=== PATIENT | male | born 1945 | race Caucasian/White ===

== ENCOUNTER 2017-12-25 14:06 | Emergency (ER) | payer MEDICARE, OTHER, SELFPAY ==
[2017-12-25 14:07] VITALS: BP 155/84; PULSE 77; RESP 18; TEMP 36.8; O2SAT 96; BMI 31.4
--- NOTE | 2017-12-25 14:32 | CT_ITS ---
STUDY: CT ABDOMEN AND PELVIS WITHOUT CONTRAST REASON FOR EXAM: Male, 72 years old. Right flank pain. History of kidney stones. RADIATION DOSAGE (If Supplied By Facility): CTDIvol = ( 17.67 ) mGy, DLP = ( 931.49 ) mGycm TECHNIQUE: Transaxial images were obtained from the dome of the diaphragm to the symphysis pubis without oral contrast, and without intravenous contrast. Sagittal and coronal images were reconstructed. Individualized dose optimization techniques were used for this CT. COMPARISON: None. FINDINGS: The visualized lung bases are unremarkable. The visualized portions of the heart are within normal limits. Normal liver. Normal gallbladder and extrahepatic biliary system. Normal spleen. Normal pancreas. Normal bilateral adrenal glands. Mild degree of right hydronephrosis. Right hydroureter due to a 3 mm calculus in the distal portion of the right ureter just proximal to the ureterovesical junction. Normal left kidney. There is a small hiatal hernia. Normal small intestine. There are multiple colonic diverticula consistent with diverticulosis. The appendix is visualized and appears normal. There is diffuse atherosclerotic calcification of the abdominal aorta, without a demonstrated aneurysm. Normal inferior vena cava. Normal retroperitoneum. Normal urinary bladder. There are prostatic calcifications. Small bilateral benign-appearing inguinal lymph nodes. Normal abdominal wall. Disc space narrowing and disc degeneration at the L5-S1 level. CT/Abdomen/Pelvis without Cont IMPRESSION: Right hydronephrosis and hydroureter due to a 3 mm calculus in the distal portion of the right ureter just proximal to the ureterovesical junction. Sigmoid diverticulosis. Electronically Signed: Ramiro Yip MD at 15:29 EDT Tel [phone], Service support ,
[2017-12-25] MEDS: Ondansetron 4 MG/2 ML Vial IV (14:44)
[2017-12-25] MEDS: morphine 8 MG/ML Syringe 6 MG IV (14:44)
[2017-12-25 14:48] LABS: Absolute Lymphocyte Count 1.55 X10^3/ul (0.83-4.51); Absolute Neutrophil Count 5.5 X10^3/uL (2.0-7.7); Basophil# 0.04 X10^3/uL; Basophil% 0.5 % (0-1); Eosinophil# 0.18 X10^3/uL; Eosinophils% 2.3 % (0-5); Hematocrit 48.2 % (40-54); Hemoglobin 17.3 g/dl (13.0-16.5); Lymphocyte # 1.55 X10^3/ul (4.0); Lymphocyte % 19.5 % (19-41); Mean Corp Hgb Conc 35.9 g/gl (32-36); Mean Corpuscular Hgb 34.2 pg (27.0-32.0); Mean Corpuscular Volume 95.3 fL (80-94); Mean Platelet Vol. 9.9 fl (6.2-12.0); Monocyte# 0.63 X10^3/uL; Monocyte% 7.9 % (0-10); Neutrophil # 5.53 X10^3/uL (2.7-7.7); Neutrophil % 69.5 % (47-70); POSITIVE COUNT NO; POSITIVE DIFFERENTIAL NO; POSITIVE MORPHOLOGY NO; Platelet Count 149 K/mm3 (150-450); RBC Distribution Width CV 12.9 % (11.6-14.6); RBC Distribution Width SD 45.2 fl (35.1-43.9); Red Blood Count 5.06 M/mm3 (4.6-6.2)
[2017-12-25 15:00] LABS: BUN 15 mg/dL (7-18); Creatinine, Serum 1.12 mg/dL (0.70-1.30); EST Glomerular Filtration Rate 69 mL/min (>60); Estimated Creatinine Clearance 70.33 ml/min; Glucose 142 mg/dL (74-106)
[2017-12-25 15:01] LABS: Anion Gap 8 (5-15); BUN/Creat Ratio 13.4 RATIO (10-20); Calcium,Total 9.3 mg/dL (8.5-10.1); Chloride 106 mmol/L (98-107); Est Glom Filt Rate - Afr Amer 83 mL/min (>60); Potassium 4.2 mmol/L (3.5-5.1); Sodium Level 142 mmol/L (136-145)
[2017-12-25 15:21] LABS: Mucous, Urine 0 SEEN /hpf (<or=2+)
[2017-12-25 15:24] LABS: Color, Urine Yellow (Yellow); Glucose, Dipstick Normal (Normal); Ketone-Dipstick Negative (Negative); Leukocyte Esterase-Dipstick 25 /ul (Negative); Nitrite-Dipstick Negative (Negative); Occult Blood-Urine 250 /ul (Negative); Protein-Dipstick 30 mg/dl (Negative); Urine Bilirubin Dipstick Negative (Negative); Urine Clarity Sl. Cloudy (Clear); Urine Urobilinogen Normal (Normal)
[2017-12-25 15:30] LABS: Bacteria 1+ /hpf (None Seen); Red Blood Cells-Urine 25-50 SEEN /hpf (0-5); Squamous Epithelial Cells - UA 0-5 SEEN /hpf (0-5); White Blood Cells 0-5 SEEN /hpf (0-5)
--- NOTE | 2017-12-25 15:46 | ED.VISSUMM ---
- ER Visit Summary Date of Service: 12/25/17 Chief Complaint: Right flank pain History of Present Illness: The patient is a 72 M history of prior multiple kidney stones. Some of them removed surgically there is with lithotripsy. Patient states the last couple of days has had right flank pain. Associated nausea. No vomiting or diarrhea. Today gross hematuria. No fever. No trauma. He believes he has another kidney stone. Physical Examination: Appearing older male. Vital signs are stable and afebrile. HEENT exam unremarkable. Neck is nontender. Lungs clear to auscultation bilaterally. Heart regular rate and rhythm. Abdomen soft and nontender. Normal bowel sounds no peritoneal signs. No pulsatile masses. Moving all 4 extremities. Without edema. Back exam he complains of pain in the right flank but there is no reproducible flank pain. Neurologically is awake and alert without focal motor deficits. Test Results: UA shows 25-50 red cells. No infection. No nitrites. No white cells. CBC normal. BMP normal. Gap of 8. Creatinine 1.1. CT flank without contrast shows a distal third 3 mm right ureteral calculi just above the UVJ. With hydronephrosis and hydroureter. Consistent with an acute ureteral calculi. Emergency Department Course and Treatment: Her male with right flank pain consistent with a kidney stone. Treated with IV morphine and Zofran. Treatment Plan: On repeat exam he is doing very well at 1643. He states he does not need any further pain medication at this time. It will be written for [place] for pain at home. Also Flomax. Strain his urine for stone. He has an appointment to see Dr. Soni tomorrow. Disposition: dc Impression: Acute right flank pain secondary to 3 mm right distal ureteral calculi History of kidney stones This note was generated with [employer] dictation software. It may contain incorrect words, spelling, and punctuation that were not noted in review of the chart prior to signing ED Disposition - Plan for ED Patient: Chief Complaint: Flank Pain Referrals: Eric Smith Chi, MD [Primary Care Provider] -
--- NOTE | 2017-12-25 15:49 | ED.DEP ---
ED Disposition - Plan for ED Patient: Disposition: Home or Assisted Living Chief Complaint: Flank Pain Instructions: ED Stone Renal W Colic Prescriptions: Hydrocodone Bitart/Apap 5-325 [[place] 5MG-325MG] 1 - 2 tab PO Q4H PRN PRN #20 tab PRN Reason: Pain Tamsulosin HCl [Flomax] 0.4 mg PO DAILY #7 cap Referrals: Sergio Soni MD [STAFF PHYSICIAN] - Keep Lona appointment Additional Instructions: Urine for passed stone. [place] for pain. Flomax to help pass the stone. Return if intractable pain, fever, intractable vomiting or feeling worse. Follow up with your urologist as scheduled tomorrow.
--- NOTE | 2017-12-25 15:52 | DCINST.ED_ITS ---
ED Disposition - Plan for ED Patient: Disposition: Home or Assisted Living Chief Complaint: Flank Pain Instructions: ED Stone Renal W Colic Prescriptions: Hydrocodone Bitart/Apap 5-325 [[place] 5MG-325MG] 1 - 2 tab PO Q4H PRN PRN #20 tab PRN Reason: Pain Tamsulosin HCl [Flomax] 0.4 mg PO DAILY #7 cap Referrals: Sergio Soni MD [STAFF PHYSICIAN] - Keep Lona appointment Additional Instructions: Urine for passed stone. [place] for pain. Flomax to help pass the stone. Return if intractable pain, fever, intractable vomiting or feeling worse. Follow up with your urologist as scheduled tomorrow.
[2017-12-25 16:08] VITALS: BP 140/81; PULSE 59; RESP 16; O2SAT 95
== END 2017-12-25 16:09 | disposition home or self-care (01) ==
PROVIDERS: Emergency Provider Emergency Medicine; Family Provider Family Medicine Geriatric Medicine; PCP Family Medicine Geriatric Medicine
DX: N20.1 Calculus of ureter (principal); Z87.442 Personal history of urinary calculi; N13.30 Unspecified hydronephrosis; Z85.828 Personal history of other malignant neoplasm of skin
CPT/HCPCS: 74176; 80048; 81001; 85025; 96374; 96375; 99283; J7030; J2405

== ENCOUNTER → 2018-01-26 08:27 | Outpatient (CLI) | payer MEDICARE, OTHER, SELFPAY ==
[2018-01-26 10:34] LABS: Vitamin D,25 Hydroxy 27.8 ng/mL (29.95-100.01)
[2018-01-26 10:36] LABS: PSA,Total - Annual Screen 2.37 ng/mL (0.00-4.00)
[2018-01-27 09:26] LABS: Hep C Antibodies <0.1 s/co ratio (0.0-0.9)
== END ==
PROVIDERS: Family Provider Family Medicine Geriatric Medicine; PCP Family Medicine Geriatric Medicine; Visit Provider Family Medicine Geriatric Medicine
DX: E55.9 Vitamin D deficiency, unspecified (principal); E23.6 Other disorders of pituitary gland; R53.83 Other fatigue; Z12.5 Encounter for screening for malignant neoplasm of prostate; Z13.89 Encounter for screening for other disorder
CPT/HCPCS: 36415; 82306; 84153; 84403; 86803; G0103

== ENCOUNTER 2018-02-28 09:00 | Outpatient (RCR) | payer MEDICARE, OTHER, SELFPAY ==
--- NOTE | 2018-01-31 14:48 | HP.OTEVAL_ITS ---
Patient's Visit Information BRENNAN LUIS is a 72 year old M, referred to Occupational Therapy by Eric Smith, with a diagnosis of CMC arthritis. Date of Evaluation: 01/31/18 Occupational Therapist: Park Chase, KAREN/Erasto, CHT - Subjective Subjective: Pt arrives to OT eval with order for custom orthosis for bilateral CMC arthritis. PT has struggled with thumb pain on and off for years. - Pain bilateral thumb 1 Pain Intensity Range: 0, 5 - DASH-Disabilities of Arm, Shoulder& Hand DASH Sum: 56 - Goals Goal:: pt will demo ind. donning/doffing of custom orthosis by end of 1st session - Rehabilitation General Assessment: Pt demo a need for bilateral CMC orthosis to provide support during performance of IADL tasks. Orthosis was jos. for bilateral thumbs. pt was ed on correct donning/doffing of orthosis and precautions. pt demo undersanding to return to clinic for orthosis adj. to increase comfort as needed. Rehabilitation Potential: Good - Anticipated Interventions Anticipated Interventions: Orthoses, Home Program Other Interventions: orthosis use and precautions - Visit Plan TEXT: Thank you for the opportunity to evaluate your patient. For Medicare and Medicare HMO plans, please review the plan of care and approve it. It will need to be FAXED BACK to us at [phone] for Medicare purposes. Please let me know if there are questions or concerns regarding this plan of care. Physician Signature: Date:
--- NOTE | 2018-04-02 15:26 | HP.OT.NRP ---
HP - Discharge Summary - Patient Information BRENNAN LUIS was seen in my office for initial evaluation on 01/31/18. The following Plan of Care was established for this patient: Plan: prn - Anticipated Interventions Anticipated Interventions: Orthoses, Home Program Other Interventions: orthosis use and precautions This patient was last seen in our office 02/28/18. Pertinent comments regarding their Occupational therapy will appear below: Pt seen for two visits- jos. of custom B CMC orthosis. pt demo understanding of orthosis use . pt last seen 02-28-18, no further apts scheduled. pt d/c at this time. At this point I will be discontinuing this patient from occupational therapy. I would be happy to see this patient again in the future if found appropriate by the physician. Thank you! Park Chase, OTR/L, CHT
== END 2018-02-28 19:00 | disposition home or self-care (01) ==
LOC: OT 09:00
PROVIDERS: Family Provider Family Medicine Geriatric Medicine; PCP Family Medicine Geriatric Medicine; Visit Provider Family Medicine Geriatric Medicine
DX: M79.2 Neuralgia and neuritis, unspecified (principal)
CPT/HCPCS: 97166; 97760; 97763

== ENCOUNTER → 2018-04-17 08:55 | Outpatient (CLI) | payer MEDICARE, OTHER, SELFPAY ==
--- NOTE | 2018-04-17 08:58 | RAD_ITS ---
STUDY: X-RAY - ESOPHAGUS (BARIUM SWALLOW) WITH FLUOROSCOPY REASON FOR EXAM: Male, 72 years old. Dysphagia. TECHNIQUE: 15 view(s) of the esophagus were obtained following swallowing of barium. FLUOROSCOPY TIME (if supplied): (0:29) minutes/seconds COMPARISON: None. FINDINGS: There is no demonstrated esophageal foreign body. There is no demonstrated stricture or mucosal abnormality. Normal gastroesophageal junction, without a demonstrated hiatal hernia. The patient ingested a 12 mm tablet of barium without any difficulty. There is atherosclerotic calcification of the aortic arch with tortuosity of the descending aorta. Normal visualized pulmonary parenchyma. Normal visualized osseous structures of the thorax. RAD/Esophagus Only IMPRESSION: Normal plain film x-ray examination (barium swallow) of the esophagus. Electronically Signed: Ramiro Yip MD at 14:15 EDT Tel [phone], Service support ,
== END ==
PROVIDERS: Family Provider Family Medicine Geriatric Medicine; PCP Family Medicine Geriatric Medicine; Visit Provider Otolaryngology Otolaryngology/Facial Plastic Surgery
DX: R13.10 Dysphagia, unspecified (principal)
CPT/HCPCS: 74220

== ENCOUNTER → 2018-07-19 12:08 | Outpatient (CLI) | payer MEDICARE, OTHER, SELFPAY ==
[2018-05-28 09:06] VITALS: BMI 31.4
[2018-07-19 12:43] LABS: Absolute Lymphocyte Count 0.87 X10^3/ul (0.83-4.51); Absolute Neutrophil Count 3.8 X10^3/uL (2.0-7.7); Basophil# 0.03 X10^3/uL; Basophil% 0.6 % (0-1); Eosinophil# 0.12 X10^3/uL; Eosinophils% 2.3 % (0-5); Hematocrit 48.8 % (40-54); Hemoglobin 16.4 g/dl (13.0-16.5); Lymphocyte # 0.87 X10^3/ul (4.0); Lymphocyte % 16.8 % (19-41); Mean Corp Hgb Conc 33.6 g/gl (32-36); Mean Corpuscular Hgb 32.6 pg (27.0-32.0); Monocyte# 0.33 X10^3/uL; Monocyte% 6.4 % (0-10); Neutrophil # 3.82 X10^3/uL (2.7-7.7); Neutrophil % 73.7 % (47-70); Platelet Count 188 K/mm3 (150-450); RBC Distribution Width CV 13.4 % (11.6-14.6); RBC Distribution Width SD 46.7 fl (35.1-43.9); Red Blood Count 5.03 M/mm3 (4.6-6.2); White Blood Count 5.2 K/mm3 (4.4-11.0)
[2018-07-19 12:47] LABS: POSITIVE COUNT NO; POSITIVE DIFFERENTIAL NO; POSITIVE MORPHOLOGY NO
[2018-07-19 13:00] LABS: ALB/GLOB Ratio 0.9 RATIO (0.9-2.4); AST(SGOT) 25 U/L (15-37); Alanine Aminotransfer ALT/SGPT 39 U/L (16-61); Albumin, Serum 3.7 g/dL (3.2-5.0); Alkaline Phosphatase 79 U/L (45-117); Anion Gap 7 (5-15); BUN 14 mg/dL (7-18); BUN/Creat Ratio 13.2 RATIO (10-20); Calcium,Total 8.6 mg/dL (8.5-10.1); Chloride 109 mmol/L (98-107); Creatinine, Serum 1.06 mg/dL (0.70-1.30); EST Glomerular Filtration Rate 73 mL/min (>60); Est Glom Filt Rate - Afr Amer 88 mL/min (>60); Glucose 104 mg/dL (74-106); Potassium 4.4 mmol/L (3.5-5.1); Protein, Total 7.7 g/dL (6.4-8.2); Sodium Level 144 mmol/L (136-145); Thyroid Stim Hormone (TSH) 1.26 uIU/mL (0.358-3.74); Vitamin D,25 Hydroxy 32.4 ng/mL (29.95-100.01)
--- OUTSIDE RECORDS SUMMARY | 2018-09-04 07:18 | XMS RPT_ITS ---
:1945 Author Organization OHIP Support Name Relationship Address Phone OLGA LIDIA LUISNA Unavailable [id number] + [address] [place] [address] R Unavailable Unavailable Unavailable JANELLE, MURTAZA Unavailable [address] + [place] [address] R Unavailable Unavailable Unavailable JANELLE, MURTAZA Unavailable [address] + [place] [address] R Unavailable Unavailable Unavailable JANELLE, MURTAZA Unavailable [address] + [place] [address] R Unavailable Unavailable Unavailable JANELLE, MURTAZA Unavailable [address] + [place] [address] R Unavailable Unavailable Unavailable JANELLE, MURTAZA Unavailable [address] + [place] [address] R Unavailable Unavailable Unavailable JANELLE, MURTAZA Unavailable [address] + [place] [address] R Unavailable Unavailable Unavailable JANELLE, MURTAZA Unavailable [address] + [place] [address] R Unavailable Unavailable Unavailable JANELLE, MURTAZA Unavailable [address] + [place] [address] R Unavailable Unavailable Unavailable JANELLE, MURTAZA Unavailable [address] + [place] [address] R Unavailable Unavailable Unavailable JANELLE, MURTAZA Unavailable [address] + [place] [address] R Unavailable Unavailable Unavailable JANELLE, MURTAZA Unavailable [address] + [place] [address] R Unavailable Unavailable Unavailable JANELLE, MURTAZA Unavailable [address] + [place] [address] R Unavailable Unavailable Unavailable JANELLE, MURTAZA Unavailable [address] + [place] [address] R Unavailable Unavailable Unavailable JANELLE, MURTAZA Unavailable [address] + [place] [address] R Unavailable Unavailable Unavailable JANELLE, MURTAZA Unavailable [address] + [place] [address] R Unavailable Unavailable Unavailable Care Team Providers Name Role Phone Luis, Eric Chi Attending Unavailable Luis, Eric Chi Primary Care Unavailable Sergio Soni Attending Unavailable NaeSergio Referring Unavailable Luis, Eric Chi Primary Care Unavailable DOCTOR, OUT OF TOWN Attending Unavailable Yovany Solomon Primary Care Unavailable Luis, Eric Chi Primary Care Unavailable Baldomero Michaels Attending Unavailable Luis, Eric Chi Attending Unavailable Luis, Eric Chi Referring Unavailable Luis, Eric Chi Primary Care Unavailable Luis, Eric Chi Attending Unavailable Luis, Eric Chi Primary Care Unavailable Luis, Eric Chi Referring Unavailable DossieLexie D.C. Attending Unavailable Luis, Eric Chi Referring Unavailable Luis, Eric Chi Primary Care Unavailable Dossie, Lexie Day Attending Unavailable Luis, Eric Chi Referring Unavailable Luis, Eric Chi Primary Care Unavailable Jacinto Petersonun Attending Unavailable Kristen, Justin Referring Unavailable Luis, Eric Chi Primary Care Unavailable Hank Aldridge Attending Unavailable Luis, Eric Chi Referring Unavailable Luis, Eric Chi Primary Care Unavailable Luis, Eric Chi Primary Care Unavailable Referred, Self Attending Unavailable DossieLexie D.C. Attending Unavailable Luis, Eric Chi Referring Unavailable DossieLexie D.C. Attending Unavailable Luis, Eric Chi Referring Unavailable DossieLexie D.C. Attending Unavailable Luis, Eric Chi Referring Unavailable DossieLexie D.C. Attending Unavailable Luis, Eric Chi Referring Unavailable Dossie, Lexie Day Attending Unavailable Luis, Eric Chi Referring Unavailable PROBLEMS PROBLEMS DATE TYPE CONDITION / CODE ATTENDING STATUS SOURCE 05/29/2018 Unknown M99.03 - Segmental DossieLexie and pete ChackoCLilia Community dysfunction of [facility] lumbar region / Repository M99.03(ICD-10) 05/29/2018 Unknown M99.02 - Segmental Dossie, Lexie Active [facility] Community dysfunction of Hospital thoracic region / Repository M99.02(ICD-10) 05/29/2018 Unknown M99.05 - Segmental Dossie, Lexie Active [facility] 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, lumbar Hospital region / Repository M51.36(ICD-10) 04/03/2018 Unknown M79.2 - Neuralgia Luis, Eric Chi Active [place] and neuritis, Community unspecified / Hospital M79.2(ICD-10) Repository 12/25/2017 Unknown N20.0 - Calculus of Baldomero Michaels Active [facility] N20.0(ICD-10) Hospital Repository PROCEDURES PROCEDURES No Procedure Records FoundRESULTS RESULTS CYTOSPIN ON FLUID Observed: 08/28/2018 Status: F Source: [place] 9:30 AM [facility] REPOSITORY Patient: BRENNAN LUIS : 1945 (73/M) Acct Num: [id number] Phys: Nae MAS,[facility] Unit Num: [id number] Loc: LABSPEC Specimen: [id number] Received: 08/28/18 - 935 Spec Type: CYSPIN FL TISSUES 1 TISSUES: Urine CYTOLOGY GROSS Received is 55 ml of cloudy gold fluid labeled with the patient's name and and designated per the requisition as urine. Submitted for cytology preparation. / 08/28/18 TC:3 CPT: 62066 CYTOLOGY STUDY Slides are reviewed. The specimen consists of benign urothelial cells, histiocytes, red blood cells and a few crystals. DIAGNOSIS CYTOLOGY Urine for cytology (cytospin): Negative for malignant cells. See cytology study. CE:mack 08/29/18 HEADER OPERATION: Not noted PRE-OP DIAGNOSIS: Hematuria TISSUE SUBMITTED: Urine for cytology Signed Jaime Doran MD <signature on file> Performed By: #### PCYSPIN #### [facility] [address] [place], [place], [address] CBC W/DIFF, AUTOMATED Collected: 07/19/2018 Status: F Source: [place] 12:10 PM [facility] REPOSITORY TYPE CODE TESTS RESULT OUT OF RANGE REFERENCE UNITS LAB L100.1000 4.4-11.0 K/mm3 Normal WBC 5.2 LAB L100.1200 4.6-6.2 M/mm3 Normal RBC 5.03 LAB L100.1300 13.0-16.5 g/dl Normal HGB 16.4 LAB L100.1400 40-54 % Normal HCT 48.8 LAB L100.1500 80-94 fL High MCV 97.0 LAB L100.1600 27.0-32.0 pg High MCH 32.6 LAB L100.1700 32-36 g/gl Normal MCHC 33.6 LAB L100.1810 11.6-14.6 % Normal RDW CV 13.4 LAB L100.1820 35.1-43.9 fl High RDW SD 46.7 LAB L100.1900 150-450 K/mm3 Normal PLT 188 LAB L100.2000 6.2-12.0 fl Normal MPV 11.0 LAB L100.2100 47-70 % High NEUT% 73.7 LAB L100.2200 19-41 % Low LY% 16.8 LAB L100.2300 0-10 % Normal MONO% 6.4 LAB L100.2400 0-5 % Normal EO% 2.3 LAB L100.2500 0-1 % Normal BASO% 0.6 LAB L100.2550 0.0-0.9 % Normal IM GRAN % 0.200 Result Comment: IG% - Immature Granulocytes (promyelocytes, myelocytes and metamyelocytes) > 1% indicates that a LEFT SHIFT is Present. LAB L100.2620 2.0-7.7 X10 3/uL Normal Absolute Neut 3.8 LAB L100.2720 0.83-4.51 X10 3/ul Normal Absolute Lymph 0.87 Performed By: #### L100.0100 #### [facility] [address] [place], [address] VITAMIN D,25 HYDROXY Collected: 07/19/2018 Status: F Source: [place] 12:10 PM [facility] REPOSITORY TYPE CODE TESTS RESULT OUT OF RANGE REFERENCE UNITS LAB L506.1000 29.95-100.01 ng/mL Normal Vitamin D 32.4 25-OH Result Comment: Vitamin D 25(OH) Status Range Deficiency <20 ng/mL (50nmol/L) Insuffciency 20 - 30 ng/mL (50 - 75 nmol/L) Sufficiency 30 - 100 ng/mL (75 - 250 nmol/L) Toxicity >100 ng/mL (>250 nmol/L) Performed By: #### L506.1000, L509.3000 #### [facility] [address] [place], [place], [address] TESTOSTERONE, SERUM TOTAL Collected: 07/19/2018 Status: F Source: [place] 12:10 PM [facility] REPOSITORY TYPE CODE TESTS RESULT OUT OF REFERENCE UNITS RANGE LAB L509.3000 ng/dL Testosterone Normal 633.48 Result Comment: NORMAL REFERENCE RANGES MALE AGE <50 123.06 - 813.86 ng/dL MALE AGE >50 89.98 - 780.10 ng/dL FEMALE PREMENOPAUSE AGE 21 - 60 9.01 - 47.94 ng/dL FEMALE POSTMENOPAUSE AGE 45 - 89 <7.00 - 45.62 ng/dL REFERENCE RANGE AND METHODOLOGY CHANGED 07/26/2017 Performed By: #### L506.1000, L509.3000 #### [facility] [address] [place], [place], [address] COMPREHENSIVE METABOLIC Collected: 07/19/2018 Status: F Source: [place] [facility] 12:10 PM [facility] REPOSITORY TYPE CODE TESTS RESULT OUT OF RANGE REFERENCE UNITS LAB L501.0100 74-106 mg/dL Normal GLU 104 Result Comment: Fasting Glucose result from 100 to 125 mg/dL suggests IMPAIRED HOMEOSTASIS per A.D.A. criteria. Please note revised GLUCOSE reference range effective 2017. LAB L501.1000 7-18 mg/dL Normal BUN 14 LAB L501.1100 0.70-1.30 mg/dL Normal CREAT,SERUM 1.06 Result Comment: The validity of the calculated GFR AND GFRAA in patients over 70 years has not been determined. Clinical correlation is essential. LAB L501.1110 >60 mL/min Normal EST GFR 73 Result Comment: Non- GFR Calc LAB L501.1115 >60 mL/min Normal EST GFR - AA 88 Result Comment: GFR Calc LAB L501.1300 10-20 RATIO Normal BUN/CRE 13.2 LAB L501.1500 6.4-8.2 g/dL T Normal PROT 7.7 LAB L501.1800 3.2-5.0 g/dL Normal ALB 3.7 LAB L501.1950 2.2-4.2 g/dL Normal GLOB 4.0 LAB L501.2000 0.9-2.4 RATIO Normal A/G 0.9 LAB L501.2200 8.5-10.1 mg/dL CA Normal 8.6 LAB L501.4100 15-37 U/L Normal AST 25 LAB L501.4305 45-117 U/L Normal ALK P 79 LAB L501.4405 16-61 U/L Normal ALT 39 LAB L501.4600 0.20-1.00 mg/dL T Normal BILI 0.90 LAB L501.5300 136-145 mmol/L NA Normal 144 LAB L501.5600 3.5-5.1 mmol/L K Normal 4.4 LAB L501.5900 98-107 mmol/L High CL 109 LAB L501.6100 21.0-32.0 mmol/L Normal CO2 28.0 LAB L501.6200 5-15 Normal GAP 7 Performed By: #### L500.4050, L501.9520 #### [facility] [address] [facility] [place], [place], [id number] THYROID STIM HORMONE Collected: 07/19/2018 Status: F Source: [place] (TSH) 12:10 PM [facility] REPOSITORY TYPE CODE TESTS RESULT OUT OF RANGE REFERENCE UNITS LAB L501.9520 0.358-3.74 uIU/mL Normal TSH 1.26 Performed By: #### L500.4050, L501.9520 #### [facility] [address] [place], [place], [address] CHIROPRACTIC REPORT Observed: 06/04/2018 Status: F Source: [place] 8:26 [facility] [address] [place] [address] OFFICE VISIT Date of Service: 05/28/18 MR#: [id number] Acct: [id number] Name: BRENNAN LUIS Rep #: [id number] : 1945 Provider: Lexie Goodson D.C. Age/Sex: 73/M [place] [facility] [place]: Signed Intake Vital Signs05/28/18 Height 6 ft 2 in 05/28/18 Weight: 245 lb 05/28/18 Body Mass Index (BMI) 31.4 Intake Visit Reasons: back pain Chief Complaint: R sided low back pain Is patient in pain?: Yes Allergies celecoxib [From Celebrex] Adverse Reaction (Verified 10/29/15 14:56) Unknown Medications Allopurinol [Zyloprim] 300 mg PO DAILY 10/29/15 [History Confirmed 12/25/17] Atorvastatin Calcium [Lipitor] 20 mg PO QHS 10/29/15 [History Confirmed 12/25/17] Hydrocodone Bitart/Apap 5-325 [[place]ano 5MG-325MG] 1 - 2 tab PO Q4H PRN PRN #20 tab 12/25/17 [Rx] Tamsulosin HCl [Flomax] 0.4 mg PO DAILY #7 cap 12/25/17 [Rx] gabapentin 400 mg capsule 400 mg PO QDAY 01/31/18 [History Confirmed 01/31/18] PFSH Medical History DDD (degenerative disc disease), lumbar (Chronic) Arthritis (Acute) Environmental allergies (Acute) High cholesterol (Acute) History of cancer (Acute) History of melanoma (Acute) Vitamin D deficiency (Acute) Surgical History History of melanoma excision (Acute) History of shoulder surgery (Acute) Social History Smoking Status: Never smoker alcohol intake: never substance use type: does not use what type of physical activity do you participate in: walking, weight training frequency: 5-6 times per week HPI back pain : Chief Complaint: Low back pain Visit Number: 7 Details: BRENNAN LUIS is a 73 year old M who presents with low back pain. He states that his low back pain has increased, leaving him with a tight and sharp ache banding across the low back. Standing, bending, lifting, and twisting all causes increased pain, leaving him with a constant ache banding across the low back. At times with prolonged sitting, and walking the pain will increase radiating into the leg with a sharp and shooting pain/ Elpidio denies any numbness, tingling, or radiculopathy. Location: low back pain Duration: constant Aggravating or associated factors: bending, liftng, twisting, sitting and walking Relieving factors: none Pain Quality: aching, dull, cramping, sharp Exam Musc General: Yes normal gait and joint tenderness (T10, T11,L2- L5, R SI); no normal posture (anterior head carriage) Thoracic/Lumbar Spine: thor and lumb spine abnorm to inspection (hyperkyphosis of thoracic spine), pain with thoraco-lumbar ROM, paraspinal tenderness bilaterally in the lower lumbar, in the mid lumbar, in the upper lumbar and in the lower thoracic, thoraco-lumbar ROM limited, thoraco-lumbar spasm bilaterally in the lower lumbar and in the mid lumbar Sacroiliac joints: on the right Office Procedures Chiropractic Treatments Procedures Manipulation: 3-4 regions (T10,L2,L5, RIL) Assessment AND Plan 1. Segmental and somatic dysfunction of pelvic region M99.05 Orders Orders: 2. DDD (degenerative disc disease), lumbar M51.36 Orders Orders: 3. Segmental and somatic dysfunction of lumbar region M99.03 Orders Orders: 4. Segmental and somatic dysfunction of thoracic region M99.02 Orders Orders: Plan Detail Additional Comments Recommend follow up with pain management. Goals Decrease pain Improve sleeping Barriers DDD Follow Up 2 x week Coding Level of Care Code No Charge Diagnoses Segmental and somatic dysfunction of pelvic region M99.05 DDD (degenerative disc disease), lumbar M51.36 Segmental and somatic dysfunction of lumbar region M99.03 Segmental and somatic dysfunction of thoracic region M99.02 Additional Codes Procedures - Manipulation: 3-4 regions (48613) 06/04/18 0826 <Electronically signed by Lexie Goodson D.C.> Date Lexie Mastign Signature: Date (if applicable) CC: CHIROPRACTIC REPORT Observed: 05/23/2018 Status: F Source: [place] 10:10 AM [facility] [address] [place] [address] OFFICE VISIT Date of Service: 05/23/18 MR#: [id number] Acct: [id number] Name: BRENNAN LUIS Rep #: [id number] : 1945 Provider: Lexie Goodson D.C. Age/Sex: 73/M [place] [facility] [place] Signed Intake Vital Signs05/23/18 Height 6 ft 2 in 05/23/18 Weight: 245 lb 05/23/18 Body Mass Index (BMI) 31.4 Intake Visit Reasons: back pain Chief Complaint: R sided low back pain Is patient in pain?: Yes Allergies celecoxib [From Celebrex] Adverse Reaction (Verified 10/29/15 14:56) Unknown Medications Allopurinol [Zyloprim] 300 mg PO DAILY 10/29/15 [History Confirmed 12/25/17] Atorvastatin Calcium [Lipitor] 20 mg PO QHS 10/29/15 [History Confirmed 12/25/17] Hydrocodone Bitart/Apap 5-325 [[place]ano 5MG-325MG] 1 - 2 tab PO Q4H PRN PRN #20 tab 12/25/17 [Rx] Tamsulosin HCl [Flomax] 0.4 mg PO DAILY #7 cap 12/25/17 [Rx] gabapentin 400 mg capsule 400 mg PO QDAY 01/31/18 [History Confirmed 01/31/18] PFSH Medical History DDD (degenerative disc disease), lumbar (Chronic) Arthritis (Acute) Environmental allergies (Acute) High cholesterol (Acute) History of cancer (Acute) History of melanoma (Acute) Vitamin D deficiency (Acute) Surgical History History of shoulder surgery (Acute) Social History Smoking Status: Never smoker alcohol intake: never substance use type: does not use what type of physical activity do you participate in: walking, weight training frequency: 5-6 times per week HPI back pain: Chief Complaint: R sided low back pain Visit Number: 6 Details: BRENNAN LUIS is a 73 year old M who presents with R sided low back pain. He states that pain has been consistent leaving him with a tight ache banding across the low back constantly. After walking a long distance and prolonged sitting, Elpidio still experiences a sharp shooting pain into the R leg. At times the pain can be severe causing his knee to buckle. Overall today Elpidio rates his pain a 3/10 and describes it as a dull ache that bands across the low back, he denies any numbness or tingling. Location: R sided low back pain Duration: constant Aggravating or associated factors: walking, bending. and sitting Relieving factors: chiro Pain Quality: aching, dull, sharp, radiating Exam Musc General: Yes normal gait and joint tenderness (T10, T11,L2- L5, R SI); no normal posture (anterior head carriage) Thoracic/Lumbar Spine: thor and lumb spine abnorm to inspection (hyperkyphosis of thoracic spine), pain with thoraco-lumbar ROM, paraspinal tenderness on the right greater than left, thoraco-lumbar ROM limited, thoraco-lumbar spasm on the right greater than left Sacroiliac joints: on the right Office Procedures Chiropractic Treatments Procedures Manipulation: 3-4 regions (T10,L2,L5, RIL) Hot and/or cold packs: Yes Details: Lumbar traction 15 min Assessment AND Plan 1. Segmental and somatic dysfunction of pelvic region M99.05 Orders Orders: 2. DDD (degenerative disc disease), lumbar M51.36 Orders Orders: 3. Segmental and somatic dysfunction of lumbar region M99.03 Orders Orders: 4. Segmental and somatic dysfunction of thoracic region M99.02 Orders Orders: Plan Detail Goals Decrease pain Improve sleeping Barriers DDD Follow Up 2 x week Coding Level of Care Code No Charge Diagnoses Segmental and somatic dysfunction of pelvic region M99.05 DDD (degenerative disc disease), lumbar M51.36 Segmental and somatic dysfunction of lumbar region M99.03 Segmental and somatic dysfunction of thoracic region M99.02 Additional Codes Procedures - Manipulation: 3-4 regions (45812) Procedures - Hot and/or cold packs: Yes (59439) 05/23/18 1010 <Electronically signed by Lexie Goodson D.C.> Date Lexie Goodson D.C. Cosigner Signature: Date (if applicable) CC: CHIROPRACTIC REPORT Observed: 05/21/2018 Status: F Source: [place] 9:34 AM [facility] [address] [place] [address] OFFICE VISIT Date of Service: 05/17/18 MR#: [id number] Acct: [id number] Name: BRENNAN LUIS Rep #: [id number] : 1945 Provider: Lexie Goodson D.C. 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: No Accompanied by: None Is patient in pain?: Yes Allergies celecoxib [From Celebrex] Adverse Reaction (Verified 10/29/15 14:56) Unknown Medications Allopurinol [Zyloprim] 300 mg PO DAILY 10/29/15 [History Confirmed 12/25/17] Atorvastatin Calcium [Lipitor] 20 mg PO QHS 10/29/15 [History Confirmed 12/25/17] Hydrocodone Bitart/Apap 5-325 [[place]ano 5MG-325MG] 1 - 2 tab PO Q4H PRN PRN #20 tab 12/25/17 [Rx] Tamsulosin HCl [Flomax] 0.4 mg PO DAILY #7 cap 12/25/17 [Rx] gabapentin 400 mg capsule 400 mg PO QDAY 01/31/18 [History Confirmed 01/31/18] [facility] Medical History DDD (degenerative disc disease), lumbar (Chronic) Arthritis (Acute) Environmental allergies (Acute) High cholesterol (Acute) History of cancer (Acute) History of melanoma (Acute) Vitamin D deficiency (Acute) Surgical History History of melanoma excision (Acute) History of shoulder surgery (Acute) Social History Smoking Status: Never smoker alcohol intake: never substance use type: does not use what type of physical activity do you participate in: walking, weight training frequency: 5-6 times per week HPI back pain : Chief Complaint: Low back pain Visit Number: 5 Details: BRENNAN LUIS is a 73 year old M who presents with increased low back pain. He states that earlier in the week while walking a long distance his pain increased leaving him with a sharp shooting that bands across the low back with slight tingling into the legs. Today Elpidio rates his pain a 4/10 and states currently he is left with a dull ache that increases with bending, lifting, twisting and prolonged walking, and sitting. Onset: 05/14/18 Location: low back Duration: constant Aggravating or associated factors: bending, lifting, prolonged walking and sitting Relieving factors: chiro Pain Quality: aching, cramping, sharp, radiating Exam Musc General: Yes normal gait and joint tenderness (T10, T11,L2- L5, R SI); no normal posture (anterior head carriage) Thoracic/Lumbar Spine: thor and lumb spine abnorm to inspection (hyperkyphosis of thoracic spine), pain with thoraco-lumbar ROM, paraspinal tenderness bilaterally in the lower lumbar, in the mid lumbar and in the lower thoracic, thoraco-lumbar ROM limited, thoraco-lumbar spasm bilaterally in the lower lumbar and in the lower thoracic Sacroiliac joints: on the right Office Procedures Chiropractic Treatments Procedures Manipulation: 3-4 regions (T10, L2,L5, RiL) Traction, Mechanical: Yes Details: Lumbar traction 15 min Assessment AND Plan 1. Segmental and somatic dysfunction of pelvic region M99.05 Orders Orders: 2. DDD (degenerative disc disease), lumbar M51.36 Orders Orders: 3. Segmental and somatic dysfunction of lumbar region M99.03 Orders Orders: 4. Segmental and somatic dysfunction of thoracic region M99.02 Orders Orders: Plan Detail Goals Decrease pain Improve sleeping Barriers DDD Follow Up 1 x week Coding Level of Care Code No Charge Diagnoses Segmental and somatic dysfunction of pelvic region M99.05 DDD (degenerative disc disease), lumbar M51.36 Segmental and somatic dysfunction of lumbar region M99.03 Segmental and somatic dysfunction of thoracic region M99.02 Additional Codes Procedures - Manipulation: 3-4 regions (28855) Procedures - Traction, Mechanical: Yes (23235) 05/21/18 0934 <Electronically signed by Lexie Goodson D.C.> Date Lexie Goodson D.C. Cosigner Signature: Date (if applicable) CC: CHIROPRACTIC REPORT Observed: 05/14/2018 Status: F Source: [place] 3:28 PM [facility] [address] [place] [address] OFFICE VISIT Date of Service: 05/14/18 MR#: [id number] Acct: [id number] Name: BRENNAN LUIS Rep #: [id number] : 1945 Provider: Lexie Goodson D.C. Age/Sex: 73/M [place] [facility] [place]: Signed Intake Vital Signs05/14/18 Height 6 ft 2 in 05/14/18 Weight: 245 lb 05/14/18 Body Mass Index (BMI) 31.4 Intake Visit Reasons: back pain Chief Complaint: R sided low back pain Is patient in pain?: Yes Allergies celecoxib [From Celebrex] Adverse Reaction (Verified 10/29/15 14:56) Unknown Medications Allopurinol [Zyloprim] 300 mg PO DAILY 10/29/15 [History Confirmed 12/25/17] Atorvastatin Calcium [Lipitor] 20 mg PO QHS 10/29/15 [History Confirmed 12/25/17] Hydrocodone Bitart/Apap 5-325 [[place]ano 5MG-325MG] 1 - 2 tab PO Q4H PRN PRN #20 tab 12/25/17 [Rx] Tamsulosin HCl [Flomax] 0.4 mg PO DAILY #7 cap 12/25/17 [Rx] gabapentin 400 mg capsule 400 mg PO QDAY 01/31/18 [History Confirmed 01/31/18] [facility] Medical History DDD (degenerative disc disease), lumbar (Chronic) Arthritis (Acute) Environmental allergies (Acute) High cholesterol (Acute) History of cancer (Acute) History of melanoma (Acute) Vitamin D deficiency (Acute) Surgical History History of melanoma excision (Acute) History of shoulder surgery (Acute) Social History Smoking Status: Never smoker alcohol intake: never substance use type: does not use what type of physical activity do you participate in: walking, weight training frequency: 5-6 times per week HPI back pain : Chief Complaint: R sided low back pain Visit Number: 4 Details: BRENNAN LUIS is a 73 year old M who presents with R sided low back pain. He states that his pain has become intermittent after his last appointment. He continues to experience a sharp shooting pain after sitting for a long period of time. Currently Brennan rates his pain a 2/10 and describes it as a dull ache that bands across the back. After sitting in the car or at home for a long period of time Brennan states the pain becomes sharp and shooting, rating it a 7/10. Brennan denies any numbness, tingling, or radiculopathy. Location: R low back pain Duration: intermittent Aggravating or associated factors: prolonged sitting Relieving factors: standing Pain Quality: aching, dull, cramping, sharp, radiating Exam Musc General: Yes normal gait and joint tenderness (T10, T11,L2- L5, R SI); no normal posture (anterior head carriage) Thoracic/Lumbar Spine: thor and lumb spine abnorm to inspection (hyperkyphosis of thoracic spine), pain with thoraco-lumbar ROM, paraspinal tenderness on the right greater than left (lower lumbar) and bilaterally in the lower thoracic, thoraco- lumbar ROM limited, thoraco-lumbar spasm bilaterally in the lower thoracic and on the right in the lower lumbar Sacroiliac joints: on the right Office Procedures Chiropractic Treatments Procedures Manipulation: 3-4 regions (T10, L2,L5, RIL) Assessment AND Plan 1. Segmental and somatic dysfunction of pelvic region M99.05 Orders Orders: 2. DDD (degenerative disc disease), lumbar M51.36 Orders Orders: 3. Segmental and somatic dysfunction of lumbar region M99.03 Orders Orders: 4. Segmental and somatic dysfunction of thoracic region M99.02 Orders Orders: Plan Detail Goals Decrease pain Improve sleeping Barriers DDD Follow Up 2 x week Coding Level of Care Code No Charge Diagnoses Segmental and somatic dysfunction of pelvic region M99.05 DDD (degenerative disc disease), lumbar M51.36 Segmental and somatic dysfunction of lumbar region M99.03 Segmental and somatic dysfunction of thoracic region M99.02 Additional Codes Procedures - Manipulation: 3-4 regions (62142) 05/14/18 1528 <Electronically signed by Lexie Goodson D.C.> Date Lexie Goodson D.C. Cosigner Signature: Date (if applicable) CC: CHIROPRACTIC REPORT Observed: 05/10/2018 Status: F Source: [place] 10:23 AM [facility] [address] [place] [address] OFFICE VISIT Date of Service: 05/10/18 MR#: [id number] Acct: [id number] Name: BRENNAN LUIS Rep #: [id number] : 1945 Provider: Lexie Goodson D.C. Age/Sex: 73/M [place] [facility] [place]: Signed Intake Vital Signs05/10/18 Height 6 ft 2 in 05/10/18 Weight: 242 lb 05/10/18 Body Mass Index (BMI) 31.0 Intake Visit Reasons: back pain Chief Complaint: R sided low back pain Is patient in pain?: Yes Allergies celecoxib [From Celebrex] Adverse Reaction (Verified 10/29/15 14:56) Unknown Medications Allopurinol [Zyloprim] 300 mg PO DAILY 10/29/15 [History Confirmed 12/25/17] Atorvastatin Calcium [Lipitor] 20 mg PO QHS 10/29/15 [History Confirmed 12/25/17] Hydrocodone Bitart/Apap 5-325 [Catano 5MG-325MG] 1 - 2 tab PO Q4H PRN PRN #20 tab 12/25/17 [Rx] Tamsulosin HCl [Flomax] 0.4 mg PO DAILY #7 cap 12/25/17 [Rx] gabapentin 400 mg capsule 400 mg PO QDAY 01/31/18 [History Confirmed 01/31/18] PFSH Medical History DDD (degenerative disc disease), lumbar (Chronic) Arthritis (Acute) Environmental allergies (Acute) High cholesterol (Acute) History of cancer (Acute) History of melanoma (Acute) Vitamin D deficiency (Acute) Surgical History History of melanoma excision (Acute) History of shoulder surgery (Acute) Social History Smoking Status: Never smoker alcohol intake: never substance use type: does not use what type of physical activity do you participate in: walking, weight training frequency: 5-6 times per week HPI back pain : Chief Complaint: R sided low back pain Visit Number: 3 Details: BRENNAN LUIS is a 73 year old M who presents with R sided low back pain. He states that his pain has been ongoing since driving to [place], after being in the car for 30 mins he began experiencing pain radiating into the R thigh described as a sharp shooting. Today Brennan rates his pain a 4/10 and describes it as a constant ache, although after sitting for more than 30 min the pain becomes sharp shooting. Brennan denies any numbness, or tingling. Onset: 04/09/18 Location: R low back Duration: constant Aggravating or associated factors: sitting Relieving factors: none Pain Quality: aching, dull, cramping, sharp, radiating Exam Musc General: Yes normal gait and joint tenderness (T10, T11,L2- L5, R SI); no normal posture (anterior head carriage) Thoracic/Lumbar Spine: thor and lumb spine abnorm to inspection (hyperkyphosis of thoracic spine), pain with thoraco-lumbar ROM with forward flexion, with lateral flexion to the right, with rotation to the right and other (extension), paraspinal tenderness on the right in the lower thoracic, in the upper lumbar, in the lower lumbar and in the mid lumbar, thoraco-lumbar ROM limited with forward flexion, thoraco-lumbar spasm on the right in the lower lumbar and in the mid lumbar Sacroiliac joints: on the right tender to palpation Neuro General: alert, awake, oriented x3, normal light touch, pain and propioception, no focal motor deficits Ortho Test CERVICAL THORACIC Kemps: Negative LUMBAR Kemps: Positive, Rig Valsalvas: Negative SLR: Negative Iliac Compression: Positive, Rig Office Procedures Chiropractic Treatments Procedures Manipulation: 3-4 regions (T10, L2, L5, RIL) Assessment AND Plan 1. Segmental and somatic dysfunction of pelvic region M99.05 Orders Orders: 2. DDD (degenerative disc disease), lumbar M51.36 Orders Orders: 3. Segmental and somatic dysfunction of lumbar region M99.03 Orders Orders: 4. Segmental and somatic dysfunction of thoracic region M99.02 Orders Orders: Plan Detail Additional Comments Performed re-eval and recommend beginning acute treatment plan: 2x/wk/2wks Goals Decrease pain Improve sleeping Barriers DDD Follow Up 2 x week Coding Level of Care Code Off vis,est,level 1 Diagnoses Segmental and somatic dysfunction of pelvic region M99.05 DDD (degenerative disc disease), lumbar M51.36 Segmental and somatic dysfunction of lumbar region M99.03 Segmental and somatic dysfunction of thoracic region M99.02 Additional Codes Procedures - Manipulation: 3-4 regions (36198) 05/10/18 1023 <Electronically signed by Lexie Goodson D.C.> Date Lexie Mcgrath Signature: Date (if applicable) CC: OFFICE VISIT REPORT Observed: 04/17/2018 Status: F Source: [place] 10:49 AM [place] [address] [address] OFFICE VISIT Date of Service: 04/17/18 MR#: [id number] Acct: [id number] Patient: BRENNAN LUIS Rep #: [id number] : 1945 Provider: Hank MARQUEZ Age/Sex: 72/M Location: [facility] Status: Signed Intake Intake Visit Reasons: SHINGLES VACCINE #2 Chief Complaint: back pain Allergies celecoxib [From Celebrex] Adverse Reaction (Verified 10/29/15 14:56) Unknown Medications Allopurinol [Zyloprim] 300 mg PO DAILY 10/29/15 [History Confirmed 12/25/17] Atorvastatin Calcium [Lipitor] 20 mg PO QHS 10/29/15 [History Confirmed 12/25/17] Hydrocodone Bitart/Apap 5-325 [Catano 5MG-325MG] 1 - 2 tab PO Q4H PRN PRN #20 tab 12/25/17 [Rx] Tamsulosin HCl [Flomax] 0.4 mg PO DAILY #7 cap 12/25/17 [Rx] gabapentin 400 mg capsule 400 mg PO QDAY 01/31/18 [History Confirmed 01/31/18] Office Meds Shingrix (PF) Performing Provider: ALMA Farr Administered by: Kira Caceres on 04/17/18 10:13 Dose Route Admin Location Lot Number Expiration Date [facility] [employer] Assessment AND Plan Orders Orders: Medications Discontinued: Shingrix (PF) (varicella-zoster gE-AS01B (PF)) Disco0.5 mL IM ONCE NS Z23 Kira Caceres ntinued Reason: Office Medication has been Documented as given Plan Detail Goals Decrease pain Improve sleeping Barriers DDD 04/17/18 1049 <Electronically signed by Hank MARQUEZ> Date Hank Mcgrath Signature: Date (if applicable) CC: ESOPHAGUS ONLY Observed: 04/17/2018 Status: F Source: [place] 8:58 AM [facility] RE[facility] Imaging Services [address] [place] [address] Esophagus Only MR#: [id number] Acct: [id number] Name: BRENNAN LUIS Rep #: [id number] : 1945 M 72 From: Ramiro Yip MD PCP: Luis MAS,Eric Nguyen Status: REG CLI Study: Esophagus Only Date of Exam: 04/17/18 Exam# [id number] Ordering Dr: Justin Peterson MD STUDY: X-RAY - ESOPHAGUS (BARIUM SWALLOW) WITH FLUOROSCOPY REASON FOR EXAM: Male, 72 years old. Dysphagia. TECHNIQUE: 15 view(s) of the esophagus were obtained following swallowing of barium. FLUOROSCOPY TIME (if supplied): (0:29) minutes/seconds COMPARISON: None. FINDINGS: There is no demonstrated esophageal foreign body. There is no demonstrated stricture or mucosal abnormality. Normal gastroesophageal junction, without a demonstrated hiatal hernia. The patient ingested a 12 mm tablet of barium without any difficulty. There is atherosclerotic calcification of the aortic arch with tortuosity of the descending aorta. Normal visualized pulmonary parenchyma. Normal visualized osseous structures of the thorax. RAD/Esophagus Only IMPRESSION: Normal plain film x-ray examination (barium swallow) of the esophagus. Electronically Signed: Ramiro Yip MD at 14:15 EDT Tel [phone], Service support , CC: Justin Peterson MD; Eric Smith MD Anthropology Faculty Member: Signed OT D/C OF NON Observed: 04/03/2018 Status: F Source: [place] RETURNING PT 8:26 AM [facility] REPOSITORY [facility] [address] [place] [address]. [address] [place] [address] Fax REHABILITATION SERVICES DISCHARGE SUMMARY MR#: [id number] Acct: [id number] Name: BRENNAN LUIS Rep #: [id number] : 1945 72 From: Park JONES/NYDIA Maurer Referring Dr.: Eric Smith MD Status: REG RCR Eval Date: Discharge Date: HP - Discharge Summary - Patient Information BRENNAN LUIS was seen in my office for initial evaluation on 01/31/18. The following Plan of Care was established for this patient: Plan: prn - Anticipated Interventions Anticipated Interventions: Orthoses, Home Program Other Interventions: orthosis use and precautions This patient was last seen in our office 02/28/18. Pertinent comments regarding their Occupational therapy will appear below: Pt seen for two visits- jos. of custom B CMC orthosis. pt demo understanding of orthosis use . pt last seen 02-28-18, no further apts scheduled. pt d/c at this time. At this point I will be discontinuing this patient from occupational therapy. I would be happy to see this patient again in the future if found appropriate by the physician. Thank you! KAREN Moreland/BETZAIDA MaurerT <Electronically signed by Park JONES/Erasto CHT> 04/03/18 0826 CC: Eric Smith MD MK Signed CHIROPRACTIC REPORT Observed: 02/06/2018 Status: F Source: [place] 2:17 PM [facility] [address] [place] [address] OFFICE VISIT Date of Service: 02/06/18 MR#: [id number] Acct: [id number] Name: BRENNAN LUIS Rep #: [id number] : 1945 Provider: Lexie Goodson D.C. Age/Sex: 72/M Location: [facility] Status: Signed Intake Vital Signs02/06/18 Height 6 ft 2 in 02/06/18 Weight: 245 lb 02/06/18 Body Mass Index (BMI) 31.4 Intake Visit Reasons: back pain Chief Complaint: back pain Is patient in pain?: No Allergies celecoxib [From Celebrex] Adverse Reaction (Verified 10/29/15 14:56) Unknown Medications Allopurinol [Zyloprim] 300 mg PO DAILY 10/29/15 [History Confirmed 12/25/17] Atorvastatin Calcium [Lipitor] 20 mg PO QHS 10/29/15 [History Confirmed 12/25/17] Hydrocodone Bitart/Apap 5-325 [Catano 5MG-325MG] 1 - 2 tab PO Q4H PRN PRN #20 tab 12/25/17 [Rx] Tamsulosin HCl [Flomax] 0.4 mg PO DAILY #7 cap 12/25/17 [Rx] gabapentin 400 mg capsule 400 mg PO QDAY 01/31/18 [History Confirmed 01/31/18] PFSH Medical History DDD (degenerative disc disease), lumbar (Chronic) Arthritis (Acute) Environmental allergies (Acute) High cholesterol (Acute) History of cancer (Acute) History of melanoma (Acute) Vitamin D deficiency (Acute) Surgical History History of melanoma excision (Acute) History of shoulder surgery (Acute) Social History Smoking Status: Never smoker alcohol intake: never substance use type: does not use what type of physical activity do you participate in: walking, weight training frequency: 5-6 times per week HPI back pain : Chief Complaint: back pain Visit Number: 2 Details: BRENNAN LUIS is a 72 year old M who presents with mid and low back pain. He states that after his last treatment his pain is almost gone, leaving him with a slight dull ache. Today the patient rates his pain a 1/10 and describes it as a dull ache that comes and goes after rotation, and lifting. The pain stays localized to the mid back between the shoulder blades and directly above the tail bone. Brennan denies any numbness, tingling, or radiculopathy. Location: mid and low back Duration: intermittent Aggravating or associated factors: frequent bending and twisting Relieving factors: chiro Pain Quality: aching, dull Exam Musc General: Yes normal gait and joint tenderness (T4, T5, T6, L2-L5); no normal posture (anterior head carriage) Thoracic/Lumbar Spine: thor and lumb spine abnorm to inspection (hyperkyphosis of thoracic spine), pain with thoraco-lumbar ROM with forward flexion, with lateral flexion to the right, with lateral flexion to the left, with rotation to the right and with rotation to the left, paraspinal tenderness (slightly improved) on the right in the mid thoracic, in the lower thoracic, in the upper lumbar and in the mid lumbar, thoraco- lumbar ROM limited with forward flexion, with lateral flexion to the right and with rotation to the right, thoraco-lumbar spasm (slightly improved) on the right in the mid thoracic, in the lower thoracic, in the upper lumbar and in the mid lumbar Office Procedures Chiropractic Treatments Procedures Manipulation: 3-4 regions (T4, T6, L2, RIL) Assessment AND Plan 1. Segmental and somatic dysfunction of pelvic region M99.05 Orders Orders: 2. DDD (degenerative disc disease), lumbar M51.36 Orders Orders: 3. Segmental and somatic dysfunction of lumbar region M99.03 Orders Orders: 4. Segmental and somatic dysfunction of thoracic region M99.02 Orders Orders: Plan Detail Additional Comments Patient requests following up on a PRN basis. Goals Decrease pain Improve sleeping Barriers DDD Follow Up PRN Coding Level of Care Code No Charge Diagnoses Segmental and somatic dysfunction of pelvic region M99.05 DDD (degenerative disc disease), lumbar M51.36 Segmental and somatic dysfunction of lumbar region M99.03 Segmental and somatic dysfunction of thoracic region M99.02 Additional Codes Procedures - Manipulation: 3-4 regions (00033) 02/06/18 1417 <Electronically signed by Lexie Goodson D.C.> Date Lexie Goodson D.C. Cosigner Signature: Date (if applicable) CC: OT GENERAL EVALUATION Observed: 02/02/2018 Status: F Source: [place] 11:02 AM [facility] RE[facility] [address] [place] [address] Fax REHABILITATION SERVICES INITIAL EVALUATION MR#: [id number] Acct: [id number] Name: BRENNAN LUIS Rep #: [id number] : 1945 72 From: Park JONES/NYDIA Maurer Referring Dr.: Eric Smith MD Status: REG RCR Insurance: MEDICARE PART A B Eval Date: [employer] Patient's Visit Information BRENNAN LUIS is a 72 year old M, referred to Occupational Therapy by Eric Smith, with a diagnosis of CMC arthritis. Date of Evaluation: 01/31/18 Occupational Therapist: KAREN Moreland/Erasto, NYDIA - Subjective Subjective: Pt arrives to OT eval with order for custom orthosis for bilateral CMC arthritis. PT has struggled with thumb pain on and off for years. - Pain bilateral thumb 1 Pain Intensity Range: 0, 5 - DASH-Disabilities of Arm, Shoulder AND Hand DASH Sum: 56 - Goals Goal:: pt will demo ind. donning/doffing of custom orthosis by end of 1st session - Rehabilitation General Assessment: Pt demo a need for bilateral CMC orthosis to provide support during performance of IADL tasks. Orthosis was jos. for bilateral thumbs. pt was ed on correct donning/doffing of orthosis and precautions. pt demo undersanding to return to clinic for orthosis adj. to increase comfort as needed. Rehabilitation Potential: Good - Anticipated Interventions Anticipated Interventions: Orthoses, Home Program Other Interventions: orthosis use and precautions - Visit Plan TEXT: Thank you for the opportunity to evaluate your patient. For Medicare and Medicare HMO plans, please review the plan of care and approve it. It will need to be FAXED BACK to us at [phone] for Medicare purposes. Please let me know if there are questions or concerns regarding this plan of care. Physician Signature: Date: <Electronically signed by Park JONES/Erasto, CHT> 02/02/18 1102 CC: Eric Smith MD MK Signed For Medicare only, by signing this I certify the plan of care. Physicians Signature Date CHIROPRACTIC REPORT Observed: 01/31/2018 Status: F Source: [place] 11:51 AM [facility] [address] [place] [address] OFFICE VISIT Date of Service: 01/31/18 MR#: [id number] Acct: [id number] Name: JANELLEBRENNAN Maggie Rep #: [id number] : 1945 Provider: Lexie Goodson D.C. Age/Sex: 72/M [place] [facility] [place]: Signed Intake Vital Signs01/31/18 Height 6 ft 2 in 01/31/18 Weight: 245 lb 01/31/18 Body Mass Index (BMI) 31.4 Intake Visit Reasons: Back pain Is patient in pain?: Yes Allergies celecoxib [From Celebrex] Adverse Reaction (Verified 10/29/15 14:56) Unknown Medications Allopurinol [Zyloprim] 300 mg PO DAILY 10/29/15 [History Confirmed 12/25/17] Atorvastatin Calcium [Lipitor] 20 mg PO QHS 10/29/15 [History Confirmed 12/25/17] Hydrocodone Bitart/Apap 5-325 [Catano 5MG-325MG] 1 - 2 tab PO Q4H PRN PRN #20 tab 12/25/17 [Rx] Tamsulosin HCl [Flomax] 0.4 mg PO DAILY #7 cap 12/25/17 [Rx] gabapentin 400 mg capsule 400 mg PO QDAY 01/31/18 [History Confirmed 01/31/18] PFSH Medical History DDD (degenerative disc disease), lumbar (Chronic) Arthritis (Acute) Environmental allergies (Acute) High cholesterol (Acute) History of cancer (Acute) History of melanoma (Acute) Vitamin D deficiency (Acute) Surgical History History of melanoma excision (Acute) History of shoulder surgery (Acute) Social History Smoking Status: Never smoker alcohol intake: never substance use type: does not use what type of physical activity do you participate in: walking, weight training frequency: 5-6 times per week HPI Back pain: Chief Complaint: back pain Visit Number: 1 Referral source: Dr Smith Details: BRENNAN LUIS is a 72 year old M who presents with mid and low back pain. He states that last week while on his incline table he reached over his head and instantly felt a sharp pain between the shoulder blades. Since he has had severe pain at night when rolling over in bed, or reaching above the head, he denies any numbness, tingling or radiculopathy into the arms. Brennan also complains of R sided low back pain. The pain becomes sharp and shooting when sitting for a prolonged amount of time, it then begins to radiate into the R leg, although he denies any numbness or tingling. Onset: 01/23/18 Location: mid and R low back Duration: intermittent Aggravating or associated factors: sleeping, rolling over, and prolonged sitting Relieving factors: none Pain Quality: aching, dull, sharp, cramping Exam Musc General: Yes normal gait and joint tenderness (T4, T5, T6, L2-L5); no normal posture (anterior head carriage) Thoracic/Lumbar Spine: thor and lumb spine abnorm to inspection (hyperkyphosis of thoracic spine), pain with thoraco-lumbar ROM with forward flexion, with lateral flexion to the right, with lateral flexion to the left, with rotation to the right and with rotation to the left, paraspinal tenderness on the right in the mid thoracic, in the lower thoracic, in the upper lumbar and in the mid lumbar, thoraco-lumbar ROM limited with forward flexion, with lateral flexion to the right and with rotation to the right, thoraco- lumbar spasm on the right in the mid thoracic, in the lower thoracic, in the upper lumbar and in the mid lumbar Neuro General: alert, awake, oriented x3, gait normal, normal light touch, pain and propioception, no focal motor deficits Ortho Test CERVICAL THORACIC Kemps: Positive, Right, Le Schepelmanns pain: Negative Rose: Negative LUMBAR Kemps: Positive, Rig Valsalvas: Negative Office Procedures Chiropractic Treatments Procedures Manipulation: 3-4 regions (T4, T6, L3, RIL) Assessment AND Plan 1. Segmental and somatic dysfunction of lumbar region M99.03 Orders Orders: 2. Segmental and somatic dysfunction of thoracic region M99.02 Orders Orders: 3. Segmental and somatic dysfunction of pelvic region M99.05 4. DDD (degenerative disc disease), lumbar M51.36 Plan Detail Additional Comments Reviewed previous xray and MRI. Goals Decrease pain Improve sleeping Barriers DDD Follow Up 1 Week Coding Level of Care Code Off vis,new,level 3 Diagnoses Segmental and somatic dysfunction of lumbar region M99.03 Segmental and somatic dysfunction of thoracic region M99.02 Segmental and somatic dysfunction of pelvic region M99.05 DDD (degenerative disc disease), lumbar M51.36 Additional Codes Procedures - Manipulation: 3-4 regions (60232) 01/31/18 1151 <Electronically signed by Lexie Goodson D.C.> Date Lexie Goodson D.C. Cosigner Signature: Date (if applicable) CC: VITAMIN D,25 HYDROXY Collected: 01/26/2018 Status: F Source: [place] 8:41 AM [facility] REPOS[facility] TYPE CODE TESTS RESULT OUT OF REFERENCE UNITS RANGE LAB L506.1000 29.95-100.01 ng/mL Low Vitamin D 27.8 25-OH Result Comment: Vitamin D 25(OH) Status Range Deficiency <20 ng/mL (50nmol/L) Insuffciency 20 - 30 ng/mL (50 - 75 nmol/L) Sufficiency 30 - 100 ng/mL (75 - 250 nmol/L) Toxicity >100 ng/mL (>250 nmol/L) Performed By: #### L506.1000, L509.3000 #### [facility] [address] [place], [place], [address] TESTOSTERONE, SERUM TOTAL Collected: 01/26/2018 Status: F Source: [place] 8:41 AM [facility] REPOSITORY TYPE CODE TESTS RESULT OUT OF REFERENCE UNITS RANGE LAB L509.3000 ng/dL Testosterone Normal 538.70 Result Comment: NORMAL REFERENCE RANGES MALE AGE <50 123.06 - 813.86 ng/dL MALE AGE >50 89.98 - 780.10 ng/dL FEMALE PREMENOPAUSE AGE 21 - 60 9.01 - 47.94 ng/dL FEMALE POSTMENOPAUSE AGE 45 - 89 <7.00 - 45.62 ng/dL REFERENCE RANGE AND METHODOLOGY CHANGED 07/26/2017 Performed By: #### L506.1000, L509.3000 #### [facility] [address] [place], [place], [address] PSA,TOTAL - ANNUAL Collected: 01/26/2018 Status: F Source: [place] SCREEN 8:41 AM [facility] REPOSITORY TYPE CODE TESTS RESULT OUT OF RANGE REFERENCE UNITS LAB L501.9910 0.00-4.00 ng/mL Normal PSA,TOT 2.37 SCREEN Result Comment: This test was performed using the TPSA assay method for the [employer] chemistry system. Values obtained with different assay methods cannot be used interchangably. When changing PSA assays in the course of monitoring a patient, additional sequential testing should be carried out to confirm baseline values. Performed By: #### L501.9910 #### [facility] [address] [place], [address] HEPATITIS C ANTIBODIES Collected: 01/26/2018 Status: F Source: [place] 8:41 AM [facility] REPOSITORY TYPE CODE TESTS RESULT OUT OF RANGE REFERENCE UNITS LAB L3100.0650 0.0-0.9 s/co ratio Normal HEP C AB <0.1 Result Comment: Negative: < 0.8 Indeterminate: 0.8 - 0.9 Positive: > 0.9 The CDC recommends that a positive HCV antibody result be followed up with a HCV Nucleic Acid Amplification test (601569). Performed at: - [facility] [address], [place], [place] [address] Look Out Tower Fire Watcher: Mitch Phillips PhD, Phone: [phone] Performed By: #### L3100.0625 #### [facility] (refer to report for specific site) refer to report for address and phone number EMERGENCY DEPARTMENT Observed: 12/25/2017 Status: F Source: [place] SUMMARY 4:38 PM [facility] REPOSITORY [facility] Medical Records Department [address] [place] [address] Emergency Department Summary 12/25/17 1546 MR#: [id number] Acct: [id number] Name: BRENNAN LUIS Rep #: [id number] : 1945 72 From: Baldomero Michaels MD PCP: Eric Smith MD, Chi Status: DEP ER - ER Visit Summary Date of Service: 12/25/17 Chief Complaint: Right flank pain History of Present Illness: The patient is a 72 M history of prior multiple kidney stones. Some of them removed surgically there is with lithotripsy. Patient states the last couple of days has had right flank pain. Associated nausea. No vomiting or diarrhea. Today gross hematuria. No fever. No trauma. He believes he has another kidney stone. Physical Examination: Appearing older male. Vital signs are stable and afebrile. HEENT exam unremarkable. Neck is nontender. Lungs clear to auscultation bilaterally. Heart regular rate and rhythm. Abdomen soft and nontender. Normal bowel sounds no peritoneal signs. No pulsatile masses. Moving all 4 extremities. Without edema. Back exam he complains of pain in the right flank but there is no reproducible flank pain. Neurologically is awake and alert without focal motor deficits. Test Results: UA shows 25-50 red cells. No infection. No nitrites. No white cells. CBC normal. BMP normal. Gap of 8. Creatinine 1.1. CT flank without contrast shows a distal third 3 mm right ureteral calculi just above the UVJ. With hydronephrosis and hydroureter. Consistent with an acute ureteral calculi. Emergency Department Course and Treatment: Her male with right flank pain consistent with a kidney stone. Treated with IV morphine and Zofran. Treatment Plan: On repeat exam he is doing very well at 1643. He states he does not need any further pain medication at this time. It will be written for Catano for pain at home. Also Flomax. Strain his urine for stone. He has an appointment to see Dr. Soni tomorrow. Disposition: dc Impression: Acute right flank pain secondary to 3 mm right distal ureteral calculi History of kidney stones This note was generated with Rattle dictation software. It may contain incorrect words, spelling, and punctuation that were not noted in review of the chart prior to signing ED Disposition - Plan for ED Patient: Chief Complaint: Flank Pain Referrals: Eric Smith Chi, MD [Primary Care Provider] - What to do if you have Problems For any increased pain, shortness of breath, bleeding, nausea or vomiting, chest pain, or any unexpected problems, contact your Primary Care Provider. Call [facility] ([phone]) or report to the closest Emergency Room. Call 911 if necessary. 12/25/17 3648 <Electronically signed by Baldomero Michaels MD> Date Baldomero Michaels MD Cosigner Signature (If Indicated): Date CC: Eric Smith MD DISCHARGE INSTRUCTION Observed: 12/25/2017 Status: F Source: [place] 4:38 PM [facility] Medical Records Department [address] [place] [address] 24353 Discharge Instruction 12/25/17 1549 MR#: [id number] Acct: [id number] Name: BRENNAN LUIS Rep #: [id number] : 1945 72 From: Baldomero Michaels MD PCP: Eric Smith MD, Chi Status: DEP ER ED Disposition - Plan for ED Patient: Disposition: Home or Assisted Living Chief Complaint: Flank Pain Instructions: ED Stone Renal W Colic Prescriptions: Hydrocodone Bitart/Apap 5-325 [Catano 5MG-325MG] 1 - 2 tab PO Q4H PRN PRN #20 tab PRN Reason: Pain Tamsulosin HCl [Flomax] 0.4 mg PO DAILY #7 cap Referrals: Sergio Soni MD [STAFF PHYSICIAN] - Keep Lona appointment Additional Instructions: Urine for passed stone. Catano for pain. Flomax to help pass the stone. Return if intractable pain, fever, intractable vomiting or feeling worse. Follow up with your urologist as scheduled tomorrow. What to do if you have Problems For any increased pain, shortness of breath, bleeding, nausea or vomiting, chest pain, or any unexpected problems, contact your Primary Care Provider. Call [employer] [facility] ([phone]) or report to the closest Emergency Room. Call 911 if necessary. 12/25/17 6089 <Electronically signed by Baldomero Michaels MD> Date Baldomero Michaels MD Cosigner Signature (If Indicated): Date CC: Eric Smith MD URINALYSIS, COMPLETE Collected: 12/25/2017 Status: F Source: [place] 3:14 PM [facility] REPOSITORY Order Comment: Order Date: 12/25/17 How was Urine Obtained? CLEAN CATCH TYPE CODE TESTS RESULT OUT OF RANGE REFERENCE UNITS LAB L400.3000 Yellow COLOR Normal Yellow LAB L400.3050 Clear Normal CLARITY Sl. Cloudy LAB L400.3200 Normal mg/dl Normal GLUCOSE, UR Normal LAB L400.3300 Negative mg/dL Normal BILIRUBIN URINE Negative LAB L400.3400 Negative mg/dl Normal KETONE UR Negative LAB L400.3465 1.002-1.030 Normal SP.GR. DIPSTX 1.030 LAB L400.3550 5.0 - 8.0 pH UR Normal 5.0 LAB L400.3600 Negative mg/dl High PROT 30 DIPSTX LAB L400.3700 Normal mg/dl Normal UROBILI Normal LAB L400.3750 Negative Normal NITRITE UR Negative LAB L400.3780 Negative /ul High OCCULT BLOOD-UR 250 LAB L400.3800 Negative /ul High LEUK 25 ESTERASE LAB L400.4050 0-5 /hpf WBC Normal 0-5 SEEN LAB L400.4100 0-5 /hpf Normal RBC-UA 25-50 SEEN LAB L400.4150 0-5 /hpf SQUAM Normal EPI 0-5 SEEN LAB L400.4300 None Seen /hpf 1+ Normal BACTERIA LAB L400.4350 <or=2+ /hpf 0 Normal MUCUS, URINE SEEN Performed By: #### L400.0001 #### [facility] [address] [place], [address] CBC W/DIFF, AUTOMATED Collected: 12/25/2017 Status: F Source: [place] 2:40 PM [facility] REPOSITORY TYPE CODE TESTS RESULT OUT OF RANGE REFERENCE UNITS LAB L100.1000 4.4-11.0 K/mm3 Normal WBC 8.0 LAB L100.1200 4.6-6.2 M/mm3 Normal RBC 5.06 LAB L100.1300 13.0-16.5 g/dl High HGB 17.3 LAB L100.1400 40-54 % Normal HCT 48.2 LAB L100.1500 80-94 fL High MCV 95.3 LAB L100.1600 27.0-32.0 pg High MCH 34.2 LAB L100.1700 32-36 g/gl Normal MCHC 35.9 LAB L100.1810 11.6-14.6 % Normal RDW CV 12.9 LAB L100.1820 35.1-43.9 fl High RDW SD 45.2 LAB L100.1900 150-450 K/mm3 Low PLT 149 LAB L100.2000 6.2-12.0 fl Normal MPV 9.9 LAB L100.2100 47-70 % Normal NEUT% 69.5 LAB L100.2200 19-41 % Normal LY% 19.5 LAB L100.2300 0-10 % Normal MONO% 7.9 LAB L100.2400 0-5 % Normal EO% 2.3 LAB L100.2500 0-1 % Normal BASO% 0.5 LAB L100.2550 0.0-0.9 % Normal IM GRAN % 0.300 Result Comment: IG% - Immature Granulocytes (promyelocytes, myelocytes and metamyelocytes) > 1% indicates that a LEFT SHIFT is Present. LAB L100.2620 2.0-7.7 X10 3/uL Normal Absolute Neut 5.5 LAB L100.2720 0.83-4.51 X10 3/ul Normal Absolute Lymph 1.55 Performed By: #### L100.0100 #### [facility] [address] [place], [place], [address] BASIC METABOLIC Collected: 12/25/2017 Status: F Source: [place] PROFILE (BMP) 2:40 PM [facility] REPOSITORY TYPE CODE TESTS RESULT OUT OF RANGE REFERENCE UNITS LAB L501.0100 74-106 mg/dL High GLU 142 Result Comment: Fasting Glucose result greater than or equal to 126 mg/dL suggests DIABETES MELLITUS per A.D.A. criteria. Please note revised GLUCOSE reference range effective 2017. LAB L501.1000 7-18 mg/dL Normal BUN 15 LAB L501.1100 0.70-1.30 mg/dL Normal CREAT,SERUM 1.12 Result Comment: The validity of the calculated GFR AND GFRAA in patients over 70 years has not been determined. Clinical correlation is essential. LAB L501.1110 >60 mL/min Normal EST GFR 69 Result Comment: Non- GFR Calc LAB L501.1115 >60 mL/min Normal EST GFR - AA 83 Result Comment: GFR Calc LAB L501.1255 ml/min Normal Estimated CRCL 70.33 LAB L501.1300 10-20 RATIO Normal BUN/CRE 13.4 LAB L501.2200 8.5-10 mg/dL Normal .1 CA 9.3 LAB L501.5300 136-14 mmol/L Normal 5 NA 142 LAB L501.5600 3.5-5. mmol/L Normal 1 K 4.2 LAB L501.5900 98-107 mmol/L Normal CL 106 LAB L501.6100 21.0-3 mmol/L Normal 2.0 CO2 28.0 LAB L501.6200 5-15 Normal GAP 8 Performed By: #### L500.2500 #### [facility] [address] [facility] [place], [address] ABDOMEN/PELVIS WITHOUT Observed: 12/25/2017 Status: F Source: [place] CONT 2:33 PM [facility] REPOSITORY [facility] Imaging Services [address] [place] [address] Abdomen/Pelvis without Cont MR#: [id number] Acct: [id number] Name: BRENNAN LUIS Rep #: [id number] : 1945 M 72 From: Ramiro Yip MD PCP: Luis MAS,Eric Nguyen Status: REG ER Study: Abdomen/Pelvis without Cont Date of Exam: 12/25/17 Exam# [id number] Ordering Dr: Baldomero Michaels MD STUDY: CT ABDOMEN AND PELVIS WITHOUT CONTRAST REASON FOR EXAM: Male, 72 years old. Right flank pain. History of kidney stones. RADIATION DOSAGE (If Supplied By Facility): CTDIvol = ( 17.67 ) mGy, DLP = ( 931.49 ) mGycm TECHNIQUE: Transaxial images were obtained from the dome of the diaphragm to the symphysis pubis without oral contrast, and without intravenous contrast. Sagittal and coronal images were reconstructed. Individualized dose optimization techniques were used for this CT. COMPARISON: None. FINDINGS: The visualized lung bases are unremarkable. The visualized portions of the heart are within normal limits. Normal liver. Normal gallbladder and extrahepatic biliary system. Normal spleen. Normal pancreas. Normal bilateral adrenal glands. Mild degree of right hydronephrosis. Right hydroureter due to a 3 mm calculus in the distal portion of the right ureter just proximal to the ureterovesical junction. Normal left kidney. There is a small hiatal hernia. Normal small intestine. There are multiple colonic diverticula consistent with diverticulosis. The appendix is visualized and appears normal. There is diffuse atherosclerotic calcification of the abdominal aorta, without a demonstrated aneurysm. Normal inferior vena cava. Normal retroperitoneum. Normal urinary bladder. There are prostatic calcifications. Small bilateral benign-appearing inguinal lymph nodes. Normal abdominal wall. Disc space narrowing and disc degeneration at the L5-S1 level. CT/Abdomen/Pelvis without Cont IMPRESSION: Right hydronephrosis and hydroureter due to a 3 mm calculus in the distal portion of the right ureter just proximal to the ureterovesical junction. Sigmoid diverticulosis. Electronically Signed: Ramiro Yip MD at 15:29 EDT Tel [phone], Service support , CC: Baldomero Michaels MD; Eric Smith MD Anthropology Faculty Member: Signed ALLERGIES ALLERGIES DATE TYPE / CODE NAME / CODE REACTION SEVERITY SOURCE 10/29/2015 Drug celecoxib/F0 Unknown Unknown [facility] Allergy/4160 [id number]([facility] 42595(SNOMED ORM) Repository CT) ENCOUNTERS ENCOUNTERS ADMIT/DISCHARGE ACCOUNT ADMITTING ENCOUNTER LOCATION SOURCE NUMBER CLASS 08/27/2018 [id number] Ambulatory [place] 5 [facility] ing:LABSPEC Repository 08/09/2018 [id number] Ambulatory [place] 2 [facility] ing:MASS Repository 07/19/2018 [id number] Ambulatory [place] 7 [facility] ing:POLAB3 Repository 05/28/2018/ [id number] Ambulatory BMSBuilding:B [place] 8 7 [facility] Repository 05/23/2018/ [id number] Ambulatory BMSBuilding:B [place] 8 7 [facility] Repository 05/17/2018/ [id number] Ambulatory BMSBuilding:B [place] 8 7 [facility] Repository 05/14/2018/ [id number] Ambulatory BMSBuilding:B [place] 8 5 [facility] Repository 05/10/2018/ [id number] Ambulatory BMSBuilding:B [place] 8 5 [facility] Repository 04/26/2018 [id number] Ambulatory [place] 6 [facility] ing:CVS Repository 04/17/2018/ [id number] Ambulatory BMSBuilding:B [place] 8 3 [facility] Repository 04/17/2018 [id number] Ambulatory [place] 5 [facility] ing:RAD Repository 02/28/2018/ [id number] Ambulatory [place] 8 6 [facility] ing:OT Repository 02/06/2018/ [id number] Ambulatory BMSBuilding:B [place] 8 3 [facility] Repository 01/31/2018/ [id number] Ambulatory BMSBuilding:B [place] 8 6 [facility] Repository 01/26/2018 [id number] Ambulatory [place] 5 [facility] ing:LAB.FUTUR Repository E 12/25/2017/ [id number] Emergency [place] 8 8 [facility] ing:ED Repository PAYERS PAYERS ENCOUNTER GUARANTOR PAYER SUBSCRIBER SOURCE 08/27/2018 BRENNAN E Primary BRENNAN [place] [id number] Insurance:MEDICARE DAUGHERTYDOB: [facility] PAK DRUNIT PART A BPolicy Number: [id number] [id number] Repository [address]Tdy: 330) Date:2018-08-27 [phone] () 08/27/2018 Secondary BRENNAN [place] Insurance:HUMANA DAUGHERTYDOB: [facility] [id number] Hospital Number: Repository [id number] Date:6445-54-68LG[address] [address]OW: 08/27/2018 Tertiary NOT GIVENUNK [place] Insurance:SELF PAY [facility] Number: Effective Repository Date:2018-08-27 08/09/2018 BRENNAN E Primary Insurance:SELF NOT GIVENUNK [place] [id number] E PAY [facility] Number: Effective [place] Date:2016-09-08 Repository [address]Hhy: () 07/19/2018 BRENNAN E Primary BRENNAN E [place] [id number] E Insurance:MEDICARE DAUGHERTYDOB: [facility] LARWILL PART A BPolicy Number: [id number] [id number] Repository [address]42Xzi: (501) Date:2018-07-19 [phone] () 07/19/2018 Secondary BRENNAN E [place] Insurance:HUMANA DAUGHERTYDOB: [facility] [id number] Hospital Number: Repository [id number] Date:2368-96-76QU [address] [place] [address]IC: 07/19/2018 Tertiary NOT GIVENUNK [place] Insurance:SELF PAY [facility] Number: Effective Repository Date:2018-07-19 05/28/2018 BRENNAN E Primary BRENNAN E [place] [id number] E Insurance:MEDICARE DAUGHERTYDOB: Community LARWILL PART A olicy Number: [id number], [place] [id number] Repository [address]Hvs: (330) Date:2018-05-23 [phone] () 05/28/2018 Secondary BRENNAN E [place] Insurance:HUMANA DAUGHERTYDOB: [facility] [id number] Hospital Number: Repository [id number] Date:5704-92-40TG[address] [address]TA: 05/28/2018 Tertiary NOT GIVENUNK [place] Insurance:SELF PAY [facility] Number: Effective Repository Date:2018-05-28 05/23/2018 BRENNAN E Primary BRENNAN E [place] [id number] E Insurance:MEDICARE DAUGHERTYDOB: Community LARWILL PART A BPolicy Number: [id number], [place] [id number] Repository [address]Bbx: (946) Date:2018-05-17 [phone] () 05/23/2018 Secondary BRENNAN E [place] Insurance:HUMANA DAUGHERTYDOB: [facility] [id number] Hospital Number: Repository [id number] Date:0600-16-24IM [address] [address]JO: 05/23/2018 Tertiary NOT GIVENUNK [place] Insurance:SELF PAY [facility] Number: Effective Repository Date:2018-05-23 05/17/2018 BRENNAN E Primary BRENNAN E [place] [id number] E Insurance:MEDICARE DAUGHERTYDOB: Community LARWILL PART A olicy Number: [id number], [place] [id number] Repository [address]Mdy: (330) Date:2018-05-10 [phone] () 05/17/2018 Secondary BRENNAN E [place] Insurance:HUMANA DAUGHERTYDOB: [facility] COMMERCIALPolicy [id number] Hospital Number: Repository [id number] Date:1485-96-84YP [address] [place] [address]CM: 05/17/2018 Tertiary NOT GIVENUNK [place] Insurance:SELF PAY [facility] Number: Effective Repository Date:2018-05-17 05/14/2018 BRENNAN E Primary BRENNAN E [place] [id number] E Insurance:MEDICARE DAUGHERTYDOB: Community LAR[place] PART A BPolicy Number: [id number], [place] [id number] Repository [address]Jwy: (090) Date:2018-05-10 [phone] () 05/14/2018 Secondary BRENNAN E [place] Insurance:HUMANA DAUGHERTYDOB: [facility] [id number] Hospital Number: Repository [id number] Date:9912-41-28SQ[address] [address]BO: 05/14/2018 Tertiary NOT GIVENUNK [place] Insurance:SELF PAY [facility] Number: Effective Repository Date:2018-05-14 05/10/2018 BRENNAN E Primary BRENNAN E [place] [id number] E Insurance:MEDICARE DAUGHERTYDOB: Community LARWILL PART A olicy Number: [id number], [place] [id number] Repository [address]Fty: (330) Date:2018-05-02 [phone] () 05/10/2018 Secondary BRENNAN E [place] Insurance:HUMANA DAUGHERTYDOB: [facility] [place] [id number] Hospital Number: Repository [id number] Date:6882-20-15NY[address] [address]XQ: 05/10/2018 Tertiary NOT GIVENUNK [place] Insurance:SELF PAY [facility] Effective Repository Date:2018-05-10 04/26/2018 BRENNAN E Primary Insurance:SELF NOT GIVENUNK [place] [id number] E PAY [facility] Number: Effective [place] Date:2018-04-17 Repository 08906Jbd: () 04/17/2018 BRENNAN E Primary BRENNAN E [place] [id number] E Insurance:MEDICARE DAUGHERTYDOB: Community LARWILL PART A BPolicy Number: [id number], [place] [id number] Repository [address]Zvs: (014) Date:2018-04-17 [phone] () 04/17/2018 Secondary BRENNAN E [place] Insurance:HUMANA DAUGHERTYDOB: [facility] [id number] Hospital Number: Repository [id number] Date:2655-62-77EB[address] [address]NY: 04/17/2018 Tertiary NOT GIVENUNK [place] Insurance:SELF PAY [facility] Number: Effective Repository Date:2018-04-17 04/17/2018 BRENNAN E Primary BRENNAN E [place] [id number] E Insurance:MEDICARE DAUGHERTYDOB: Community [place] PART A BPolicy Number: [id number], [place] [id number] Repository [address]Rqm: (449) Date:2018-04-12 [phone] () 04/17/2018 Secondary BRENNAN E [place] Insurance:HUMANA DAUGHERTYDOB: Community COMMERCIALPolicy [id number] Hospital Number: Repository [id number] Date:4130-40-03EY[address] [address]JQ: 04/17/2018 Tertiary NOT GIVENUNK [place] Insurance:SELF PAY [facility] Number: Effective Repository Date:2018-04-12 02/28/2018 Brennan E Primary Brennan E [place] [id number] E Insurance:MEDICARE DaughertyDOB: Community [place] PART A BPolicy Number: [id number], [place] [id number] Repository 71016Bcc: (045) Date:2011-04-07 [phone] () 02/28/2018 Secondary Brennan E [place] Insurance:HUMANA DaughertyDOB: [facility] [id number] Hospital Number: Repository [id number] Date:0956-74-78JI[address] [address]IC: 02/28/2018 Tertiary NOT GIVENUNK [place] Insurance:SELF PAY [facility] Number: Effective Repository Date:2018-01-24 02/06/2018 Brennan E Primary Brennan E [place] [id number] E Insurance:MEDICARE DaughertyDOB: Community [place] PART A BPolicy Number: [id number], [place] [id number] Repository [address]Hfe: (882) Date:2018-01-31 [phone] () 02/06/2018 Secondary Brennan E [place] Insurance:HUMANA DaughertyDOB: [facility] [id number] Hospital Number: Repository [id number] Date:1450-60-92JL [address] [place] [address]DP: 02/06/2018 Tertiary NOT GIVENUNK [place] Insurance:SELF PAY [facility] Number: Effective Repository Date:2018-02-06 01/31/2018 Brennan E Primary Brennan E [place] [id number] E Insurance:MEDICARE DaughertyDOB: Community [place] PART A BPolicy Number: [id number], [place] [id number] Repository [address]Khb: (300) Date:2018-01-24 [phone] () 01/31/2018 Secondary Brennan E [place] Insurance:HUMANA DaughertyDOB: [facility] [id number] Hospital Number: Repository [id number] Date:5439-21-50EH[address] [address]FL: 01/31/2018 Tertiary NOT GIVENUNK [place] Insurance:SELF PAY [facility] Number: Effective Repository Date:2018-01-31 01/26/2018 Brennan E Primary Brnenan E [place] [id number] E Insurance:MEDICARE DaughertyDOB: Community [place] PART A BPolicy Number: [id number], [place] [id number] Repository [address]Xfl: (843) Date:2018-01-25 [phone] () 01/26/2018 Secondary Brennan E [place] Insurance:HUMANA DaughertyDOB: [facility] [id number] Hospital Number: Repository [id number] Date:5306-10-76CL [address] [address]SJ: 01/26/2018 Tertiary NOT GIVENUNK [place] Insurance:SELF PAY [facility] Number: Effective Repository Date:2018-01-25 12/25/2017 Brennan E Primary Brennan [place] [id number] E Insurance:MEDICARE DaughertyDOB: Community [place] PART A BPolicy Number: [id number], [place] [id number] Repository [address]Mih: 330) Date:2017-12-25 [phone] () 12/25/2017 Secondary Brennan E [place] Insurance:HUMANA DaughertyDOB: [facility] [id number] Hospital Number: Repository [id number] Date:4616-98-17XA [address] [address]TR: 12/25/2017 Tertiary NOT GIVENUNK [place] Insurance:SELF PAY [facility] Number: Effective Repository Date:2017-12-25
== END ==
PROVIDERS: Family Provider Family Medicine Geriatric Medicine; PCP Family Medicine Geriatric Medicine; Visit Provider Family Medicine Geriatric Medicine
DX: E23.6 Other disorders of pituitary gland (principal); E55.9 Vitamin D deficiency, unspecified
CPT/HCPCS: 36415; 80053; 82306; 84403; 84443; 85025

== ENCOUNTER → 2018-08-27 16:44 | Outpatient (CLI) | payer MEDICARE, OTHER, SELFPAY ==
[2018-05-28 09:06] VITALS: BMI 31.4
[2018-08-27 17:33] LABS: Cytology, Body Fluid / CSF SEE PATHOLOGY REPORT
--- NOTE | 2018-08-28 09:30 | CYSPIN_PTH ---
PATIENT: BRENNAN LUIS LOC: [facility] U#:[id number] AGE/SX: 80/M ROOM: RE08/27/[address]: Dr. Sergio Snoi MD : 1945 BED: DIS: SPEC #: [id number] RECD: 08/28/18 09:36 STATUS: LALY REGilbert #: [id number] GREY: 08/28/18 09:[address]: Sergio Soni DEPT: CYTOLOGY RECD BY: Lazarus Artis ENTERED: 08/28/18 09:36 SP TYPE: CYSPIN FL OTHR DR: Dr. Eric Smith MD Tissues: Urine Procedures: Pap Stain (control) Special Stain Group II Cytospin Fluid HEADER OPERATION: Not noted PRE-OP DIAGNOSIS: Hematuria TISSUE SUBMITTED: Urine for cytology DIAGNOSIS CYTOLOGY Urine for cytology (cytospin): Negative for malignant cells. See cytology study. CE:mack 08/29/18 CYTOLOGY STUDY Slides are reviewed. The specimen consists of benign urothelial cells, histiocytes, red blood cells and a few crystals. CYTOLOGY GROSS Received is 55 ml of cloudy gold fluid labeled with the patient's name and and designated per the requisition as urine. Submitted for cytology preparation. / 08/28/18 TC:3 CPT: 00634
--- OUTSIDE RECORDS SUMMARY | 2018-10-30 04:31 | XMS RPT_ITS ---
:1945 Author Organization OHIP Support Name Relationship Address Phone OLGA LIDIA LUISNA Unavailable [address] + [address] [place] [address] R Unavailable Unavailable Unavailable JERICA, MURTAZA Unavailable [address] + [place] [address] R Unavailable Unavailable Unavailable JERICA, MURTAZA Unavailable [address] + [place] [address] R Unavailable Unavailable Unavailable JERICA, MURTAZA Unavailable [address] + [place] [address] R Unavailable Unavailable Unavailable JERICA, MURTAZA Unavailable [address] + [place] [address] R Unavailable Unavailable Unavailable JERICA, MURTAZA Unavailable [address] + [place] [address] R Unavailable Unavailable Unavailable JERICA, MURTAZA Unavailable [address] + [place] [address] R Unavailable Unavailable Unavailable JERICA, MURTAZA Unavailable [address] + [place] [address] R Unavailable Unavailable Unavailable JERICA, MURTAZA Unavailable [address] + [place] [address] R Unavailable Unavailable Unavailable JERICA, MURTAZA Unavailable [address] + [place] [address] R Unavailable Unavailable Unavailable JERICA, MURTAZA Unavailable [address] + [place] [address] R Unavailable Unavailable Unavailable JERICA, MURTAZA Unavailable [address] + [place] [address] R Unavailable Unavailable Unavailable JERICA, MURTAZA Unavailable [address] + [place] [address] R Unavailable Unavailable Unavailable JERICA, MURTAZA Unavailable [address] + [place] [address] R Unavailable Unavailable Unavailable JERICA, MURTAZA Unavailable [address] + [place] [address] R Unavailable Unavailable Unavailable JERICA, MURTAZA Unavailable [address] + [place] [address] R Unavailable Unavailable Unavailable Care Team Providers [...] DossieLexie and pete ChackoCLilia Community dysfunction of [facility] lumbar region / Repository M99.03(ICD-10) 05/29/2018 Unknown M99.02 - Segmental Dossie, Lexie Active [place] and [facility] Community dysfunction of Hospital thoracic region / Repository M99.02(ICD-10) 05/29/2018 Unknown M99.05 - Segmental Dossie, Lexie Active [place] [facility] 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 Community degeneration, lumbar Hospital region / Repository M51.36(ICD-10) 04/03/2018 Unknown M79.2 - Neuralgia Luis, Eric Chi Active [place] and neuritis, Community unspecified / Hospital M79.2(ICD-10) Repository 12/25/2017 Unknown N20.0 - Calculus of Baldomero Michaels Active [place] kidney / [facility] N20.0(ICD-10) Hospital Repository PROCEDURES PROCEDURES No Procedure Records FoundRESULTS RESULTS CYTOSPIN ON FLUID Observed: 08/28/2018 Status: F Source: [place] 9:30 AM [facility] REPOS[facility] Patient: BRENNAN LUIS : 1945 (73/M) Acct Num: [id number] Phys: Nae MAS,[facility] Unit Num: [id number] Loc: LABSPEC Specimen: [id number] Received: 08/28/18 - 935 Spec Type: CYSPIN FL TISSUES 1 TISSUES: Urine CYTOLOGY GROSS Received is 55 ml of cloudy gold fluid labeled with the patient's name and and designated per the requisition as urine. Submitted for cytology preparation. / 08/28/18 TC:3 CPT: 28754 CYTOLOGY STUDY Slides are reviewed. The specimen consists of benign urothelial cells, histiocytes, red blood cells and a few crystals. DIAGNOSIS CYTOLOGY Urine for cytology (cytospin): Negative for malignant cells. See cytology study. CE:mack 08/29/18 HEADER OPERATION: Not noted PRE-OP DIAGNOSIS: Hematuria TISSUE SUBMITTED: Urine for cytology Signed Jaime Doran MD <signature on file> Performed By: #### PCYSPIN #### [facility] [address] [place], [address] CYTOLOGY, BODY FLUID / Collected: 08/27/2018 Status: F Source: [place] CSF 9:30 AM [facility] REPOSITORY Order Comment: Specimen Source: URINE TYPE CODE TESTS RESULT OUT OF RANGE REFERENCE UNITS LAB L350.1000 SEE Normal PATHOLOGY CYTOLOGY,BF REPORT /CSF Result Comment: Specimen submitted to Anatomical Pathology Department for testing. Performed By: #### L350.1000 #### [facility] [address] [place], [address] CBC W/DIFF, AUTOMATED Collected: 07/19/2018 Status: F Source: [place] 12:10 PM [facility] REPOSIT[facility] TYPE CODE TESTS RESULT OUT OF [...] Lymph 0.87 Performed By: #### L100.0100 #### [facility] [address] [place], [address] VITAMIN D,25 HYDROXY Collected: 07/19/2018 Status: F Source: [place] 12:10 PM [facility] REPOSITORY TYPE CODE TESTS RESULT OUT OF RANGE REFERENCE UNITS LAB L506.1000 29.95-100.01 ng/mL Normal Vitamin D 32.4 25-OH Result Comment: Vitamin D 25(OH) Status Range Deficiency <20 ng/mL (50nmol/L) Insuffciency 20 - 30 ng/mL (50 - 75 nmol/L) Sufficiency 30 - 100 ng/mL (75 - 250 nmol/L) Toxicity >100 ng/mL (>250 nmol/L) Performed By: #### L506.1000, L509.3000 #### [facility] [address] [place], [place], [address] TESTOSTERONE, SERUM TOTAL Collected: 07/19/2018 Status: F Source: [place] 12:10 PM [facility] REPOS[facility] TYPE CODE TESTS RESULT OUT OF [...] 07/26/2017 Performed By: #### L506.1000, L509.3000 #### [facility] [address] [place], [address] COMPREHENSIVE METABOLIC Collected: 07/19/2018 Status: F [facility] 12:10 PM [facility] RE[facility] TYPE CODE TESTS RESULT OUT OF [...] 7 Performed By: #### L500.4050, L501.9520 #### [facility] [address] [place], [address] THYROID STIM HORMONE Collected: 07/19/2018 Status: F Source: [place] (TSH) 12:10 PM [facility] REPOSITORY TYPE CODE TESTS RESULT OUT OF RANGE REFERENCE UNITS LAB L501.9520 0.358-3.74 uIU/mL Normal TSH 1.26 Performed By: #### L500.4050, L501.9520 #### [facility] [address] [place], [address] CHIROPRACTIC REPORT Observed: 06/04/2018 Status: F Source: [place] 8:26 AM [facility] REPOSITORY [facility] [address] [place] [address] OFFICE VISIT Date of Service: 05/28/18 MR#: [id number] Acct: [id number] Name: BRENNAN LUIS Rep #: [id number] : 1945 Provider: Lexie Goodson D.C. Age/Sex: 73/M [place] [facility] Status: Signed Intake Vital Signs05/28/18 Height 6 [...] 10/29/15 [History Confirmed 12/25/17] Hydrocodone Bitart/Apap 5-325 [[place] 5MG-325MG] 1 - 2 tab PO Q4H [...] Additional Codes Procedures - Manipulation: 3-4 regions (89051) 06/04/18 0826 <Electronically signed by Lexie Goodson D.C.> Date Lexie Goodson D.C. Cosigner Signature: Date (if applicable) CC: CHIROPRACTIC REPORT Observed: 05/23/2018 Status: F Source: [place] 10:10 AM [facility] [address] [place] [address] OFFICE VISIT Date of Service: 05/23/18 MR#: [id number] Acct: [id number] Name: BRENNAN LUIS Rep #: [id number] : 1945 Provider: Lexie Goodson D.C. Age/Sex: 73/M Location[place] [facility] Status: Signed Intake Vital Signs05/23/18 Height 6 [...] 10/29/15 [History Confirmed 12/25/17] Hydrocodone Bitart/Apap 5-325 [[place] 5MG-325MG] 1 - 2 tab PO Q4H PRN PRN #20 tab 12/25/17 [Rx] Tamsulosin HCl [Flomax] 0.4 mg PO DAILY #7 cap 12/25/17 [Rx] gabapentin 400 mg capsule 400 mg PO QDAY 01/31/18 [History Confirmed 01/31/18] [facility] Medical History DDD (degenerative disc disease), lumbar [...] Additional Codes Procedures - Manipulation: 3-4 regions (23397) Procedures - Hot and/or cold packs: Yes (79179) 05/23/18 1010 <Electronically signed by Lexie Goodson D.C.> Date Lexie Goodson D.C. Cosigner Signature: Date (if applicable) CC: CHIROPRACTIC REPORT Observed: 05/21/2018 Status: F Source: [place] 9:34 AM [facility] [address] [place] [address] OFFICE VISIT Date of Service: 05/17/18 MR#: [id number] Acct: [id number] Name: BRENNAN LUIS Rep #: [id number] : 1945 Provider: Lexie Goodson D.C. Age/Sex: 73/M Location[place] [facility] Status: Signed Intake Vital Signs05/17/18 Height 6 ft 2 in 05/17/18 Weight: 245 lb 05/17/18 Body Mass Index (BMI) 31.4 Intake Visit Reasons: back pain Edger Hand Required: No Accompanied by: None Is patient in pain?: Yes Allergies celecoxib [From Celebrex] Adverse Reaction (Verified 10/29/15 14:56) Unknown Medications Allopurinol [Zyloprim] 300 mg PO DAILY 10/29/15 [History Confirmed 12/25/17] Atorvastatin Calcium [Lipitor] 20 mg PO QHS 10/29/15 [History Confirmed 12/25/17] Hydrocodone Bitart/Apap 5-325 [[place] 5MG-325MG] 1 - 2 tab PO Q4H [...] Additional Codes Procedures - Manipulation: 3-4 regions (06722) Procedures - Traction, Mechanical: Yes (48690) 05/21/18 0934 <Electronically signed by Lexie Goodson D.C.> Date Lexie Goodson D.C. Cosigner Signature: Date (if applicable) CC: CHIROPRACTIC REPORT Observed: 05/14/2018 Status: F Source: [place] 3:28 PM [facility] [address] [place], [place] [address] OFFICE VISIT Date of Service: 05/14/18 MR#: [id number] Acct: [id number] Name: BRENNAN LUIS Maggie Rep #: [id number] : 1945 Provider: Lexie Goodson D.C. Age/Sex: 73/M Location: [facility] Status: Signed Intake Vital Signs05/14/18 Height 6 [...] 10/29/15 [History Confirmed 12/25/17] Hydrocodone Bitart/Apap 5-325 [[place] 5MG-325MG] 1 - 2 tab PO Q4H [...] Additional Codes Procedures - Manipulation: 3-4 regions (27931) 05/14/18 1528 <Electronically signed by Lexie Goodson D.C.> Date Lexie Goodson D.C. Cosigner Signature: Date (if applicable) CC: CHIROPRACTIC REPORT Observed: 05/10/2018 Status: F Source: [place] 10:23 AM [facility] [address] [place] [address] OFFICE VISIT Date of Service: 05/10/18 MR#: [id number] Acct: [id number] Name: BRENNAN LUIS Rep #: [id number] : 1945 Provider: Lexie Goodson D.C. Age/Sex: 73/M Location: [facility] Status: Signed Intake Vital Signs05/10/18 Height 6 [...] 10/29/15 [History Confirmed 12/25/17] Hydrocodone Bitart/Apap 5-325 [[place] 5MG-325MG] 1 - 2 tab PO Q4H [...] pain has been ongoing since driving to [place], after being in the car for 30 [...] Additional Codes Procedures - Manipulation: 3-4 regions (14902) 05/10/18 1023 <Electronically signed by Lexie Goodson D.C.> Date Lexie Goodson D.C. Cosigner Signature: Date (if applicable) CC: OFFICE VISIT REPORT Observed: 04/17/2018 Status: F Source: [place] 10:[address] [place] [address] OFFICE VISIT Date of Service: 04/17/18 MR#: [id number] Acct: [id number] Patient: BRENNAN LUIS Rep #: [id number] : 1945 Provider: Hank MARQUEZ Age/Sex: 72/M Location: [facility] Status: Signed Intake Intake Visit Reasons: SHINGLES VACCINE #2 Chief Complaint: back pain Allergies celecoxib [From Celebrex] Adverse Reaction (Verified 10/29/15 14:56) Unknown Medications Allopurinol [Zyloprim] 300 mg PO DAILY 10/29/15 [History Confirmed 12/25/17] Atorvastatin Calcium [Lipitor] 20 mg PO QHS 10/29/15 [History Confirmed 12/25/17] Hydrocodone Bitart/Apap 5-325 [[place] 5MG-325MG] 1 - 2 tab PO Q4H PRN PRN #20 tab 12/25/17 [Rx] Tamsulosin HCl [Flomax] 0.4 mg PO DAILY #7 cap 12/25/17 [Rx] gabapentin 400 mg capsule 400 mg PO QDAY 01/31/18 [History Confirmed 01/31/18] Office Meds Shingrix (PF) Performing Provider: ALMA Farr Administered by: Kira Caceres on 09/11/18 10:13 Dose Route Admin Location Lot Number Expiration Date [facility] Cost Report Clerk Assessment AND Plan Orders Orders: Medications Discontinued: Shingrix (PF) (varicella-zoster gE-AS01B (PF)) Disco0.5 mL IM ONCE NS Z23 Kira Caceres ntinued Reason: Office Medication has been Documented as given Plan Detail Goals Decrease pain Improve sleeping Barriers DDD 04/17/18 1049 <Electronically signed by Hank MARQUEZ> Date Hank MARQUEZ Cosigner Signature: Date (if applicable) CC: ESOPHAGUS ONLY Observed: 04/17/2018 Status: F Source: [place] 8:58 AM [facility] REPOSITORY [facility] Imaging Services [address] [place] [address] Esophagus Only MR#: [id number] Acct: [id number] Name: BRENNAN LUIS Rep #: [id number] : 1945 M 72 From: Ramiro Yip MD PCP: [facility] Status: REG CLI Study: Esophagus Only Date of Exam: 04/17/18 Exam# [id number] Ordering Dr: Justin Peterson MD STUDY: X-RAY [...] Ramiro Yip MD at 14:15 EDT Tel [phone], Service support , CC: Jsutin Peterson MD; Eric Smith MD Irrigationist: Signed OT D/C OF NON Observed: 04/03/2018 Status: F Source: [facility] PT 8:26 AM [facility] REPOSITORY [facility] Occupational Therapy [facility] [address] [place] [address] [place], [place] [address] Fax REHABILITATION SERVICES DISCHARGE SUMMARY MR#: [id number] Acct: [id number] Name: BRENNAN LUIS Rep #: [id number] : 1945 72 From: Park JONES/Erasto, CHT Referring Dr.: Eric Smith MD Status: REG [...] found appropriate by the physician. Thank you! Park Chase OTR/L, CHT <Electronically signed by Park JONES/Erasto, CHT> 04/03/18 1279 CC: Eric Smith MD MK Signed CHIROPRACTIC REPORT Observed: 02/06/2018 Status: F Source: [place] 2:17 PM [facility] [address] [place] [address] OFFICE VISIT Date of Service: 02/06/18 MR#: [id number] Acct: [id number] Name: BRENNAN LUIS Rep #: [id number] : 1945 Provider: Lexie Goodson D.C. Age/Sex: 72/M Location: [facility] Status: Signed Intake Vital Signs02/06/18 Height 6 [...] 10/29/15 [History Confirmed 12/25/17] Hydrocodone Bitart/Apap 5-325 [[place] 5MG-325MG] 1 - 2 tab PO Q4H [...] Additional Codes Procedures - Manipulation: 3-4 regions (74979) 02/06/18 1417 <Electronically signed by Lexie Goodson D.C.> Date Lexie Goodson D.C. Cosigner Signature: Date (if applicable) CC: OT GENERAL EVALUATION Observed: 02/02/2018 Status: F Source: [place] 11:02 AM [facility] REPOSITORY [facility] Occupational Therapy [facility] [address] [place], [place] [address] Fax REHABILITATION SERVICES INITIAL EVALUATION MR#: [id number] Acct: [id number] Name: BRENNAN LUIS Rep #: [id number] : 1945 72 From: Park GARNER CHT Referring Dr.: Eric Smith MD Status: REG RCR Insurance: MEDICARE PART A B Eval Date: [employer] Patient's Visit Information BRENNAN LUIS is a 72 year old M, referred to Occupational Therapy by Eric Smith, with a diagnosis of CMC arthritis. Date of Evaluation: 01/31/18 Occupational Therapist: PATSY Moreland CHT - Subjective Subjective: Pt arrives to OT [...] to be FAXED BACK to us at [phone] for Medicare purposes. Please let me know if there are questions or concerns regarding this plan of care. Physician Signature: Date: <Electronically signed by Park GARNER CHT> 02/02/18 1102 CC: Eric Smith MD MK Signed For Medicare only, by signing this I certify the plan of care. Physicians Signature Date CHIROPRACTIC REPORT Observed: 01/31/2018 Status: F Source: [place] 11:51 AM [facility] [address] [place] [address] OFFICE VISIT Date of Service: 01/31/18 MR#: [id number] Acct: [id number] Name: BRENNAN LUIS Rep #: [id number] : 1945 Provider: Lexie Goodson D.C. Age/Sex: 72/M Location: [facility] Status: Signed Intake Vital Signs01/31/18 Height 6 [...] 10/29/15 [History Confirmed 12/25/17] Hydrocodone Bitart/Apap 5-325 [[place] 5MG-325MG] 1 - 2 tab PO Q4H [...] Additional Codes Procedures - Manipulation: 3-4 regions (80464) 01/31/18 1151 <Electronically signed by Lexie Goodson D.C.> Date Lexie Goodson D.C. Cosigner Signature: Date (if applicable) CC: VITAMIN D,25 HYDROXY Collected: 01/26/2018 Status: F Source: [place] 8:41 AM [facility] REPOS[facility] TYPE CODE TESTS RESULT OUT OF REFERENCE UNITS RANGE LAB L506.1000 29.95-100.01 ng/mL Low Vitamin D 27.8 25-OH Result Comment: Vitamin D 25(OH) Status Range Deficiency <20 ng/mL (50nmol/L) Insuffciency 20 - 30 ng/mL (50 - 75 nmol/L) Sufficiency 30 - 100 ng/mL (75 - 250 nmol/L) Toxicity >100 ng/mL (>250 nmol/L) Performed By: #### L506.1000, L509.3000 #### [facility] [address] [place], [address] TESTOSTERONE, SERUM TOTAL Collected: 01/26/2018 Status: F Source: [place] 8:41 AM [facility] TYPE CODE TESTS RESULT OUT OF [...] 07/26/2017 Performed By: #### L506.1000, L509.3000 #### [facility] [address] [place], [address] PSA,TOTAL - ANNUAL Collected: 01/26/2018 Status: F Source: [place] SCREEN 8:41 AM [facility] REPOS[facility] TYPE CODE TESTS RESULT OUT OF RANGE REFERENCE UNITS LAB L501.9910 0.00-4.00 ng/mL Normal PSA,TOT 2.37 SCREEN Result Comment: This test was performed using the TPSA assay method for the [employer] chemistry system. Values obtained with different assay methods cannot be used interchangably. When changing PSA assays in the course of monitoring a patient, additional sequential testing should be carried out to confirm baseline values. Performed By: #### L501.9910 #### [facility] [address] [place], [address] HEPATITIS C ANTIBODIES Collected: 01/26/2018 Status: F Source: [place] 8:41 AM [facility] TYPE CODE TESTS RESULT OUT OF RANGE REFERENCE UNITS LAB L3100.0650 0.0-0.9 s/co ratio Normal HEP C AB <0.1 Result Comment: Negative: < 0.8 Indeterminate: 0.8 - 0.9 Positive: > 0.9 The CDC recommends that a positive HCV antibody result be followed up with a HCV Nucleic Acid Amplification test (055187). Performed at: [facility] [address] [id number] Lithographic Etcher: Mitch Phillips PhD, Phone: [phone] Performed By: #### L3100.0625 #### [facility] (refer to report for specific site) refer to report for address and phone number EMERGENCY DEPARTMENT Observed: 12/25/2017 Status: F Source: [place] SUMMARY 4:38 PM [facility] REPOSITORY [facility] Medical Records Department [address] [place] [address] Emergency Department Summary 12/25/17 1546 MR#: [id number] Acct: [id number] Name: BRENNAN LUIS Rep #: [id number] : 1945 72 From: Baldomero Michaels MD [...] this time. It will be written for Convrrt for pain at home. Also Flomax. Strain his urine for stone. He has an appointment to see Dr. Soni tomorrow. Disposition: dc Impression: Acute right flank pain secondary to 3 mm right distal ureteral calculi History of kidney stones This note was generated with [employer]deal dictation software. It may contain incorrect words, [...] your Primary Care Provider. Call [facility] ([phone]) or report to the closest Emergency Room. Call 911 if necessary. 12/25/17 0110 <Electronically signed by Baldomero Michaels MD> Date Baldomero Michaels MD Cosigner Signature (If Indicated): Date CC: Eric Smith MD DISCHARGE INSTRUCTION Observed: 12/25/2017 Status: F Source: [place] 4:38 PM [facility] REPOSITORY [facility] Medical Records Department [address] [place] [address] [place] [address] Discharge Instruction 12/25/17 1549 MR#: [id number] Acct: [id number] Name: BRENNAN LUIS Rep #: [id number] : 1945 72 From: Baldomero Michaels MD PCP: Eric Smith MD, Chi Status: DEP ER ED Disposition - Plan for ED Patient: Disposition: Home or Assisted Living Chief Complaint: Flank Pain Instructions: ED Stone Renal W Colic Prescriptions: Hydrocodone Bitart/Apap 5-325 [[place] 5MG-325MG] 1 - 2 tab PO Q4H PRN PRN #20 tab PRN Reason: Pain Tamsulosin HCl [Flomax] 0.4 mg PO DAILY #7 cap Referrals: Sergio Soni MD [STAFF PHYSICIAN] - Keep Lona appointment Additional Instructions: Urine for passed stone. [place] for pain. Flomax to help pass the stone. Return if intractable pain, fever, intractable vomiting or feeling worse. Follow up with your urologist as scheduled tomorrow. What to do if you have Problems For any increased pain, shortness of breath, bleeding, nausea or vomiting, chest pain, or any unexpected problems, contact your Primary Care Provider. Call [employer] ([phone]) or report to the closest Emergency Room. Call 911 if necessary. 12/25/17 2428 <Electronically signed by Baldomero Michaels MD> Date Baldomero Michaels MD Cosigner Signature (If Indicated): Date CC: Eric Smith MD URINALYSIS, COMPLETE Collected: 12/25/2017 Status: F Source: [place] 3:14 PM [facility] RE[facility] Order Comment: Order Date: 12/25/17 How [...] URINE SEEN Performed By: #### L400.0001 #### [facility] [address] [place], [address] CBC W/DIFF, AUTOMATED Collected: 12/25/2017 Status: F Source: [place] 2:40 PM [facility] REPOSIT[facility] TYPE CODE TESTS RESULT OUT OF [...] Lymph 1.55 Performed By: #### L100.0100 #### [facility] [address] [place], [place], [address] BASIC METABOLIC Collected: 12/25/2017 Status: F Source: [place] PROFILE (BMP) 2:40 PM [facility] REPOSITORY TYPE CODE TESTS RESULT OUT OF [...] GAP 8 Performed By: #### L500.2500 #### [facility] [address] [place], [address] ABDOMEN/PELVIS WITHOUT Observed: 12/25/2017 Status: F Source: [place] CONT 2:33 PM [facility] RE[facility] Imaging Services [address] [place] [address] Abdomen/Pelvis without Cont MR#: [id number] Acct: [id number] Name: BRENNAN LUIS Rep #: [id number] : 1945 M 72 From: Ramiro Yip MD PCP: Luis MAS,Eric Nguyen Status: REG ER Study: Abdomen/Pelvis without Cont Date of Exam: 12/25/17 Exam# [id number] Ordering Dr: Baldomero Michaels MD STUDY: CT [...] Ramiro Yip MD at 15:29 EDT Tel [phone], Service support , CC: Baldomero Michaels MD; Eric Smith MD Irrigationist: Signed ALLERGIES ALLERGIES DATE TYPE / CODE NAME / CODE REACTION SEVERITY SOURCE 10/29/2015 Drug celecoxib/F0 Unknown Unknown [place] [facility] Allergy/4160 [id number]([facility] 55145(SNOMED ORM) Repository CT) ENCOUNTERS ENCOUNTERS ADMIT/DISCHARGE ACCOUNT ADMITTING ENCOUNTER LOCATION SOURCE NUMBER CLASS 08/27/2018 [id number] Ambulatory [place] 5 [facility] ing:[facility] Repository 08/09/2018 [id number] Ambulatory [place] 2 [facility] ing:MASS Repository 07/19/2018 [id number] Amb[place] [facility] ing:POLAB3 Repository 05/28/2018/ [id number] [facility] [place] [facility] 05/23/2018/ [id number] [facility] [place] [facility] Rep[facility] 05/17/2018/ [id number] [facility] [place] [facility] Rep[facility] 05/14/2018/ [id number] [facility] [place] [facility] Repository 05/10/2018/ [id number] Ambulatory [facility] [place] [facility] Repository 04/26/2018 [id number] Amb[place] 6 [facility] ing:[facility] Repository 04/17/2018/ [id number] Ambulatory [facility] [place] [facility] 3 [facility] Repository 04/17/2018 [id number] [facility]ulatory [place] 5 [facility] ing:RAD Repository 02/28/2018/ [id number] [facility] [place] [facility] 6 [facility] ing:OT Repository 02/06/2018/ [id number] Ambulatory BMS[facility] [place] [facility] 01/31/2018/ [id number] Ambulatory BMSBuilding:[facility] [place] [facility] Rep[facility] 01/26/2018 [id number] Amb[facility] [place] 5 [facility] ing:LAB.FUTUR Repository E 12/25/2017/ [id number] Emergency [place] 8 8 [facility] ing:ED Repository PAYERS PAYERS ENCOUNTER GUARANTOR PAYER SUBSCRIBER SOURCE 08/27/2018 BRENNAN Serrano Primary BRENNAN [id number] Insurance:MEDICARE DAUGHERTYDOB: [facility] PART A BPolicy Number: [id number] [id number] Repository [address]330Nqo: 330) Date:2018-08-27 [phone] () 08/27/2018 Secondary BRENNAN Maggie [place] Insurance:HUMANA DAUGHERTYDOB: [facility] [id number] Hospital Number: Repository [id number] Date:2640-36-95VB[address] [address]KM: 08/27/2018 Tertiary NOT GIVENUNK [place] Insurance:SELF PAY [facility] Number: Effective Repository Date:2018-08-27 08/09/2018 BRENNAN Serrano Primary Insurance:SELF NOT GIVENUNK [place] [id number] E [facility]Y [facility] Effective [place] Date:2016-09-08 Repository 31603Plf: () 07/19/2018 BRENNAN E Primary BRENNAN Haney [id number] E Insurance:MEDICARE DAUGHERTYDOB: Community [place] PART A BPolicy Number: [id number] [id number] Repository 16008Dxz: ([phone]) Date:2018-07-19 [phone] () 07/19/2018 Secondary BRENNAN E [place] Insurance:HUMANA DAUGHERTYDOB: [facility] [id number] Hospital Number: Repository [id number] Date:6745-20-65RV [address] [address]AB: 07/19/2018 Tertiary NOT GIVENUNK [place] Insurance:SELF PAY [facility] Number: Effective Repository Date:2018-07-19 05/28/2018 BRENNAN E Primary BRENNAN Maggie [place] [id number] E Insurance:MEDICARE DAUGHERTYDOB: Community [place] PART A BPolicy Number: [id number], [place] [id number] Repository 53857Fbu: ([phone]) Date:2018-05-23 [phone] () 05/28/2018 Secondary BRENNAN E [place] Insurance:HUMANA DAUGHERTYDOB: [facility] [id number] Hospital Number: Repository [id number] Date:[id number] [address]WB: 05/28/2018 Tertiary NOT GIVENUNK [place] Insurance:SELF PAY [facility] Number: Effective Repository Date:2018-05-28 05/23/2018 BRENNAN E Primary BRENNAN E [place] [id number] E Insurance:MEDICARE DAUGHERTYDOB: Community [place] PART A BPolicy Number: [id number], [place] [id number] Repository 68531Hcm: (126) Date:2018-05-17 [phone] () 05/23/2018 Secondary BRENNAN E [place] Insurance:HUMANA DAUGHERTYDOB: [facility] [id number] Hospital Number: Repository [id number] Date:5522-66-94MX[address] [address]EH: 05/23/2018 Tertiary NOT GIVENUNK [place] Insurance:SELF PAY [facility] Number: Effective Repository Date:2018-05-23 05/17/2018 BRENNAN E Primary BRENNAN E [place] [id number] E Insurance:MEDICARE DAUGHERTYDOB: [facility] [place] PART A olicy Number: [id number], [place] [id number] Repository 427[address]Rfa: [phone]) Date:2018-05-10 [phone] () 05/17/2018 Secondary BRENNAN E [place] Insurance:HUMANA DAUGHERTYDOB: [facility] [id number] Hospital Number: Repository [id number] Date:1700-91-58FU[address] [address]FA: 05/17/2018 Tertiary NOT GIVENUNK [place] Insurance:SELF PAY [facility] Number: Effective Repository Date:2018-05-17 05/14/2018 BRENNAN E Primary BRENNAN Haney [id number] E Insurance:MEDICARE DAUGHERTYDOB: Community [place] PART A olicy Number: [id number], [place] [id number] Repository 58[address]Foj: ([phone]) Date:2018-05-10 [phone] () 05/14/2018 Secondary BRENNAN E [place] Insurance:HUMANA DAUGHERTYDOB: [facility] [id number] Hospital Number: Repository [id number] Date:8966-60-81MA [address] [address]VT: 05/14/2018 Tertiary NOT GIVENUNK [place] Insurance:SELF PAY [facility] Number: Effective Repository Date:2018-05-14 05/10/2018 BRENNAN E Primary BRENNAN Haney [id number] E Insurance:MEDICARE DAUGHERTYDOB: [facility] [place] PART A BPolicy Number: [id number], [place] [id number] Repository 30191Myc: ([phone]) Date:2018-05-02 [phone] () 05/10/2018 Secondary BRENNAN E [place] Insurance:HUMANA DAUGHERTYDOB: Community COMMERCIALPolicy [id number] Hospital Number: Repository [id number] Date:5726-29-25AM [address] [place] [address]CI: 05/10/2018 Tertiary NOT GIVENUNK [place] Insurance:SELF PAY [facility]: Effective Repository Date:2018-05-10 04/26/2018 BRENNAN E Primary Insurance:SELF NOT GIVENUNK [place] [id number] E PAY [facility] Number: Effective [place] Date:2018-04-17 Repository 19265Vay: () 04/17/2018 BRENNAN E Primary BRENNAN Haney [id number] E Insurance:MEDICARE DAUGHERTYDOB: Community [place] PART A BPolicy Number: [id number], [place] [id number] Repository 16323Wnq: (309) Date:2018-04-17 [phone] () 04/17/2018 Secondary BRENNAN E [place] Insurance:HUMANA DAUGHERTYDOB: [facility] [id number] Hospital Number: Repository [id number] Date:6348-60-08AX [address] [place] [address]ER: 04/17/2018 Tertiary NOT GIVENUNK [place] Insurance:SELF PAY [facility] Number: Effective Repository Date:2018-04-17 04/17/2018 BRENNAN E Primary BRENNAN E [place] [id number] E Insurance:MEDICARE DAUGHERTYDOB: Community [place] PART A BPolicy Number: [id number], [place] [id number] Repository 348[address]Ajc: (363) Date:2018-04-12 [phone] () 04/17/2018 Secondary BRENNAN E [place] Insurance:HUMANA DAUGHERTYDOB: Community COMMERCIALPoly [id number] Hospital Number: Repository [id number] Date:0424-00-51MC [address] [place] [address]AB: 04/17/2018 Tertiary NOT GIVENUNK [place] Insurance:SELF PAY [facility] Number: Effective Repository Date:2018-04-12 02/28/2018 Brennan E Primary Brennan E [place] [id number] E Insurance:MEDICARE DaughertyDOB: Community [place] PART A BPolicy Number: [id number], [place] [id number] Repository 11866Fke: (489) Date:2011-04-07 [phone] () 02/28/2018 Secondary Brennan E [place] Insurance:HUMANA DaughertyDOB: [facility] [id number] Hospital Number: Repository [id number] Date:3457-42-35KT [address] [place] [address]QH: 02/28/2018 Tertiary NOT GIVENUNK [place] Insurance:SELF PAY [facility] Number: Effective Repository Date:2018-01-24 02/06/2018 Brennan E Primary Brennan E [place] [id number] E Insurance:MEDICARE DaughertyDOB: [facility] [place] PART A BPolicy Number: [id number], [place] [id number] Repository 03696Yil: (911) Date:2018-01-31 [phone] () 02/06/2018 Secondary Brennan E [place] Insurance:HUMANA DaughertyDOB: [facility] [id number] Hospital Number: Repository [id number] Date:6043-16-73BU [address] [place] [address]JE: 02/06/2018 Tertiary NOT GIVENUNK [place] Insurance:SELF PAY [facility] Hospital Number: Effective Repository Date:2018-02-06 01/31/2018 Brennan E Primary Brennan [id number] E Insurance:MEDICARE DaughertyDOB: Community [place] PART A BPolicy Number: [id number], [place] [id number] Repository 434[address]Tvv: (330) Date:2018-01-24 [phone] () 01/31/2018 Secondary Brennan E [place] Insurance:HUMANA DaughertyDOB: Community COMMERCIALPolicy [id number] Hospital Number: Repository [id number] Date:3029-48-69ON[address] [address]EI: 01/31/2018 Tertiary NOT GIVENUNK [place] Insurance:SELF PAY [facility] Hospital Number: Effective Repository Date:2018-01-31 01/26/2018 Brennan E Primary Brennan Haney [id number] E Insurance:MEDICARE DaughertyDOB: Community [place] PART A BPolicy Number: [id number], [place] [id number] Repository 566[address]Ooc: ([phone]) Date:2018-01-25 [phone] () 01/26/2018 Secondary Brennan E [place] Insurance:HUMANA DaughertyDOB: [facility] [id number] Hospital Number: Repository [id number] Date:0820-55-27JM[address] [address]KQ: 01/26/2018 Tertiary NOT GIVENUNK [place] Insurance:SELF PAY [facility] Number: Effective Repository Date:2018-01-25 12/25/2017 Brennan E Primary Brennan [id number] E Insurance:MEDICARE DaughertyDOB: Community [place] PART A BPolicy Number: [id number], [place] [id number] Repository 03503Mxb: (330) Date:2017-12-25 [phone] () 12/25/2017 Secondary Brennan E [place] Insurance:JEREMIEA JericaDOB: Community COMMERCIALPolicy [id number] Hospital Number: Repository [id number] Date:2107-14-08[address] [address]KNOXHSAXG, [place] [address]QN: 12/25/2017 Tertiary NOT GIVENUNK [place] Insurance:SELF PAY [facility] Hospital Number: Effective Repository Date:2017-12-25
== END ==
PROVIDERS: Family Provider Family Medicine Geriatric Medicine; PCP Family Medicine Geriatric Medicine; Referring Provider Urology; Visit Provider Urology
DX: R31.9 Hematuria, unspecified (principal)
CPT/HCPCS: 88108; 88313

== ENCOUNTER → 2018-11-07 06:55 | Outpatient (CLI) | payer MEDICARE, OTHER, SELFPAY ==
--- NOTE | 2018-11-07 07:31 | MRI_ITS ---
STUDY: MRI LUMBAR SPINE WITHOUT CONTRAST REASON FOR EXAM: Male, 73 years old. Right-sided sciatica. Spinal stenosis. TECHNIQUE: Standardized fat and water weighted pulse sequences were obtained in the sagittal and axial planes. COMPARISON: April 12, 2017 FINDINGS: Lumbar lordosis preserved. No significant scoliosis. Conus medullaris terminates normally at the L1 level. T12-L1: Normal endplates. Shallow disc bulge without central canal narrowing. Normal bilateral facet joints. Normal central canal and bilateral lateral recesses. Normal bilateral intervertebral neural foramina. L1-2: Normal endplates. Shallow disc bulge without central canal narrowing. Normal bilateral facet joints. Normal central canal and bilateral lateral recesses. Normal bilateral intervertebral neural foramina. L2-3: Moderate/severe endplate spondylosis with degenerative/reactive edema. Disc bulge with mild central canal narrowing. Facet joint arthrosis. Normal bilateral lateral recesses. Mild neural foramina narrowing without impingement. L3-4: Mild endplate spondylosis. Disc bulge with mild central canal narrowing. Facet joint arthrosis. Normal bilateral lateral recesses. Mild neural foraminal narrowing without impingement. L4-5: Normal endplates. Disc bulge without central canal narrowing. Facet joint arthrosis. Normal central canal and bilateral lateral recesses. Mild neural femoral narrowing without impingement. L5-S1: Mild end plate spondylosis. Disc bulge without central canal narrowing. Facet joint arthrosis. Normal central canal and bilateral lateral recesses. Bilateral neural femoral narrowing with impingement on the right. Vacuum phenomenon. Vacuum phenomenon. Sacrum intact. Renal cyst. Normal retroperitoneum. Normal aorta. MRI/Spine Lumbar (Routine) IMPRESSION: Multilevel intervertebral disc disease with mild central canal narrowing at L2-3 and L3-4 Multilevel neural foraminal narrowing with impingement of the right exiting L5 nerve root Multilevel osseous degenerative changes with degenerative/reactive endplate edema Electronically Signed: Caleb Cadet DO at 12:39 EDT Tel , Service support ,
== END ==
PROVIDERS: Family Provider Family Medicine Geriatric Medicine; PCP Family Medicine Geriatric Medicine; Referring Provider Nurse Practitioner Family; Visit Provider Nurse Practitioner Family
DX: M46.96 Unspecified inflammatory spondylopathy, lumbar region (principal); M51.36 Other intervertebral disc degeneration, lumbar region; M48.061 Spinal stenosis, lumbar region without neurogenic claudication; M47.816 Spondylosis without myelopathy or radiculopathy, lumbar region; M54.17 Radiculopathy, lumbosacral region; M47.817 Spondylosis without myelopathy or radiculopathy, lumbosacral region; M43.16 Spondylolisthesis, lumbar region
CPT/HCPCS: 72148

== ENCOUNTER → 2019-01-04 12:39 | Outpatient (CLI) | payer MEDICARE, OTHER, SELFPAY ==
--- NOTE | 2019-01-04 12:58 | CT_ITS ---
STUDY: CT ABDOMEN AND PELVIS WITH CONTRAST REASON FOR EXAM: Male, 73 years old. Lower pelvic pain for one day. RADIATION DOSAGE (If Supplied By Facility): CTDIvol = ( 16.31 ) mGy, DLP = ( 1241.73 ) mGycm TECHNIQUE: Transaxial images were obtained from the dome of the diaphragm to the symphysis pubis with oral contrast. 100 IV/Oral Isovue 300 was administered. Sagittal and coronal images were reconstructed. Individualized dose optimization techniques were used for this CT. COMPARISON: December 25, 2017. FINDINGS: The visualized lung bases are unremarkable. The visualized portions of the heart are within normal limits. Normal liver. Normal gallbladder and extrahepatic biliary system. Normal spleen. Normal pancreas. Normal bilateral adrenal glands. Normal right kidney. Normal right ureter. There is a small cortical cyst in the lower pole of an otherwise normal left kidney. Normal left ureter. Normal visualized stomach. Normal small intestine. There is descending and sigmoid diverticulosis. There is wall thickening and stranding of the rectosigmoid colon suggesting uncomplicated diverticulitis. The colon is otherwise unremarkable. The appendix is visualized and appears normal. There is diffuse atherosclerotic calcification of the abdominal aorta, without a demonstrated aneurysm. Normal inferior vena cava. Normal retroperitoneum. Normal urinary bladder. Markedly enlarged prostate. There is no pelvic lymphadenopathy. No free air or free fluid is seen within the peritoneal cavity. There is an umbilical hernia of omental fat. The abdominal wall is otherwise unremarkable. There are diffuse degenerative changes of the visualized lumbar spine. CT/Abdomen/Pelvis WITH Contrast IMPRESSION: 1. Uncomplicated sigmoid diverticulitis. 2. Passage of the right ureteral calculus and resolution of the right obstructive uropathy seen on the earlier study. 3. Stable enlargement of the prostate. 4. Left lower pole renal cyst. 5. No other major interval change when compared to the prior exam. Electronically Signed: Chacorta Saldana DO at 18:01 EDT Tel [phone], Service support ,
[2019-01-04 13:18] LABS: Absolute Neutrophil Count 5.4 X10^3/uL (2.0-7.7); Basophil# 0.02 X10^3/uL; Basophil% 0.3 % (0-1); Eosinophil# 0.18 X10^3/uL; Eosinophils% 2.3 % (0-5); Hematocrit 47.5 % (40-54); Hemoglobin 16.4 g/dl (13.0-16.5); Lymphocyte % 16.8 % (19-41); Mean Corp Hgb Conc 34.5 g/gl (32-36); Mean Corpuscular Hgb 33.1 pg (27.0-32.0); Mean Platelet Vol. 10.2 fl (6.2-12.0); Monocyte# 0.82 X10^3/uL; Monocyte% 10.6 % (0-10); Neutrophil # 5.39 X10^3/uL (2.7-7.7); Neutrophil % 69.7 % (47-70); Platelet Count 162 K/mm3 (150-450); RBC Distribution Width SD 44.6 fl (35.1-43.9); Red Blood Count 4.95 M/mm3 (4.6-6.2); White Blood Count 7.7 K/mm3 (4.4-11.0)
[2019-01-04 13:26] LABS: POSITIVE COUNT NO; POSITIVE DIFFERENTIAL NO; POSITIVE MORPHOLOGY NO
[2019-01-04 13:51] LABS: ALB/GLOB Ratio 0.8 RATIO (0.9-2.4); AST(SGOT) 16 U/L (15-37); Alanine Aminotransfer ALT/SGPT 28 U/L (16-61); Albumin, Serum 3.3 g/dL (3.2-5.0); Alkaline Phosphatase 86 U/L (45-117); Anion Gap 10 (5-15); BUN 10 mg/dL (7-18); BUN/Creat Ratio 10.6 RATIO (10-20); Calcium,Total 8.5 mg/dL (8.5-10.1); Chloride 104 mmol/L (98-107); Creatinine, Serum 0.94 mg/dL (0.70-1.30); EST Glomerular Filtration Rate 84 mL/min (>60); Est Glom Filt Rate - Afr Amer 101 mL/min (>60); Globulin 4.3 g/dL (2.2-4.2); Glucose 102 mg/dL (74-106); Potassium 4.2 mmol/L (3.5-5.1); Protein, Total 7.6 g/dL (6.4-8.2); Sodium Level 140 mmol/L (136-145)
== END ==
PROVIDERS: Family Provider Family Medicine Geriatric Medicine; PCP Family Medicine Geriatric Medicine; Referring Provider Family Medicine Geriatric Medicine; Visit Provider Family Medicine Geriatric Medicine
DX: R19.7 Diarrhea, unspecified (principal); N39.0 Urinary tract infection, site not specified; R10.9 Unspecified abdominal pain
CPT/HCPCS: 36415; 74177; 80053; 82274; 83630; 85025; 87086; 87088; 87177; 87209; Q9967

== ENCOUNTER → 2019-01-23 | Outpatient (CLI) | payer MEDICARE, OTHER, SELFPAY ==
[2019-01-23 12:38] LABS: Absolute Lymphocyte Count 0.84 X10^3/ul (0.83-4.51); Absolute Neutrophil Count 3.7 X10^3/uL (2.0-7.7); Basophil# 0.02 X10^3/uL; Basophil% 0.4 % (0-1); Eosinophil# 0.04 X10^3/uL; Eosinophils% 0.8 % (0-5); Hematocrit 49.7 % (40-54); Hemoglobin 16.7 g/dl (13.0-16.5); Lymphocyte # 0.84 X10^3/ul (4.0); Lymphocyte % 16.7 % (19-41); Mean Corp Hgb Conc 33.6 g/gl (32-36); Mean Corpuscular Hgb 31.6 pg (27.0-32.0); Mean Platelet Vol. 10.4 fl (6.2-12.0); Monocyte# 0.39 X10^3/uL; Monocyte% 7.8 % (0-10); Neutrophil # 3.73 X10^3/uL (2.7-7.7); Neutrophil % 74.1 % (47-70); Platelet Count 160 K/mm3 (150-450); RBC Distribution Width CV 13.5 % (11.6-14.6); RBC Distribution Width SD 44.2 fl (35.1-43.9); Red Blood Count 5.29 M/mm3 (4.6-6.2)
[2019-01-23 12:41] LABS: POSITIVE COUNT NO; POSITIVE DIFFERENTIAL NO; POSITIVE MORPHOLOGY NO
[2019-01-23 13:04] LABS: Vitamin D,25 Hydroxy 24.7 ng/mL (29.95-100.01)
[2019-01-23 13:11] LABS: ALB/GLOB Ratio 0.9 RATIO (0.9-2.4); AST(SGOT) 21 U/L (15-37); Alanine Aminotransfer ALT/SGPT 41 U/L (16-61); Albumin, Serum 3.5 g/dL (3.2-5.0); Alkaline Phosphatase 71 U/L (45-117); Anion Gap 8 (5-15); BUN 16 mg/dL (7-18); BUN/Creat Ratio 17.2 RATIO (10-20); Calcium,Total 8.5 mg/dL (8.5-10.1); Chloride 107 mmol/L (98-107); Creatinine, Serum 0.93 mg/dL (0.70-1.30); EST Glomerular Filtration Rate 85 mL/min (>60); Est Glom Filt Rate - Afr Amer 102 mL/min (>60); Globulin 3.9 g/dL (2.2-4.2); Glucose 102 mg/dL (74-106); Potassium 4.1 mmol/L (3.5-5.1); Protein, Total 7.4 g/dL (6.4-8.2); Sodium Level 141 mmol/L (136-145); Thyroid Stim Hormone (TSH) 1.19 uIU/mL (0.358-3.74)
== END | disposition home or self-care (01) ==
LOC: POLAB3 09:34
PROVIDERS: Family Provider Family Medicine Geriatric Medicine; PCP Family Medicine Geriatric Medicine; Visit Provider Family Medicine Geriatric Medicine
DX: E55.9 Vitamin D deficiency, unspecified (principal); R53.83 Other fatigue
CPT/HCPCS: 36415; 80053; 82306; 84443; 85025

== ENCOUNTER → 2019-04-15 15:54 | Outpatient (CLI) | payer MEDICARE, OTHER, SELFPAY ==
[2019-04-18 12:07] LABS: Lyme IgG P18 Ab Absent (.); Lyme IgG P23 Ab Absent (.); Lyme IgG P28 Ab Absent (.); Lyme IgG P30 Ab Absent (.); Lyme IgG P39 Ab Absent (.); Lyme IgG P41 Ab Absent (.); Lyme IgG P45 Ab Absent (.); Lyme IgG P58 Ab Absent (.); Lyme IgG P66 Ab Absent (.); Lyme IgG P93 Ab Absent (.); Lyme IgM P23 Ab Absent (.); Lyme IgM P39 Ab Absent (.); Lyme IgM P41 Ab Absent (.)
[2019-04-22 12:37] LABS: Lyme IgG WB Interpretation Negative (.); Lyme IgM WB Interpretation Negative (.)
== END ==
PROVIDERS: Family Provider Family Medicine Geriatric Medicine; PCP Family Medicine Geriatric Medicine; Visit Provider Family Medicine Geriatric Medicine
DX: A69.20 Lyme disease, unspecified (principal)
CPT/HCPCS: 36415; 86617

== ENCOUNTER → 2019-07-24 09:03 | Outpatient (CLI) | payer MEDICARE, OTHER, SELFPAY ==
[2018-05-28 09:06] VITALS: BMI 31.4
[2019-07-24 09:25] LABS: Absolute Lymphocyte Count 1.33 X10^3/uL (0.83-4.51); Absolute Neutrophil Count 4.1 X10^3/uL (2.0-7.7); Basophil# 0.05 X10^3/uL; Basophil% 0.8 % (0-1); Eosinophil# 0.13 X10^3/uL; Eosinophils% 2.1 % (0-5); Hematocrit 51.6 % (40-54); Hemoglobin 17.1 g/dL (13.0-16.5); Lymphocyte # 1.33 X10^3/ul (4.0); Lymphocyte % 21.6 % (19-41); Mean Corp Hgb Conc 33.1 g/dL (32-36); Mean Corpuscular Hgb 32.3 pg (27.0-32.0); Mean Corpuscular Volume 97.5 fL (80-94); Mean Platelet Vol. 9.5 fl (6.2-12.0); Monocyte# 0.55 X10^3/uL; Monocyte% 8.9 % (0-10); NRBC Flagged by Analyzer 0 % (0-5); Neutrophil # 4.07 X10^3/uL (2.7-7.7); Neutrophil % 66.1 % (47-70); Platelet Count 165 K/mm3 (150-450); RBC Distribution Width CV 12.5 % (11.6-14.6); RBC Distribution Width SD 44.6 fl (35.1-43.9); Red Blood Count 5.29 M/mm3 (4.6-6.2); White Blood Count 6.2 K/mm3 (4.4-11.0)
[2019-07-24 09:46] LABS: Vitamin D,25 Hydroxy 21.5 ng/mL (29.95-100.01)
[2019-07-24 09:47] LABS: AST(SGOT) 17 U/L (15-37); Alanine Aminotransfer ALT/SGPT 30 U/L (16-61); Albumin, Serum 3.9 g/dL (3.2-5.0); Alkaline Phosphatase 81 U/L (45-117); Anion Gap 4 (5-15); BUN 13 mg/dL (7-18); BUN/Creat Ratio 13.4 RATIO (10-20); Calcium,Total 8.6 mg/dL (8.5-10.1); Chloride 105 mmol/L (98-107); Creatinine, Serum 0.97 mg/dL (0.70-1.30); EST Glomerular Filtration Rate 80 mL/min (>60); Est Glom Filt Rate - Afr Amer 97 mL/min (>60); Globulin 3.8 g/dL (2.2-4.2); Glucose 88 mg/dL (74-106); Potassium 4.2 mmol/L (3.5-5.1); Protein, Total 7.7 g/dL (6.4-8.2); Sodium Level 140 mmol/L (136-145); Thyroid Stim Hormone (TSH) 1.31 uIU/mL (0.358-3.74)
== END ==
PROVIDERS: Family Provider Family Medicine Geriatric Medicine; PCP Family Medicine Geriatric Medicine; Visit Provider Family Medicine Geriatric Medicine
DX: E23.6 Other disorders of pituitary gland (principal); E55.9 Vitamin D deficiency, unspecified; R53.83 Other fatigue
CPT/HCPCS: 36415; 80053; 82306; 84403; 84443; 85025

== ENCOUNTER → 2019-08-15 09:09 | Outpatient (CLI) | payer MEDICARE, OTHER, SELFPAY ==
[2018-05-28 09:06] VITALS: BMI 31.4
[2019-08-15 09:52] LABS: PSA,Total - Annual Screen 5.52 ng/mL (0.00-4.00)
== END ==
PROVIDERS: Family Provider Family Medicine Geriatric Medicine; PCP Family Medicine Geriatric Medicine; Referring Provider Urology; Visit Provider Urology
DX: Z12.5 Encounter for screening for malignant neoplasm of prostate (principal)
CPT/HCPCS: 36415; 84153; G0103

== ENCOUNTER → 2019-10-10 | Outpatient (CLI) | payer MEDICARE, OTHER, SELFPAY ==
[2018-05-28 09:06] VITALS: BMI 31.4
[2019-10-10 12:06] LABS: Absolute Lymphocyte Count 1.13 X10^3/uL (0.83-4.51); Absolute Neutrophil Count 4.1 X10^3/uL (2.0-7.7); Basophil# 0.04 X10^3/uL; Basophil% 0.7 % (0-1); Eosinophil# 0.13 X10^3/uL; Eosinophils% 2.2 % (0-5); Hematocrit 52.7 % (40-54); Hemoglobin 17.3 g/dL (13.0-16.5); Lymphocyte # 1.13 X10^3/ul (4.0); Lymphocyte % 19.3 % (19-41); Mean Corp Hgb Conc 32.8 g/dL (32-36); Mean Corpuscular Hgb 32.3 pg (27.0-32.0); Mean Corpuscular Volume 98.3 fL (80-94); Mean Platelet Vol. 10.2 fl (6.2-12.0); Monocyte# 0.47 X10^3/uL; NRBC Flagged by Analyzer 0 % (0-5); Neutrophil # 4.05 X10^3/uL (2.7-7.7); Neutrophil % 69.5 % (47-70); Platelet Count 170 K/mm3 (150-450); RBC Distribution Width CV 13.1 % (11.6-14.6); RBC Distribution Width SD 46.9 fl (35.1-43.9); Red Blood Count 5.36 M/mm3 (4.6-6.2); White Blood Count 5.8 K/mm3 (4.4-11.0)
[2019-10-10 12:07] LABS: Anion Gap 4 (5-15); BUN 13 mg/dL (7-18); BUN/Creat Ratio 13.3 RATIO (10-20); Calcium,Total 8.7 mg/dL (8.5-10.1); Chloride 108 mmol/L (98-107); Creatinine, Serum 0.98 mg/dL (0.70-1.30); EST Glomerular Filtration Rate 80 mL/min (>60); Est Glom Filt Rate - Afr Amer 96 mL/min (>60); Glucose 96 mg/dL (74-106); Potassium 4.6 mmol/L (3.5-5.1); Sodium Level 141 mmol/L (136-145)
== END | disposition home or self-care (01) ==
LOC: POLAB3 10:29
PROVIDERS: PCP Family Medicine Geriatric Medicine; Visit Provider Family Medicine Geriatric Medicine
DX: Z01.818 Encounter for other preprocedural examination (principal)
CPT/HCPCS: 36415; 80048; 85025

== ENCOUNTER → 2019-11-13 | Outpatient (CLI) | payer MEDICARE, OTHER, SELFPAY ==
[2018-05-28 09:06] VITALS: BMI 31.4
[2019-11-13 12:23] LABS: PSA,Total- Diagnostic 9.02 ng/mL (0.0-4.0)
== END | disposition home or self-care (01) ==
LOC: LAB.FUTURE 10:55
PROVIDERS: Family Provider Family Medicine Geriatric Medicine; PCP Family Medicine Geriatric Medicine; Referring Provider Urology; Visit Provider Urology
DX: R97.20 Elevated prostate specific antigen [PSA] (principal)
CPT/HCPCS: 36415; 84153

== ENCOUNTER → 2019-11-28 | Outpatient (CLI) | payer MEDICARE, OTHER, SELFPAY ==
[2018-05-28 09:06] VITALS: BMI 31.4
--- NOTE | 2019-11-28 | IMM_PTH ---
PATIENT: BRENNAN LUIS LOC: [facility] U#:[id number] AGE/SX: 74/M ROOM: RE11/28/[address]: Dr. Sergio Soni MD : 1945 BED: DIS: 11/28/2019 SPEC #: [id number] RECD: 12/02/19 11:25 STATUS: LALY REQ #: [id number] GREY: 11/28/19 00:[address]: Segrio Soni DEPT: IMMUNOHISTOCHEMISTRY RECD BY: Pina Pollard ENTERED: 12/02/19 11:27 SP TYPE: IMMUNO OTHR DR: Dr. Eric Smith MD Tissues: B - PROSTATE RIGHT C - PROSTATE RIGHT D - PROSTATE LEFT Procedures: 34BE12 (add) P40 (add) 34BE12 (initial) PHYSICIAN & INSTITUTION [place] [phone] SPECIMEN INFORMATION: Tissue Source: Clinical Info: Elevated PSA Specimen Number: [id number] B, C & D CPT code: 64692, 23972 x5 METHODOLOGY: Deparaffinized sections of prefer/formalin-fixed tissue or PAP/DQ stained slides are incubated with monoclonal/polyclonal antibodies/oligonucleotide probes. Localization is made via biotin free immunoperoxidase method. Appropriate controls are performed and reacted as expected. Results on target cell population are indicated in the following table: RESULTS: ANTIBODY / CLONE RESULT Block B P40 (BC28) positive 34BE12 (34BE12) positive Block C P40 (BC28) negative 34BE12 (34BE12) negative Block D P40 (BC28) positive 34BE12 (34BE12) positive These tests were developed and their performance characteristics determined by [facility]. They may not have been cleared or approved by the U.S. Food and Drug Administration. The FDA has determined that such clearance or approval is not necessary. The above immunohistochemical/dualISH markers are ordered and reviewed by the Pathologist. INTERPRETATION: B. Right prostate, mid, core biopsy: Benign prostatic tissue. C. Right prostate, base, core biopsy: Adenocarcinoma. D. Left prostate, apex, core biopsy: Benign prostatic tissue. AM:mack 12/03/19
--- NOTE | 2019-11-28 | PROSBIL_PTH ---
PATIENT: BRENNAN LUIS [facility] U#:[id number] AGE/SX: 74/M ROOM: RE11/28/[address]: Dr. Sergio Soni MD : 1945 BED: DIS: 11/28/2019 SPEC #: [id number] RECD: 11/29/19 11:00 STATUS: LALY REGilbert #: [id number] GREY: 11/28/19 00:[address]: Sergio Soni DEPT: SURGICAL PATHOLOGY RECD BY: Xiang Marquis ENTERED: 11/29/19 11:01 SP TYPE: PROST BX HILTON DR: Dr. Eric Smith MD Tissues: A - PROSTATE RIGHT B - PROSTATE RIGHT C - PROSTATE RIGHT D - PROSTATE LEFT E - PROSTATE LEFT F - PROSTATE LEFT Procedures: PROSTATE BX HEADER OPERATION: Prostate biopsy PRE-OP DIAGNOSIS: Elevated PSA TISSUE SUBMITTED: A - Right apex, B - Right mid, C - Right base, D - Left apex, E - Left mid, F - Left base MICROSCOPIC DIAGNOSIS A. Right prostate, apex, core biopsy: Mild chronic inflammation and focal acute inflammation. B. Right prostate, mid, core biopsy: Mild chronic inflammation and focal glandular atrophy. See comment. C. Right prostate, base, core biopsy: Adenocarcinoma. Alicia grade: 6 (3+3) Cores involved: 1 out of 2 Tissue involved: 5% Greatest tumor length: 1.2 mm Perineural invasion: Focal See comment. D. Left prostate, apex, core biopsy: Chronic inflammation and focal glandular atrophy. See comment. E. Left prostate, mid, core biopsy: Mild glandular atrophy, mild chronic inflammation. Focal high-grade prostatic intraepithelial neoplasia (HGPIN). F. Left prostate, base, core biopsy: Mild glandular atrophy, mild chronic inflammation. Focal high-grade prostatic intraepithelial neoplasia (HGPIN). AM:mack 12/02/19 COMMENT B, C & D - Immunohistochemistry ([id number]) supports the above diagnosis. Case has been reviewed in consultation with Dr. Mcgraw who concurs with the above diagnosis. IDC:[email or web address] MICROSCOPIC DESCRIPTION Slides are reviewed. GROSS DESCRIPTION A - Received is one container designated prostate, right apex. The specimen consists of two elongated fragments of light davis-white soft tissue measuring 1.5 to 2 cm in length and 0.1 cm in diameter. The specimen is totally submitted in one cassette. B - Received is one container designated prostate, right mid. The specimen consists of three elongated fragments of light davis-white soft tissue measuring 0.5 to 1.5 cm in length and 0.1 cm in diameter. The specimen is totally submitted in one cassette. C - Received is one container designated prostate, right base. The specimen consists of two elongated fragments of light davis-white soft tissue measuring 0.5 and 0.7 cm in length and 0.1 cm in diameter. The specimen is totally submitted in one cassette. D - Received is one container designated prostate, left apex. The specimen consists of two elongated fragments of light davis-white soft tissue measuring 1 and 2 cm in length and 0.1 cm in diameter. The specimen is totally submitted in one cassette. E - Received is one container designated prostate, left mid. The specimen consists of two elongated fragments of light davis-white soft tissue each measuring 0.7 cm in length and 0.1 cm in diameter. The specimen is totally submitted in one cassette. F - Received is one container designated prostate, left base. The specimen consists of three elongated fragments of light davis-white soft tissue measuring 0.5 to 1.2 cm in length and 0.1 cm in diameter. The specimen is totally submitted in one cassette. / SJ:rg 11/29/19 TC:0 CPT: G0146 ADDENDUM ADDENDUM ADDENDUM ADDENDUM ADDENDUM ADDENDUM ADDENDUM ADDENDUM 12/16/2019 11:13 ADDENDUM 12/16/2019 11:13 ADDENDUM 12/16/2019 11:13 ADDENDUM 12/16/2019 11:13 ADDENDUM 12/16/2019 11:13 An order for Oncotype testing was received from Dr. Soni. This necessitated case review, block and slide selection by pathologist at [facility]. Genomic Prostate Score = 40 Results of the complete Oncotype testing (tomoguides report) are viewable in EMR under: Reports - Pathology - Lab Pathology Report, Scanned.
== END | disposition home or self-care (01) ==
LOC: LABSPEC 16:50
PROVIDERS: PCP Family Medicine Geriatric Medicine; Referring Provider Urology; Visit Provider Urology
DX: R97.20 Elevated prostate specific antigen [PSA] (principal)
CPT/HCPCS: 88305; 88341; 88342; G0416

== ENCOUNTER 2020-01-01 05:58 | Day surgery (SDC) | payer MEDICARE, OTHER, SELFPAY ==
[2020-01-01] VITALS (11 sets, daily range): BP systolic 104–134; BP diastolic 62–84; PULSE 57–96; RESP 16–18; TEMP 35.8–37.1; O2SAT 97–100; BMI 29.0
[2020-01-01] MEDS: Lactated Ringers 1,000 ML 100 ML IV ×5 (06:59→13:00)
[2020-01-01] MEDS: Cefazolin 2 GM in 0.9% Normal Saline 100 ML IV (07:30)
--- NOTE | 2020-01-01 07:30 | PROST_PTH ---
PATIENT: BRENNAN LUIS [place] [facility] [place][id number] AGE/SX: 74/M ROOM: RE01/01/[address]: Dr. Sergio Soni MD : 1945 BED: DIS: 01/02/2020 SPEC #: [id number] RECD: 01/01/20 14:33 STATUS: LALY REGilbert #: [id number] GREY: 01/01/20 07:[address]: Sergio Soni DEPT: SURGICAL PATHOLOGY RECD BY: Lazarus Artis ENTERED: 01/02/20 09:35 SP TYPE: PROSTATE OTHR DR: Dr. Eric Smith MD Tissues: A - Lymph node of pelvis, NOS B - Lymph node of pelvis, NOS C - Prostate, NOS D - Prostate, NOS Procedures: Surgery Specimen Level IV Surgery Specimen Level V Surgery Specimen Level HEADER OPERATION: Lap robotic radical prostatectomy PRE-OP DIAGNOSIS: Prostate cancer TISSUE SUBMITTED: A - Left pelvic lymph node, B - Right pelvic lymph node, C - Fat over prostate, D - Prostate MICROSCOPIC DIAGNOSIS A. Left pelvic lymph node, biopsy: Seven out of seven lymph nodes, negative for metastatic carcinoma. Focal benign vascular proliferation, consistent with capillary hemangioma (0.3 x 0.2 cm, measured microscopically). B. Right pelvic lymph node, biopsy: Five out of five lymph nodes, negative for metastatic carcinoma. C. Fat over prostate: One lymph node, negative for metastatic carcinoma. Fragments of mature adipose tissue, negative for carcinoma. D. Prostate, radical prostatectomy: Prostatic adenocarcinoma. 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 Chronic inflammation. See cancer summary in the comment section. SJ:mack 01/06/20 COMMENT PROSTATE CANCER (RADICAL) SUMMARY (including specimen A to D): Procedure: Radical Prostatectomy Prostate Size: Weight: 94 gm Size: Craniocaudally 5.5 cm, transversely 5.5 cm, anterior-posteriorly 4 cm Histologic type: Acinar adenocarcinoma Histologic grade: Grade group 1 (Alicia score 3+3=6) Intraductal Carcinoma: Not identified Tumor Quantitation: Estimated percentage of prostate involved by tumor: <5% Tumor size: 0.8 x 0.3 cm (measured microscopically) Extraprostatic Extension: Not identified Seminal Vesicle Invasion: Not identified Lymphovascular Invasion: Not identified Perineural Invasion: Not identified Margins: Margin uninvolved of invasive carcinoma. Treatment Effect: No known presurgical therapy. Regional Lymph Nodes: Number of lymph nodes involved by carcinoma: 0 Total Number of Lymph Nodes Examined: 13 Additional Pathologic Findings: -High-grade prostatic intraepithelial neoplasia (HGPIN). - Chronic inflammation. - Benign prostatic hyperplasia, glandular and stromal type. - Focal benign vascular proliferation, consistent with capillary hemangioma (0.3 x 0.2 cm, measured microscopically), left pelvic lymph node. Ancillary studies: Not performed PATHOLOGIC STAGE: pT2 pN0 Mx The above summary is in compliance with [employer] (CAP) Cancer Protocols Checklist and [place] [employer] Committee on Cancer (AJCC), Staging Manual, 8th Ed. The tumor involves the mid and basal portion of the right lobe of the prostate (present in slides # 22, 25, &31). The left lobe of the prostate shows only high grade prostatic intraepithelial neoplasia (HGPIN) Please make reference to previous specimen ([id number]) right prostate, base, core biopsy with diagnosis of adenocarcinoma and left prostate, mid, core biopsy and left prostate, base, core biopsy with diagnosis of focal high-grade prostatic intraepithelial neoplasia. Case has been reviewed in consultation with Dr. Leslie who concurs with the above diagnosis. IDC:AM MICROSCOPIC DESCRIPTION Slides are reviewed. GROSS DESCRIPTION A - Received in fixative is one container labeled with the patient's name and designated left pelvic lymph node. The specimen consists of multiple pieces of davis-yellow adipose tissue that in aggregate measure 5 x 3.5 x 1 cm. Multiple nodules consistent with lymph nodes are identified, the largest measuring 1.5 cm in greatest dimension. The entire specimen is submitted in four cassettes as follows: 1 - one serially sectioned lymph node, 2 - three possible lymph nodes, 3 & 4 - rest of the specimen. / SJ:rg 01/02/20 B - Received in fixative is one container labeled with the patient's name and designated right pelvic lymph node. The specimen consists of multiple pieces of yellow adipose tissue containing nodule consistent with lymph note that in aggregate measure 5 x 4 x 1 cm. One lymph node measuring 2 cm in greatest dimension is identified. The entire specimen is submitted in five cassettes as follows: 1 & 2 - one serially sectioned lymph node, 3-5 - rest of the specimen. / : 01/02/20 C - Received in fixative is one container labeled with the patient's name and designated fat prostate. The specimen consists of multiple pieces of yellow adipose tissue that in aggregate measure 3 x 2.5 x 0.3 cm. The entire specimen is submitted in one cassette. / SJ: 01/02/20 D - Received in fixative is one container labeled with the patient's name and designated prostate. The specimen consists of a radical prostatectomy specimen consisting of prostate and bilateral seminal vesicles. The entire specimen weighs 94 gm. The prostate measures craniocaudally 5.5 cm, transversely 5.5 cm and 4 cm anterior-posteriorly. The right seminal vesicle measures 2 x 1 x 0.5 cm and right vas deferens measures 2.5 cm in length and up to 0.6 cm in diameter. The left seminal vesicle is partly disrupted and measures 2.5 x 1.5 x 0.5 cm and left vas deferens measures 2.5 cm in length and up to 0.6 cm in diameter. The prostate is inked as follows: anterior surface - yellow, posterior surface - black, right lateral surface - blue, left lateral surface - green. Bilateral seminal vesicles and vas deferens are inked as follows: posterior surface - black, anterior surface right seminal vesicle and vas deferens - blue and anterior surface left seminal vesicle and vas deferens - green. Sections do not reveal any obvious mass lesion. Circuit Judge sections are submitted in 20 cassettes as follows: 1 - right seminal vesicle and vas deferens, 2 - left seminal vesicle and vas deferens, 3 - urethral margin, enface, 4 & 5 - bladder base margin, enface, 6 - most basal portion of prostate, 7-10 - apical portion of prostate, 1114 - mid portion of prostate, 15-20 - basal portion of prostate. / SJ: 01/02/20 More sections are submitted in cassettes 21-35 (15 cassettes). More than 95% of the specimen consisting of posterior and lateral portion of the prostate is submitted (21-26 consists of mid portion of the prostate). / SJ: 01/03/20 TC:0 CPT: 28418, 12016 x2, [id number]
--- NOTE | 2020-01-01 07:57 | PCM.HP.STD ---
Problem List (1) Prostate cancer Status: Acute History of Present Illness Date of Admission: 01/01/20 Chief Complaint: Prostate cancer The patient is a 74 year old male who underwent a prostate biopsy came back with Alicia 6 prostate cancer we did an Oncotype score came back with high risk intermediate risk disease. Therefore he was not a candidate for observation talk by the options of management including surgery and radiation and he would like to proceed with surgical removal of prostate for curative intent and understands the risk of the surgery includes a loss of erections, erectile dysfunction, incontinence temporary or permanent, risk of bleeding and infection. After reviewing the risk and benefits with the patient outcomes expected we can proceed with a robotic radical prostatectomy bilateral nerve sparing and bilateral lymph node dissection. Past Medical History Past Medical History (Chronic Problems): Chronic Problems (Last Reviewed 05/28/18 @ 09:07 by Laura Cao) DDD (degenerative disc disease), lumbar (Chronic) Medical History: Medical History (Last Reviewed 05/28/18 @ 09:07 by Laura Cao) DDD (degenerative disc disease), lumbar (Chronic) M51.36 Arthritis M19.90 Environmental allergies Z91.09 High cholesterol E78.00 History of cancer Z85.9 History of melanoma Z85.820 Vitamin D deficiency E55.9 Allergies celecoxib [From Celebrex] Adverse Reaction (Verified 12/25/19 13:07) Unknown Home Medications: Ambulatory Orders Medication Instructions Recorded Allopurinol [Zyloprim] 300 mg PO DAILY 10/29/15 Herbal Packet 1 pkt PO DAILY 12/25/19 Surgical History: Surgical History (Last Reviewed 05/28/18 @ 09:07 by Laura Cao) History of melanoma excision Z98.890, Z85.820 History of shoulder surgery Z98.890 Surgical History: no surgical history Smoking Status: Never smoker Tobacco Use: Non-smoker Review of Systems Constitutional: Denies: Chills, Fever, Weight Change HEENT: Denies: Head Aches, Sinus Congestion, Sinus Drainage Cardiovascular: Denies: Chest Pain, Palpitations Respiratory: Denies: Cough, Shortness of breath at rest, Sputum production Gastrointestinal: Denies: Abdominal Pain, Nausea, Vomiting Genitourinary: Denies: Dysuria Musculoskeletal: Denies: Joint Pain, Joint Tenderness Skin: Denies: Rash, Wounds Neurological: Denies: Numbness, Tingling, Focal weakness Psychiatric: Denies: Anxiety, Depression, Homicidal Ideations, Suicidal Ideations Hematologic/ Lymphatic: Denies: Easy Bruising, Easy Bleeding VTE Information - Inpt Only VTE Present on Admission: No VTE Mechan Device Prophylaxis: SCD's Patient Problems: Active and Suspected Problems (Last Reviewed 05/28/18 @ 09:07 by Laura Cao) Prostate cancer (Acute) - Physical Exam Vitals/I&O's: Vital Signs Temp Pulse Resp BP Pulse Ox 97.5 F L 65 16 120/81 H 97 01/01/20 06:40 01/01/20 06:40 01/01/20 06:40 01/01/20 06:40 01/01/20 06:40 Oxygen Delivery Method Room Air Weight: 99.6 kg Body Mass Index (BMI) 29.0 General: Alert, Oriented x3, Cooperative HEENT: Atraumatic, PERRLA, EOMI, Normocephalic Neck: Supple, No JVD, Negative Carotid Bruits Lungs: Clear to auscultation, Normal air movement Cardiovascular: Regular rate, No murmurs Abdomen: Bowel Sounds Present, Soft, Non Tender Extremities: No edema, Capillary Refill Less than 3 Seconds Skin: No rashes, No breakdown Musculoskeletal: No Tenderness to Palpation of Joints or Extremities Neurological: Cranial nerves II-XII grossly intact Psych/Mental Status: Normal Affect, Appropriate Microbiology Past 72 Hours 12/31/19 09:02 Mucosa - Nasopharyngeal Coronavirus COVID-19 PCR - Final Laboratory Results 01/01/20 06:20: Blood Type Pending, Antibody Screen Pending 01/01/20 07:10: COVID-19 ([place]) Cancelled Current Medications Lactated Ringer's () 1,000 mls @ 100 mls/hr IV .Q10H KATHI Last Admin: 01/01/20 06:59 Dose: 100 mls/hr Documented by: Lactated Ringer's () 1,000 mls @ 100 mls/hr IV .Q10H KATHI Last Admin: 01/01/20 07:20 Dose: 100 mls/hr Documented by: Assessment/Plan All Active Problems (Last Reviewed 05/28/18 @ 09:07 by Laura Cao) Prostate cancer (Acute) Segmental and somatic dysfunction of pelvic region (Acute) Segmental and somatic dysfunction of lumbar region (Acute) Segmental and somatic dysfunction of thoracic region (Acute) Plan to proceed with a robotic radical prostatectomy. And bilateral lymph node dissection.
--- NOTE | 2020-01-01 12:15 | PCM.OPRPT ---
Problem List (1) Prostate cancer Status: Acute Report of Operation Date of Procedure: 01/01/20 Pre-Operative Diagnosis: Prostate cancer Post-Operative Diagnosis: Same Surgery/Procedure Performed:: Multiple procedures,. #1 laparoscopic robotic assisted radical prostatectomy. #2 bilateral pelvic lymph node dissection. #3 suture suspension of the urethra Description of Surgical Findings:: 74-year-old male was taken back to the operating room at the smooth induction of anesthesia he was placed in dorsolithotomy position, today we can proceed with a laparoscopic robotic assisted radical prostatectomy. After anesthesia was induced the abdomen shaved prepped and draped in usual sterile fashion we put a catheter into the bladder and then we made a small incision the umbilicus placed a Veress needle into the peritoneal cavity insufflated the peritoneal cavity with CO2 gas placed a camera trocar right arm trocar to left arm trochars air seal port and a suction port, I first mobilized the colon out of the pelvis retracted it gently with the pro-grasp and then incised the peritoneum below the seminal vesicle and vas deferens these were dissected out I then created the space of Retzius and also created the space between the non-BAs fascia and the prostate. Once the space between the prostate and Denonvilliers' fascia was created freed up the neurovascular bundles in the right left side underneath the prostate the vesicles and vas deferens were transected I then went up to the bladder we dropped the bladder created the space of Retzius with the bladder on traction I then proceeded with lymph node dissection dissected out the right lymph nodes the borders were the external iliac vein the lateral pelvic sidewall and the note of [place] the obturator nerve was identified in the pelvic sidewall deep. With a lot of lymph nodes that were removed used meticulous clips and ligation as a dissected these lymph nodes and I went to the left side and the same dissection with the same landmarks to do a complete pelvic lymph node dissection on both the right and left side. After this was accomplished then I freed up the prostate we opened up the endopelvic fascia dissected the apex of the prostate placed a stitch dorsal vein complex a stitch was then suspended up to the prostatic cubicle. I then pulled back to the junction between the bladder and the prostate and dissected the bladder off the prostate until we came onto the urethra I then transected the urethra this was the bladder neck urethra and then elevated the prostate up and then dissected the bladder off the prostate posteriorly until I reached the seminal vesicles vas deferens. I then incised the endopelvic fascia in the prostate we stripped off the neurovascular bundle off the right side of the prostate all the way to the apex and then we came back to the pedicle with put clips to the pedicle the prostate and then we very meticulously dissected the neurovascular bundle off the posterior aspect of the prostate and the right side all the way to the apex is a very good nerve sparing. Then we went to the left side swept the neurovascular bundles off the proximal and the left side incised the endopelvic fascia the left side went to the pedicles in the left side and then swept the neurovascular bundle off the prostate posterior at the left side all the way to the apex. No violation of the prostate was done during this process. I then transected through the dorsal vein complex we placed an extra stitch through the dorsal vein complex we then transected through the prostate and the urethra the prostate was extracted put an Endo Catch bag we then suspended the urethra to help with control of incontinence and then anastomosis was done between the bladder neck and the urethra suspension sutures were 3-0 running V lock stitch. After the anastomosis completed and after the completion of the bilateral pelvic lymph nodes the prostate was removed and complete fashion we extracted the prostate through the umbilical port we closed the air seal port with a 1012 Pasquale Kim stitch patient anesthetic is currently being reversed blood loss was about 250 cc he had nice clear urine from the catheter and is currently being awakened from anesthesia. Type of Anesthesia:: General Drains: chaparro - Admit VTE Documentation VTE Present on Admission: No VTE Mechan Device Prophylaxis: SCD's
[2020-01-01] MEDS: Bupivacaine Mpf 0.5% 30 ML VIAL (12:20)
--- NOTE | 2020-01-01 12:34 | DCINST_ITS ---
Discharge Diet: No Restrictions, Light diet - advance as tolerated Discharge Activity: Return to Normal Activity, May Not Drive - for 2 days., May not drive while taking narcotic pain medications. Additional Activity Instructions:: Please be aware that pain medications may cause nausea. You should typically eat light foods as you take your pain medication. Pain medication may cause constipation, if this is a problem for you, please discuss with your doctor. Call your doctor if your incision/area has: Continuous Slow Oozing, Sudden Increased Bleeding, Increased Pain/ Swelling, Increased Redness, Foul Smelling Discharge, Swelling at the incision site Call your doctor if you observe: Fever of 101 or Higher, Inability to have a bowel movement, Uncontrolled pain Suture Line Care: Avoid Pulling/Pushing, Avoid Pinching/Bending Catheter: Burks to leg bag, Burks to large bag Drain: [place] Allergies/Adverse Reactions: Allergies celecoxib [From Celebrex] Adverse Reaction (Verified 12/25/19 13:07) Unknown Medications to take at Discharge Allopurinol [Zyloprim] 300 mg PO DAILY 10/29/15 Herbal Packet 1 pkt PO DAILY 12/25/19 Primary Care Physician: Eric Smith Chi, MD [Primary Care Provider] - Test Results: Test results from this visit will be discussed in further detail at your follow- up appointment, if applicable. Please Follow Up With: Sergio Soni MD When: please call to make an appointment. Proposed Discharge Date: 01/02/20
[2020-01-01] MEDS: Ketorolac 15 MG/ML Vial IV ×2 (13:09→17:57)
--- NOTE | 2020-01-01 14:36 | NURSING ---
PT STATES HAS LOST ABOUT 13# SINCE HAVING BACK SURGERY.
[2020-01-01] MEDS: Ciprofloxacin 500 MG Tablet PO ×2 (15:00→21:33)
[2020-01-01] MEDS: 0.45% Normal Saline 1,000 ML 75 ML IV (15:00)
[2020-01-02 00:27] VITALS: BP 102/55; PULSE 82; RESP 16; TEMP 36.9; O2SAT 98
[2020-01-02] MEDS: Ketorolac 15 MG/ML Vial IV ×2 (00:29→05:56)
[2020-01-02] MEDS: 0.9% Saline Lock 10 ML Syringe IV ×2 (00:30→05:56)
[2020-01-02] MEDS: 0.45% Normal Saline 1,000 ML 75 ML IV (03:10)
[2020-01-02 04:25] VITALS: BP 98/54; PULSE 77; RESP 18; TEMP 36.9; O2SAT 96
[2020-01-02 05:46] LABS: Hematocrit 36.1 % (40-54); Hemoglobin 11.8 g/dL (13.0-16.5); Mean Corp Hgb Conc 32.7 g/dL (32-36); Mean Corpuscular Hgb 31.9 pg (27.0-32.0); Mean Corpuscular Volume 97.6 fL (80-94); Mean Platelet Vol. 9.5 fl (6.2-12.0); Platelet Count 152 K/mm3 (150-450); RBC Distribution Width CV 13.1 % (11.6-14.6); RBC Distribution Width SD 46.5 fl (35.1-43.9)
[2020-01-02 06:16] LABS: Anion Gap 5 (5-15); BUN 13 mg/dL (7-18); BUN/Creat Ratio 12.9 RATIO (10-20); Calcium,Total 7.7 mg/dL (8.5-10.1); Chloride 105 mmol/L (98-107); Creatinine, Serum 1.01 mg/dL (0.70-1.30); EST Glomerular Filtration Rate 77 mL/min (>60); Est Glom Filt Rate - Afr Amer 93 mL/min (>60); Estimated Creatinine Clearance 73.62 ml/min; Glucose 115 mg/dL (74-106); Potassium 3.7 mmol/L (3.5-5.1); Sodium Level 138 mmol/L (136-145)
--- NOTE | 2020-01-02 07:14 | DS.PCM_ITS ---
Discharge Date and Diagnosis - Problem List Patient Problems: Active and Suspected Problems (Last Reviewed 05/28/18 @ 09:07 by Laura Cao) Prostate cancer (Acute) Date of Admission: 01/01/20 Date of Discharge: 01/02/20 - Primary Discharge Diagnosis Acute Problems: Active Problems (Last Reviewed 05/28/18 @ 09:07 by Laura Cao) Prostate cancer (Acute) - Secondary Discharge Diagnosis Chronic Problems: Chronic Problems (Last Reviewed 05/28/18 @ 09:07 by Laura Cao) DDD (degenerative disc disease), lumbar (Chronic) Hospital Course and Treatment Operations: - - Robotic radical prostatectomy Summary of Care Provided: The patient is a 74 year old male s/p radical prostatectomy discharged home on POD#1 in good condition with chaparro to leg bag Patient Problems: Active and Suspected Problems (Last Reviewed 05/28/18 @ 09:07 by Laura Cao) Prostate cancer (Acute) - Physical Exam Vitals/I&O's: Vital Signs Temp Pulse Resp BP Pulse Ox 98.4 F 77 18 98/54 L 96 01/02/20 04:25 01/02/20 04:25 01/02/20 04:25 01/02/20 04:25 01/02/20 04:25 Oxygen Flow Rate (L/min) 3 Oxygen Delivery Method Room Air Weight: 99.6 kg Body Mass Index (BMI) 29.0 Intake and Output for Last 24 Hours 12/31/19 01/01/20 01/02/20 23:59 23:59 23:59 Intake Total 4810 / 4810 1312.5 / 1312.5 Output Total 1600 / 1600 600 / 600 Balance 3210 / 3210 712.5 / 712.5 General: Alert, Oriented x3, Cooperative HEENT: Atraumatic, PERRLA, EOMI, Normocephalic Neck: Supple, No JVD, Negative Carotid Bruits Lungs: Clear to auscultation, Normal air movement Cardiovascular: Regular rate, No murmurs Abdomen: Bowel Sounds Present, Soft, Non Tender Extremities: No edema, Capillary Refill Less than 3 Seconds Skin: No rashes, No breakdown Musculoskeletal: No Tenderness to Palpation of Joints or Extremities Neurological: Cranial nerves II-XII grossly intact Psych/Mental Status: Normal Affect, Appropriate Microbiology Past 72 Hours 12/31/19 09:02 Mucosa - Nasopharyngeal Coronavirus COVID-19 PCR - Final Laboratory Results 01/01/20 06:20: Blood Type A POSITIVE, Antibody Screen NEGATIVE 01/02/20 05:18: WBC 7.0, RBC 3.70 L, Hgb 11.8 L, Hct 36.1 L, MCV 97.6 H, MCH 31.9, MCHC 32.7, RDW Std Deviation 46.5 H, RDW Coeff of Alyssa 13.1, Plt Count 152, MPV 9.5 01/02/20 05:18: Sodium 138, Potassium 3.7, Chloride 105, Carbon Dioxide 28.0, Anion Gap 5, BUN 13, Creatinine 1.01, Estim Creat Clear Calc 73.62, Est GFR (MDRD) Af Amer 93, Est GFR (MDRD) Non-Af 77, BUN/Creatinine Ratio 12.9, Glucose 115 H, Calcium 7.7 L Current Medications Hydrocodone Bitart/Acetaminophen (Crabtree 5mg-325mg) 1 - 2 tablet PO Q6H PRN PRN PRN Reason: Pain Score 1-5/10 Belladonna Alkaloids/Opium (B & O) 60 mg RECTAL Q6H PRN PRN PRN Reason: Spasm Ciprofloxacin HCl (Cipro) 500 mg PO BID [facility] Last Admin: 01/01/20 21:33 Dose: 500 mg Documented by: Sodium Chloride () 1,000 mls @ 75 mls/hr IV .[id number] [facility] Last Admin: 01/02/20 03:10 Dose: 75 mls/hr Documented by: Ketorolac Tromethamine (Toradol (Bkc)) 15 mg IV Q6H [facility] Stop: 01/02/20 18:01 Last Admin: 01/02/20 05:56 Dose: 15 mg Documented by: Magnesium Hydroxide (Milk Of Magnesia) 15 ml PO DAILY [facility] Metoclopramide HCl (Reglan) 10 mg IV Q8H PRN PRN PRN Reason: Nausea/vomiting Morphine Sulfate () 2 mg IV Q2H PRN PRN PRN Reason: Pain Score 6-10/10 Nutritional Formula (Lactose Free) (Ensure Enlive) 120 ml PO 4X/DAY [facility] Last Admin: 01/01/20 21:29 Dose: Not Given Documented by: Ondansetron HCl (Zofran) 4 mg IV Q8H PRN PRN Reason: Nausea Sodium Chloride () 10 - 40 ml IV UD PRN PRN Reason: SALINE FLUSH Last Admin: 01/02/20 05:56 Dose: 10 ml Documented by: Tolterodine Tartrate (Detrol La) 4 mg PO DAILY PRN PRN PRN Reason: Spasms Discharge Diet: No Restrictions, Light diet - advance as tolerated Discharge Activity: Return to Normal Activity, May Not Drive - for 2 days., May not drive while taking narcotic pain medications. Additional Activity Instructions:: Please be aware that pain medications may cause nausea. You should typically eat light foods as you take your pain medication. Pain medication may cause constipation, if this is a problem for you, please discuss with your doctor. Call your doctor if your incision/area has: Continuous Slow Oozing, Sudden Increased Bleeding, Increased Pain/ Swelling, Increased Redness, Foul Smelling Discharge, Swelling at the incision site Call your doctor if you observe: Fever of 101 or Higher, Inability to have a bowel movement, Uncontrolled pain Suture Line Care: Avoid Pulling/Pushing, Avoid Pinching/Bending Catheter: Chaparro to leg bag, Chaparro to large bag Drain: [place] Home Medications: Medications to take at Discharge RX: Allopurinol [Zyloprim] 300 mg PO DAILY 10/29/15 Herbal Packet 1 pkt PO DAILY 12/25/19 Ciprofloxacin [Cipro] 500 mg PO BID #20 tab 01/01/20 Docusate Sodium [Colace] 100 mg PO BID #20 cap 01/01/20 Hydrocodone/Acetaminophen [Crabtree 5-325 Tablet] 1 ea PO Q4H PRN PRN 5 Days #14 tab 01/01/20 Following Prescrptions Were Given to Patient: Ciprofloxacin [Cipro] 500 mg PO BID #20 tab Transmission Status: Received by [facility] Docusate Sodium [Colace] 100 mg PO BID #20 cap Transmission Status: Received by [facility] Hydrocodone/Acetaminophen [Crabtree 5-325 Tablet] 1 ea PO Q4H PRN PRN 5 Days #14 tab PRN Reason: Pain Score 1-10/10 Transmission Status: Received by [facility] Primary Care Physician: Eric Smith Chi, MD [Primary Care Provider] - Please Follow Up With: Sergio Soni MD When: please call to make an appointment. Medical Necessity - Tobacco Use Smoking Status: Never smoker Tobacco Use: Non-smoker Meaningful Use Info Meaningful Use Diagnoses (Choose all that apply): None applicable
[2020-01-02] MEDS: 0.9% Normal Saline 1,000 ML 999 ML IV (07:23)
[2020-01-02 07:26] VITALS: BP 102/54; PULSE 73; RESP 18; TEMP 36.6; O2SAT 96
[2020-01-02] MEDS: Ciprofloxacin 500 MG Tablet PO (09:22)
[2020-01-02 09:44] VITALS: BP 118/70; PULSE 70; RESP 16; TEMP 37.2; O2SAT 98
== END 2020-01-02 10:30 | disposition home or self-care (01) ==
LOC: SDC 05:58 → AC 05:59 → MS3 01-02 06:43
PROVIDERS: PCP Family Medicine Geriatric Medicine; Referring Provider Urology; Visit Provider Urology
PROC: 0VT04ZZ Resection of Prostate, Percutaneous Endoscopic Approach (ICD-10-PCS; CPT 55866; principal; 2020-01-01 07:10)
DX: C61 Malignant neoplasm of prostate (principal); N42.31 Prostatic intraepithelial neoplasia; N40.0 Benign prostatic hyperplasia without lower urinary tract symptoms; N41.1 Chronic prostatitis; M19.90 Unspecified osteoarthritis, unspecified site; Z85.820 Personal history of malignant melanoma of skin; Z11.59 Encounter for screening for other viral diseases
CPT/HCPCS: 38571; 51990; 55866; 36415; 80048; 85027; 86850; 86900; 86901; 87635; 88305; 88307; 88309; 97802; 99251; G2023; J7030; J7120; A4216; G0463; J2405; U0004

== ENCOUNTER → 2020-01-13 16:53 | Outpatient (CLI) | payer MEDICARE, OTHER, SELFPAY ==
[2020-01-01 14:13] VITALS: BMI 29.0
--- NOTE | 2020-01-13 17:10 | RAD_ITS ---
STUDY: X-RAY - PELVIS AND LEFT HIP REASON FOR EXAM: Male, 74 years old. LEFT HIP PAIN FOR SEVERAL MONTHS TECHNIQUE: 3 views of the pelvis and hip. COMPARISON: None. FINDINGS: Large amount of fecal material is seen throughout the colon. Soft tissue air is seen within the regions of both eyes. Clinical correlation is recommended. Normal bilateral iliac wings, sacroiliac joints and visualized sacrum. Normal bilateral superior and inferior pubic rami. Normal pubic symphysis. Normal bilateral ischial tuberosities. Normal visualized femoral head. Normal acetabulum. There is moderate articular joint space narrowing of the hip. The patient is status post laminectomy and fusion at the L4-L5 level. RAD/HIP, UNI W/ Pelvis 2-3 Views IMPRESSION: Degenerative changes of the left hip joint. Soft tissue air is seen in the thighs bilaterally. Clinical correlation is recommended. Electronically Signed: Ramiro Yip, at 8:36 EDT , Service support ,
[2020-01-13 17:11] LABS: Absolute Lymphocyte Count 1.46 X10^3/uL (0.83-4.51); Absolute Neutrophil Count 4.5 X10^3/uL (2.0-7.7); Basophil# 0.04 X10^3/uL; Basophil% 0.6 % (0-1); Eosinophil# 0.41 X10^3/uL; Eosinophils% 5.9 % (0-5); Hematocrit 43.8 % (40-54); Hemoglobin 14.1 g/dL (13.0-16.5); Lymphocyte # 1.46 X10^3/ul (4.0); Lymphocyte % 21.1 % (19-41); Mean Corp Hgb Conc 32.2 g/dL (32-36); Mean Corpuscular Hgb 31.5 pg (27.0-32.0); Mean Platelet Vol. 9.2 fl (6.2-12.0); Monocyte# 0.52 X10^3/uL; Monocyte% 7.5 % (0-10); NRBC Flagged by Analyzer 0 % (0-5); Neutrophil # 4.47 X10^3/uL (2.7-7.7); Neutrophil % 64.5 % (47-70); Platelet Count 292 K/mm3 (150-450); RBC Distribution Width CV 13.3 % (11.6-14.6); RBC Distribution Width SD 47.5 fl (35.1-43.9); Red Blood Count 4.47 M/mm3 (4.6-6.2); White Blood Count 6.9 K/mm3 (4.4-11.0)
[2020-01-13 17:24] LABS: Anion Gap 5 (5-15); BUN 13 mg/dL (7-18); BUN/Creat Ratio 14.4 RATIO (10-20); Chloride 106 mmol/L (98-107); EST Glomerular Filtration Rate 88 mL/min (>60); Est Glom Filt Rate - Afr Amer 106 mL/min (>60); Glucose 110 mg/dL (74-106); Potassium 4.3 mmol/L (3.5-5.1); Sodium Level 141 mmol/L (136-145)
== END ==
PROVIDERS: PCP Family Medicine Geriatric Medicine; Visit Provider Family Medicine Geriatric Medicine
DX: R33.9 Retention of urine, unspecified (principal); M25.559 Pain in unspecified hip
CPT/HCPCS: 36415; 73502; 80048; 85025; 87086

== ENCOUNTER → 2020-01-17 08:16 | Outpatient (CLI) | payer MEDICARE, OTHER, SELFPAY ==
[2020-01-01 14:13] VITALS: BMI 29.0
--- NOTE | 2020-01-17 08:20 | CT_ITS ---
STUDY: CT LUMBAR SPINE WITHOUT CONTRAST REASON FOR EXAM: Male, 74 years old. LUMBAR SPINAL STENOSIS RADIATION DOSAGE (If Supplied By Facility): CTDIvol = ( 23.51 ) mGy, DLP = ( 918.08 ) mGycm TECHNIQUE: The patient was scanned in a multi detector CT scanner. High resolution transaxial imaging was performed. Images were obtained from T12 to S1 vertebrae. Sagittal and coronal images were reconstructed. Individualized dose optimization techniques were used for this CT. COMPARISON: None FINDINGS: Normal lumbar lordosis. There is no substantial scoliosis. Normal vertebrae of the lumbar spine. L1-2: Mild degree of anterior spondylolisthesis along the anterior aspect of the L1 vertebrae. L2-3: Mild degree of disc space narrowing. Mild degree of diffuse posterior disc bulge. Mild degree of central and bilateral neural foraminal stenosis at L3-4: Moderate degree of disc space narrowing. Intrapedicular screw fixation at the level of the L4 vertebrae. Mild degree of bilateral neural foraminal stenosis. L4-5: Status post laminectomy and interpedicular screw ale fixation. Mild degree of anterior listhesis of L4 on L5. Mild degree of diffuse posterior disc bulge. No significant stenosis is seen. L5-S1: Marked degree of disc space narrowing and disc degeneration. Anterior spondylosis. Minimal anterior listhesis of L5 on S1. Facet joint osteoarthritis. Normal visualized paraspinous soft tissue structures. CT/Spine Lumbar without Contrast IMPRESSION: Multilevel degenerative changes, as described above. Electronically Signed: Ramiro Yip, at 11:30 EDT , Service support ,
== END ==
PROVIDERS: PCP Family Medicine Geriatric Medicine; Referring Provider Family Medicine Geriatric Medicine; Visit Provider Family Medicine Geriatric Medicine
DX: M48.061 Spinal stenosis, lumbar region without neurogenic claudication (principal)
CPT/HCPCS: 72131

== ENCOUNTER → 2020-01-29 | Outpatient (CLI) | payer MEDICARE, OTHER, SELFPAY ==
[2020-01-01 14:13] VITALS: BMI 29.0
[2020-01-29 10:51] LABS: Absolute Lymphocyte Count 1.11 X10^3/uL (0.83-4.51); Basophil# 0.04 X10^3/uL; Basophil% 0.6 % (0-1); Eosinophil# 0.09 X10^3/uL; Eosinophils% 1.4 % (0-5); Hematocrit 46.4 % (40-54); Hemoglobin 14.9 g/dL (13.0-16.5); Lymphocyte # 1.11 X10^3/ul (4.0); Lymphocyte % 16.9 % (19-41); Mean Corp Hgb Conc 32.1 g/dL (32-36); Mean Corpuscular Hgb 32.2 pg (27.0-32.0); Mean Corpuscular Volume 100.2 fL (80-94); Mean Platelet Vol. 10.2 fl (6.2-12.0); Monocyte# 0.36 X10^3/uL; Monocyte% 5.5 % (0-10); NRBC Flagged by Analyzer 0 % (0-5); Neutrophil # 4.95 X10^3/uL (2.7-7.7); Neutrophil % 75.1 % (47-70); Platelet Count 184 K/mm3 (150-450); RBC Distribution Width CV 14.2 % (11.6-14.6); RBC Distribution Width SD 51.8 fl (35.1-43.9); Red Blood Count 4.63 M/mm3 (4.6-6.2); White Blood Count 6.6 K/mm3 (4.4-11.0)
[2020-01-29 11:04] LABS: Vitamin D,25 Hydroxy 34.4 ng/mL
[2020-01-29 11:13] LABS: ALB/GLOB Ratio 0.8 RATIO (0.9-2.4); AST(SGOT) 16 U/L (15-37); Alanine Aminotransfer ALT/SGPT 29 U/L (16-61); Albumin, Serum 3.4 g/dL (3.2-5.0); Alkaline Phosphatase 89 U/L (45-117); Anion Gap 6 (5-15); BUN 14 mg/dL (7-18); BUN/Creat Ratio 13.9 RATIO (10-20); Calcium,Total 8.7 mg/dL (8.5-10.1); Chloride 106 mmol/L (98-107); Creatinine, Serum 1.01 mg/dL (0.70-1.30); EST Glomerular Filtration Rate 77 mL/min (>60); Est Glom Filt Rate - Afr Amer 93 mL/min (>60); Globulin 4.1 g/dL (2.2-4.2); Glucose 121 mg/dL (74-106); Potassium 3.7 mmol/L (3.5-5.1); Protein, Total 7.5 g/dL (6.4-8.2); Sodium Level 139 mmol/L (136-145); Thyroid Stim Hormone (TSH) 1.48 uIU/mL (0.358-3.74)
== END | disposition home or self-care (01) ==
LOC: POLAB3 08:49
PROVIDERS: PCP Family Medicine Geriatric Medicine; Referring Provider Family Medicine Geriatric Medicine; Visit Provider Family Medicine Geriatric Medicine
DX: E23.6 Other disorders of pituitary gland (principal); E55.9 Vitamin D deficiency, unspecified; R53.83 Other fatigue
CPT/HCPCS: 36415; 80053; 82306; 84403; 84443; 85025

== ENCOUNTER 2020-02-25 08:00 | Outpatient (RCR) | payer MEDICARE, OTHER, SELFPAY ==
[2020-01-01 14:13] VITALS: BMI 29.0
--- NOTE | 2020-02-11 09:01 | HP.PTEVAL ---
Patient's Visit Information BRENNAN LUIS is a 74 year old M referred to Physical Therapy by BESS Zamudio with a diagnosis of L/S fusion. Date of Evaluation: 02/11/20 Physical Therapist: Jose Carlton, PT, ATC - Visit Plan Frequency: 2x /Week Duration: 1 Week Plan: Issue and instruct pt on HEP of L/S stab ex's - Subjective DOS: 10/23/2019. Pt had a L/S fusion performed at that time. Pt reports he has not had any pain relief from the surgery. Pt notes he still has pain in his R glute region, and still has terrible pain if he sits for a long period of time. Pt notes he has sleep difficulty secondary to the pain. Pt reports in the meantime, he has had prostate surgery secondary to stage 2 cancer. Pt reports he has lost 20 pounds. Pt notes his back pain is still his most limiting factor at this time. Pt reports he has been told that this pain could last up to one year. Pt reports he can only get relief by changing positions from standing to walking. Pt reports he has not been given any HEP to perform at this time. Pt reports his pain is 1/10 at rest, 9/10 pain if he sits for greater than 1/2 hours. - Pain L/S Pain Intensity (Out of 10): 1 Pain Intensity Range: 9 - Objective Neuro: B LE sensation is WNL to light touch. B patellar reflex= 1/3. L/S ROM: Pt is moderately limited in all planes. MMT: R LE is grossly 4/5 throughout. L LE is 5/5 throughout. Gait: Pt can ambulate greater than 1000 feet without difficulty - Goals Goal 1:: I with HEP Goal Time Frame: 1 Week - Rehabilitation Potential Physical Therapy Diagnosis: Pt has LBP, limited L/S ROM, and LE weakness secondary to L/S fusion Rehabilitation Potential: Good - Anticipated Interventions Patient/Client Instruction: Educate patient on: Condition, Plan of Care For the Purpose of:: To improve self management Therapeutic Exercise to Include: Strength training, Body mechanics, Postural training, Dynamic Lumbar Stabilization For the Purpose of:: To decrease pain, To increase ROM, To improve muscle performance and motor function Cryotherapy (ice pack, ice massage): Yes For the Purpose of:: To decrease pain Thank you for the opportunity to evaluate your patient. For Medicare and Medicare HMO plans, please review the plan of care and approve it. It will need to be FAXED BACK to us at [phone] for Medicare purposes. For Medicare only, by signing this I certify the plan of care. Please let me know if there are questions or concerns regarding this plan of care. Physician Signature: Date:
--- NOTE | 2020-02-25 08:42 | HP.PTDCSUM ---
It has been my pleasure to treat BRENNAN LUIS referred by Ade Jara, BESS, with the diagnosis of L/S fusion for a total of 3 visit(s). Discharge Date: Please see the following information for a summary of their discharge status. Subjective: Pt reports his abdomen was a little sore after last Rx. L/S Pain Intensity (Out of 10): 2 Objective/Function: Pt is I with HEP Goal 1:: I with HEP Plan: discharge If there are questions or concerns regarding this patient's physical therapy, please feel free to call me at [phone]. Thank you for the referral of this patient. Sincerely, Jose Carlton, PT, ATC
== END 2020-02-25 19:00 | disposition home or self-care (01) ==
LOC: PT 08:00
PROVIDERS: PCP Family Medicine Geriatric Medicine; Referring Provider Nurse Practitioner Acute Care; Visit Provider Nurse Practitioner Acute Care
DX: Z98.1 Arthrodesis status (principal)
CPT/HCPCS: 97110; 97161

== ENCOUNTER → 2020-03-04 | Outpatient (CLI) | payer MEDICARE, OTHER, SELFPAY ==
[2020-01-01 14:13] VITALS: BMI 29.0
[2020-03-04 13:00] LABS: PSA,Total- Diagnostic 0.02 ng/mL (0.0-4.0)
== END | disposition home or self-care (01) ==
LOC: MTLAB 10:08
PROVIDERS: PCP Family Medicine Geriatric Medicine; Referring Provider Urology; Visit Provider Urology
DX: C61 Malignant neoplasm of prostate (principal)
CPT/HCPCS: 36415; 84153

== ENCOUNTER → 2020-03-27 | Outpatient (CLI) | payer MEDICARE, OTHER, SELFPAY ==
[2020-01-01 14:13] VITALS: BMI 29.0
--- NOTE | 2020-03-27 12:18 | CT_ITS ---
STUDY: CT ABDOMEN AND PELVIS WITHOUT CONTRAST REASON FOR EXAM: Male, 74 years old. LT FLANK PAIN, hematuria. Hx of prostatectomy, lumbar surgery and prior kidney stone removal. RADIATION DOSAGE (If Supplied By Facility): CTDIvol = ( 17.81 ) mGy, DLP = ( 925.57 ) mGycm TECHNIQUE: Transaxial images were obtained from the dome of the diaphragm to the symphysis pubis without oral contrast, and without intravenous contrast. Sagittal and coronal images were reconstructed. Individualized dose optimization techniques were used for this CT. COMPARISON: 01/04/2019 FINDINGS: The visualized lung bases are unremarkable. The visualized portions of the heart are within normal limits. Normal liver. Normal gallbladder and extrahepatic biliary system. Normal spleen. Normal pancreas. Normal bilateral adrenal glands. Normal right kidney. Normal left kidney. Normal visualized stomach. Normal small intestine. There is diverticulosis, with thickening of the colon wall, and pericolonic inflammation changes consistent with acute diverticulitis. No loculated fluid collection to suggest abscess. No pneumoperitoneum to suggest perforation. There is non-visualization of the appendix. Normal abdominal aorta. Normal inferior vena cava. Normal retroperitoneum. Normal urinary bladder. Normal abdominal wall. Status post transpedicular fixation in the lower lumbar spine. CT/Abdomen/Pelvis without Cont IMPRESSION: Sigmoid diverticulitis without abscess or perforation. Electronically Signed: Tristan Hylton MD at 13:16 EDT Tel , Service support ,
--- NOTE | 2020-03-27 12:19 | RAD_ITS ---
HISTORY: LEFT FLANK PAIN EXAM: XR Chest 2 Views: COMPARISON: None FINDINGS: # of images incl. paperwork: 2 Calcific plaque within the aortic arch Lungs are clear but for the left lateral costophrenic sulcus. Heart is not enlarged. Kyphosis with anterior enthesophytes Pulmonary vascularity is distinct. No effusions. RAD/Chest PA and Lateral IMPRESSION: Left lateral costophrenic sulcus is opacified consistent with focal airspace disease. This is of unknown etiology. This could represent atelectasis, pneumonia, scarring, or even a pulmonary infarct. at [id number] Reported and signed by: Brandon Glass MD Electronically Signed: Brandon Glass MD at 5:53 EDT Tel , Service support ,
== END | disposition home or self-care (01) ==
LOC: CT 12:18
PROVIDERS: PCP Family Medicine Geriatric Medicine; Referring Provider Family Medicine Geriatric Medicine; Visit Provider Family Medicine Geriatric Medicine
DX: N20.0 Calculus of kidney (principal); M54.6 Pain in thoracic spine
CPT/HCPCS: 71046; 74176

== ENCOUNTER → 2020-06-08 14:18 | Outpatient (CLI) | payer MEDICARE, OTHER, SELFPAY ==
[2020-01-01 14:13] VITALS: BMI 29.0
--- NOTE | 2020-06-08 14:56 | VDLE_ITS ---
Reason For Study: Edema, Leg pain RIGHT LEFT GSV is normal. CFV is compressible, spontaneous, phasic, CFV is compressible, spontaneous, phasic, competent, and demonstrates normal competent and demonstrates normal augmentation. augmentation. FV is compressible, spontaneous, phasic, competent and demonstrates normal augmentation. Acute deep vein thrombosis is noted in the right PopV, T/P Trunk, and PeroV. Minimal flow noted in the popliteal vein. PTV is compressible. Procedure This is a venous duplex using B-mode, color flow and spectral Doppler. Exam performed in department. A preliminary report was called and/or faxed to [place]. Interpretation Summary Acute deep vein thrombosis is noted in the right popliteal vein. Acute deep vein thrombosis is noted in the right tibio-peroneal trunk. Acute deep vein thrombosis is noted in the right peroneal vein. The remainder of the right lower extremity deep venous system is patent and compressible. The right common femoral vein and femoral vein are competent. The right great saphenous vein appears patent and compressible segmentally. Ordering Physician: Eric Smith Referring Physician: Eric Smith Chi Performed By: Jenna Gibbons RVT
== END ==
PROVIDERS: PCP Family Medicine Geriatric Medicine; Referring Provider Family Medicine Geriatric Medicine; Visit Provider Family Medicine Geriatric Medicine
DX: R60.9 Edema, unspecified (principal); I82.431 Acute embolism and thrombosis of right popliteal vein; I82.451 Acute embolism and thrombosis of right peroneal vein; I82.441 Acute embolism and thrombosis of right tibial vein; M79.609 Pain in unspecified limb
CPT/HCPCS: 93971

== ENCOUNTER → 2020-06-23 08:29 | Outpatient (CLI) | payer MEDICARE, OTHER, SELFPAY ==
[2020-01-01 14:13] VITALS: BMI 29.0
[2020-06-23 10:06] LABS: PSA,Total- Diagnostic < 0.01 ng/mL (0.0-4.0)
== END ==
PROVIDERS: PCP Family Medicine Geriatric Medicine; Referring Provider Urology; Visit Provider Urology
DX: C61 Malignant neoplasm of prostate (principal)
CPT/HCPCS: 36415; 84153

== ENCOUNTER → 2020-07-29 08:57 | Outpatient (CLI) | payer MEDICARE, SELFPAY ==
[2020-01-01 14:13] VITALS: BMI 29.0
[2020-07-29 12:49] LABS: Absolute Lymphocyte Count 1.15 X10^3/uL (0.83-4.51); Basophil# 0.03 X10^3/uL; Basophil% 0.5 % (0-1); Eosinophil# 0.07 X10^3/uL; Eosinophils% 1.2 % (0-5); Hematocrit 50.8 % (40-54); Hemoglobin 16.5 g/dL (13.0-16.5); Lymphocyte # 1.15 X10^3/ul (4.0); Lymphocyte % 20.2 % (19-41); Mean Corp Hgb Conc 32.5 g/dL (32-36); Mean Corpuscular Hgb 32.2 pg (27.0-32.0); Mean Platelet Vol. 10.4 fl (6.2-12.0); NRBC Flagged by Analyzer 0 % (0-5); Neutrophil # 4.01 X10^3/uL (2.7-7.7); Neutrophil % 70.7 % (47-70); Platelet Count 183 K/mm3 (150-450); RBC Distribution Width CV 13.1 % (11.6-14.6); RBC Distribution Width SD 47.8 fl (35.1-43.9); Red Blood Count 5.13 M/mm3 (4.6-6.2); White Blood Count 5.7 K/mm3 (4.4-11.0)
[2020-07-29 12:57] LABS: Vitamin D,25 Hydroxy 29.4 ng/mL
[2020-07-29 13:03] LABS: ALB/GLOB Ratio 0.9 RATIO (0.9-2.4); AST(SGOT) 18 U/L (15-37); Alanine Aminotransfer ALT/SGPT 34 U/L (16-61); Albumin, Serum 3.7 g/dL (3.2-5.0); Alkaline Phosphatase 90 U/L (45-117); Anion Gap 5 (5-15); BUN 14 mg/dL (7-18); BUN/Creat Ratio 14.8 RATIO (10-20); Calcium,Total 8.8 mg/dL (8.5-10.1); Chloride 105 mmol/L (98-107); Creatinine, Serum 0.94 mg/dL (0.70-1.30); EST Glomerular Filtration Rate 83 mL/min (>60); Est Glom Filt Rate - Afr Amer 100 mL/min (>60); Glucose 103 mg/dL (74-106); Potassium 4.1 mmol/L (3.5-5.1); Protein, Total 7.7 g/dL (6.4-8.2); Sodium Level 140 mmol/L (136-145); Thyroid Stim Hormone (TSH) 1.37 uIU/mL (0.358-3.74)
== END ==
PROVIDERS: PCP Family Medicine Geriatric Medicine; Visit Provider Family Medicine Geriatric Medicine
DX: E23.6 Other disorders of pituitary gland (principal); E55.9 Vitamin D deficiency, unspecified; R53.83 Other fatigue
CPT/HCPCS: 36415; 80053; 82306; 84403; 84443; 85025

== ENCOUNTER 2020-10-08 14:19 | Outpatient (RCR) | payer MEDICARE, OTHER, SELFPAY ==
[2020-01-01 14:13] VITALS: BMI 29.0
[2020-10-08] MEDS: COVID-19 VACC, MRNA(PFIZER)/PF 30 MCG/0.3 ML SYRINGE IM (12:31)
[2020-10-29] MEDS: COVID-19 VACC, MRNA(PFIZER)/PF 30 MCG/0.3 ML SYRINGE IM (12:12)
== END 2020-10-08 23:59 ==
LOC: IMMUN 14:19
PROVIDERS: PCP Family Medicine Geriatric Medicine; Visit Provider Family Medicine
DX: Z23 Encounter for immunization (principal)
CPT/HCPCS: 0001A; 0002A

== ENCOUNTER → 2020-10-16 | Outpatient (CLI) | payer MEDICARE, OTHER, SELFPAY ==
[2020-01-01 14:13] VITALS: BMI 29.0
== END | disposition home or self-care (01) ==
LOC: LABSPEC 15:40
PROVIDERS: PCP Family Medicine Geriatric Medicine; Referring Provider Family Medicine Geriatric Medicine; Visit Provider Family Medicine Geriatric Medicine
DX: U07.1 COVID-19 (principal)
CPT/HCPCS: 87635; C9803; U0002

== ENCOUNTER 2020-10-21 10:53 | Inpatient (IN) | payer MEDICARE, OTHER, SELFPAY ==
[2020-01-01 14:13] VITALS: BMI 29.0
[2020-10-21] VITALS (7 sets, daily range): BP systolic 117–142; BP diastolic 64–72; PULSE 72–89; RESP 16–23; TEMP 36.2–38.3; O2SAT 92–97; BMI 29.7; BMI 29.2
--- NOTE | 2020-10-21 11:09 | ED.DCSUM_ITS ---
History of Present Illness Chief Complaint: Fever Informant: Patient, Family Narrative: 75-year-old male presenting with generalized weakness, diarrhea, fever as high as 105.0 Fahrenheit at home. Patient states this started on December 10. He states he had a fever every day. Patient states he was vaccinated for COVID-19 2 days prior to the first fever. Apparently there may have been exposure from his son for COVID-19. He denies chest pain. Patient states he is not significantly short of breath when he is ambulating but he does feel generally weaker as he walked. Past Medical History - Allergies and Home Meds Allergies/Adverse Reactions: Allergies celecoxib [From Celebrex] Adverse Reaction (Verified 10/21/20 10:55) Unknown Past Medical History: - - Prostate cancer, kidney stones, degenerative disc disease Surgical History: no surgical history Lives: Spouse/ Significant Other Smoking Status: Never smoker Alcohol: None Drugs: None Review of Systems General: Reports: Chills, Fever, Malaise Eyes: Denies: Visual changes - bilaterally, Diplopia Cardiovascular: Denies: Chest pain, Palpitations Respiratory: Reports: Dyspnea, Dyspnea on exertion Gastrointestinal: Reports: Nausea, Diarrhea. Denies: Abdominal pain Genitourinary: Denies: Dysuria, Hematuria Musculoskeletal: Reports: Myalgias. Denies: Arthralgias Skin: Denies: Rash, Abscess Neurological: Reports: Headache. Denies: Weakness, Parasthesia, Numbness Psych: Denies: Depression, Anxiety Physical Exam Vital Signs/Narrative: Vital Signs Temp Pulse Resp BP Pulse Ox 10/21/20 10:55 100.2 F H 89 17 142/72 H 94 Inital Vital Signs reviewed: Yes General: Well nourished, No Acute Distress Head: Normocephalic, Atraumatic Eyes: Perrl, EOMI ENT: Moist mucous membranes, No rhinorrhea Cardiovascular: Regular rate, Regular rhythm Respiratory: No distress, Decreased Air Movement - Left lower lobe Abdomen: Soft, Nontender, Nondistended Extremities: Nontender, No edema Skin: Normal color, No rash. Negative for: Cyanosis, Diaphoresis Neurological: Alert, Oriented x3, Cranial nerves II-XII grossly intact Psychological: Normal affect, Normal Mood Diagnostic/Tx/Re-eval Clinical Impression(s) from Imaging Studies Chest X-Ray 10/21/20 11:47 IMPRESSION: Patchy bilateral basilar infiltrates worse on the right side. Follow-up is recommended. Electronically Signed: Ramiro Yip MD at 12:22 EDT , Service support , Chest CTA 10/21/20 11:56 IMPRESSION: Multiple bilateral areas of groundglass appearance in the preferentially peripheral distribution as described. Pneumonitis associated with Covid 19 should be ruled out. Electronically Signed: Ramiro Yip MD at 13:02 EDT , Service support , Laboratory Data 10/21/20 10/21/20 10/21/20 11:25 11:25 11:25 WBC 5.9 RBC 4.71 Hgb 15.2 Hct 44.7 MCV 94.9 H MCH 32.3 H MCHC 34.0 RDW Std Deviation 45.2 H RDW Coeff of Alyssa 12.8 Plt Count 170 MPV 9.5 Immature Gran % (Auto) 0.700 Neut % (Auto) 83.1 H Lymph % (Auto) 10.1 L Comal % (Auto) 5.9 Eos % (Auto) 0.0 Baso % (Auto) 0.2 Absolute Neuts (auto) 4.9 Absolute Lymphs (auto) 0.60 L Nucleated RBC % 0 Differential Comment SCANNED Sodium 135 L Potassium 3.7 Chloride 103 Carbon Dioxide 28.0 Anion Gap 4 L BUN 11 Creatinine 0.91 Estim Creat Clear Calc 80.49 Est GFR (MDRD) Af Amer 104 Est GFR (MDRD) Non-Af 86 BUN/Creatinine Ratio 12.0 Glucose 108 H Lactic Acid 1.5 Calcium 8.0 L Total Bilirubin 0.60 AST 32 ALT 31 Alkaline Phosphatase 57 Troponin I < 0.015 Total Protein 7.1 Albumin 2.8 L Globulin 4.3 H Albumin/Globulin Ratio 0.7 L Procalcitonin Urine Color Urine Clarity Urine pH Ur Specific Maurice Urine Protein Urine Glucose (UA) Urine Ketones Urine Occult Blood Urine Nitrite Urine Bilirubin Urine Urobilinogen Ur Leukocyte Esterase Urine RBC Urine WBC Ur Squamous Epith Cells Urine Bacteria Urine Mucus 10/21/20 10/21/20 11:25 12:02 WBC RBC Hgb Hct MCV MCH MCHC RDW Std Deviation RDW Coeff of Alyssa Plt Count MPV Immature Gran % (Auto) Neut % (Auto) Lymph % (Auto) Comal % (Auto) Eos % (Auto) Baso % (Auto) Absolute Neuts (auto) Absolute Lymphs (auto) Nucleated RBC % Differential Comment Sodium Potassium Chloride Carbon Dioxide Anion Gap BUN Creatinine Estim Creat Clear Calc Est GFR (MDRD) Af Amer Est GFR (MDRD) Non-Af BUN/Creatinine Ratio Glucose Lactic Acid Calcium Total Bilirubin AST ALT Alkaline Phosphatase Troponin I Total Protein Albumin Globulin Albumin/Globulin Ratio Procalcitonin 0.23 H Urine Color Yellow Urine Clarity Clear Urine pH 6.0 Ur Specific Maurice 1.015 Urine Protein 100 H Urine Glucose (UA) Normal Urine Ketones 50 H Urine Occult Blood 150 H Urine Nitrite Negative Urine Bilirubin 1 H Urine Urobilinogen 1 H Ur Leukocyte Esterase 25 H Urine RBC 10-25 SEEN Urine WBC 0-5 SEEN Ur Squamous Epith Cells 0-5 SEEN Urine Bacteria 1+ Urine Mucus 2+ - Medical Decision Making 75-year-old male presenting for evaluation of fever for the last 10 days T-max is 105. Patient states he had fevers every day. He has weakness when he tries to exert himself. His fevers do respond to Tylenol. He states he had his first Pfizer vaccine on the fourth and was exposed to COVID-19 by his son apparently. EKG shows normal sinus rhythm with first-degree AV block without signs of ischemic change as interpreted by myself patient's lab work shows white blood cell count 5.9 hemoglobin 15.2 he is lymphopenic. LFTs within normal limits. Renal function electrolytes are normal. UA is negative for infection. Rapid antigen is negative initially. Patient had chest x-ray which shows bibasilar infiltrates as interpreted by myself. He also had a CTA of his chest which shows bilateral groundglass opacities. Patient will have Covid PCR. This is most likely Covid pneumonitis. Impression: 1. Generalized weakness 2. Diarrhea 3. Covid pneumonitis ED Disposition - Plan for ED Patient: Disposition: [facility]
[2020-10-21 11:39] LABS: Absolute Neutrophil Count 4.9 X10^3/uL (2.0-7.7); Basophil# 0.01 X10^3/uL; Basophil% 0.2 % (0-1); Hematocrit 44.7 % (40-54); Hemoglobin 15.2 g/dL (13.0-16.5); Lymphocyte % 10.1 % (19-41); Mean Corpuscular Hgb 32.3 pg (27.0-32.0); Mean Corpuscular Volume 94.9 fL (80-94); Mean Platelet Vol. 9.5 fl (6.2-12.0); Monocyte# 0.35 X10^3/uL; Monocyte% 5.9 % (0-10); NRBC Flagged by Analyzer 0 % (0-5); Neutrophil # 4.94 X10^3/uL (2.7-7.7); Neutrophil % 83.1 % (47-70); POSITIVE DIFFERENTIAL YES; Platelet Count 170 K/mm3 (150-450); RBC Distribution Width CV 12.8 % (11.6-14.6); RBC Distribution Width SD 45.2 fl (35.1-43.9); Red Blood Count 4.71 M/mm3 (4.6-6.2); White Blood Count 5.9 K/mm3 (4.4-11.0)
[2020-10-21 11:42] LABS: Differential Indicated SCAN CRITERIA MET
--- NOTE | 2020-10-21 11:47 | RAD_ITS ---
STUDY: X-RAY CHEST REASON FOR EXAM: Male, 75 years old. Cough TECHNIQUE: Single AP portable view of the chest. COMPARISON: Comparison is made with prior study 03/27/2020. FINDINGS: EKG electrode is seen. Patchy bibasilar infiltrates more prominent the right lung base suggestive of pneumonic infiltrates. Follow-up is recommended. Stable blunting of the left costophrenic angle. Normal size heart. Normal mediastinum and domonique. Normal visualized pulmonary arteries. Normal visualized aortic arch and descending thoracic aorta. There are diffuse degenerative changes of the visualized thoracic spine. Normal visualized ribs, clavicles, and shoulders. There is no demonstrated abnormality of the visualized soft tissue structures of the upper abdomen. RAD/Chest 1 View (Portable) IMPRESSION: Patchy bilateral basilar infiltrates worse on the right side. Follow-up is recommended. Electronically Signed: Ramiro Yip MD at 12:22 EDT , Service support ,
[2020-10-21 11:55] LABS: Differential Comment SCANNED
--- NOTE | 2020-10-21 11:56 | CT_ITS ---
STUDY: CTA CHEST REASON FOR EXAM: Male, 75 years old. Shortness of breath RADIATION DOSAGE (If Supplied By Facility): CTDIvol = ( 13.84 ) mGy, DLP = ( 556.04 ) mGycm TECHNIQUE: The examination was performed with the intravenous administration of IV 100mL [id number]. Post-processing of the angiographic images was performed, with multiplanar reformation and 3D reconstruction. Individualized dose optimization techniques were used for this CT. COMPARISON: None. FINDINGS: Normal enhancement of the main pulmonary artery and right and left pulmonary arteries. Normal enhancement of the bilateral peripheral pulmonary arteries. There is no demonstrated pulmonary embolism. Normal thoracic aorta and visualized great vessels. There is no demonstrated aortic dissection. Normal heart and pericardium. There are visualized mediastinal lymph nodes, which are within normal size limits, and with normal morphology. Normal hilar regions. Normal visualized trachea and bronchi. The lungs are well expanded. There are multiple patchy areas of groundglass appearance in both upper and lower lobes in the differential peripheral distribution. Pneumonitis associated with Covid 19 should be ruled out. Minimal pleural effusions. Normal chest wall structures. There are degenerative changes of thoracic spine. Normal visualized upper abdomen. CT/CTA Chest W/WO Contrast IMPRESSION: Multiple bilateral areas of groundglass appearance in the preferentially peripheral distribution as described. Pneumonitis associated with Covid 19 should be ruled out. Electronically Signed: Ramiro Yip MD at 13:02 EDT , Service support ,
[2020-10-21 11:57] LABS: ALB/GLOB Ratio 0.7 RATIO (0.9-2.4); AST(SGOT) 32 U/L (15-37); Alanine Aminotransfer ALT/SGPT 31 U/L (16-61); Albumin, Serum 2.8 g/dL (3.2-5.0); Alkaline Phosphatase 57 U/L (45-117); Anion Gap 4 (5-15); BUN 11 mg/dL (7-18); Chloride 103 mmol/L (98-107); Creatinine, Serum 0.91 mg/dL (0.70-1.30); EST Glomerular Filtration Rate 86 mL/min (>60); Est Glom Filt Rate - Afr Amer 104 mL/min (>60); Estimated Creatinine Clearance 80.49 ml/min; Globulin 4.3 g/dL (2.2-4.2); Glucose 108 mg/dL (74-106); Potassium 3.7 mmol/L (3.5-5.1); Protein, Total 7.1 g/dL (6.4-8.2); Sodium Level 135 mmol/L (136-145)
[2020-10-21 12:00] LABS: Procalcitonin 0.23 ng/mL (0.00-0.09)
[2020-10-21] MEDS: Ondansetron 4 MG/2 ML Vial IV (12:00)
[2020-10-21] MEDS: Acetaminophen 500 MG Tablet 1000 MG PO (12:04)
[2020-10-21 12:05] LABS: Lactic Acid 1.5 mmol/L (0.4-1.9)
[2020-10-21 12:14] LABS: Color, Urine Yellow (Yellow); Glucose, Dipstick Normal (Normal); Ketone-Dipstick 50 mg/dl (Negative); Leukocyte Esterase-Dipstick 25 /ul (Negative); Nitrite-Dipstick Negative (Negative); Occult Blood-Urine 150 /ul (Negative); Protein-Dipstick 100 mg/dl (Negative); Specific Gravity, Urine 1.015 (1.002-1.030); Urine Bilirubin Dipstick 1 mg/dL (Negative); Urine Clarity Clear (Clear); Urine Urobilinogen 1 mg/dl (Normal)
[2020-10-21 12:23] LABS: Bacteria 1+ /hpf (None Seen); Mucous, Urine 2+ /hpf (<or=2+); Red Blood Cells-Urine 10-25 SEEN /hpf (0-5); Squamous Epithelial Cells - UA 0-5 SEEN /hpf (0-5); White Blood Cells 0-5 SEEN /hpf (0-5)
--- NOTE | 2020-10-21 13:56 | NURSING ---
DR OTT FOR DR GOMEZ
--- NOTE | 2020-10-21 14:07 | HP.PCM_ITS ---
Problem List (1) Prostate cancer Status: Resolved (2) COVID-19 Status: Acute History of Present Illness Date of Admission: 10/21/20 Chief Complaint: Shortness of breath, feeling unwell - 11 days The patient is a 75 year old M with past medical history of prostate CA , status post robotic surgery in December 2019, who recently had his COVID-19 vaccine on 10/08/20. 2 days after his vaccination, he started having generalized aches, shortness of breath, and feeling unwell. He has been quarantining. He remains progressively unwell. He has been having high fevers, chills, cough, loss of smell and taste as well as diarrhea with loss of appetite. He had an outpatient Covid test done on 10/16/20 and was positive. He finished his quarantine and talked to his doctor who asked him to come to the ED. In the ED, his temperature was 100.2F, heart rate was 89, blood pressure was 142/72, respiratory rate 17, SPO2 was 94% on room air. WBC count was 5.9, hemoglobin 15.2, platelet count was 170. His D-dimer was 1.24. Sodium was 135, potassium 3.7, chloride 103, bicarbonate 28, BUN 11, creatinine 0.91, lactic acid was 1.5, these were unremarkable. UA was unremarkable. Chest x-ray showed patchy bilateral basilar infiltrates, worse on the right side. Past Medical History Past Medical History (Chronic Problems): Chronic Problems (Last Reviewed 05/28/18 @ 09:07 by Laura Cao) DDD (degenerative disc disease), lumbar (Chronic) Medical History: Medical History (Last Reviewed 05/28/18 @ 09:07 by Laura Cao) DDD (degenerative disc disease), lumbar (Chronic) M51.36 Arthritis M19.90 Environmental allergies Z91.09 High cholesterol E78.00 History of cancer Z85.9 History of melanoma Z85.820 Vitamin D deficiency E55.9 Allergies celecoxib [From Celebrex] Adverse Reaction (Verified 10/21/20 10:55) Unknown Home Medications: Ambulatory Orders Medication Instructions Recorded Allopurinol [Zyloprim] 300 mg PO DAILY 10/29/15 Surgical History: Surgical History (Last Reviewed 05/28/18 @ 09:07 by Laura Cao) History of melanoma excision Z98.890, Z85.820 History of shoulder surgery Z98.890 Surgical History: - - s/p prostatectomy, robotic, s/p shoulder surgery, s/p melanoma excision Psychiatric History: No pertinent psych hx Lives: Spouse/ Significant Other Smoking Status: Never smoker Alcohol: None Drugs: None - *Family History Maternal History Items: No pertinent history Paternal History Items: No pertinent history Review of Systems Constitutional: Reports: Anorexia, Chills, Fever, Malaise, Weight Change, Fatigue Eyes: Denies: Blurred vision, Cataracts, Conjunctivae Inflammation, Pain, Redness, Vision Change HEENT: Denies: Difficulty Hearing, Difficulty Swallowing, Head Aches, Hearing Changes, Sinus Congestion, Sinus Drainage, Sore Throat Cardiovascular: Denies: Chest Pain, Claudication, Orthopnea, Palpitations, Paroxysmal Noc. Dyspnea Respiratory: Reports: Cough, Shortness of Breath, Shortness of breath at rest, Shortness of breath upon exertion. Denies: Hemoptysis Gastrointestinal: Denies: Abdominal Pain, Constipation, Hematemesis, Hematochezia, Nausea, Vomiting Genitourinary: Denies: Dysuria, Frequency, Incontinence, Nocturia Musculoskeletal: Denies: Joint Pain, Joint stiffness, Joint swelling, Joint Tenderness Skin: Denies: Rash, Wounds Neurological: Denies: Difficulty swallowing, Focal weakness, Numbness, Tingling Psychiatric: Denies: Anxiety, Depression, Homicidal Ideations, Suicidal Ideations Hematologic/ Lymphatic: Denies: Easy Bruising, Easy Bleeding VTE Information - Inpt Only VTE Present on Admission: No VTE Pharm Prophylaxis ordered?: Yes Patient Problems: Active and Suspected Problems (Last Reviewed 05/28/18 @ 09:07 by Laura Cao) COVID-19 (Acute) - Physical Exam Vitals/I&O's: Vital Signs Temp Pulse Resp BP Pulse Ox 100.6 F H 78 19 H 120/66 92 10/21/20 13:11 10/21/20 13:11 10/21/20 13:11 10/21/20 13:11 10/21/20 13:11 Oxygen Delivery Method Room Air Weight: 102.058 kg Body Mass Index (BMI) 29.7 General: Alert, Oriented x3, Cooperative, No apparent distress HEENT: Atraumatic, PERRLA, EOMI, Normocephalic Oral: Moist Mucosa Neck: Supple Lungs: Normal air movement, Diminished Cardiovascular: Regular rate, Regular Rhythm, Normal S1, Normal S2, No murmurs Abdomen: Bowel Sounds Present, Soft, Non Tender, Non-Distended, No Hepato- splenomegaly Extremities: No edema Skin: No rashes Musculoskeletal: No Tenderness to Palpation of Joints or Extremities Lymphatic: No Cervical, Supraclavicular, or Inguinal Adenopathy Neurological: Cranial nerves II-XII grossly intact, Neuro grossly intact Psych/Mental Status: Normal Affect, Appropriate Microbiology Past 72 Hours 10/21/20 11:28 Mucosa - Nose SARS-CoV-2 Antigen (Rapid) - Final Laboratory Results 10/21/20 11:25: WBC 5.9, RBC 4.71, Hgb 15.2, Hct 44.7, MCV 94.9 H, MCH 32.3 H, MCHC 34.0, RDW Std Deviation 45.2 H, RDW Coeff of Alyssa 12.8, Plt Count 170, MPV 9.5, Immature Gran % (Auto) 0.700, Neut % (Auto) 83.1 H, Lymph % (Auto) 10.1 L, [place] % (Auto) 5.9, Eos % (Auto) 0.0, Baso % (Auto) 0.2, Absolute Neuts (auto) 4.9, Absolute Lymphs (auto) 0.60 L, Nucleated RBC % 0, Differential Comment SCANNED 10/21/20 11:25: Sodium 135 L, Potassium 3.7, Chloride 103, Carbon Dioxide 28.0, Anion Gap 4 L, BUN 11, Creatinine 0.91, Estim Creat Clear Calc 80.49, Est GFR (MDRD) Af Amer 104, Est GFR (MDRD) Non-Af 86, BUN/Creatinine Ratio 12.0, Glucose 108 H, Calcium 8.0 L, Total Bilirubin 0.60, AST 32, ALT 31, Alkaline Phosphatase 57, Troponin I < 0.015, Total Protein 7.1, Albumin 2.8 L, Globulin 4.3 H, Albumin/Globulin Ratio 0.7 L 10/21/20 11:25: Lactic Acid 1.5 10/21/20 11:25: Procalcitonin 0.23 H 10/21/20 12:02: Urine Color Yellow, Urine Clarity Clear, Urine pH 6.0, Ur Specific [place] 1.015, Urine Protein 100 H, Urine Glucose (UA) Normal, Urine Ketones 50 H, Urine Occult Blood 150 H, Urine Nitrite Negative, Urine Bilirubin 1 H, Urine Urobilinogen 1 H, Ur Leukocyte Esterase 25 H, Urine RBC 10-25 SEEN, Urine WBC 0-5 SEEN, Ur Squamous Epith Cells 0-5 SEEN, Urine Bacteria 1+, Urine Mucus 2+ 10/21/20 13:35: COVID-19 ([place]) Pending Assessment/Plan All Active Problems (Last Reviewed 05/28/18 @ 09:07 by Laura Cao) Prostate cancer (Resolved) COVID-19 (Acute) Segmental and somatic dysfunction of pelvic region (Acute) Segmental and somatic dysfunction of lumbar region (Acute) Segmental and somatic dysfunction of thoracic region (Acute) 1. Acute COVID-19 pneumonia without hypoxia, Patient recently was as needed on 10/08/20, started having symptoms on 10/10/20 Admit to COVID unit, IV remdesivir, dexamethasone po ID consult 2. Elevated D-dimer, CTA of the chest negative for acute PE 3. History of prostate cancer status post robotic prostatectomy 4. DVT Prophylaxis?Lovenox twice daily 5. Code status?DNR CC I discussed and explained in details the various types of CODE STATUS-full code, DNR CCA, DNR CC. Patient chose DNR CC. He stated that he did not want to be resuscitated in the event of a cardiopulmonary arrest. He wanted to be kept comfortable. Time spent discussing CODE STATUS 17 minutes Inpatient E&M: 75189 Init Hosp L3 Procedures: 14304 Advncd Care Plan 30 Min
--- NOTE | 2020-10-21 14:10 | NURSING ---
MS2 COVID COVID WEAKNESS PAINTSIL
--- NOTE | 2020-10-21 14:11 | NURSING ---
CV ICU 203
--- NOTE | 2020-10-21 14:51 | EKG12_ITS ---
Test Reason : Blood Pressure : / mmHG Vent. Rate : 071 BPM Atrial Rate : 071 BPM P-R Int : 220 ms QRS Dur : 110 ms QT Int : 416 ms P-R-T Axes : 005 -57 002 degrees QTc Int : 452 ms Sinus rhythm with 1st degree A-V block Left axis deviation Abnormal ECG Confirmed by RONNIE MAS, HUY ([id number]), occupational therapy instructor RAJAT CHAUDHARI ([id number]) on 10/22/2020 12:47:08 PM Referred By: JASON Confirmed By:HUY TRUJILLO MD
--- NOTE | 2020-10-21 15:56 | PCM.HP.ID ---
Problem List (1) COVID-19 Status: Acute Reason for Consult: covid Consulted by: Dr. Flores History of Present Illness: The patient is a 75 year old M reports 1st dose covid vaccine 10/08, then on 10/10 developed fever, chills, cough, aches, headache, loss of taste and smell, diarrhea, loss of appetite. No chest pain. Lives with , who got covid vaccine 10/08 as well, tested neg, has been asymptomatic. In quarantine. Pt had progressive symptoms, tested (+) as an outpt on 10/16. Came to ED, admitted. Full ROS performed and neg except as noted above. - Medical History Past Medical History (Chronic Problems): Chronic Problems (Last Reviewed 05/28/18 @ 09:07 by Laura Cao) DDD (degenerative disc disease), lumbar (Chronic) Allergies/Adverse Reactions: Allergies celecoxib [From Celebrex] Adverse Reaction (Verified 10/21/20 10:55) Unknown Home Medications: Ambulatory Orders Medication Instructions Recorded Allopurinol [Zyloprim] 300 mg PO DAILY 10/29/15 - Social History Tobacco Use: non-smoker Vital Signs Temp Pulse Resp BP Pulse Ox 97.2 F L 72 18 117/66 97 10/21/20 15:30 10/21/20 15:30 10/21/20 15:30 10/21/20 15:30 10/21/20 15:30 Oxygen Delivery Method Room Air Weight: 100.5 kg Body Mass Index (BMI) 29.2 Microbiology Past 72 Hours 10/21/20 11:28 SARS-CoV-2 Antigen (Rapid) - Final Mucosa - Nose Laboratory Tests Past 24 Hrs 10/21/20 10/21/20 10/21/20 11:25 11:25 11:25 WBC 5.9 RBC 4.71 Hgb 15.2 Hct 44.7 MCV 94.9 H MCH 32.3 H MCHC 34.0 RDW Std Deviation 45.2 H RDW Coeff of Alyssa 12.8 Plt Count 170 MPV 9.5 Immature Gran % (Auto) 0.700 Neut % (Auto) 83.1 H Lymph % (Auto) 10.1 L [place] % (Auto) 5.9 Eos % (Auto) 0.0 Baso % (Auto) 0.2 Absolute Neuts (auto) 4.9 Absolute Lymphs (auto) 0.60 L Nucleated RBC % 0 Differential Comment SCANNED Sodium 135 L Potassium 3.7 Chloride 103 Carbon Dioxide 28.0 Anion Gap 4 L BUN 11 Creatinine 0.91 Estim Creat Clear Calc 80.49 Est GFR (MDRD) Af Amer 104 Est GFR (MDRD) Non-Af 86 BUN/Creatinine Ratio 12.0 Glucose 108 H Lactic Acid 1.5 Calcium 8.0 L Total Bilirubin 0.60 AST 32 ALT 31 Alkaline Phosphatase 57 Troponin I < 0.015 Total Protein 7.1 Albumin 2.8 L Globulin 4.3 H Albumin/Globulin Ratio 0.7 L Procalcitonin Urine Color Urine Clarity Urine pH Ur Specific [place] Urine Protein Urine Glucose (UA) Urine Ketones Urine Occult Blood Urine Nitrite Urine Bilirubin Urine Urobilinogen Ur Leukocyte Esterase Urine RBC Urine WBC Ur Squamous Epith Cells Urine Bacteria Urine Mucus COVID-19 ([place]) 10/21/20 10/21/20 10/21/20 11:25 12:02 13:35 WBC RBC Hgb Hct MCV MCH MCHC RDW Std Deviation RDW Coeff of Alyssa Plt Count MPV Immature Gran % (Auto) Neut % (Auto) Lymph % (Auto) [place] % (Auto) Eos % (Auto) Baso % (Auto) Absolute Neuts (auto) Absolute Lymphs (auto) Nucleated RBC % Differential Comment Sodium Potassium Chloride Carbon Dioxide Anion Gap BUN Creatinine Estim Creat Clear Calc Est GFR (MDRD) Af Amer Est GFR (MDRD) Non-Af BUN/Creatinine Ratio Glucose Lactic Acid Calcium Total Bilirubin AST ALT Alkaline Phosphatase Troponin I Total Protein Albumin Globulin Albumin/Globulin Ratio Procalcitonin 0.23 H Urine Color Yellow Urine Clarity Clear Urine pH 6.0 Ur Specific [place] 1.015 Urine Protein 100 H Urine Glucose (UA) Normal Urine Ketones 50 H Urine Occult Blood 150 H Urine Nitrite Negative Urine Bilirubin 1 H Urine Urobilinogen 1 H Ur Leukocyte Esterase 25 H Urine RBC 10-25 SEEN Urine WBC 0-5 SEEN Ur Squamous Epith Cells 0-5 SEEN Urine Bacteria 1+ Urine Mucus 2+ COVID-19 ([place]) Pending - Other Studies Radiology: [] reviewed Other Studies: [] Route of nutrition/ use of supplements: [] Nutritional Intake: [] IV Site: [] Burks Catheter: [] - Physical Exam General: Alert, Oriented x3, Cooperative HEENT: Atraumatic, PERRLA, EOMI Neck: Supple, No Nodes Lungs: Clear to auscultation, Diminished Cardiovascular: Regular rate, Regular Rhythm Abdomen: Soft, Non Tender, Non-Distended Extremities: No edema Skin: No rashes IV Site: Peripheral, without redness Musculoskeletal: No Tenderness to Palpation of Joints or Extremities Neurological: Cranial nerves II-XII grossly intact - Assessment/Plan Antibiotics: [] Assessment/Plan: [] covid with hypoxia - 1st shot vaccine 10/08, sx started 10/10, tested (+) 10/16. is neg, asymptomatic. Starting remdesivir, will order po dex to start now, on lovenox 30mg bid, d-dimer pending. CT neg for PE. Plan on 20 days of quarantine, starting 10/10. Will follow, thank you, d/w nursing
[2020-10-21 16:18] LABS: D-Dimer Quantitative (DVT/PE) 1.24 FEU/ug/m (0.27-0.49)
[2020-10-21 16:19] LABS: BNP,B-Type NATRIURETIC PEPTIDE 21.4 pg/mL (0-100)
[2020-10-21] MEDS: dexAMETHasone 4 MG Tablet 6 MG PO (17:06)
[2020-10-21] MEDS: Allopurinol 300 MG Tablet PO (20:40)
[2020-10-21] MEDS: Acetaminophen 325 MG Tablet 650 MG PO (20:40)
[2020-10-21] MEDS: Enoxaparin 30 MG/0.3 ML Syringe SC (20:40)
[2020-10-21] MEDS: 0.9% Saline Lock 10 ML Syringe IV (20:42)
[2020-10-22 02:32] VITALS: BP 104/56; PULSE 59; RESP 16; TEMP 36.6; O2SAT 98
[2020-10-22 04:34] LABS: Absolute Lymphocyte Count 0.63 X10^3/uL (0.83-4.51); Absolute Neutrophil Count 3.9 X10^3/uL (2.0-7.7); Basophil# 0.01 X10^3/uL; Basophil% 0.2 % (0-1); Hematocrit 46.3 % (40-54); Hemoglobin 15.7 g/dL (13.0-16.5); Lymphocyte # 0.63 X10^3/ul (4.0); Lymphocyte % 13.4 % (19-41); Mean Corp Hgb Conc 33.9 g/dL (32-36); Mean Corpuscular Hgb 32.4 pg (27.0-32.0); Mean Corpuscular Volume 95.7 fL (80-94); Mean Platelet Vol. 9.3 fl (6.2-12.0); Monocyte# 0.18 X10^3/uL; Monocyte% 3.8 % (0-10); NRBC Flagged by Analyzer 0 % (0-5); Neutrophil # 3.86 X10^3/uL (2.7-7.7); Neutrophil % 82.2 % (47-70); Platelet Count 188 K/mm3 (150-450); RBC Distribution Width CV 12.5 % (11.6-14.6); RBC Distribution Width SD 44.7 fl (35.1-43.9); Red Blood Count 4.84 M/mm3 (4.6-6.2); White Blood Count 4.7 K/mm3 (4.4-11.0)
[2020-10-22 04:59] LABS: ALB/GLOB Ratio 0.6 RATIO (0.9-2.4); AST(SGOT) 38 U/L (15-37); Alanine Aminotransfer ALT/SGPT 40 U/L (16-61); Albumin, Serum 2.7 g/dL (3.2-5.0); Alkaline Phosphatase 60 U/L (45-117); Anion Gap 5 (5-15); BUN 13 mg/dL (7-18); BUN/Creat Ratio 15.1 RATIO (10-20); Calcium,Total 8.6 mg/dL (8.5-10.1); Chloride 105 mmol/L (98-107); Creatinine, Serum 0.86 mg/dL (0.70-1.30); EST Glomerular Filtration Rate 92 mL/min (>60); Est Glom Filt Rate - Afr Amer 112 mL/min (>60); Estimated Creatinine Clearance 85.16 ml/min; Globulin 4.8 g/dL (2.2-4.2); Glucose 156 mg/dL (74-106); Potassium 3.6 mmol/L (3.5-5.1); Protein, Total 7.5 g/dL (6.4-8.2); Sodium Level 139 mmol/L (136-145)
[2020-10-22 07:00] VITALS: O2SAT 97
[2020-10-22 08:30] VITALS: BP 126/78; PULSE 62; RESP 15; TEMP 36.4; O2SAT 96
[2020-10-22] MEDS: dexAMETHasone 4 MG Tablet 6 MG PO (08:32)
[2020-10-22] MEDS: Enoxaparin 30 MG/0.3 ML Syringe SC ×2 (08:32→22:04)
--- NOTE | 2020-10-22 10:28 | CASEMGMT ---
BECKY DODGE Assessment: TC to pt for initial transition planning/care coordination assessment due to isolation precautions. BECKY DODGE introduced self and role at [facility], pt voices understanding and consents to assessment. Pt is A/O x4 and answers all questions appropriately at this time. Care providers, pharmacy, and demographics verified/updated. Admitting Dx: Probable COVID 19 Infection PCP:Luis Specialists: savannah Soni; savannah Blanco Preferred Pharmacy: [facility] Insurance: [employer] Prescription Benefit: yes LW/HPOA: Pt has a LW and his HPOA is his Yesenia. It is on file at [facility]. LNOK: Yesenia Living Arrangements: Pt lives in a single story house with no steps to enter. Pt has a ramp. Pt is I in ADL's and denies concerns at home. Transportation: Pt drives self and has no issues with transportation. DME/HHC/SNF: Pt states he has DME from a family member including walker and wheelchair. He does not use. Denies need for further DME. Discussed with pt in network local DME companies should he need O2 at home. Gave him list verbally. Pt first choice is [employer], second choice [facility]. Pt has not had any prior HHC or SNF stays. Pt reports being tested on 10/[address] [facility] [address] through for COVID. His has tested negative since. She is quarantining at home. Pt states he is able to quarantine at home and his dtr in law will be able to assist with groceries and needs. CM to follow therapy and O2 needs. Pt states no concerns with going home at time of dc. Pt states no further concerns/needs. CM to follow. Advised pt to ask CM if any further question/concerns/needs arise, voices understanding. Pt Goal: Home Plan: Home with family support
--- NOTE | 2020-10-22 11:40 | CASEMGMT ---
Pt living will and Health Care POA naming his Yesenia Pizano printed from converted echart and placed on pt chart for scanning. SUMMER Haq
--- NOTE | 2020-10-22 13:49 | CHAPLAIN ---
Type of Pastoral Visit ___ Initial Visit ___ Follow-up Visit ___ On-call Visit ___ General Patient Visit ___ Spiritual Assessment ___ Family Conference ___ Bereavement ___ Rapid Response ___ Code Blue _x__ Other (describe below) Pastoral Care Referral From _x__ Patient ___ Family ___ Nurse ___ Physician ___ Dump Grounds Checker ___ Home Based Assistant ___ Other (describe below) Sacrament/Intervention _x__ Active listening ___ Anointing ___ Christian ___ Bereavement ___ Communion ___ Irene exploration ___ ___ Life review _x__ Prayer ___ Reconciliation ___ Sacrament of Sick ___ Supportive presence ___ Wedding ___ Other (describe below) Pastoral Comments patient is in isolation and therefore this visit is by phone call into room; pt answers and willing to talk; pt states he is getting better slowly; patient welcoming of call and prayer
[2020-10-22 14:30] VITALS: BP 117/62; PULSE 63; RESP 16; TEMP 36.7; O2SAT 95
--- NOTE | 2020-10-22 18:08 | PCM.PN.HOSP ---
Patient Problems: Active and Suspected Problems (Last Reviewed 05/28/18 @ 09:07 by Laura Cao) COVID-19 (Acute) Subjective: Doing well, afebrile and denies any shortness of breath. Feels better today than he has over the last 2 weeks Vitals/I&O's: Vital Signs Temp Pulse Resp BP Pulse Ox 98.0 F 63 16 117/62 95 10/22/20 14:30 10/22/20 14:30 10/22/20 14:30 10/22/20 14:30 10/22/20 14:30 Oxygen Flow Rate (L/min) 2 Oxygen Delivery Method Room Air Weight: 220 lb 14.416 oz Body Mass Index (BMI) 29.2 Intake and Output for Last 24 Hours 10/20/20 10/21/20 10/22/20 23:59 23:59 23:59 Intake Total 250 / 250 1210 / 1210 Output Total 475 / 475 Balance -225 / -225 1210 / 1210 General: Alert, Oriented x3, Cooperative, No apparent distress HEENT: Atraumatic, PERRLA, EOMI, Normocephalic Oral: Moist Mucosa Neck: Supple, No JVD Lungs: Clear to auscultation, Normal air movement, No rhonchi, No wheeze, No rales Cardiovascular: Regular rate, Regular Rhythm, Normal S1, Normal S2, No murmurs Abdomen: Soft, Non Tender, Non-Distended, No Hepato-splenomegaly Extremities: No edema, Capillary Refill Less than 3 Seconds Skin: No rashes, No breakdown Neurological: Neuro grossly intact, Sensory exam intact to light touch and pain Psych/Mental Status: Normal Affect, Appropriate Microbiology Past 72 Hours 10/21/20 12:02 Urine, Clean Catch Urine Culture - Preliminary Staphylococcus species 10/21/20 18:55 Urine, Clean Catch Legionella Antigen - Final 10/21/20 18:55 Urine, Clean Catch Streptococcus pneumoniae Antigen (M - Final 10/21/20 11:28 Mucosa - Nose SARS-CoV-2 Antigen (Rapid) - Final Laboratory Results 10/22/20 04:25: WBC 4.7, RBC 4.84, Hgb 15.7, Hct 46.3, MCV 95.7 H, MCH 32.4 H, MCHC 33.9, RDW Std Deviation 44.7 H, RDW Coeff of Alyssa 12.5, Plt Count 188, MPV 9.3, Immature Gran % (Auto) 0.400, Neut % (Auto) 82.2 H, Lymph % (Auto) 13.4 L, [place] % (Auto) 3.8, Eos % (Auto) 0.0, Baso % (Auto) 0.2, Absolute Neuts (auto) 3.9, Absolute Lymphs (auto) 0.63 L, Nucleated RBC % 0 10/22/20 04:25: Sodium 139, Potassium 3.6, Chloride 105, Carbon Dioxide 29.0, Anion Gap 5, BUN 13, Creatinine 0.86, Estim Creat Clear Calc 85.16, Est GFR (MDRD) Af Amer 112, Est GFR (MDRD) Non-Af 92, BUN/Creatinine Ratio 15.1, Glucose 156 H, Calcium 8.6, Total Bilirubin 0.50, AST 38 H, ALT 40, Alkaline Phosphatase 60, Total Protein 7.5, Albumin 2.7 L, Globulin 4.8 H, Albumin/Globulin Ratio 0.6 L Current Medications Acetaminophen (Acetaminophen 325 Mg Tablet) 650 mg PO Q6H PRN PRN PRN Reason: Pain Score 1-10/Temp > 100.7 F Last Admin: 10/21/20 20:40 Dose: 650 mg Documented by: Allopurinol (Allopurinol 300 Mg Tablet) 300 mg PO QHS [facility] Last Admin: 10/21/20 20:40 Dose: 300 mg Documented by: Dexamethasone (Dexamethasone 4 Mg Tablet) 6 mg PO DAILY [facility] Stop: 10/30/20 10:01 Last Admin: 10/22/20 08:32 Dose: 6 mg Documented by: Enoxaparin Sodium (Enoxaparin 30 Mg/0.3 Ml Syringe) 30 mg SC BID [facility] Last Admin: 10/22/20 08:32 Dose: 30 mg Documented by: Guaifenesin (Guaifenesin 10 Ml Udc (200mg/10ml)) 20 ml PO Q4H PRN PRN PRN Reason: COUGH Remdesivir 100 mg/ Sodium (Chloride) 250 mls @ 125 mls/hr IV DAILY [facility] Stop: 10/25/20 11:59 Last Infusion: 10/22/20 12:50 Dose: Infused Documented by: Melatonin (Melatonin 3 Mg Tablet) 3 mg PO QHS PRN PRN PRN Reason: INSOMNIA Nutritional Formula (Lactose Free) (Ensure Enlive 120 Ml Liquid) 120 ml PO 4X/DAY KATHI Last Admin: 10/22/20 12:35 Dose: 120 ml Documented by: Ondansetron HCl (Ondansetron 4 Mg/2 Ml Vial) 4 mg IV Q8H PRN PRN PRN Reason: NAUSEA/VOMITING Senna/Docusate Sodium (Senna/Docusate Sodium 1 Tablet) 2 tablet PO BID PRN PRN PRN Reason: Constipation Sodium Chloride (0.9% Saline Lock 10 Ml Syringe) 10 - 40 ml IV UD PRN PRN Reason: SALINE FLUSH Last Admin: 10/21/20 20:42 Dose: 10 ml Documented by: STROKE Vital Signs/Narrative: Vital Signs Temp Pulse Resp BP Pulse Ox 10/22/20 14:30 98.0 F 63 16 117/62 95 Medical Necessity - Tobacco Use Smoking Status: Never smoker Tobacco Use: Non-smoker Assessment/Plan All Active Problems (Last Reviewed 05/28/18 @ 09:07 by Laura Cao) Prostate cancer (Resolved) COVID-19 (Acute) Segmental and somatic dysfunction of pelvic region (Acute) Segmental and somatic dysfunction of lumbar region (Acute) Segmental and somatic dysfunction of thoracic region (Acute) 1. Acute COVID-19 pneumonia with elevated D-dimer -CTA of the chest was negative for PEs, continue with twice daily dosing of Lovenox and will plan for 14-day course of Eliquis -Appreciate ID assistance -Continue with remdesivir and Decadron -I discussed with him the he is able to take his second dose of the vaccine at any moment after the 3 weeks from his previous dose, the soonest would be 10/29/2020 2. History of prostate cancer -He is status post robotic prostatectomy DVT: Lovenox Inpatient E&M: 31399 Subs Hosp L2
[2020-10-22 20:30] VITALS: BP 117/60; PULSE 58; RESP 14; TEMP 36.6; O2SAT 95
[2020-10-22] MEDS: Allopurinol 300 MG Tablet PO (22:04)
[2020-10-22] MEDS: MELATONIN 3 MG TABLET PO (22:04)
[2020-10-23] VITALS (8 sets, daily range): BP systolic 125–147; BP diastolic 59–75; PULSE 59–72; RESP 12–16; TEMP 36.4–36.6; O2SAT 93–97
[2020-10-23 06:33] LABS: Absolute Lymphocyte Count 0.68 X10^3/uL (0.83-4.51); Absolute Neutrophil Count 8.8 X10^3/uL (2.0-7.7); Basophil# 0.01 X10^3/uL; Basophil% 0.1 % (0-1); Hematocrit 42.1 % (40-54); Hemoglobin 14.5 g/dL (13.0-16.5); Lymphocyte # 0.68 X10^3/ul (4.0); Lymphocyte % 6.8 % (19-41); Mean Corp Hgb Conc 34.4 g/dL (32-36); Mean Corpuscular Hgb 31.9 pg (27.0-32.0); Mean Corpuscular Volume 92.7 fL (80-94); Mean Platelet Vol. 9.9 fl (6.2-12.0); Monocyte# 0.49 X10^3/uL; Monocyte% 4.9 % (0-10); NRBC Flagged by Analyzer 0 % (0-5); Neutrophil # 8.77 X10^3/uL (2.7-7.7); Neutrophil % 87.5 % (47-70); Platelet Count 212 K/mm3 (150-450); RBC Distribution Width CV 12.7 % (11.6-14.6); RBC Distribution Width SD 43.4 fl (35.1-43.9); Red Blood Count 4.54 M/mm3 (4.6-6.2)
[2020-10-23 06:50] LABS: ALB/GLOB Ratio 0.6 RATIO (0.9-2.4); AST(SGOT) 35 U/L (15-37); Alanine Aminotransfer ALT/SGPT 44 U/L (16-61); Albumin, Serum 2.5 g/dL (3.2-5.0); Alkaline Phosphatase 53 U/L (45-117); Anion Gap 3 (5-15); BUN 19 mg/dL (7-18); BUN/Creat Ratio 27.3 RATIO (10-20); Calcium,Total 8.6 mg/dL (8.5-10.1); Chloride 109 mmol/L (98-107); EST Glomerular Filtration Rate 118 mL/min (>60); Est Glom Filt Rate - Afr Amer 143 mL/min (>60); Estimated Creatinine Clearance 73.24 ml/min; Globulin 4.3 g/dL (2.2-4.2); Glucose 138 mg/dL (74-106); Potassium 3.8 mmol/L (3.5-5.1); Protein, Total 6.8 g/dL (6.4-8.2); Sodium Level 140 mmol/L (136-145)
[2020-10-23] MEDS: Enoxaparin 30 MG/0.3 ML Syringe SC ×2 (08:59→21:06)
[2020-10-23] MEDS: dexAMETHasone 4 MG Tablet 6 MG PO (08:59)
[2020-10-23] MEDS: Senna/Docusate Sodium 1 Tablet 2 TABLET PO (12:33)
--- NOTE | 2020-10-23 12:56 | PCM.PN.HOSP ---
Patient Problems: Active and Suspected Problems (Last Reviewed 05/28/18 @ 09:07 by Laura Cao) COVID-19 (Acute) Subjective: Continues to need oxygen overnight however does fine on room air during the day. Ambulate on room air without issue. Vitals/I&O's: Vital Signs Temp Pulse Resp BP Pulse Ox 97.6 F L 68 15 129/69 H 96 10/23/20 08:30 10/23/20 08:30 10/23/20 08:30 10/23/20 08:30 10/23/20 08:30 Oxygen Flow Rate (L/min) 2 Oxygen Delivery Method Room Air Weight: 222 lb 14.197 oz Body Mass Index (BMI) 29.2 Intake and Output for Last 24 Hours 10/21/20 10/22/20 10/23/20 23:59 23:59 23:59 Intake Total 250 / 250 1400 / 1520 693 / 693 Output Total 475 / 475 Balance -225 / -225 1400 / 1520 693 / 693 General: Alert, Oriented x3, Cooperative, No apparent distress HEENT: Atraumatic, PERRLA, EOMI, Normocephalic Oral: Moist Mucosa Neck: Supple, No JVD Lungs: Clear to auscultation, Normal air movement, No rhonchi, No wheeze, No rales Cardiovascular: Regular rate, Regular Rhythm, Normal S1, Normal S2, No murmurs Abdomen: Soft, Non Tender, Non-Distended, No Hepato-splenomegaly Extremities: No edema, Capillary Refill Less than 3 Seconds Skin: No rashes, No breakdown Neurological: Neuro grossly intact, Sensory exam intact to light touch and pain Psych/Mental Status: Normal Affect, Appropriate Microbiology Past 72 Hours 10/21/20 11:35 Blood Culture (Wb) - Left Forearm Blood Culture - Preliminary No growth in 48 hours. 10/21/20 11:25 Blood Culture (Wb) - Anticubital Left Blood Culture - Preliminary No growth in 48 hours. 10/21/20 12:02 Urine, Clean Catch Urine Culture - Final Staphylococcus haemolyticus 10/21/20 18:55 Urine, Clean Catch Legionella Antigen - Final 10/21/20 18:55 Urine, Clean Catch Streptococcus pneumoniae Antigen (M - Final 10/21/20 11:28 Mucosa - Nose SARS-CoV-2 Antigen (Rapid) - Final Laboratory Results 10/23/20 06:25: WBC 10.0, RBC 4.54 L, Hgb 14.5, Hct 42.1, MCV 92.7, MCH 31.9, MCHC 34.4, RDW Std Deviation 43.4, RDW Coeff of Alyssa 12.7, Plt Count 212, MPV 9.9, Immature Gran % (Auto) 0.700, Neut % (Auto) 87.5 H, Lymph % (Auto) 6.8 L, [place] % (Auto) 4.9, Eos % (Auto) 0.0, Baso % (Auto) 0.1, Absolute Neuts (auto) 8.8 H, Absolute Lymphs (auto) 0.68 L, Nucleated RBC % 0 10/23/20 06:25: Sodium 140, Potassium 3.8, Chloride 109 H, Carbon Dioxide 28.0, Anion Gap 3 L, BUN 19 H, Creatinine 0.70, Estim Creat Clear Calc 73.24, Est GFR (MDRD) Af Amer 143, Est GFR (MDRD) Non-Af 118, BUN/Creatinine Ratio 27.3 H, Glucose 138 H, Calcium 8.6, Total Bilirubin 0.40, AST 35, ALT 44, Alkaline Phosphatase 53, Total Protein 6.8, Albumin 2.5 L, Globulin 4.3 H, Albumin/Globulin Ratio 0.6 L Current Medications Acetaminophen (Acetaminophen 325 Mg Tablet) 650 mg PO Q6H PRN PRN PRN Reason: Pain Score 1-10/Temp > 100.7 F Last Admin: 10/21/20 20:40 Dose: 650 mg Documented by: Allopurinol (Allopurinol 300 Mg Tablet) 300 mg PO QHS [facility] Last Admin: 10/22/20 22:04 Dose: 300 mg Documented by: Dexamethasone (Dexamethasone 4 Mg Tablet) 6 mg PO DAILY [facility] Stop: 10/30/20 10:01 Last Admin: 10/23/20 08:59 Dose: 6 mg Documented by: Enoxaparin Sodium (Enoxaparin 30 Mg/0.3 Ml Syringe) 30 mg SC BID [facility] Last Admin: 10/23/20 08:59 Dose: 30 mg Documented by: Guaifenesin (Guaifenesin 10 Ml Udc (200mg/10ml)) 20 ml PO Q4H PRN PRN PRN Reason: COUGH Remdesivir 100 mg/ Sodium (Chloride) 250 mls @ 125 mls/hr IV DAILY [facility] Stop: 10/25/20 11:59 Last Admin: 10/23/20 10:50 Dose: 125 mls/hr Documented by: Sodium Chloride () 250 mls @ 15 mls/hr IV .[id number] PRN PRN Reason: Saline Flush Last Infusion: 10/23/20 11:02 Dose: 0 mls/hr Documented by: Sodium Chloride () 250 mls @ 15 mls/hr IV .[id number] PRN PRN Reason: Additional IVPB Infusion Melatonin (Melatonin 3 Mg Tablet) 3 mg PO QHS PRN PRN PRN Reason: INSOMNIA Last Admin: 10/22/20 22:04 Dose: 3 mg Documented by: Nutritional Formula (Lactose Free) (Ensure Enlive 120 Ml Liquid) 120 ml PO 4X/DAY [facility] Last Admin: 10/23/20 12:33 Dose: 120 ml Documented by: Ondansetron HCl (Ondansetron 4 Mg/2 Ml Vial) 4 mg IV Q8H PRN PRN PRN Reason: NAUSEA/VOMITING Senna/Docusate Sodium (Senna/Docusate Sodium 1 Tablet) 2 tablet PO BID PRN PRN PRN Reason: Constipation Last Admin: 10/23/20 12:33 Dose: 2 tablet Documented by: Sodium Chloride (0.9% Saline Lock 10 Ml Syringe) 10 - 40 ml IV UD PRN PRN Reason: SALINE FLUSH Last Admin: 10/21/20 20:42 Dose: 10 ml Documented by: Medical Necessity - Tobacco Use Smoking Status: Never smoker Tobacco Use: Non-smoker Assessment/Plan All Active Problems (Last Reviewed 05/28/18 @ 09:07 by Luara Cao) Prostate cancer (Resolved) COVID-19 (Acute) Segmental and somatic dysfunction of pelvic region (Acute) Segmental and somatic dysfunction of lumbar region (Acute) Segmental and somatic dysfunction of thoracic region (Acute) 1. Acute COVID-19 pneumonia with elevated D-dimer -CTA of the chest was negative for PEs, continue with twice daily dosing of Lovenox and will plan for 14-day course of Eliquis. He has had a previous history of a DVT in the past -Appreciate ID assistance -Continue with remdesivir and Decadron -I discussed with him the he is able to take his second dose of the vaccine at any moment after the 3 weeks from his previous dose, the soonest would be 10/29/2020 -He does not require any oxygen with ambulation however since he is still requiring oxygen at night when he sleeps we will keep him 1 more night to perform pulse oximetry overnight to see how much oxygen he needs at home. 2. History of prostate cancer -He is status post robotic prostatectomy DVT: Lovenox Inpatient E&M: 14040 Subs Hosp L2
--- NOTE | 2020-10-23 13:02 | PCM.PN.ID ---
Patient Problems: Active and Suspected Problems (Last Reviewed 05/28/18 @ 09:07 by aLura Cao) COVID-19 (Acute) Subjective: Feeling fine, no fever, breathing well. - Physical Exam Vitals/I&O's: Vital Signs Temp Pulse Resp BP Pulse Ox 97.6 F L 68 15 129/69 H 96 10/23/20 08:30 10/23/20 08:30 10/23/20 08:30 10/23/20 08:30 10/23/20 08:30 Oxygen Flow Rate (L/min) 2 Oxygen Delivery Method Room Air Weight: 101.1 kg Body Mass Index (BMI) 29.2 Intake and Output for Last 24 Hours 10/21/20 10/22/20 10/23/20 23:59 23:59 23:59 Intake Total 250 / 250 1400 / 1520 693 / 693 Output Total 475 / 475 Balance -225 / -225 1400 / 1520 693 / 693 General: Alert, Cooperative, No apparent distress Lungs: Clear to auscultation, Normal air movement Cardiovascular: Regular rate, Regular Rhythm Abdomen: Soft, Non Tender, Non-Distended Skin: No rashes Microbiology Past 72 Hours 10/21/20 11:35 Blood Culture (Wb) - Left Forearm Blood Culture - Preliminary No growth in 48 hours. 10/21/20 11:25 Blood Culture (Wb) - Anticubital Left Blood Culture - Preliminary No growth in 48 hours. 10/21/20 12:02 Urine, Clean Catch Urine Culture - Final Staphylococcus haemolyticus 10/21/20 18:55 Urine, Clean Catch Legionella Antigen - Final 10/21/20 18:55 Urine, Clean Catch Streptococcus pneumoniae Antigen (M - Final 10/21/20 11:28 Mucosa - Nose SARS-CoV-2 Antigen (Rapid) - Final Laboratory Results 10/23/20 06:25: WBC 10.0, RBC 4.54 L, Hgb 14.5, Hct 42.1, MCV 92.7, MCH 31.9, MCHC 34.4, RDW Std Deviation 43.4, RDW Coeff of Alyssa 12.7, Plt Count 212, MPV 9.9, Immature Gran % (Auto) 0.700, Neut % (Auto) 87.5 H, Lymph % (Auto) 6.8 L, [place] % (Auto) 4.9, Eos % (Auto) 0.0, Baso % (Auto) 0.1, Absolute Neuts (auto) 8.8 H, Absolute Lymphs (auto) 0.68 L, Nucleated RBC % 0 10/23/20 06:25: Sodium 140, Potassium 3.8, Chloride 109 H, Carbon Dioxide 28.0, Anion Gap 3 L, BUN 19 H, Creatinine 0.70, Estim Creat Clear Calc 73.24, Est GFR (MDRD) Af Amer 143, Est GFR (MDRD) Non-Af 118, BUN/Creatinine Ratio 27.3 H, Glucose 138 H, Calcium 8.6, Total Bilirubin 0.40, AST 35, ALT 44, Alkaline Phosphatase 53, Total Protein 6.8, Albumin 2.5 L, Globulin 4.3 H, Albumin/Globulin Ratio 0.6 L Current Medications Acetaminophen (Acetaminophen 325 Mg Tablet) 650 mg PO Q6H PRN PRN PRN Reason: Pain Score 1-10/Temp > 100.7 F Last Admin: 10/21/20 20:40 Dose: 650 mg Documented by: Allopurinol (Allopurinol 300 Mg Tablet) 300 mg PO QHS [facility] Last Admin: 10/22/20 22:04 Dose: 300 mg Documented by: Dexamethasone (Dexamethasone 4 Mg Tablet) 6 mg PO DAILY [facility] Stop: 10/30/20 10:01 Last Admin: 10/23/20 08:59 Dose: 6 mg Documented by: Enoxaparin Sodium (Enoxaparin 30 Mg/0.3 Ml Syringe) 30 mg SC BID [facility] Last Admin: 10/23/20 08:59 Dose: 30 mg Documented by: Guaifenesin (Guaifenesin 10 Ml Udc (200mg/10ml)) 20 ml PO Q4H PRN PRN PRN Reason: COUGH Remdesivir 100 mg/ Sodium (Chloride) 250 mls @ 125 mls/hr IV DAILY [facility] Stop: 10/25/20 11:59 Last Admin: 10/23/20 10:50 Dose: 125 mls/hr Documented by: Sodium Chloride () 250 mls @ 15 mls/hr IV .[id number] PRN PRN Reason: Saline Flush Last Infusion: 10/23/20 11:02 Dose: 0 mls/hr Documented by: Sodium Chloride () 250 mls @ 15 mls/hr IV .[id number] PRN PRN Reason: Additional IVPB Infusion Melatonin (Melatonin 3 Mg Tablet) 3 mg PO QHS PRN PRN PRN Reason: INSOMNIA Last Admin: 10/22/20 22:04 Dose: 3 mg Documented by: Nutritional Formula (Lactose Free) (Ensure Enlive 120 Ml Liquid) 120 ml PO 4X/DAY [facility] Last Admin: 10/23/20 12:33 Dose: 120 ml Documented by: Ondansetron HCl (Ondansetron 4 Mg/2 Ml Vial) 4 mg IV Q8H PRN PRN PRN Reason: NAUSEA/VOMITING Senna/Docusate Sodium (Senna/Docusate Sodium 1 Tablet) 2 tablet PO BID PRN PRN PRN Reason: Constipation Last Admin: 10/23/20 12:33 Dose: 2 tablet Documented by: Sodium Chloride (0.9% Saline Lock 10 Ml Syringe) 10 - 40 ml IV UD PRN PRN Reason: SALINE FLUSH Last Admin: 10/21/20 20:42 Dose: 10 ml Documented by: Medical Necessity - Tobacco Use Smoking Status: Never smoker Tobacco Use: Non-smoker Route of nutrition/ use of supplements: [] Nutritional Intake: [] IV Site: [] Burks Catheter: [] - Assessment/Plan Antibiotics: [] Assessment/Plan: [] covid with hypoxia - 1st shot vaccine 3, sx started 10/10, tested (+) 10/16. is neg, asymptomatic. On dex, remdesivir. CT neg for PE. Plan on 20 days of quarantine, starting 10/10. Ok for 2nd dose of vaccine as previously scheduled. Will as needed, ok for home from ID perspective, d/w Dr. Freedman
[2020-10-23] MEDS: Allopurinol 300 MG Tablet PO (21:06)
[2020-10-24] VITALS (7 sets, daily range): BP systolic 124–127; BP diastolic 65–66; PULSE 62–67; RESP 16–18; TEMP 36.4–36.6; O2SAT 88–97
[2020-10-24 05:15] LABS: Absolute Neutrophil Count 8.9 X10^3/uL (2.0-7.7); Basophil# 0.01 X10^3/uL; Basophil% 0.1 % (0-1); Hematocrit 41.2 % (40-54); Hemoglobin 14.2 g/dL (13.0-16.5); Lymphocyte % 6.8 % (19-41); Mean Corp Hgb Conc 34.5 g/dL (32-36); Mean Corpuscular Volume 92.8 fL (80-94); Mean Platelet Vol. 9.8 fl (6.2-12.0); Monocyte# 0.68 X10^3/uL; Monocyte% 6.6 % (0-10); NRBC Flagged by Analyzer 0 % (0-5); Neutrophil # 8.88 X10^3/uL (2.7-7.7); Neutrophil % 85.8 % (47-70); Platelet Count 236 K/mm3 (150-450); RBC Distribution Width CV 12.7 % (11.6-14.6); RBC Distribution Width SD 43.8 fl (35.1-43.9); Red Blood Count 4.44 M/mm3 (4.6-6.2); White Blood Count 10.3 K/mm3 (4.4-11.0)
[2020-10-24 05:31] LABS: ALB/GLOB Ratio 0.6 RATIO (0.9-2.4); AST(SGOT) 39 U/L (15-37); Alanine Aminotransfer ALT/SGPT 69 U/L (16-61); Albumin, Serum 2.5 g/dL (3.2-5.0); Alkaline Phosphatase 51 U/L (45-117); Anion Gap 6 (5-15); BUN 18 mg/dL (7-18); BUN/Creat Ratio 27.5 RATIO (10-20); Calcium,Total 8.2 mg/dL (8.5-10.1); Chloride 110 mmol/L (98-107); Creatinine, Serum 0.65 mg/dL (0.70-1.30); EST Glomerular Filtration Rate 127 mL/min (>60); Est Glom Filt Rate - Afr Amer 153 mL/min (>60); Estimated Creatinine Clearance 73.24 ml/min; Globulin 3.9 g/dL (2.2-4.2); Glucose 132 mg/dL (74-106); Potassium 3.6 mmol/L (3.5-5.1); Protein, Total 6.4 g/dL (6.4-8.2); Sodium Level 142 mmol/L (136-145)
[2020-10-24] MEDS: Enoxaparin 30 MG/0.3 ML Syringe SC (08:46)
[2020-10-24] MEDS: dexAMETHasone 4 MG Tablet 6 MG PO (08:46)
[2020-10-24] MEDS: 0.9% Saline Lock 10 ML Syringe IV (08:50)
--- NOTE | 2020-10-24 10:28 | DCINST_ITS ---
- Discharge Diagnoses Current Active Problems: Current Active and Chronic Problems (Last Reviewed 05/28/18 @ 09:07 by Laura Cao) COVID-19 (Acute) You will use the following diet at home:: No restrictions Your food should be the consistency of: Regular Your liquids should be the consistency of: Regular/Thin Discharge Activity: Return to Normal Activity Weight Bearing Status: Weight bearing as tolerated Call your doctor if you observe: Fever of 101 or Higher, Shortness of breath, Chest pain, Increased palpitations (irregular heartbeat) Instructions: Coronavirus Disease 2019 (COVID-19): Caring for Yourself or Others, Coronavirus Disease 2019 (COVID-19): Overview, Coronavirus Disease 2019 (COVID-19): Prevention Additional Instructions: Remain in self isolation till 10/30/2020. Confirmed that it is OK to take next covid shot as scheduled, on 10/29/2020. Allergies/Adverse Reactions: Allergies celecoxib [From Celebrex] Adverse Reaction (Verified 10/21/20 10:55) Unknown Medications to take at Discharge Allopurinol [Zyloprim] 300 mg PO DAILY 10/29/15 Apixaban [Eliquis] 2.5 mg PO BID #28 tablet 10/24/20 Dexamethasone [Decadron] 6 mg PO DAILY #6 tablet 10/24/20 The following prescriptions were given: Dexamethasone [Decadron] 6 mg PO DAILY #6 tablet Transmission Status: Received by [id number] Apixaban [Eliquis] 2.5 mg PO BID #28 tablet Transmission Status: Pending to [id number] Primary Care Physician: Eric Smith Chi, MD [Primary Care Provider] - Please follow up with your Primary Care Physician in: 1-2 weeks Test Results: Test results from this visit will be discussed in further detail at your follow- up appointment, if applicable. Proposed Discharge Date: 10/24/20
--- NOTE | 2020-10-24 10:31 | DS.PCM_ITS ---
Discharge Date and Diagnosis - Problem List Patient Problems: Active and Suspected Problems (Last Reviewed 05/28/18 @ 09:07 by Laura Cao) COVID-19 (Acute) Date of Admission: 10/21/20 Date of Discharge: 10/24/20 - Primary Discharge Diagnosis Acute Problems: Active Problems (Last Reviewed 05/28/18 @ 09:07 by Laura Cao) COVID-19 (Acute) - Secondary Discharge Diagnosis Chronic Problems: Chronic Problems (Last Reviewed 05/28/18 @ 09:07 by Laura Cao) DDD (degenerative disc disease), lumbar (Chronic) Hospital Course and Treatment Imaging Results: Diagnostic Data Chest X-Ray 10/21/20 11:47 IMPRESSION: Patchy bilateral basilar infiltrates worse on the right side. Follow-up is recommended. Electronically Signed: Ramiro Yip MD at 12:22 EDT , Service support , Chest CTA 10/21/20 11:56 IMPRESSION: Multiple bilateral areas of groundglass appearance in the preferentially peripheral distribution as described. Pneumonitis associated with Covid 19 should be ruled out. Electronically Signed: Ramiro Yip MD at 13:02 EDT , Service support , infectious diseases- Dr Goodwin Operations: None, - - Robotic radical prostatectomy Procedures: None Summary of Care Provided: The patient is a 75 year old M with a PMH as outlined who was admitted via the ED w9th a complaitn of generalised aches, shortness of breaht and general feeling of unwellness, as well as cough, loss of smell and taste, diarrhea and loss of appetite. [] He had had his vaccine on 10/08/2020 i.e. the first dose. He had outpatient Covid test done on 10/16/2020 was positive. He has been quarantining at home because of his symptoms he called his doctor who told him to come to the ED. The ED was noted to be afebrile, saturating 94% on room air. Chest x-ray showed patchy bibasilar basilar infiltrates, worse on the right. He was admitted and managed for COVID-19 infection. He was started on remdesivir and Decadron. Infectious Diseases was consulted. Patient also had elevated D-dimer but CT of the chest was negative for PE. Patient remained stable and was discharged home on 10/24/2020. He was discharged with a prescription for p.o. Decadron 6 mg daily for 6 days, to complete a 10-day course and also discharged with p.o. Eliquis 2.5 mg twice daily to complete a 14-day course. He is to follow-up with his primary care doctor within 1 week. He is to remain in self-isolation till 10/30/2020, was also cleared by infectious diseases to receive his second Covid shot as planned on 10/29/2020. Patient seen and examined prior to discharge. He had no complaints. Review of systems otherwise negative. Labs and vitals reviewed. Home medication reviewed and reconciled. O/E: Vital Signs Temp Pulse Resp BP Pulse Ox 97.8 F 67 18 127/65 H 97 10/24/20 10:39 10/24/20 10:39 10/24/20 10:39 10/24/20 10:39 10/24/20 10:39 General: Alert, Oriented x3, Cooperative, No apparent distress HEENT: Atraumatic, PERRLA, EOMI, Normocephalic Oral: Moist Mucosa Neck: Supple, No JVD Lungs: Clear to auscultation, Normal air movement, No rhonchi, No wheeze, No rales Cardiovascular: Regular rate, Regular Rhythm, Normal S1, Normal S2, No murmurs Abdomen: Soft, Non Tender, Non-Distended, No Hepato-splenomegaly Extremities: No edema, Capillary Refill Less than 3 Seconds Skin: No rashes, No breakdown Neurological: Neuro grossly intact, Sensory exam intact to light touch and pain Psych/Mental Status: Normal Affect, Appropriate Plan is for discharge home today. Patient Problems: Active and Suspected Problems (Last Reviewed 05/28/18 @ 09:07 by Laura Cao) COVID-19 (Acute) - Physical Exam Vitals/I&O's: Vital Signs Temp Pulse Resp BP Pulse Ox 97.8 F 67 18 127/65 H 93 10/24/20 08:51 10/24/20 08:51 10/24/20 08:51 10/24/20 08:51 10/24/20 08:52 Oxygen Flow Rate (L/min) 0 Oxygen Delivery Method Room Air Weight: 223 lb 8.78 oz Body Mass Index (BMI) 29.2 Intake and Output for Last 24 Hours 10/22/20 10/23/20 10/24/20 23:59 23:59 23:59 Intake Total 1400 / 1520 1152.5 / 1152.5 120 / 120 Output Total 500 / 500 Balance 1400 / 1520 1152.5 / 1152.5 -380 / -380 Microbiology Past 72 Hours 10/21/20 11:35 Blood Culture (Wb) - Left Forearm Blood Culture - Preliminary No growth in 48 hours. 10/21/20 11:25 Blood Culture (Wb) - Anticubital Left Blood Culture - Preliminary No growth in 48 hours. 10/21/20 12:02 Urine, Clean Catch Urine Culture - Final Staphylococcus haemolyticus 10/21/20 18:55 Urine, Clean Catch Legionella Antigen - Final 10/21/20 18:55 Urine, Clean Catch Streptococcus pneumoniae Antigen (M - Final 10/21/20 11:28 Mucosa - Nose SARS-CoV-2 Antigen (Rapid) - Final Laboratory Results 10/24/20 05:00: WBC 10.3, RBC 4.44 L, Hgb 14.2, Hct 41.2, MCV 92.8, MCH 32.0, MCHC 34.5, RDW Std Deviation 43.8, RDW Coeff of Alyssa 12.7, Plt Count 236, MPV 9.8, Immature Gran % (Auto) 0.700, Neut % (Auto) 85.8 H, Lymph % (Auto) 6.8 L, [place] % (Auto) 6.6, Eos % (Auto) 0.0, Baso % (Auto) 0.1, Absolute Neuts (auto) 8.9 H, Absolute Lymphs (auto) 0.70 L, Nucleated RBC % 0 10/24/20 05:00: Sodium 142, Potassium 3.6, Chloride 110 H, Carbon Dioxide 26.0, Anion Gap 6, BUN 18, Creatinine 0.65 L, Estim Creat Clear Calc 73.24, Est GFR (MDRD) Af Amer 153, Est GFR (MDRD) Non-Af 127, BUN/Creatinine Ratio 27.5 H, Glucose 132 H, Calcium 8.2 L, Total Bilirubin 0.50, AST 39 H, ALT 69 H, Alkaline Phosphatase 51, Total Protein 6.4, Albumin 2.5 L, Globulin 3.9, Albumin/Globulin Ratio 0.6 L Current Medications Acetaminophen (Acetaminophen 325 Mg Tablet) 650 mg PO Q6H PRN PRN PRN Reason: Pain Score 1-10/Temp > 100.7 F Last Admin: 10/21/20 20:40 Dose: 650 mg Documented by: Allopurinol (Allopurinol 300 Mg Tablet) 300 mg PO QHS [facility] Last Admin: 10/23/20 21:06 Dose: 300 mg Documented by: Dexamethasone (Dexamethasone 4 Mg Tablet) 6 mg PO DAILY [facility] Stop: 10/30/20 10:01 Last Admin: 10/24/20 08:46 Dose: 6 mg Documented by: Enoxaparin Sodium (Enoxaparin 30 Mg/0.3 Ml Syringe) 30 mg SC BID [facility] Last Admin: 10/24/20 08:46 Dose: 30 mg Documented by: Guaifenesin (Guaifenesin 10 Ml Udc (200mg/10ml)) 20 ml PO Q4H PRN PRN PRN Reason: COUGH Remdesivir 100 mg/ Sodium (Chloride) 250 mls @ 125 mls/hr IV DAILY [facility] Stop: 10/25/20 11:59 Last Infusion: 10/23/20 12:50 Dose: Infused Documented by: Sodium Chloride () 250 mls @ 15 mls/hr IV .[id number] PRN PRN Reason: Saline Flush Last Infusion: 10/23/20 14:48 Dose: 0 mls/hr Documented by: Sodium Chloride () 250 mls @ 15 mls/hr IV .[id number] PRN PRN Reason: Additional IVPB Infusion Melatonin (Melatonin 3 Mg Tablet) 3 mg PO QHS PRN PRN PRN Reason: INSOMNIA Last Admin: 10/22/20 22:04 Dose: 3 mg Documented by: Nutritional Formula (Lactose Free) (Ensure Enlive 120 Ml Liquid) 120 ml PO 4X/DAY [facility] Last Admin: 10/24/20 08:46 Dose: Not Given Documented by: Ondansetron HCl (Ondansetron 4 Mg/2 Ml Vial) 4 mg IV Q8H PRN PRN PRN Reason: NAUSEA/VOMITING Senna/Docusate Sodium (Senna/Docusate Sodium 1 Tablet) 2 tablet PO BID PRN PRN PRN Reason: Constipation Last Admin: 10/23/20 12:33 Dose: 2 tablet Documented by: Sodium Chloride (0.9% Saline Lock 10 Ml Syringe) 10 - 40 ml IV UD PRN PRN Reason: SALINE FLUSH Last Admin: 10/24/20 08:50 Dose: 10 ml Documented by: Discharge Diet: Low fat/ Low Cholesterol Discharge Activity: Return to Normal Activity Weight Bearing Status: Weight bearing as tolerated Call your doctor if you observe: Fever of 101 or Higher, Shortness of breath, Chest pain, Increased palpitations (irregular heartbeat) Home Medications: Medications to take at Discharge Allopurinol [Zyloprim] 300 mg PO DAILY 10/29/15 Apixaban [Eliquis] 2.5 mg PO BID #28 tablet 10/24/20 Dexamethasone [Decadron] 6 mg PO DAILY #6 tablet 10/24/20 Following Prescriptions Were Given to Patient: Dexamethasone [Decadron] 6 mg PO DAILY #6 tablet [facility] Apixaban [Eliquis] 2.5 mg PO BID #28 tablet Transmission Status: Received by [id number] Primary Care Physician: Eric Smith Chi, MD [Primary Care Provider] - Please follow up with your Primary Care Physician in: 1-2 weeks Patient Instructions: Coronavirus Disease 2019 (COVID-19): Overview, Coronavirus Disease 2019 (COVID-19): Prevention, Coronavirus Disease 2019 (COVID-19): Caring for Yourself or Others Disposition: Home Minutes spent on discharge:: 45 Patient Condition:: Stable Medical Necessity - Tobacco Use Smoking Status: Never smoker Tobacco Use: Non-smoker Meaningful Use Info Meaningful Use Diagnoses (Choose all that apply): None applicable Inpatient E&M: 26388 Disch Hosp
--- NOTE | 2020-10-26 14:11 | CASEMGMT ---
BECKY DODGE Discharge Follow-up Phone Call: YONNY: Mony Strata: 2 Call Date: 10/26/20 Discharge Date: 10/24/20 Time of Call: 1410 Duration: 4 min Admitting Diagnosis: Covid BECKY DODGE completed follow-up phone call after recent hospitalization. Patient answered phone and states that he is doing well. Patient had no questions regarding discharge instructions. Patient states he was able to fill prescriptions without any issues. Patient continues to quarantine at home. Patient states he has not had any issues with breathing. Patient is to call PCP to schedule follow-up. Patient states he has no further questions or concerns at this time.
== END 2020-10-24 11:05 | disposition home or self-care (01) | DRG 177 ==
LOC: ED 11:48 → ICU 14:23
PROVIDERS: Family Medicine; Admitting Provider Internal Medicine; Emergency Provider Student in an Organized Health Care Education/Training Program; PCP Family Medicine Geriatric Medicine; Visit Provider Student in an Organized Health Care Education/Training Program
DX: U07.1 COVID-19 (principal); J12.82 Pneumonia due to coronavirus disease 2019; R79.1 Abnormal coagulation profile; Z85.46 Personal history of malignant neoplasm of prostate; Z66 Do not resuscitate
CPT/HCPCS: 36415; 71045; 71275; 80053; 81001; 83605; 83880; 84145; 84484; 85025; 85379; 87040; 87077; 87086; 87088; 87186; 87426; 87449; 87635; 93005; 94762; 97802; 99251; 99285; J7050; Q9967; A4216; G0463; J2405; U0002

== ENCOUNTER → 2020-12-01 10:17 | Outpatient (CLI) | payer MEDICARE, OTHER, SELFPAY ==
[2020-10-21 15:21] VITALS: BMI 29.2
--- NOTE | 2020-12-01 10:20 | RAD_ITS ---
STUDY: X-RAY CHEST REASON FOR EXAM: Male, 75 years old. Shortness of breath TECHNIQUE: Frontal and lateral views of the chest COMPARISON: 10/21/20 FINDINGS: There is mild patchy airspace opacity in the right lung base. The lungs are otherwise clear. There are no pleural effusions. There is no pneumothorax. The heart is normal in size. The visualized osseous structures are within normal limits. RAD/Chest PA and Lateral IMPRESSION: Mild patchy airspace opacity in the right lung base. This is improved when compared with the prior exam. Continued follow-up to resolution is recommended. Electronically Signed: Kavon Tavera MD at 8:04 EDT Tel , Service support ,
[2020-12-01 12:30] LABS: Absolute Lymphocyte Count 0.79 X10^3/uL (0.83-4.51); Absolute Neutrophil Count 5.9 X10^3/uL (2.0-7.7); Basophil# 0.04 X10^3/uL; Basophil% 0.5 % (0-1); Eosinophil# 0.09 X10^3/uL; Eosinophils% 1.2 % (0-5); Hematocrit 46.6 % (40-54); Hemoglobin 15.2 g/dL (13.0-16.5); Lymphocyte # 0.79 X10^3/ul (0.83-4.51); Lymphocyte % 10.6 % (19-41); Mean Corp Hgb Conc 32.6 g/dL (32-36); Mean Corpuscular Hgb 31.8 pg (27.0-32.0); Mean Corpuscular Volume 97.5 fL (80-94); Mean Platelet Vol. 9.8 fl (6.2-12.0); Monocyte# 0.62 X10^3/uL; Monocyte% 8.3 % (0-10); NRBC Flagged by Analyzer 0 % (0-5); Platelet Count 166 K/mm3 (150-450); RBC Distribution Width CV 13.9 % (11.6-14.6); RBC Distribution Width SD 50.2 fl (35.1-43.9); Red Blood Count 4.78 M/mm3 (4.6-6.2); White Blood Count 7.5 K/mm3 (4.4-11.0)
[2020-12-01 13:11] LABS: Anion Gap 6 (5-15); BUN 13 mg/dL (7-18); BUN/Creat Ratio 12.4 RATIO (10-20); Calcium,Total 8.8 mg/dL (8.5-10.1); Chloride 103 mmol/L (98-107); Creatinine, Serum 1.05 mg/dL (0.70-1.30); EST Glomerular Filtration Rate 73 mL/min (>60); Est Glom Filt Rate - Afr Amer 89 mL/min (>60); Glucose 122 mg/dL (74-106); Potassium 4.4 mmol/L (3.5-5.1); Sodium Level 136 mmol/L (136-145)
== END ==
PROVIDERS: PCP Family Medicine Geriatric Medicine; Referring Provider Family Medicine Geriatric Medicine; Visit Provider Family Medicine Geriatric Medicine
DX: R06.02 Shortness of breath (principal); R05 Cough
CPT/HCPCS: 36415; 71046; 80048; 85025

== ENCOUNTER → 2020-12-02 14:48 | Outpatient (CLI) | payer MEDICARE, OTHER, SELFPAY ==
[2020-10-21 15:21] VITALS: BMI 29.2
== END ==
PROVIDERS: PCP Family Medicine Geriatric Medicine; Referring Provider Family Medicine Geriatric Medicine; Visit Provider Family Medicine Geriatric Medicine
DX: R06.89 Other abnormalities of breathing (principal)
CPT/HCPCS: 87633; 87635; C9803; U0002

== ENCOUNTER → 2020-12-15 14:21 | Outpatient (CLI) | payer MEDICARE, OTHER, SELFPAY ==
[2020-10-21 15:21] VITALS: BMI 29.2
[2020-12-15 16:03] LABS: Absolute Lymphocyte Count 1.44 X10^3/uL (0.83-4.51); Absolute Neutrophil Count 7.5 X10^3/uL (2.0-7.7); Basophil# 0.06 X10^3/uL; Basophil% 0.6 % (0-1); Eosinophil# 0.08 X10^3/uL; Eosinophils% 0.8 % (0-5); Hematocrit 47.6 % (40-54); Hemoglobin 15.1 g/dL (13.0-16.5); Lymphocyte # 1.44 X10^3/ul (0.83-4.51); Lymphocyte % 14.7 % (19-41); Mean Corp Hgb Conc 31.7 g/dL (32-36); Mean Corpuscular Hgb 30.8 pg (27.0-32.0); Mean Corpuscular Volume 96.9 fL (80-94); Mean Platelet Vol. 9.5 fl (6.2-12.0); Monocyte# 0.73 X10^3/uL; Monocyte% 7.4 % (0-10); NRBC Flagged by Analyzer 0 % (0-5); Neutrophil # 7.45 X10^3/uL (2.7-7.7); Neutrophil % 75.9 % (47-70); Platelet Count 304 K/mm3 (150-450); RBC Distribution Width CV 14.3 % (11.6-14.6); RBC Distribution Width SD 50.8 fl (35.1-43.9); Red Blood Count 4.91 M/mm3 (4.6-6.2); White Blood Count 9.8 K/mm3 (4.4-11.0)
[2020-12-15 16:13] LABS: Anion Gap 6 (5-15); BUN 18 mg/dL (7-18); BUN/Creat Ratio 18.4 RATIO (10-20); Calcium,Total 8.9 mg/dL (8.5-10.1); Chloride 106 mmol/L (98-107); Creatinine, Serum 0.98 mg/dL (0.70-1.30); EST Glomerular Filtration Rate 79 mL/min (>60); Est Glom Filt Rate - Afr Amer 96 mL/min (>60); Glucose 98 mg/dL (74-106); Potassium 3.8 mmol/L (3.5-5.1); Sodium Level 141 mmol/L (136-145)
== END ==
PROVIDERS: PCP Family Medicine Geriatric Medicine; Visit Provider Family Medicine Geriatric Medicine
DX: R60.9 Edema, unspecified (principal)
CPT/HCPCS: 36415; 80048; 85025

== ENCOUNTER → 2020-12-15 15:19 | Outpatient (CLI) | payer MEDICARE, OTHER, SELFPAY ==
[2020-10-21 15:21] VITALS: BMI 29.2
--- NOTE | 2020-12-15 15:22 | VDUE_ITS ---
Reason For Study: EDEMA PAIN Right Proximal Left Proximal Right subclavian vein is spontaneous, widely Left jugular vein is spontaneous, widely patent, phasic, with no intraluminal patent, phasic, with no intraluminal echogenicity noted. echogenicity noted. Left subclavian vein is spontaneous, widely patent, phasic, with no intraluminal echogenicity noted. Left Arm Left axillary vein is spontaneous, patent, phasic, competent, compressible and demonstrates augmentation. Brachial vein intraluminal echogenicity extends fromantecubital to mid bicep.. Cephalic vein intraluminal echogenicity extends fromwrist to antecubital.. Basilic vein intraluminal echogenicity extends fromantecubital to prox upper arm.. Left Lower Arm Left radial vein is compressible. Left ulnar vein is compressible. VL/Venous Duplex US, Unilateral Interpretation Summary Acute deep vein thrombosis Superficial thrombophlebitis left cephalic vein from the wrist to the antecubit al space Superficial thrombophlebitis left basilic vein from the antecubital space to th e proximal upper arm Ordering Physician: Eric Smith Referring Physician: Eric Smith Chi Performed By: Dorothy Oates, BG, RVT ?
== END ==
PROVIDERS: PCP Family Medicine Geriatric Medicine; Referring Provider Family Medicine Geriatric Medicine; Visit Provider Family Medicine Geriatric Medicine
DX: R60.9 Edema, unspecified (principal); I80.8 Phlebitis and thrombophlebitis of other sites
CPT/HCPCS: 36415; 80048; 85025; 93971

== ENCOUNTER → 2020-12-31 08:21 | Outpatient (CLI) | payer MEDICARE, OTHER, SELFPAY ==
[2020-10-21 15:21] VITALS: BMI 29.2
[2020-12-31 11:01] LABS: PSA,Total- Diagnostic < 0.01 ng/mL (0.0-4.0)
== END ==
PROVIDERS: PCP Family Medicine Geriatric Medicine; Referring Provider Urology; Visit Provider Urology
DX: C61 Malignant neoplasm of prostate (principal)
CPT/HCPCS: 36415; 84153

== ENCOUNTER → 2021-02-03 09:01 | Outpatient (CLI) | payer MEDICARE, OTHER, SELFPAY ==
[2020-10-21 15:21] VITALS: BMI 29.2
[2021-02-03 12:29] LABS: Absolute Lymphocyte Count 1.03 X10^3/uL (0.83-4.51); Basophil# 0.04 X10^3/uL; Basophil% 0.7 % (0-1); Eosinophil# 0.07 X10^3/uL; Eosinophils% 1.3 % (0-5); Hematocrit 50.9 % (40-54); Hemoglobin 16.6 g/dL (13.0-16.5); Lymphocyte # 1.03 X10^3/ul (0.83-4.51); Lymphocyte % 18.6 % (19-41); Mean Corp Hgb Conc 32.6 g/dL (32-36); Mean Corpuscular Volume 98.3 fL (80-94); Mean Platelet Vol. 10.1 fl (6.2-12.0); Monocyte# 0.42 X10^3/uL; Monocyte% 7.6 % (0-10); NRBC Flagged by Analyzer 0 % (0-5); Neutrophil # 3.95 X10^3/uL (2.7-7.7); Neutrophil % 71.4 % (47-70); Platelet Count 204 K/mm3 (150-450); RBC Distribution Width CV 13.6 % (11.6-14.6); RBC Distribution Width SD 49.9 fl (35.1-43.9); Red Blood Count 5.18 M/mm3 (4.6-6.2); White Blood Count 5.5 K/mm3 (4.4-11.0)
[2021-02-03 12:48] LABS: Vitamin D,25 Hydroxy 30.7 ng/mL
[2021-02-03 12:57] LABS: ALB/GLOB Ratio 0.9 RATIO (0.9-2.4); AST(SGOT) 19 U/L (15-37); Alanine Aminotransfer ALT/SGPT 30 U/L (16-61); Albumin, Serum 3.7 g/dL (3.2-5.0); Alkaline Phosphatase 86 U/L (45-117); Anion Gap 5 (5-15); BUN 15 mg/dL (7-18); BUN/Creat Ratio 14.9 RATIO (10-20); Chloride 105 mmol/L (98-107); Creatinine, Serum 1.01 mg/dL (0.70-1.30); EST Glomerular Filtration Rate 77 mL/min (>60); Est Glom Filt Rate - Afr Amer 93 mL/min (>60); Globulin 3.9 g/dL (2.2-4.2); Glucose 120 mg/dL (74-106); Protein, Total 7.6 g/dL (6.4-8.2); Sodium Level 139 mmol/L (136-145); Thyroid Stim Hormone (TSH) 1.45 uIU/mL (0.358-3.74)
== END ==
PROVIDERS: PCP Family Medicine Geriatric Medicine; Visit Provider Family Medicine Geriatric Medicine
DX: E23.6 Other disorders of pituitary gland (principal); E55.9 Vitamin D deficiency, unspecified; R53.83 Other fatigue
CPT/HCPCS: 36415; 80053; 82306; 84403; 84443; 85025

== ENCOUNTER → 2021-07-06 09:02 | Outpatient (CLI) | payer MEDICARE, OTHER, SELFPAY ==
[2021-07-06 11:26] LABS: PSA,Total- Diagnostic < 0.01 ng/mL (0.0-4.0)
== END ==
PROVIDERS: PCP Family Medicine Geriatric Medicine; Referring Provider Urology; Visit Provider Urology
DX: C61 Malignant neoplasm of prostate (principal)
CPT/HCPCS: 36415; 84153

== ENCOUNTER → 2021-08-05 09:06 | Outpatient (CLI) | payer MEDICARE, OTHER, SELFPAY ==
[2021-08-05 12:48] LABS: Absolute Lymphocyte Count 1.19 X10^3/uL (0.83-4.51); Absolute Neutrophil Count 3.8 X10^3/uL (2.0-7.7); Basophil# 0.04 X10^3/uL; Basophil% 0.7 % (0-1); Eosinophil# 0.14 X10^3/uL; Eosinophils% 2.5 % (0-5); Hematocrit 50.8 % (40-54); Hemoglobin 17.2 g/dL (13.0-16.5); Lymphocyte # 1.19 X10^3/ul (0.83-4.51); Lymphocyte % 20.9 % (19-41); Mean Corp Hgb Conc 33.9 g/dL (32-36); Mean Corpuscular Hgb 32.1 pg (27.0-32.0); Mean Platelet Vol. 10.2 fl (6.2-12.0); Monocyte# 0.46 X10^3/uL; Monocyte% 8.1 % (0-10); NRBC Flagged by Analyzer 0 % (0-5); Neutrophil # 3.84 X10^3/uL (2.7-7.7); Neutrophil % 67.4 % (47-70); Platelet Count 188 K/mm3 (150-450); RBC Distribution Width SD 45.3 fl (35.1-43.9); Red Blood Count 5.35 M/mm3 (4.6-6.2); White Blood Count 5.7 K/mm3 (4.4-11.0)
[2021-08-05 13:11] LABS: Vitamin D,25 Hydroxy 32.1 ng/mL
[2021-08-05 13:17] LABS: ALB/GLOB Ratio 0.9 RATIO (0.9-2.4); AST(SGOT) 17 U/L (15-37); Alanine Aminotransfer ALT/SGPT 34 U/L (16-61); Albumin, Serum 3.5 g/dL (3.2-5.0); Alkaline Phosphatase 82 U/L (45-117); Anion Gap 5 (5-15); BUN 16 mg/dL (7-18); BUN/Creat Ratio 17.3 RATIO (10-20); Calcium,Total 9.1 mg/dL (8.5-10.1); Chloride 108 mmol/L (98-107); Creatinine, Serum 0.93 mg/dL (0.70-1.30); EST Glomerular Filtration Rate 85 mL/min (>60); Est Glom Filt Rate - Afr Amer 102 mL/min (>60); Globulin 4.1 g/dL (2.2-4.2); Glucose 95 mg/dL (74-106); Potassium 3.9 mmol/L (3.5-5.1); Protein, Total 7.6 g/dL (6.4-8.2); Sodium Level 141 mmol/L (136-145); Thyroid Stim Hormone (TSH) 1.42 uIU/mL (0.358-3.74)
== END ==
PROVIDERS: PCP Family Medicine Geriatric Medicine; Visit Provider Family Medicine Geriatric Medicine
DX: E55.9 Vitamin D deficiency, unspecified (principal); R53.83 Other fatigue
CPT/HCPCS: 36415; 80053; 82306; 84443; 85025

== ENCOUNTER → 2022-01-05 | Outpatient (CLI) | payer MEDICARE, OTHER, SELFPAY ==
[2022-01-05 09:45] LABS: Absolute Lymphocyte Count 1.36 X10^3/uL (0.83-4.51); Absolute Neutrophil Count 3.3 X10^3/uL (2.0-7.7); Basophil# 0.04 X10^3/uL; Basophil% 0.8 % (0-1); Eosinophil# 0.12 X10^3/uL; Eosinophils% 2.3 % (0-5); Hematocrit 48.7 % (40-54); Hemoglobin 16.4 g/dL (13.0-16.5); Lymphocyte # 1.36 X10^3/ul (0.83-4.51); Lymphocyte % 25.6 % (19-41); Mean Corp Hgb Conc 33.7 g/dL (32-36); Mean Corpuscular Hgb 32.5 pg (27.0-32.0); Mean Corpuscular Volume 96.6 fL (80-94); Mean Platelet Vol. 9.7 fl (6.2-12.0); Monocyte# 0.48 X10^3/uL; NRBC Flagged by Analyzer 0 % (0-5); Neutrophil % 62.1 % (47-70); Platelet Count 203 K/mm3 (150-450); RBC Distribution Width CV 13.1 % (11.6-14.6); Red Blood Count 5.04 M/mm3 (4.6-6.2); White Blood Count 5.3 K/mm3 (4.4-11.0)
[2022-01-05 10:46] LABS: Vitamin D,25 Hydroxy 37.9 ng/mL
[2022-01-05 10:59] LABS: ALB/GLOB Ratio 0.9 RATIO (0.9-2.4); AST(SGOT) 16 U/L (15-37); Alanine Aminotransfer ALT/SGPT 28 U/L (16-61); Albumin, Serum 3.5 g/dL (3.2-5.0); Alkaline Phosphatase 81 U/L (45-117); Anion Gap 6 (5-15); BUN 15 mg/dL (7-18); BUN/Creat Ratio 14.7 RATIO (10-20); Calcium,Total 8.5 mg/dL (8.5-10.1); Chloride 106 mmol/L (98-107); Creatinine, Serum 1.02 mg/dL (0.70-1.30); EST Glomerular Filtration Rate 76 mL/min (>60); Est Glom Filt Rate - Afr Amer 91 mL/min (>60); Globulin 3.9 g/dL (2.2-4.2); Glucose 96 mg/dL (74-106); Potassium 4.2 mmol/L (3.5-5.1); Protein, Total 7.4 g/dL (6.4-8.2); Sodium Level 139 mmol/L (136-145); Thyroid Stim Hormone (TSH) 1.54 uIU/mL (0.358-3.74)
== END | disposition home or self-care (01) ==
LOC: POLAB3 08:55
PROVIDERS: PCP Family Medicine Geriatric Medicine; Visit Provider Family Medicine Geriatric Medicine
DX: R53.83 Other fatigue (principal); E23.6 Other disorders of pituitary gland; E55.9 Vitamin D deficiency, unspecified
CPT/HCPCS: 36415; 80053; 82306; 84403; 84443; 85025

== ENCOUNTER → 2022-01-11 | Outpatient (CLI) | payer MEDICARE, OTHER, SELFPAY ==
[2022-01-11 10:54] LABS: PSA,Total- Diagnostic < 0.01 ng/mL (0.0-4.0)
== END | disposition home or self-care (01) ==
LOC: MTLAB 09:01
PROVIDERS: PCP Family Medicine Geriatric Medicine; Referring Provider Urology; Visit Provider Urology
DX: C61 Malignant neoplasm of prostate (principal)
CPT/HCPCS: 36415; 84153

== ENCOUNTER → 2022-04-12 | Outpatient (CLI) | payer MEDICARE, OTHER, SELFPAY ==
--- NOTE | 2022-04-12 16:50 | RAD_ITS ---
EXAM: XR LUMBOSACRAL SPINE, 2 OR 3 VIEWS CLINICAL INDICATION: LOW BACK PAIN TECHNIQUE: Frontal and lateral views of the lumbar spine and sacrum. This report was created using [employer] technology. COMPARISON: None. FINDINGS: VERTEBRAE: Posterior fusion with pedicle screws and interbody rods at L4/5. Preserved vertebral body height. No fracture. No spondylolisthesis. Preservation of the normal lumbar lordosis. No significant facet arthropathy. DISC SPACES: Degenerative changes of the intervertebral discs. GASTROINTESTINAL TRACT: Unremarkable as visualized. Included bowel gas pattern is non-obstructive. RAD/Lumbar Spine 2 or 3 Views IMPRESSION: 1. No acute injuries identified involving the lumbar spine. 2. Degenerative and postsurgical changes. Electronically Signed: Jose Brothers MD at 7:45 EDT ,
== END | disposition home or self-care (01) ==
LOC: RAD 16:46
PROVIDERS: PCP Family Medicine Geriatric Medicine; Referring Provider Family Medicine Geriatric Medicine; Visit Provider Family Medicine Geriatric Medicine
DX: M54.50 Low back pain, unspecified (principal)
CPT/HCPCS: 72100

== ENCOUNTER → 2022-07-06 | Outpatient (CLI) | payer MEDICARE, OTHER, SELFPAY ==
[2022-07-06 13:16] LABS: Absolute Lymphocyte Count 1.26 X10^3/uL (0.83-4.51); Absolute Neutrophil Count 3.6 X10^3/uL (2.0-7.7); Basophil# 0.05 X10^3/uL; Basophil% 0.9 % (0-1); Eosinophil# 0.07 X10^3/uL; Eosinophils% 1.3 % (0-5); Hematocrit 51.4 % (40-54); Hemoglobin 16.7 g/dL (13.0-16.5); Lymphocyte # 1.26 X10^3/ul (0.83-4.51); Lymphocyte % 23.5 % (19-41); Mean Corp Hgb Conc 32.5 g/dL (32-36); Mean Corpuscular Hgb 32.4 pg (27.0-32.0); Mean Corpuscular Volume 99.8 fL (80-94); Mean Platelet Vol. 10.2 fl (6.2-12.0); Monocyte# 0.37 X10^3/uL; Monocyte% 6.9 % (0-10); NRBC Flagged by Analyzer 0 % (0-5); Platelet Count 187 K/mm3 (150-450); RBC Distribution Width CV 13.3 % (11.6-14.6); RBC Distribution Width SD 49.5 fl (35.1-43.9); Red Blood Count 5.15 M/mm3 (4.6-6.2); White Blood Count 5.4 K/mm3 (4.4-11.0)
[2022-07-06 13:46] LABS: Vitamin D,25 Hydroxy 35.4 ng/mL
[2022-07-06 14:07] LABS: AST(SGOT) 12 U/L (15-37); Alanine Aminotransfer ALT/SGPT 27 U/L (16-61); Albumin, Serum 3.5 g/dL (3.2-5.0); Alkaline Phosphatase 73 U/L (45-117); Anion Gap 5 (5-15); BUN 17 mg/dL (7-18); BUN/Creat Ratio 16.5 RATIO (10-20); Calcium,Total 8.5 mg/dL (8.5-10.1); Chloride 108 mmol/L (98-107); Creatinine, Serum 1.03 mg/dL (0.70-1.30); EST Glomerular Filtration Rate 75 mL/min (>60); Est Glom Filt Rate - Afr Amer 90 mL/min (>60); Globulin 3.6 g/dL (2.2-4.2); Glucose 84 mg/dL (74-106); Potassium 4.3 mmol/L (3.5-5.1); Protein, Total 7.1 g/dL (6.4-8.2); Sodium Level 143 mmol/L (136-145); Thyroid Stim Hormone (TSH) 1.24 uIU/mL (0.358-3.74)
== END | disposition home or self-care (01) ==
LOC: POLAB3 09:36
PROVIDERS: PCP Family Medicine Geriatric Medicine; Visit Provider Family Medicine Geriatric Medicine
DX: R53.83 Other fatigue (principal); E55.9 Vitamin D deficiency, unspecified
CPT/HCPCS: 36415; 80053; 82306; 84443; 85025

== ENCOUNTER → 2022-07-13 | Outpatient (CLI) | payer MEDICARE, OTHER, SELFPAY ==
[2022-07-13 10:44] LABS: PSA,Total- Diagnostic < 0.01 ng/mL (0.0-4.0)
== END | disposition home or self-care (01) ==
LOC: MTLAB 08:00
PROVIDERS: PCP Family Medicine Geriatric Medicine; Referring Provider Urology; Visit Provider Urology
DX: C61 Malignant neoplasm of prostate (principal)
CPT/HCPCS: 36415; 84153

== ENCOUNTER → 2022-08-02 | Outpatient (CLI) | payer MEDICARE, OTHER, SELFPAY ==
--- NOTE | 2022-08-02 09:20 | RAD_ITS ---
INDICATION: DYSPHAGIA EXAMINATION/TECHNIQUE: Thick and thin barium oral contrast , barium pill, and gas bubbles were administered to the patient. Total Fluoroscopic Time: 24 seconds AND number of Fluoroscopic Images: 10 OR Radiation dosage index: 126.17 mGy COMPARISON: Esophagram from 04/17/2018. FINDINGS: There is some transient distal esophageal spasm and slight delay in emptying at the gastroesophageal junction. There is a small hiatal hernia with mild gastroesophageal reflux. There is trace irregularity in the distal esophagus mucosa suggestive of chronic findings of GERD. There is a asymmetrical filling defect in the distal esophagus which could also relate to a partial web or stricture. No masses are identified. RAD/Esophagus Dual Contrast IMPRESSION: Findings as above. Endoscopy is recommended for further assessment. Electronically Signed: José Antonio Caldwell, at 15:23 EST ,
== END | disposition home or self-care (01) ==
PROVIDERS: PCP Family Medicine Geriatric Medicine; Referring Provider Otolaryngology; Visit Provider Otolaryngology
DX: R13.10 Dysphagia, unspecified (principal)
CPT/HCPCS: 74221

== ENCOUNTER → 2022-11-15 | Outpatient (REF) | payer SELFPAY | LOC: CVS 08:50 | PROVIDERS: PCP Family Medicine Geriatric Medicine | DX: Z00.00 Encounter for general adult medical examination without abnormal findings (principal) ==

== ENCOUNTER → 2023-01-10 | Outpatient (CLI) | payer MEDICARE, OTHER, SELFPAY ==
[2023-01-10 10:35] LABS: Absolute Lymphocyte Count 0.96 X10^3/uL (0.83-4.51); Absolute Neutrophil Count 4.1 X10^3/uL (2.0-7.7); Basophil# 0.04 X10^3/uL; Basophil% 0.7 % (0-1); Eosinophil# 0.09 X10^3/uL; Eosinophils% 1.6 % (0-5); Hematocrit 50.2 % (40-54); Hemoglobin 16.6 g/dL (13.0-16.5); Lymphocyte # 0.96 X10^3/ul (0.83-4.51); Lymphocyte % 17.2 % (19-41); Mean Corp Hgb Conc 33.1 g/dL (32-36); Mean Corpuscular Volume 96.7 fL (80-94); Mean Platelet Vol. 10.6 fl (6.2-12.0); Monocyte# 0.35 X10^3/uL; Monocyte% 6.3 % (0-10); NRBC Flagged by Analyzer 0 % (0-5); Neutrophil # 4.13 X10^3/uL (2.7-7.7); Neutrophil % 73.8 % (47-70); Platelet Count 176 K/mm3 (150-450); RBC Distribution Width SD 46.5 fl (35.1-43.9); Red Blood Count 5.19 M/mm3 (4.6-6.2); White Blood Count 5.6 K/mm3 (4.4-11.0)
[2023-01-10 11:06] LABS: Vitamin D,25 Hydroxy 46.7 ng/mL
[2023-01-10 11:13] LABS: AST(SGOT) 20 U/L (15-37); Alanine Aminotransfer ALT/SGPT 25 U/L (16-61); Albumin, Serum 3.7 g/dL (3.2-5.0); Alkaline Phosphatase 80 U/L (45-117); Anion Gap 4 (5-15); BUN 16 mg/dL (7-18); BUN/Creat Ratio 17.9 RATIO (10-20); Calcium,Total 8.5 mg/dL (8.5-10.1); Chloride 108 mmol/L (98-107); Cholesterol 231 mg/dL (200); EST Glomerular Filtration Rate 88 mL/min (>60); Est Glom Filt Rate - Afr Amer 106 mL/min (>60); Globulin 3.7 g/dL (2.2-4.2); Glucose 102 mg/dL (74-106); High Density Lipoprotein 40 mg/dL; Potassium 3.9 mmol/L (3.5-5.1); Protein, Total 7.4 g/dL (6.4-8.2); Sodium Level 138 mmol/L (136-145); Thyroid Stim Hormone (TSH) 1.43 uIU/mL (0.358-3.74); Triglycerides 89 mg/dL; Very Low Density Lipoprotein 18 mg/dL (5-40)
== END | disposition home or self-care (01) ==
LOC: LAB 09:03
PROVIDERS: PCP Family Medicine Geriatric Medicine; Referring Provider Family Medicine Geriatric Medicine; Visit Provider Family Medicine Geriatric Medicine
DX: R53.83 Other fatigue (principal); E55.9 Vitamin D deficiency, unspecified; E78.00 Pure hypercholesterolemia, unspecified
CPT/HCPCS: 36415; 80053; 80061; 82306; 84443; 85025

== ENCOUNTER → 2023-01-16 | Outpatient (CLI) | payer MEDICARE, OTHER, SELFPAY ==
[2023-01-16 10:32] LABS: PSA,Total- Diagnostic < 0.01 ng/mL (0.0-4.0)
== END | disposition home or self-care (01) ==
LOC: MTLAB 07:31
PROVIDERS: PCP Family Medicine Geriatric Medicine; Referring Provider Urology; Visit Provider Urology
DX: C61 Malignant neoplasm of prostate (principal)
CPT/HCPCS: 36415; 84153

== ENCOUNTER → 2023-07-14 | Outpatient (CLI) | payer MEDICARE, OTHER, SELFPAY ==
[2023-07-14 14:19] LABS: PSA,Total- Diagnostic < 0.01 ng/mL (0.0-4.0)
== END | disposition home or self-care (01) ==
PROVIDERS: PCP Family Medicine Geriatric Medicine; Referring Provider Urology; Visit Provider Urology
DX: C61 Malignant neoplasm of prostate (principal)
CPT/HCPCS: 36415; 84153

== ENCOUNTER → 2023-07-17 | Outpatient (CLI) | payer MEDICARE, OTHER, SELFPAY ==
[2023-07-17 10:34] LABS: Absolute Lymphocyte Count 1.37 X10^3/uL (0.83-4.51); Absolute Neutrophil Count 3.2 X10^3/uL (2.0-7.7); Basophil# 0.05 X10^3/uL; Eosinophil# 0.12 X10^3/uL; Eosinophils% 2.3 % (0-5); Hemoglobin 16.8 g/dL (13.0-16.5); Lymphocyte # 1.37 X10^3/ul (0.83-4.51); Lymphocyte % 26.8 % (19-41); Mean Corp Hgb Conc 32.3 g/dL (32-36); Mean Corpuscular Hgb 31.5 pg (27.0-32.0); Mean Corpuscular Volume 97.4 fL (80-94); Mean Platelet Vol. 10.3 fl (6.2-12.0); Monocyte% 7.8 % (0-10); NRBC Flagged by Analyzer 0 % (0-5); Neutrophil # 3.16 X10^3/uL (2.7-7.7); Neutrophil % 61.9 % (47-70); Platelet Count 189 K/mm3 (150-450); RBC Distribution Width CV 13.2 % (11.6-14.6); RBC Distribution Width SD 46.5 fl (35.1-43.9); Red Blood Count 5.34 M/mm3 (4.6-6.2); White Blood Count 5.1 K/mm3 (4.4-11.0)
[2023-07-17 10:44] LABS: Vitamin D,25 Hydroxy 35.3 ng/mL
[2023-07-17 11:18] LABS: ALB/GLOB Ratio 0.9 RATIO (0.9-2.4); AST(SGOT) 15 U/L (15-37); Alanine Aminotransfer ALT/SGPT 30 U/L (16-61); Albumin, Serum 3.6 g/dL (3.2-5.0); Alkaline Phosphatase 77 U/L (45-117); Anion Gap 6 (5-15); BUN 14 mg/dL (7-18); BUN/Creat Ratio 13.5 RATIO (10-20); Calcium,Total 9.2 mg/dL (8.5-10.1); Chloride 106 mmol/L (98-107); Creatinine, Serum 1.04 mg/dL (0.70-1.30); EST Glomerular Filtration Rate 74 mL/min (>60); Est Glom Filt Rate - Afr Amer 89 mL/min (>60); Globulin 4.1 g/dL (2.2-4.2); Glucose 128 mg/dL (74-106); Potassium 4.2 mmol/L (3.5-5.1); Protein, Total 7.7 g/dL (6.4-8.2); Sodium Level 139 mmol/L (136-145); Thyroid Stim Hormone (TSH) 1.98 uIU/mL (0.358-3.74)
== END | disposition home or self-care (01) ==
LOC: POLAB3 09:36
PROVIDERS: PCP Family Medicine Geriatric Medicine; Visit Provider Family Medicine Geriatric Medicine
DX: R53.83 Other fatigue (principal); E55.9 Vitamin D deficiency, unspecified
CPT/HCPCS: 36415; 80053; 82306; 84443; 85025

== ENCOUNTER → 2023-09-25 | Outpatient (CLI) | payer MEDICARE, OTHER, SELFPAY ==
[2023-09-25 17:11] LABS: Absolute Lymphocyte Count 1.53 X10^3/uL (0.83-4.51); Absolute Neutrophil Count 4.1 X10^3/uL (2.0-7.7); Basophil# 0.04 X10^3/uL; Basophil% 0.6 % (0-1); Eosinophil# 0.19 X10^3/uL; Hemoglobin 17.2 g/dL (13.0-16.5); Lymphocyte # 1.53 X10^3/ul (0.83-4.51); Lymphocyte % 23.8 % (19-41); Mean Corp Hgb Conc 33.7 g/dL (32-36); Mean Corpuscular Hgb 32.4 pg (27.0-32.0); Mean Platelet Vol. 9.9 fl (6.2-12.0); Monocyte# 0.53 X10^3/uL; Monocyte% 8.2 % (0-10); NRBC Flagged by Analyzer 0 % (0-5); Neutrophil # 4.12 X10^3/uL (2.7-7.7); Neutrophil % 64.1 % (47-70); Platelet Count 196 K/mm3 (150-450); RBC Distribution Width CV 13.1 % (11.6-14.6); RBC Distribution Width SD 46.2 fl (35.1-43.9); Red Blood Count 5.31 M/mm3 (4.6-6.2); White Blood Count 6.4 K/mm3 (4.4-11.0)
[2023-09-25 17:38] LABS: Vitamin B12 927 pg/mL (211-911)
[2023-09-25 17:48] LABS: AST(SGOT) 17 U/L (15-37); Alanine Aminotransfer ALT/SGPT 29 U/L (16-61); Albumin, Serum 3.8 g/dL (3.2-5.0); Alkaline Phosphatase 76 U/L (45-117); Anion Gap 3 (5-15); BUN 17 mg/dL (7-18); BUN/Creat Ratio 15.5 RATIO (10-20); Calcium,Total 9.3 mg/dL (8.5-10.1); Chloride 107 mmol/L (98-107); EST Glomerular Filtration Rate 69 mL/min (>60); Est Glom Filt Rate - Afr Amer 83 mL/min (>60); Globulin 3.9 g/dL (2.2-4.2); Glucose 110 mg/dL (74-106); Potassium 4.1 mmol/L (3.5-5.1); Protein, Total 7.7 g/dL (6.4-8.2); Sodium Level 139 mmol/L (136-145); Thyroid Stim Hormone (TSH) 1.95 uIU/mL (0.358-3.74)
[2023-09-27 14:09] LABS: PROEL- A/G Ratio 1.2 (0.7-1.7); PROEL- Albumin 3.9 g/dL (2.9-4.4); PROEL- Alpha-1 Globulin 0.2 g/dL (0.0-0.4); PROEL- Alpha-2 Globulin 0.6 g/dL (0.4-1.0); PROEL- Beta Globulin 1.2 g/dL (0.7-1.3); PROEL- Gamma Globulin 1.2 g/dL (0.4-1.8); PROEL- Globulin, Total 3.2 g/dL (2.2-3.9); PROEL- TOTAL PROTEIN 7.1 g/dL (6.0-8.5); PROEL-M-Spike Not Observed g/dL (Not Observed)
== END | disposition home or self-care (01) ==
LOC: LAB 16:34
PROVIDERS: PCP Family Medicine Geriatric Medicine; Referring Provider Family Medicine Geriatric Medicine; Visit Provider Family Medicine Geriatric Medicine
DX: G62.9 Polyneuropathy, unspecified (principal); E03.9 Hypothyroidism, unspecified
CPT/HCPCS: 36415; 80053; 82607; 84165; 84443; 85025

== ENCOUNTER → 2023-10-02 | Outpatient (CLI) | payer MEDICARE, OTHER, SELFPAY ==
--- NOTE | 2023-10-02 09:02 | RAD_ITS ---
STUDY: X-RAY - ESOPHAGUS (BARIUM SWALLOW) WITH FLUOROSCOPY REASON FOR EXAM: Male, 78 years old. DYSPHAGIA TECHNIQUE: 15 view(s) of the esophagus were obtained following swallowing of barium. FLUOROSCOPY TIME (if supplied): (38 seconds) minutes/seconds. 29.64 mGy COMPARISON: None. FINDINGS: There is no demonstrated esophageal foreign body. There is no demonstrated stricture or mucosal abnormality. Normal gastroesophageal junction, without a demonstrated hiatal hernia. The patient ingested a 12 mm tablet of barium without any difficulty. Normal visualized aortic arch and descending thoracic aorta. Normal visualized pulmonary parenchyma. Normal visualized osseous structures of the thorax. Electrodes from a spinal cord stim and device are seen. RAD/Esophagus Dual Contrast IMPRESSION: Normal plain film x-ray examination (barium swallow) of the esophagus. Electronically Signed: Ramiro Yip MD at 10:09 [facility] ,
== END | disposition home or self-care (01) ==
PROVIDERS: PCP Family Medicine Geriatric Medicine; Referring Provider Internal Medicine Gastroenterology; Visit Provider Internal Medicine Gastroenterology
DX: R13.10 Dysphagia, unspecified (principal)
CPT/HCPCS: 74221

== ENCOUNTER → 2023-10-06 | Outpatient (CLI) | payer MEDICARE, OTHER, SELFPAY ==
--- NOTE | 2023-10-06 12:51 | ART_ITS ---
Reason For Study: PVD Procedure A bilateral lower extremity continuous wave Doppler with analog waveform analysis and ankle brachial indexes. Left Segmental Pressures Left brachial= 157mmHg. Left posterior tibial artery = 173mmHg. Left dorsalis pedis artery = 160mmHg. Left digit = 111 mmHg. The left posterior tibial artery waveforms are triphasic. The left dorsalis pedis waveforms are triphasic. Right Segmental Pressures Right brachial= 147mmHg. Right posterior tibial artery = 174mmHg. Right dorsalis pedis artery = 126mmHg. Right digit = 98 mmHg. The right posterior tibial artery waveforms are triphasic. The right dorsalis pedis waveforms are triphasic. Indices The right ankle brachial index by the posterior tibial artery is 1.11. The right ankle brachial index by the dorsalis pedis is 0.80. The right ankle brachial index by the posterior tibial artery post exercise is 0.62. The left ankle brachial index by the posterior tibial artery is 1.10. The left ankle brachial index by the dorsalis pedis is 1.02. The left digital-brachial index is 0.71. VL/Ankle Brachial Index Interpretation Summary Right AMBROSE 1.11, normal. Doppler/PVR waveforms of the right leg normal at rest. TBI diminished, pedal/digit disease vs spasm. Left AMBROSE 1.1, normal. Doppler/PVR waveforms of the left leg normal at rest. TBI diminished, pedal/digit disease vs spasm. Ordering Physician: Eric Smith Chi Referring Physician: ERIC SMITH CHI, MD Performed By: Elpidio Whittaker RVT
== END | disposition home or self-care (01) ==
PROVIDERS: PCP Family Medicine Geriatric Medicine; Referring Provider Family Medicine Geriatric Medicine; Visit Provider Family Medicine Geriatric Medicine
DX: I73.9 Peripheral vascular disease, unspecified (principal); R20.0 Anesthesia of skin
CPT/HCPCS: 93922

== ENCOUNTER → 2023-10-20 | Outpatient (CLI) | payer MEDICARE, OTHER, SELFPAY ==
--- NOTE | 2023-10-20 08:11 | VDLE_ITS ---
Reason For Study: BLE Pain RIGHT LEFT CFV is compressible, spontaneous, phasic, CFV is compressible, spontaneous, phasic, competent and demonstrates normal competent, and demonstrates normal augmentation. augmentation. FV is compressible, spontaneous, phasic, FV is compressible, spontaneous, phasic, competent and demonstrates normal competent and demonstrates normal augmentation. augmentation. POP V is compressible, spontaneous, phasic, POP V is compressible, spontaneous, phasic, competent and demonstrates normal competent and demonstrates normal augmentation. augmentation. T/P Trunk is compressible. T/P Trunk is compressible. PTV is compressible. PTV is compressible. RT PerV is compressible. LT PerV is compressible. SFJ is competent and measures 0.68 cm. SFJ is competent and measures 0.65 cm. HX Chemical Ablation in Rt GSV from prox GSV proximal thigh measures 0.40 x 0.43 cm. thigh to mid calf. Mid to distal calf is GSV at knee measures 0.30 x 0.37 cm. compressible with reflux time less than 0.5 GSV is competent throughout. seconds. SSV at junction is INCOMPETENT for greater HX Chemical Ablation Joseph to Mid Rt SSV. Mid than 0.5 seconds and measures 0.76 x 0.84 cm. to distal calf is compressible with reflux SSV proximal calf is INCOMPETENT for greater time less than 0.5 seconds. than 0.5 seconds and measures 0.47 x 0.62 cm. Procedure This is a venous duplex using B-mode, color flow and spectral Doppler. Exam performed in department. The exam was diagnostic. Patient was scanned in reverse Trendelenburg position during reflux assessment. VL/Venous Duplex US - Rodolfo Extrem Interpretation Summary Deep veins of the bilateral lower extremities are patent and compressible segme ntally. There is no evidence of bilateral lower extremity deep vein thrombosis. The left great saph enous vein appears patent and compressible segmentally. Prior chemical ablation, right great saphenous and small saphenous veins. Positive for reflux in the left small saphenous vein. Ordering Physician: Rylee Olsen Referring Physician: Eric Smith Chi Performed By: Elpidio Whittaker RVT
== END | disposition home or self-care (01) ==
LOC: CVS 08:11
PROVIDERS: PCP Family Medicine Geriatric Medicine; Referring Provider Physician Assistant; Visit Provider Physician Assistant
DX: I87.2 Venous insufficiency (chronic) (peripheral) (principal); Z86.718 Personal history of other venous thrombosis and embolism
CPT/HCPCS: 93970

== ENCOUNTER → 2024-01-19 | Outpatient (CLI) | payer MEDICARE, OTHER, SELFPAY ==
[2024-01-19 10:30] LABS: Absolute Lymphocyte Count 1.05 X10^3/uL (0.83-4.51); Absolute Neutrophil Count 3.9 X10^3/uL (2.0-7.7); Basophil# 0.05 X10^3/uL; Basophil% 0.9 % (0-1); Eosinophil# 0.09 X10^3/uL; Eosinophils% 1.6 % (0-5); Hematocrit 48.1 % (40-54); Hemoglobin 16.1 g/dL (13.0-16.5); Lymphocyte # 1.05 X10^3/ul (0.83-4.51); Lymphocyte % 18.9 % (19-41); Mean Corp Hgb Conc 33.5 g/dL (32-36); Mean Corpuscular Hgb 32.1 pg (27.0-32.0); Monocyte# 0.43 X10^3/uL; Monocyte% 7.7 % (0-10); NRBC Flagged by Analyzer 0 % (0-5); Neutrophil # 3.92 X10^3/uL (2.7-7.7); Neutrophil % 70.5 % (47-70); Platelet Count 183 K/mm3 (150-450); RBC Distribution Width CV 13.2 % (11.6-14.6); RBC Distribution Width SD 46.5 fl (35.1-43.9); Red Blood Count 5.01 M/mm3 (4.6-6.2); White Blood Count 5.6 K/mm3 (4.4-11.0)
[2024-01-19 11:54] LABS: ALB/GLOB Ratio 0.9 RATIO (0.9-2.4); AST(SGOT) 16 U/L (15-37); Alanine Aminotransfer ALT/SGPT 27 U/L (16-61); Albumin, Serum 3.6 g/dL (3.2-5.0); Alkaline Phosphatase 79 U/L (45-117); Anion Gap 8 (5-15); BUN 15 mg/dL (7-18); BUN/Creat Ratio 17.1 RATIO (10-20); Calcium,Total 8.8 mg/dL (8.5-10.1); Chloride 104 mmol/L (98-107); Creatinine, Serum 0.88 mg/dL (0.70-1.30); EST Glomerular Filtration Rate 90 mL/min (>60); Est Glom Filt Rate - Afr Amer 108 mL/min (>60); Globulin 4.1 g/dL (2.2-4.2); Glucose 110 mg/dL (74-106); Potassium 4.3 mmol/L (3.5-5.1); Protein, Total 7.7 g/dL (6.4-8.2); Sodium Level 139 mmol/L (136-145)
== END | disposition home or self-care (01) ==
LOC: LAB 09:51
PROVIDERS: PCP Family Medicine Geriatric Medicine; Referring Provider Family Medicine Geriatric Medicine; Visit Provider Family Medicine Geriatric Medicine
DX: R53.83 Other fatigue (principal); E55.9 Vitamin D deficiency, unspecified
CPT/HCPCS: 36415; 80053; 82306; 84443; 85025

== ENCOUNTER → 2024-01-22 | Outpatient (CLI) | payer MEDICARE, OTHER, SELFPAY ==
[2024-01-22 09:25] LABS: PSA,Total- Diagnostic < 0.01 ng/mL (0.0-4.0)
== END | disposition home or self-care (01) ==
LOC: LAB 07:42
PROVIDERS: PCP Family Medicine Geriatric Medicine; Referring Provider Urology; Visit Provider Urology
DX: C61 Malignant neoplasm of prostate (principal)
CPT/HCPCS: 36415; 84153

== ENCOUNTER → 2024-05-30 | Outpatient (CLI) | payer MEDICARE, OTHER, SELFPAY ==
[2024-05-30 10:44] LABS: PSA,Total - Annual Screen < 0.01 ng/mL (0.00-4.00)
== END | disposition home or self-care (01) ==
PROVIDERS: PCP Family Medicine Geriatric Medicine; Referring Provider Urology; Visit Provider Urology
DX: C61 Malignant neoplasm of prostate (principal); Z12.5 Encounter for screening for malignant neoplasm of prostate
CPT/HCPCS: 36415; 84153; G0103

== ENCOUNTER → 2024-07-19 | Outpatient (CLI) | payer MEDICARE, OTHER, SELFPAY ==
[2024-07-19 09:38] LABS: Absolute Neutrophil Count 3.5 X10^3/uL (2.0-7.7); Basophil# 0.04 X10^3/uL; Basophil% 0.7 % (0-1); Eosinophil# 0.21 X10^3/uL; Eosinophils% 3.8 % (0-5); Hematocrit 49.5 % (40-54); Hemoglobin 16.1 g/dL (13.0-16.5); Lymphocyte % 23.7 % (19-41); Mean Corp Hgb Conc 32.5 g/dL (32-36); Mean Corpuscular Hgb 31.7 pg (27.0-32.0); Mean Corpuscular Volume 97.4 fL (80-94); Mean Platelet Vol. 9.7 fl (6.2-12.0); Monocyte# 0.43 X10^3/uL; Monocyte% 7.8 % (0-10); NRBC Flagged by Analyzer 0 % (0-5); Neutrophil # 3.48 X10^3/uL (2.7-7.7); Neutrophil % 63.6 % (47-70); Platelet Count 175 K/mm3 (150-450); RBC Distribution Width CV 13.1 % (11.6-14.6); RBC Distribution Width SD 46.8 fl (35.1-43.9); Red Blood Count 5.08 M/mm3 (4.6-6.2); White Blood Count 5.5 K/mm3 (4.4-11.0)
[2024-07-19 09:58] LABS: ALB/GLOB Ratio 0.9 RATIO (0.9-2.4); AST(SGOT) 27 U/L (15-37); Alanine Aminotransfer ALT/SGPT 56 U/L (16-61); Albumin, Serum 3.5 g/dL (3.2-5.0); Alkaline Phosphatase 91 U/L (45-117); Anion Gap 3 (5-15); BUN 18 mg/dL (7-18); BUN/Creat Ratio 18.8 RATIO (10-20); Calcium,Total 8.8 mg/dL (8.5-10.1); Chloride 107 mmol/L (98-107); Creatinine, Serum 0.96 mg/dL (0.70-1.30); EST Glomerular Filtration Rate 81 mL/min (>60); Est Glom Filt Rate - Afr Amer 98 mL/min (>60); Globulin 3.9 g/dL (2.2-4.2); Glucose 108 mg/dL (74-106); Protein, Total 7.4 g/dL (6.4-8.2); Sodium Level 141 mmol/L (136-145)
[2024-07-22 15:25] LABS: Vitamin D,25 Hydroxy 41.3 ng/mL
== END | disposition home or self-care (01) ==
PROVIDERS: PCP Family Medicine Geriatric Medicine; Visit Provider Family Medicine Geriatric Medicine
DX: R53.83 Other fatigue (principal); E55.9 Vitamin D deficiency, unspecified
CPT/HCPCS: 36415; 80053; 82306; 84443; 85025

== ENCOUNTER → 2024-08-12 | Outpatient (CLI) | payer MEDICARE, OTHER, SELFPAY | END | disposition home or self-care (01) | LOC: POLAB3 12:06 | PROVIDERS: PCP Family Medicine Geriatric Medicine; Visit Provider Family Medicine Geriatric Medicine | DX: R68.83 Chills (without fever) (principal) | CPT/HCPCS: 87631 ==

== ENCOUNTER → 2024-12-17 | Outpatient (CLI) | payer MEDICARE, OTHER, SELFPAY ==
--- NOTE | 2024-12-17 14:07 | RAD_ITS ---
PROCEDURE: HIP, UNI W/ PELVIS 2-3 VIEWS 12/17/2024 REASON FOR EXAM: HIP PAIN, OSTEOARTHRITIS OF RIGHT HIP TECHNIQUE: AP pelvis and two views right hip, 3 total images COMPARISON: 01/13/2020 FINDINGS: Mild right hip osteoarthrosis with marginal osteophyte formation. No fracture or dislocation. Partially imaged lower lumbar hardware again noted. There is now a partially imaged spinal stimulator. RAD/HIP, UNI W/ Pelvis 2-3 Views IMPRESSION: Mild right hip osteoarthrosis with marginal osteophyte formation. Reading Location: [id number]
== END | disposition home or self-care (01) ==
LOC: LAB 14:07
PROVIDERS: PCP Family Medicine Geriatric Medicine; Referring Provider Family Medicine Geriatric Medicine; Visit Provider Family Medicine Geriatric Medicine
DX: M16.11 Unilateral primary osteoarthritis, right hip (principal); M25.551 Pain in right hip
CPT/HCPCS: 73502

== ENCOUNTER 2024-12-26 07:43 | Outpatient (RCR) | payer MEDICARE, OTHER, SELFPAY ==
--- NOTE | 2024-12-26 10:22 | HP.PTEVAL_ITS ---
Patient's Visit Information Visit Information Visit Information: BRENNAN LUIS is a 79 year old M referred to Physical Therapy by Dr. Eric Smith MD with a diagnosis of Unsteady gait, R26.81. Date of Evaluation: 12/26/24 Physical Therapist: David Sam Visit Plan Frequency: 2x /Week Duration: 6 Weeks Plan: Continue with improving LE strength and balance. Possibly add some gaze stabilization exercises as well. Subjective Subjective: Pt. is a 79 y.o. male who states about a month he woke up and he just felt off and he hasn't felt good really since. Pt. reports that he has two falls in the last six months with one fall being from getting off his bike. He currently does not use an assistive device. Pt. has not had any imaging but is scheduled for an MRI of his brain in February. Pt. denies any dizziness really. He denies any loss of consciousness, drop attacks, or slurred speech. Pt. denies any change in his vision or hearing but does have hearing aides. Pt. has difficulty with walking on uneven ground, ascending/descending stairs, squatting, looking up, and housework. Pt. is retired and worked for [employer] previously. His goal with physical therapy is to be more steady. He denies any pain. His PMH includes prostate cancer with prostate removed, skin cancer, pain stimulator placed for low back pain, bilateral shoulder arthroscopic surgeries, tonsillectomy, and esophagus surgery. Pt. lives with his at [facility]. 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 His hobbies include riding his three wheel bike. Objective Objective: Posture- Good posture in standing Left LE strength hip flexion 4+/5, abduction 4+/5, adduction 5/5, extension 4+/5, knee flexion 5/5, knee extension 4+/5, ankle DF 5/5, ankle PF 5/5 Right LE strength hip flexion 4+/5, abduction 4+/5, adduction 5/5, extension 4+/5, knee flexion 5/5, knee extension 4+/5, ankle DF 5/5, ankle PF 5/5 Tandem stance left 30 secs, right 30 secs SLS left 2 secs, right 20 secs Oculomotor exam- Smooth pursuit [-], Gaze hold [-], Saccades [-], Spontaneous nystagmus [-], Head Impulse [-] Finger to nose test [-], Heel to gutierrez [-] Gait- Pt. ambulates with no noticeable gait deviations. Balance/Special Test Scores Functional Gait Assessment Score: 24 % Disability: 20.0000 Dizziness Score: 22 Goals Goal 1:: Pt. will report no falls. Goal Time Frame: 4-6 Weeks Goal 2:: Pt. will improve FGA score > 26/30 in order to improve stability and balance. Goal Time Frame: 4-6 Weeks Goal 3:: Pt. will improve LE strength to 5/5 for all motions in order to improve stability and balance. Goal Time Frame: 4-6 Weeks Goal 4:: Pt. will improve SLS > 15 secs in order to improve stability and balance. Goal Time Frame: 4-6 Weeks Goal 5:: Pt. will improve DHI score <15% disability in order to improve stability and balance. Goal Time Frame: 4-6 Weeks Rehabilitation Potential Physical Therapy Diagnosis: Decreased LE strength, difficulty walking, and balance impairment Rehabilitation Potential: Good Anticipated Interventions Patient/Client Instruction: Educate patient on: Condition, Plan of Care and Benefits of Fitness Program For the Purpose of:: To improve ability to perform ADL's, To improve performance and independence with ADL's, To improve balance, To improve safety with gait, To assume or resume ADL's and To improve tolerance to ADL's Therapeutic Exercise to Include: Strength training, Balance training and Gait and locomotor training Comment: Continue with improving LE strength and balance. Also add gaze s tabilization exercises as well. For the Purpose of:: To improve ability to perform ADL's, To improve performance and independence with ADL's, To improve balance, To improve safety with gait, To assume or resume ADL's and To improve tolerance to ADL's Functional Training to Include: Gait training For the Purpose of:: To improve ability to perform ADL's, To improve performance and independence with ADL's, To improve balance, To improve safety with gait, To assume or resume ADL's, To improve safety and To improve tolerance to ADL's Assistive Devices: Cane For the Purpose of:: To improve ability to perform ADL's, To improve performance and independence with ADL's, To improve balance, To assume or resume ADL's, To improve safety and To improve tolerance to ADL's Text: Thank you for the opportunity to evaluate your patient. For Medicare and Medicare HMO plans, please review the plan of care and approve it. It will need to be FAXED BACK to us at [phone] for Medicare purposes. For Medicare only, by signing this I certify the plan of care. Please let me know if there are questions or concerns regarding this plan of care. Physician Signature: Date:_
--- NOTE | 2025-02-10 15:14 | HP.PT.NRP ---
Patient Information Patient Information: BRENNAN LUIS was seen in my office for initial evaluation on 12/26/24. The following Plan of Care was established for this patient: POC Established Initial Frequency: 2x /Week Initial Duration: 6 Weeks Anticipated Interventions Patient/Client Instruction: Educate patient on: Condition, Plan of Care and Benefits of Fitness Program For the Purpose of:: To improve ability to perform ADL's, To improve performance and independence with ADL's, To improve balance, To improve safety with gait, To assume or resume ADL's and To improve tolerance to ADL's Therapeutic Exercise to Include: Strength training, Balance training and Gait and locomotor training For the Purpose of:: To improve ability to perform ADL's, To improve performance and independence with ADL's, To improve balance, To improve safety with gait, To assume or resume ADL's and To improve tolerance to ADL's Functional Training to Include: Gait training For the Purpose of:: To improve ability to perform ADL's, To improve performance and independence with ADL's, To improve balance, To improve safety with gait, To assume or resume ADL's, To improve safety and To improve tolerance to ADL's Assistive Devices: Cane For the Purpose of:: To improve ability to perform ADL's, To improve performance and independence with ADL's, To improve balance, To assume or resume ADL's, To improve safety and To improve tolerance to ADL's Last Seen Last Seen: This patient was last seen in our office 12/26/24. Pertinent comments regarding their Physical therapy will appear below: Pt seen for IE and POC established by Robb Sam PT. Pt did not schedule or attend any further visits. At this point, it has been over 5 weeks and I will discontinue due to nonattendance. At this point I will be discontinuing this patient from physical therapy. I would be happy to see this patient again in the future if found appropriate by the physician. Thank you! Caleb Lezama, DPT, OCS, CSCS Balance/Gait/Functional tests Balance/Special Test Scores Functional Gait Assessment Score: 24 % Disability: 20.0000 Dizziness Score: 22
== END 2024-12-26 19:00 | disposition home or self-care (01) ==
LOC: PT 07:43
PROVIDERS: PCP Family Medicine Geriatric Medicine; Referring Provider Family Medicine Geriatric Medicine; Visit Provider Family Medicine Geriatric Medicine
DX: R26.81 Unsteadiness on feet (principal)
CPT/HCPCS: 97110; 97162

== ENCOUNTER → 2025-01-09 | Outpatient (CLI) | payer MEDICARE, OTHER, SELFPAY ==
--- OUTSIDE RECORDS SUMMARY | 2025-01-09 07:51 | XMS RPT_ITS | CCD ---
Author Organization [facility]iniSyn[facility] Care Team Providers Care Laser Systems Engineer Name Role Phone Dr. Eric Smith Chi Primary Care Provider Dr. Caleb Morrow Attending Provider [phone] Gonzalo, Dr. Eric Nguyen Referring Provider Dr. Jere Rodriguez Attending Provider [phone] Dr. Brent Gillette Attending Provider 1([facility])[phone] Gonzalo, Dr. Eric Nguyen Primary Care Provider Dr. Caleb Morrow Attending Provider 1([facility])57 10 Gonzalo, Dr. Eric Nguyen Referring Provider ALMA Olsen Attending Provider [phone] Gonzalo, Dr. Eric Nguyen Primary Care Provider Gonzalo, Dr. Eric Nguyen Referring Provider Dr. Caleb Morrow Attending Provider [phone] ALMA Olsen Attending Provider 1([facility]57 10 Gonzalo, Eric Chi Attending Unavailable Gonzalo, Eric Chi Referring Unavailable Gonzalo, Eric Chi Primary Care Unavailable Gonzalo, Eric Chi Attending Unavailable Gonzalo, Eric Chi Referring Unavailable Gonzalo, Eric Chi Primary Care Unavailable Gonzalo, Eric Chi Attending Unavailable Gonzalo, Eric Chi Primary Care Unavailable Gonzalo, Eric Chi Attending Unavailable Gonzalo, Eric Chi Referring Unavailable Gonzalo, Eric Chi Primary Care Unavailable Gonzalo, Eric Chi Attending Unavailable Gonzalo, Eric Chi Referring Unavailable Gonzalo, Eric Chi Primary Care Unavailable Gonzalo, Eric Chi Attending Unavailable Gonzalo, Eric Chi Primary Care Unavailable Brennan Gifford Attending Unavailable Gonzalo, Eric Chi Referring Unavailable Gonzalo, Eric Chi Primary Care Unavailable NaeSergio Attending Unavailable NaeSergio Referring Unavailable Gonzalo, Eric Chi Primary Care Unavailable Sergio Soni Referring Unavailable [facility] Primary Care Unavailable Sergio Soni Attending Unavailable Allergies Allergy Classification Reported Allergen(s) Allergy Type Date of Onset Reaction(s) Facility (12 sources) celecoxib Drug Allergy 1 Unknown, Other [facility] (1 source) celecoxib Drug Allergy 4 [facility] Repository Medications Current Medications Medication Drug Class(es) Dates Sig (Normalized) Sig (Original) allopurinol 300 mg oral tablet (12 sources) Xanthine Oxidase Inhibitor Start: 10-29-2015 take 300 mg by mouth once daily Allopurinol Active 300 MG PO DAILY October 29, 2015 12:00am Ascorbic Acid (8 sources) Vitamin C Start: 12-05-2022 take 1 g by mouth every six hours Ascorbic Acid (Vitamin C) Active 1 GM PO EVERY 6 HOURS December 04, 2022 11:00pm Start: 12-05-2022 take 1 g by mouth ev geronimo six hours Ascorbic Acid (Vitamin C) Active 1 GM PO EVERY 6 HOURS December 05, 2022 12:00am cholecalciferol 0.833 mg/ml oral solution (8 sources) Vitamin D Start: 12-05-2022 take 50 ug by mouth once daily Cholecalciferol (Vitamin D3) (Super Daily D3) 50 mcg/drop (2, 000 unit/drop) drops Active 50 MCG PO DAILY December 05, 2022 12:00am citalopram 10 mg oral tablet (8 sources) Serotonin Reuptake Inhibitor Start: 12-05-2022 Citalopram Active MG PO December 05, 2022 12:00am Lactobacillus Combination No.9 (Adult 50 Plus Probiotic) 4 billion cell capsule (8 sources) Start: 12-05-2022 take 4 capsules by mouth once daily Lactobacillus Combination No.9 (Adult 50 Plus Probiotic) 4 billion cell capsule Active 6000 MMU CELLS PO DAILY December 04, 2022 11:00pm administer with a meal Start: 12-05-2022 take 4 capsules by m outh once daily Lactobacillus Combination No.9 (Adult 50 Plus Probiotic) 4 billion cell capsule Active 6000 MMU CELLS PO DAILY December 05, 2022 12:00am administer with a meal mecobalamin 1 mg chewable tablet (8 sources) Start: 12-05-2022 take 1 tablet by mouth once daily Mecobalamin (Vitamin B12) (B12 Active) 1,000 mcg tablet,chewable Active 1000 MCG PO DAILY December 05, 2022 12:00am pantoprazole 40 mg delayed release oral tablet (8 sources) Proton Pump Inhibitor Start: 12-05-2022 Pantoprazole Active MG PO December 05, 2022 12:00am rivaroxaban 20 mg oral tablet (8 sources) Factor Xa Inhibitor Start: 12-05-2022 take 1 tablet by mouth once daily at dinner Rivaroxaban (Xarelto) 20 mg tablet Active 20 MG PO DAILY December 05, 2022 12:00am must administer with evening meal Completed/Discontinued Medications Medication Drug Class(es) Dates Sig (Normalized) Sig (Original) acetaminophen 325 mg / HYDROcodone bitartrate 5 mg oral tablet (12 sources) Opioid Agonist Start: 01-01-2020 End: 01-06-2020 Hydrocodone-Acetam inophen Discontinued 1 EACH PO EVERY 4 HOURS NEEDED 14 January 01, 2020 January 05, 2020 11:02pm apixaban 2.5 mg oral tablet (12 sources) Factor Xa Inhibitor Start: 10-24-2020 End: 12-05-2022 take 2.5 mg by mouth twice daily Apixaban Discontinued 2.5 MG PO TWICE A DAY October 24, 2020 12:00am December 05, 2022 1:36pm dexamethasone 4 mg oral tablet (12 sources) Corticosteroid Start: 10-24-2020 End: 12-05-2022 take 6 mg by mouth once daily Dexamethasone Discontinued 6 MG PO DAILY October 24, 2020 12:00am December 05, 2022 1:36pm Problems Active Problems Problem Classification Problem Date Documented Da te Episodic/Chronic Cancer of prostate (13 sources) Malignant tumor of prostate; Translations: [Malignant neoplasm of prostate] Onset: 06-24-2024 10-21-2020 Chronic Osteoarthritis (1 source) Unilateral primary osteoarthritis, right hip; Translations: [Unilateral primary osteoarthritis, right hip] Onset: 12-24-2024 Chronic Other bone disease and musculoskeletal deformities (20 sources) Segmental and somatic dysfunction; Translations: [Segmental and somatic dysfunction of lumbar region] 01-31-2018 Episodic Other diseases of veins and lymphatics (2 sources) Peripheral venous insufficiency; Translations: [Venous insufficiency (chronic) (peripheral)] 10-10-2023 Episodic Other diseases of veins and lymphatics (1 source) Venous insufficiency (chronic) (peripheral); Translations: [Venous (peripheral) insufficiency, unspecified] 10-10-2023 Episodic Other nervous system disorders (1 source) Unsteadiness on feet; Translations: [Unsteadiness on feet] Onset: 01-07-2025 Episodic Spondylosis; intervertebral disc disorders; other back problems (20 sources) Degeneration of lumbar intervertebral disc; Translations: [Other intervertebral disc degeneration, lumbar region] 01-31-2018 Chronic Viral infection (12 sources) Disease caused by 2019-nCoV; Translations: [COVID-19] 10-21-2020 Episodic Past or Other Problems Problem Classification Problem Date Documented Da te Episodic/Chronic Malaise and fatigue (1 source) Other fatigue; Translations: [Other fatigue] Onset: 08-23-2024 Episodic Nonspecific chest pain (1 source) Chest pain, unspecified; Translations: [Chest pain, unspecified] Onset: 01-16-2024 Episodic Residual codes; unclassified (1 source) Chills (without fever); Translations: [Chills (without fever)] Onset: 09-05-2024 Episodic Results Test Name Value Interpretation Reference Range Facility Inital Evaluation (1) - PTon 12-26-2024 Inital Evaluation (1) - PT [facility] [address] [place] [address] [address] [place] [address] / REHABILITATION SERVICES INITIAL EVALUATION MR#: [id number] Acct: [id number] Name: BRENNAN LUIS Rep #: [id number] : 1945 79 From: David Sam Referring Dr.: Dr. Eric Smith MD Status: REG RCR Insurance: MEDICARE PART A B [employer] Patient's Visit Information Visit Information Visit Information: BRENNAN LUIS is a 79 year old M referred to Physical Therapy by Dr. Eric Smith MD with a diagnosis of Unsteady gait, R26.81. Date of Evaluation: 12/26/24 Physical Therapist: David Sam Visit Plan Frequency: 2x /Week Duration: 6 Weeks Plan: Continue with improving LE strength and balance. Possibly add some gaze stabilization exercises as well. Subjective Subjective: Pt. is a 79 y.o. male who states about a month he woke up and he just felt off and he hasn't felt good really since. Pt. reports that he has two falls in the last six months with one fall being from getting off his bike. He currently does not use an assistive device. Pt. has not had any imaging but is scheduled for an MRI of his brain in February. Pt. denies any dizziness really. He denies any loss of consciousness, drop attacks, or slurred speech. Pt. denies any change in his vision or hearing but does have hearing aides. Pt. has difficulty with walking on uneven ground, ascending/descending stairs, squatting, looking up, and housework. Pt. is retired and worked for [employer] previously. His goal with physical therapy is to be more steady. He denies any pain. His PMH includes prostate cancer with prostate removed, skin cancer, pain stimulator placed for low back pain, bilateral shoulder arthroscopic surgeries, tonsillectomy, and esophagus surgery. Pt. lives with his at [facility]. 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 His hobbies include riding his three wheel bike. Objective Objective: Posture- Good posture in standing Left LE strength hip flexion 4+/5, abduction 4+/5, adduction 5/5, extension 4+/5, knee flexion 5/5, knee extension 4+/5, ankle DF 5/5, ankle PF 5/5 Right LE strength hip flexion 4+/5, abduction 4+/5, adduction 5/5, extension 4+/5, knee flexion 5/5, knee extension 4+/5, ankle DF 5/5, ankle PF 5/5 Tandem stance left 30 secs, right 30 secs SLS left 2 secs, right 20 secs Oculomotor exam- Smooth pursuit [-], Gaze hold [-], Saccades [-], Spontaneous nystagmus [-], Head Impulse [-] Finger to nose test [-], Heel to gutierrez [-] Gait- Pt. ambulates with no noticeable gait deviations. Balance/Special Test Scores Functional Gait Assessment Score: 24 % Disability: 20.0000 Dizziness Score: 22 Goals Goal 1:: Pt. will report no falls. Goal Time Frame: 4-6 Weeks Goal 2:: Pt. will improve FGA score > 26/30 in order to improve stability and balance. Goal Time Frame: 4-6 Weeks Goal 3:: Pt. will improve LE strength to 5/5 for all motions in order to improve stability and balance. Goal Time Frame: 4-6 Weeks Goal 4:: Pt. will improve SLS > 15 secs in order to improve stability and balance. Goal Time Frame: 4-6 Weeks Goal 5:: Pt. will improve DHI score <15% disability in order to improve stability and balance. Goal Time Frame: 4-6 Weeks Rehabilitation Potential Physical Therapy Diagnosis: Decreased LE strength, difficulty walking, and balance impairment Rehabilitation Potential: Good Anticipated Interventions Patient/Client Instruction: Educate patient on: Condition, Plan of Care and Benefits of Fitness Program For the Purpose of:: To improve ability to perform ADL's, To improve performance and independence with ADL's, To improve balance, To improve safety with gait, To assume or resume ADL's and To improve tolerance to ADL's Therapeutic Exercise to Include: Strength training, Balance training and Gait and locomotor training Comment: Continue with improving LE strength and balance. Also add gaze stabilization exercises as well. For the Purpose of:: To improve ability to perform ADL's, To improve performance and independence with ADL's, To improve balance, To improve safety with gait, To assume or resume ADL's and To improve tolerance to ADL's Functional Training to Include: Gait training For the Purpose of:: To improve ability to perform ADL's, To improve performance and independence with ADL's, To improve balance, To improve safety with gait, To assume or resume ADL's, To improve safety and To improve tolerance to ADL's Assistive Devices: Cane For the Purpose of:: To improve ability to perform ADL's, To improve performance and independence with ADL's, To improve balance, To assume or resume ADL's, To improve safety and To improve tolerance to ADL's Text: Thank you for the opportunity to evaluate your patient. For (more content not included)... Normal [facility] HIP, UNI W/ Pelvis 2-3 Views on 12-17-2024 HIP, UNI W/ Pelvis 2-3 Views [facility] Services [address] [place], [place] [address] HIP, UNI W/ Pelvis 2-3 Views MR#: [id number] Acct: [id number] Name: BRENNAN LUIS Rep #: [id number] : 1945 M 79 From: Pankaj Culver MD PCP: Dr. Eric Smith MD Status: REG CLI Study: HIP, UNI W/ Pelvis 2-3 Views Date of Exam: Exam# [id number] Ordering Dr: Eric Smith MD PROCEDURE: HIP, UNI W/ PELVIS 2-3 VIEWS 12/17/2024 REASON FOR EXAM: HIP PAIN, OSTEOARTHRITIS OF RIGHT HIP TECHNIQUE: AP pelvis and two views right hip, 3 total images COMPARISON: 01/13/2020 FINDINGS: Mild right hip osteoarthrosis with marginal osteophyte formation. No fracture or dislocation. Partially imaged lower lumbar hardware again noted. There is now a partially imaged spinal stimulator. RAD/HIP, UNI W/ Pelvis 2-3 Views IMPRESSION: Mild right hip osteoarthrosis with marginal osteophyte formation. Reading Location: [facility] CC: Dr. Eric Smith MD [employer] Operator: Signed [facility] M100.678on 08-12-2024 M100.678 Pending SARS-CoV-2 (COVID 19) Negative INFLUENZA A Negative INFLUENZA B Negative RSV PCR Negative Normal [facility] Comment on above: Performed By: #### M 100.678 #### [facility] [address] [place], [place] [address], [address] Vitamin D,25 Hydroxyon 07-22 Vitamin D 25-OH 41.3 ng/mL Normal [facility] Comment on above: Result Comment: Britany min D 25(OH) Status Range Deficiency <20 ng/mL (50nmol/L) Insufficiency 20 - 30 ng/mL (50 - 75 nmol/L) Sufficiency 30 - 100 ng/mL (75 - 250 nmol/L) Toxicity >100 ng/mL (>250 nmol/L) Performed By: #### L 500.4050, L501.9520, L506.1000, L100.0100 #### [facility] [address] [place], [address] CBC W/Diff, Automatedon 12-2023 Absolute Lymph 1.30 X10 3/uL Normal 0.83-4.51 [facility] Comment on above: Performed By: #### L 500.4050, L501.9520, L506.1000, L100.0100 #### [facility] [address] [place], [address] Absolute Neut 3.5 X10 3/uL Normal 2.0-7.7 [facility] Comment on above: Performed By: #### L 500.4050, L501.9520, L506.1000, L100.0100 #### [facility] [address] [place], [address] Basophils/100 WBC (Bld) 0.7 % Normal 0-1 [facility] Comment on above: Performed By: #### L 500.4050, L501.9520, L506.1000, L100.0100 #### [facility] [address] [place], [address] Eosinophils/100 WBC (Bld) 3.8 % Normal 0-5 [facility] Comment on above: Performed By: #### L 500.4050, L501.9520, L506.1000, L100.0100 #### [facility] [address] [place], [address] Erythrocyte distribution width (RBC) [Ratio] 13.1 % Normal 11.6-14.6 [facility] Comment on above: Performed By: #### L 500.4050, L501.9520, L506.1000, L100.0100 #### [facility] [address] [place], [address] Hematocrit (Bld) [Volume fraction] 49.5 % Normal 40-54 [facility] Comment on above: Performed By: #### L 500.4050, L501.9520, L506.1000, L100.0100 #### [facility] [address] [place], [address] Hemoglobin (Bld) [Mass/Vol] 16.1 g/dL Normal 13.0-16.5 [facility] Comment on above: Performed By: #### L 500.4050, L501.9520, L506.1000, L100.0100 #### [facility] [address] [place], [address] IG% 0.400 Normal 0.0-0.9 [facility] Comment on above: Result Comment: IG% - Immature Granulocytes (promyelocytes, myelocytes and metamyelocytes) > 1% indicates that a LEFT SHIFT is Present. Performed By: #### L 500.4050, L501.9520, L506.1000, L100.0100 #### [facility] [address] [place], [address] Lymphocytes/100 WBC (Bld) 23.7 % Normal 19-41 [facility] Comment on above: Performed By: #### L 500.4050, L501.9520, L506.1000, L100.0100 #### [facility] [address] [place], [address] MCH (RBC) [Entitic mass] 31.7 pg Normal 27.0-32.0 [facility] Comment on above: Performed By: #### L 500.4050, L501.9520, L506.1000, L100.0100 #### [facility] [address] [place], [address] MCHC (RBC) [Mass/Vol] 32.5 g/dL Normal 32-36 [facility] Comment on above: Performed By: #### L 500.4050, L501.9520, L506.1000, L100.0100 #### [facility] [address] [place], [address] MCV (RBC) [Entitic vol] 97.4 fL High 80-94 [facility] Comment on above: Performed By: #### L 500.4050, L501.9520, L506.1000, L100.0100 #### [facility] [address] [place], [address] Monocytes/100 WBC (Bld) 7.8 % Normal 0-10 [facility] Comment on above: Performed By: #### L 500.4050, L501.9520, L506.1000, L100.0100 #### [facility] [address] [place], [address] Neutrophils/100 WBC (Bld) 63.6 % Normal 47-70 [facility] Comment on above: Performed By: #### L 500.4050, L501.9520, L506.1000, L100.0100 #### [facility] [address] [place], [address] Nucleated RBC (Bld) [#/Vol] 0 10*3/uL Normal 0-5 [facility] Comment on above: Performed By: #### L 500.4050, L501.9520, L506.1000, L100.0100 #### [facility] [address] [place], [address] Platelet mean volume (Bld) [Entitic vol] 9.7 fL Normal 6.2-12.0 [facility] Comment on above: Performed By: #### L 500.4050, L501.9520, L506.1000, L100.0100 #### [facility] [address] [place], [address] Platelets (Bld) [#/Vol] 175 10*3/uL Normal 150-450 [facility] Comment on above: Performed By: #### L 500.4050, L501.9520, L506.1000, L100.0100 #### [facility] [address] [place], [address] RBC (Bld) [#/Vol] 5.08 10*6/uL Normal 4.6-6.2 [facility] Comment on above: Performed By: #### L 500.4050, L501.9520, L506.1000, L100.0100 #### [facility] [address] [place], [address] RDW SD 46.8 fl High 35.1-43.9 [facility] Comment on above: Performed By: #### L 500.4050, L501.9520, L506.1000, L100.0100 #### [facility] [address] [place], [address] WBC (Bld) [#/Vol] 5.5 10*3/uL Normal 4.4-11.0 [facility] Comment on above: Performed By: #### L 500.4050, L501.9520, L506.1000, L100.0100 #### [facility] [address] [place], [address] Comprehensive Metabolic Prof [facility] 07-19-2024 Albumin [Mass/Vol] 3.5 g/dL Normal 3.2-5.0 [facility] Comment on above: Performed By: #### L 500.4050, L501.9520, L506.1000, L100.0100 #### [facility] [address] [place], [address] Albumin/Globulin [Mass ratio] 0.9 {ratio} Normal 0.9-2.4 [facility] Comment on above: Performed By: #### L 500.4050, L501.9520, L506.1000, L100.0100 #### [facility] [address] [place], [address] ALK P 91 U/L Normal 45-117 [facility] Comment on above: Performed By: #### L 500.4050, L501.9520, L506.1000, L100.0100 #### [facility] [address] [place], [address] ALT [Catalytic activity/Vol] 56 U/L Normal 16-61 [facility] Comment on above: Performed By: #### L 500.4050, L501.9520, L506.1000, L100.0100 #### [facility] [address] [place], [address] AST [Catalytic activity/Vol] 27 U/L Normal 15-37 [facility] Comment on above: Performed By: #### L 500.4050, L501.9520, L506.1000, L100.0100 #### [facility] [address] [place], [address] Bilirubin [Mass/Vol] 0.80 mg/dL Normal 0.20-1.00 [facility] Comment on above: Result Comment: For patients on eltrombopag therapy, use of Dimension [place] TBIL is not recommended. Performed By: #### L 500.4050, L501.9520, L506.1000, L100.0100 #### [facility] [address] [place], [address] BUN/CRE 18.8 RATIO Normal 10-20 [facility] Comment on above: Performed By: #### L 500.4050, L501.9520, L506.1000, L100.0100 #### [facility] [address] [place], [address] CA,Total 8.8 mg/dL Normal 8.5-10.1 [facility] Comment on above: Performed By: #### L 500.4050, L501.9520, L506.1000, L100.0100 #### [facility] [address] [place], [address] Chloride [Moles/Vol] 107 mmol/L Normal 98-107 [facility] Comment on above: Performed By: #### L 500.4050, L501.9520, L506.1000, L100.0100 #### [facility] [address] [place], [address] CO2 [Moles/Vol] 31.0 mmol/L Normal 21.0-32.0 [facility] Comment on above: Performed By: #### L 500.4050, L501.9520, L506.1000, L100.0100 #### [facility] [address] [place], [address] Creatinine [Mass/Vol] 0.96 mg/dL Normal 0.70-1.30 [facility] Comment on above: Result Comment: The validity of the calculated GFR GFRAA in patients over 70 years has not been determined. Clinical correlation is essential. Performed By: #### L 500.4050, L501.9520, L506.1000, L100.0100 #### [facility] [address] [place], [address] EST GFR - AA 98 mL/min Normal >60 [facility] Comment on above: Result Comment: Afri can Cypriot GFR Calc Performed By: #### L 500.4050, L501.9520, L506.1000, L100.0100 #### [facility] [address] [place], [address] GAP 3 Low 5-15 [facility] Comment on above: Performed By: #### L 500.4050, L501.9520, L506.1000, L100.0100 #### [facility] [address] [place], [address] GFR/1.73 sq M.predicted among non-blacks MDRD (S/P/Bld) [Vol rate/Area] 81 mL/min/{1.73_m2} Normal >60 [facility] Comment on above: Result Comment: Non- GFR Calc Performed By: #### L 500.4050, L501.9520, L506.1000, L100.0100 #### [facility] [address] [place], [address] Globulin (S) [Mass/Vol] 3.9 g/dL Normal 2.2-4.2 [facility] Comment on above: Performed By: #### L 500.4050, L501.9520, L506.1000, L100.0100 #### [facility] [address] [place], [address] Glucose [Mass/Vol] 108 mg/dL High 74-106 [facility] Comment on above: Result Comment: Fast ing Glucose result from 100 to 125 mg/dL suggests IMPAIRED HOMEOSTASIS per A.D.A. criteria. Performed By: #### L 500.4050, L501.9520, L506.1000, L100.0100 #### [facility] [address] [place], [address] Potassium [Moles/Vol] 4.0 mmol/L Normal 3.5-5.1 [facility] Comment on above: Performed By: #### L 500.4050, L501.9520, L506.1000, L100.0100 #### [facility] [address] [place], [address] Sodium [Moles/Vol] 141 mmol/L Normal 136-145 [facility] Comment on above: Performed By: #### L 500.4050, L501.9520, L506.1000, L100.0100 #### [facility] [address] [place], [address] T PROT 7.4 g/dL Normal 6.4-8.2 [facility] Comment on above: Performed By: #### L 500.4050, L501.9520, L506.1000, L100.0100 #### [facility] [address] [place], [address] Urea nitrogen [Mass/Vol] 18 mg/dL Normal 7-18 [facility] Comment on above: Performed By: #### L 500.4050, L501.9520, L506.1000, L100.0100 #### [facility] [address] [place], [address] Thyroid Stim Hormone (TSH)on 07-19-2024 TSH 1.230 uIU/mL Normal 0.358-3.740 [facility] Comment on above: Performed By: #### L 500.4050, L501.9520, L506.1000, L100.0100 #### [facility] [address] [place], [address] PSA,Total - Annual Screenon --2023 PSA,TOT SCREEN < 0.01 Normal 0.00-4.00 [facility] Comment on above: Result Comment: This test was performed using the TPSA assay method for the [employer] chemistry system. Values obtained with different assay methods cannot be used interchangably. When changing PSA assays in the course of monitoring a patient, additional sequential testing should be carried out to confirm baseline values. Performed By: #### L 501.9910 ####[facility] [id number] [place], [address] PSA,Total- Diagnosticon 06-1 PSA, DIAGNOSTIC < 0.01 Normal 0.0-4.0 [facility] Comment on above: Result Comment: This test was performed using the TPSA assay method for the [employer] chemistry system. Values obtained with different assay methods cannot be used interchangably. When changing PSA assays in the course of monitoring a patient, additional sequential testing should be carried out to confirm baseline values. Performed By: #### L 501.9940 ####[facility] [facility] [address] [place], [address] CBC W/Diff, Automatedon 06-08 10-2023 Absolute Lymph 1.05 X10 3/uL Normal 0.83-4.51 [facility] Comment on above: Performed By: #### L 100.0100, L506.1000, L500.4050, L501.9520 #### [facility] [address] [place], [address] Absolute Neut 3.9 X10 3/uL Normal 2.0-7.7 [facility] Comment on above: Performed By: #### L 100.0100, L506.1000, L500.4050, L501.9520 #### [facility] [address] [place], [address] Basophils/100 WBC (Bld) 0.9 % Normal 0-1 [facility] Comment on above: Performed By: #### L 100.0100, L506.1000, L500.4050, L501.9520 #### [facility] [address] [place], [address] Eosinophils/100 WBC (Bld) 1.6 % Normal 0-5 [facility] Comment on above: Performed By: #### L 100.0100, L506.1000, L500.4050, L501.9520 #### [facility] [address] [place], [address] Erythrocyte distribution width (RBC) [Ratio] 13.2 % Normal 11.6-14.6 [facility] Comment on above: Performed By: #### L 100.0100, L506.1000, L500.4050, L501.9520 #### [facility] [address] [place], [address] Hematocrit (Bld) [Volume fraction] 48.1 % Normal 40-54 [facility] Comment on above: Performed By: #### L 100.0100, L506.1000, L500.4050, L501.9520 #### [facility] [address] [place], [address] Hemoglobin (Bld) [Mass/Vol] 16.1 g/dL Normal 13.0-16.5 [facility] Comment on above: Performed By: #### L 100.0100, L506.1000, L500.4050, L501.9520 #### [facility] [address] [place], [address] IG% 0.400 Normal 0.0-0.9 [facility] Comment on above: Result Comment: IG% - Immature Granulocytes (promyelocytes, myelocytes and metamyelocytes) > 1% indicates that a LEFT SHIFT is Present. Performed By: #### L 100.0100, L506.1000, L500.4050, L501.9520 #### [facility] [address] [place], [address] Lymphocytes/100 WBC (Bld) 18.9 % Low 19-41 [facility] Comment on above: Performed By: #### L 100.0100, L506.1000, L500.4050, L501.9520 #### [facility] [address] [place], [address] MCH (RBC) [Entitic mass] 32.1 pg High 27.0-32.0 [facility] Comment on above: Performed By: #### L 100.0100, L506.1000, L500.4050, L501.9520 #### [facility] [address] [place], [address] MCHC (RBC) [Mass/Vol] 33.5 g/dL Normal 32-36 [facility] Comment on above: Performed By: #### L 100.0100, L506.1000, L500.4050, L501.9520 #### [facility] [address] [place], [address] MCV (RBC) [Entitic vol] 96.0 fL High 80-94 [facility] Comment on above: Performed By: #### L 100.0100, L506.1000, L500.4050, L501.9520 #### [facility] [address] [place], [address] Monocytes/100 WBC (Bld) 7.7 % Normal 0-10 [facility] Comment on above: Performed By: #### L 100.0100, L506.1000, L500.4050, L501.9520 #### [facility] [address] [place], [address] Neutrophils/100 WBC (Bld) 70.5 % High 47-70 [facility] Comment on above: Performed By: #### L 100.0100, L506.1000, L500.4050, L501.9520 #### [facility] [address] [place], [address] Nucleated RBC (Bld) [#/Vol] 0 10*3/uL Normal 0-5 [facility] Comment on above: Performed By: #### L 100.0100, L506.1000, L500.4050, L501.9520 #### [facility] [address] [place], [address] Platelet mean volume (Bld) [Entitic vol] 10.0 fL Normal 6.2-12.0 [facility] Comment on above: Performed By: #### L 100.0100, L506.1000, L500.4050, L501.9520 #### [facility] [address] [place], [address] Platelets (Bld) [#/Vol] 183 10*3/uL Normal 150-450 [facility] Comment on above: Performed By: #### L 100.0100, L506.1000, L500.4050, L501.9520 #### [facility] [address] [place], [address] RBC (Bld) [#/Vol] 5.01 10*6/uL Normal 4.6-6.2 [facility] Comment on above: Performed By: #### L 100.0100, L506.1000, L500.4050, L501.9520 #### [facility] [address] [place], [address] RDW SD 46.5 fl High 35.1-43.9 [facility] Comment on above: Performed By: #### L 100.0100, L506.1000, L500.4050, L501.9520 #### [facility] [address] [place], [address] WBC (Bld) [#/Vol] 5.6 10*3/uL Normal 4.4-11.0 [facility] Comment on above: Performed By: #### L 100.0100, L506.1000, L500.4050, L501.9520 #### [facility] [address] [place], [address] Comprehensive Metabolic [facility] 01-19-2024 Albumin [Mass/Vol] 3.6 g/dL Normal 3.2-5.0 [facility] Comment on above: Performed By: #### L 100.0100, L506.1000, L500.4050, L501.9520 ####[facility] [address] [place], [address] Albumin/Globulin [Mass ratio] 0.9 {ratio} Normal 0.9-2.4 [facility] Comment on above: Performed By: #### L 100.0100, L506.1000, L500.4050, L501.9520 ####[facility] [address] [place], [address] ALK P 79 U/L Normal 45-117 [facility] Comment on above: Performed By: #### L 100.0100, L506.1000, L500.4050, L501.9520 ####[facility] [address] [place], [address] ALT [Catalytic activity/Vol] 27 U/L Normal 16-61 [facility] Comment on above: Performed By: #### L 100.0100, L506.1000, L500.4050, L501.9520 ####[facility] [address] [place], [address] AST [Catalytic activity/Vol] 16 U/L Normal 15-37 [facility] Comment on above: Performed By: #### L 100.0100, L506.1000, L500.4050, L501.9520 ####[facility] [address] [place], [address] Bilirubin [Mass/Vol] 0.90 mg/dL Normal 0.20-1.00 [facility] Comment on above: Result Comment: For patients on eltrombopag therapy, use of [facility] [place] TBIL is not recommended. Performed By: #### L 100.0100, L506.1000, L500.4050, L501.9520 ####[facility] [address] [place], [address] BUN/CRE 17.1 RATIO Normal 10-20 [facility] Comment on above: Performed By: #### L 100.0100, L506.1000, L500.4050, L501.9520 ####[facility] [address] [place], [address] CA,Total 8.8 mg/dL Normal 8.5-10.1 [facility] Comment on above: Performed By: #### L 100.0100, L506.1000, L500.4050, L501.9520 ####[facility] [address] [place], [address] Chloride [Moles/Vol] 104 mmol/L Normal 98-107 [facility] Comment on above: Performed By: #### L 100.0100, L506.1000, L500.4050, L501.9520 ####[facility] [address] [place], [address] CO2 [Moles/Vol] 27.0 mmol/L Normal 21.0-32.0 [facility] Comment on above: Performed By: #### L 100.0100, L506.1000, L500.4050, L501.9520 ####[facility] [address] [place], [address] Creatinine [Mass/Vol] 0.88 mg/dL Normal 0.70-1.30 [facility] Comment on above: Result Comment: The validity of the calculated GFR GFRAA in patients over 70 years has not been determined. Clinical correlation is essential. Performed By: #### L 100.0100, L506.1000, L500.4050, L501.9520 ####[facility] [address] [place], [address] EST GFR - AA 108 mL/min Normal >60 [facility] Comment on above: Result Comment: Afri can Cypriot GFR Calc Performed By: #### L 100.0100, L506.1000, L500.4050, L501.9520 ####[facility] [address] [place], [address] GAP 8 Normal 5-15 [facility] Comment on above: Performed By: #### L 100.0100, L506.1000, L500.4050, L501.9520 ####[facility] [address] [place], [address] GFR/1.73 sq M.predicted among non-blacks MDRD (S/P/Bld) [Vol rate/Area] 90 mL/min/{1.73_m2} Normal >60 [facility] Comment on above: Result Comment: Non- GFR Calc Performed By: #### L 100.0100, L506.1000, L500.4050, L501.9520 ####[facility] [address] [place], [address] Globulin (S) [Mass/Vol] 4.1 g/dL Normal 2.2-4.2 [facility] Comment on above: Performed By: #### L 100.0100, L506.1000, L500.4050, L501.9520 ####[facility] [address] [place], [address] Glucose [Mass/Vol] 110 mg/dL High 74-106 [facility] Comment on above: Result Comment: Fast ing Glucose result from 100 to 125 mg/dL suggests IMPAIRED HOMEOSTASIS per A.D.A. criteria. Performed By: #### L 100.0100, L506.1000, L500.4050, L501.9520 ####[facility] [address] [place], [address] Potassium [Moles/Vol] 4.3 mmol/L Normal 3.5-5.1 [facility] Comment on above: Performed By: #### L 100.0100, L506.1000, L500.4050, L501.9520 ####[facility] [address] [place], [address] Sodium [Moles/Vol] 139 mmol/L Normal 136-145 [facility] Comment on above: Performed By: #### L 100.0100, L506.1000, L500.4050, L501.9520 ####[facility] [address] [place], [address] T PROT 7.7 g/dL Normal 6.4-8.2 [facility] Comment on above: Performed By: #### L 100.0100, L506.1000, L500.4050, L501.9520 ####[facility] [address] [place], [address] Urea nitrogen [Mass/Vol] 15 mg/dL Normal 7-18 [facility] Comment on above: Performed By: #### L 100.0100, L506.1000, L500.4050, L501.9520 ####[facility] [address] [place], [address] Thyroid Stim Hormone (TSH)on 01-19-2024 TSH 1.10 uIU/mL Normal 0.358-3.74 [facility] Comment on above: Performed By: #### L 100.0100, L506.1000, L500.4050, L501.9520 ####[facility] [address] [place], [address] Vitamin D,25 Hydroxyon 01-18 Vitamin D 25-OH 39.0 ng/mL Normal [facility] Comment on above: Result Comment: Britany min D 25(OH) Status Range Deficiency <20 ng/mL (50nmol/L) Insufficiency 20 - 30 ng/mL (50 - 75 nmol/L) Sufficiency 30 - 100 ng/mL (75 - 250 nmol/L) Toxicity >100 ng/mL (>250 nmol/L) Performed By: #### L 100.0100, L506.1000, L500.4050, L501.9520 ####[facility] [address] [place], [address] 12 Lead [place] [facility] [place] 12 Lead EKG performed by [facility] [address] [place] [address] 12 Lead EKG performed [place] [facility] 01/16/24 0820 MR#: [id number] Acct: [id number] Name: BRENNAN LUIS Rep #: [id number] : 1945 78 From: Brennan Gifford MD Attending Dr: Dr. Brennan Gifford MD Status: DE P AMB Ordering Dr: Brennan Gifford MD Date: 01/16/24 [place] [facility] [place] Sex: M C Ad[place] [facility] Lead [place] [facility] ECG Report Interpretation -----Sinus Rhythm Low voltage in limb leads. 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 Artifact from spinal stimulatorABNORMAL Electronically signed on 01/16/2024 at 12:[address] Brennan Gifford [employer] Software Version 8610 01/16/24 1210 Date Brennan Gifford MD CC: Dr. Eric Smith MD Date Dictated: 01/16/24819 Date Transcribed: 01/16/24819 [employer] Operator: Signed Normal [facility] Cardiology Visit Reporton Cardiology Visit Report [facility] [address] [place] [address] OFFICE VISIT Date of Service: 01/16/24 MR#: [id number] Acct: [id number] Name: BRENNAN LUIS Rep #: [id number] : 1945 Provider: Dr. Brennan almendarez MD Age/Sex: 78/M [place] [facility] [place] Status: Signed [facility] History of Present Illness Details: Mr. Allison comes in today is a pleasant 78-year-old white male that currently resides at assisted living with his . The patient was referred for chest pain. Patient describes his chest discomfort as sharp sticking lasting seconds with no rhyme or reason he cannot figure out any prodrome or any exacerbating or relieving maneuvers. He has a family history of a stroke with his mother in her 80s. He also has a history of hyperlipidemia he does have a known history of peripheral vascular disease his right lower extremity had some type of procedure done for a nonhealing ulcer in the past he had recent ABIs in the left lower extremity was abnormal at 0.92. The patient also has a history of deep venous thrombosis and remains on Xarelto due to some venous insufficiency of his left lower extremity. The patient does not have diabetes he is not has no history of hypertension he has never smoked. His only cardiovascular risk factor is hyperlipidemia with an LDL of 173 on lipids done in January 2023. The patient has not had a remote stress test however he is very active he works out in the gym with light weights, he rides his bicycle which is a trike 6 to 14 miles routinely without restrictions. He is able to go up a flight of stairs with no restrictions and is a primary caregiver for his . The patient does not have any symptoms with his physical activities. EKG in office today shows his spinal stimulator is artifact otherwise he is in normal sinus rhythm with some low voltage, left anterior fascicular block and a heart rate of 64. Intake Vital Signs 12/05/22 13:25 01/16/24 11:33 Height 6 ft 1 in 6 ft 1 in Weight: 225 lb BMI 29.7 BP 130/77 H Blood Pressure Location Lt brachial Position Sitting Respiration 16 Pulse 65 Pulse Source Monitor Pulse Oximetry (%) 96 Oxygen Delivery Method room air Intake Visit Reasons: CP (GONZALO) Scheduling Specialist Required: No Accompanied by: Self Is patient in pain?: No Allergies celecoxib (From Celebrex) Adverse Reaction (Intermediate, Verified 01/16/24 11:33) Other Medications ???Medication ???Instructions ???Recorded ???Confirmed ???Type allopurinol 300 mg tablet 300 mg PO DAILY GOUT 10/29/15 12/29/23 History ascorbic acid (vitamin C) 1,000 mg 1 g PO Q6H 12/05/22 01/16/24 History capsule cholecalciferol (vitamin D3) 50 50 mcg PO DAILY 12/05/22 12/29/23 History mcg/drop (2,000 unit/drop) oral drops (Super Daily D3) lactobacillus combination no.9 4 6,000 mmu cells PO DAILY 12/05/22 01/16/24 History billion cell capsule (Adult 50 Plus Probiotic) mecobalamin (vitamin B12) 1,000 1,000 mcg PO DAILY 12/05/22 01/16/24 History mcg chewable tablet (B12 Active) pantoprazole 40 mg tablet,delayed mg PO 12/05/22 12/29/23 History release citalopram 10 mg tablet 20 mg PO 11/28/23 01/16/24 History rivaroxaban 10 mg tablet (Xarelto) 10 mg PO DAILY 12/29/23 12/29/23 History PFSH Medical History Hyperlipidemia Prostate cancer Polyneuropathy Major depressive disorder Peripheral vascular disease Recurrent deep vein thrombosis (DVT) Esophageal stricture GERD (gastroesophageal reflux disease) Hyperglycemia Chest pain DDD (degenerative disc disease), lumbar Vitamin D deficiency History of melanoma High cholesterol History of cancer Arthritis Environmental allergies Surgical History History of melanoma excision History of shoulder surgery Family History Other CAD (coronary artery disease) Social History Smoking Status: Never smoker alcohol intake: never substance use type: does not use what type of physical activity do you participate in: walking and weight training frequency: 5-6 times per week ROS Const Const: Positive for fatigue; Negative for weakness ENT ENT: Negative for dizziness or balance problems Cardio Chest Pain: Yes Palpitations: No Edema: None Muscle aches with walking: None Resp Respiratory: Negative for SOB with activity, SOB at rest or SOB orthopnea SOB lying down GI GI: Positive for heartburn; Negative nausea or vomiting Musc Musc: Negative for muscle weakness or balance problems Neuro Neuro: Negative for dizziness, lightheadedness, near syncope, s (more content not included)... Normal [facility] Absolute lymphocyte countOrd ered By: Eric Smith on 09-25-2023 Lymphocytes Auto (Unsp spec) [#/Vol] 1.53 10*3/uL 0.83-4.51 [facility] Albumin Elph [Mass/Vol]Order ed By: Eric Smith on 09-25-2023 Albumin [Mass/Vol] 3.9 g/dL 2.9-4.4 [facility] Automated lymphocyte count a s percentage of total leukocytesOrdered By: Eric Smith on 09-25-2023 Lymphocytes/100 WBC Auto (Unsp spec) 23.8 % 19-41 [facility] Basophil percentageOrdered B y: Eric Smith on 09-25-2023 Basophils/100 WBC (Bld) 0.6 % 0-1 [facility] Bilirubin [Mass/Vol] 0.50 mg/dL 0.20-1.00 [facility] Comment on above: For patients on eltr ombopag therapy, use of [facility] [place] TBIL is not recommended. Chloride [Moles/Vol] 107 mmol/L 98-107 [facility] Eosinophils/100 WBC (Bld) 3.0 % 0-5 [facility] Glucose [Mass/Vol] 110 mg/dL 74-106 [facility] Comment on above: Fasting Glucose resu lt from 100 to 125 mg/dL suggests IMPAIRED HOMEOSTASIS per A.D.A. criteria. Hemoglobin (Bld) [Mass/Vol] 17.2 g/dL 13.0-16.5 [facility] Monocytes/100 WBC (Bld) 8.2 % 0-10 [facility] Neutrophils (Bld) [#/Vol] 4.1 10*3/uL 2.0-7.7 [facility] Neutrophils/100 WBC (Bld) 64.1 % 47-70 [facility] Potassium [Moles/Vol] 4.1 mmol/L 3.5-5.1 [facility] Protein [Mass/Vol] 7.7 g/dL 6.4-8.2 [facility] Sodium [Moles/Vol] 139 mmol/L 136-145 [facility] WBC (Bld) [#/Vol] 6.4 10*3/uL 4.4-11.0 [facility] Determination of erythrocyte mean corpuscular volume (MCV)Ordered By: Eric Smith on 09-25-2023 MCV (RBC) [Entitic vol] 96.0 fL 80-94 [facility] Erythrocyte distribution wid th ratioOrdered By: Eric Rubalcavaok on 09-25-2023 Erythrocyte distribution width (RBC) [Ratio] 13.1 % 11.6-14.6 [facility] Erythrocyte distribution wid th standard deviationOrdered By: Eric Smith on 09-25-2023 Erythrocyte distribution width (RBC) [Entitic vol] 46.2 fL 35.1-43.9 [facility] Hematocrit Auto (Bld) [Volum e fraction]Ordered By: Eric Smith on 09-25-2023 Hematocrit (Bld) [Volume fraction] 51.0 % 40-54 [facility] Immature granulocytes/100 WB C Auto (Bld)Ordered By: Eric Smith on 09-25-2023 Immature granulocytes/100 WBC (Bld) 0.300 % 0.0-0.9 [facility] Comment on above: IG% - Immature Granu locytes (promyelocytes, myelocytes and metamyelocytes) > 1% indicates that a LEFT SHIFT is Present. Laboratory - Chemistry and C hemistry - challengeOrdered By: Eric Smith on 09-25-2023 Albumin/Globulin [Mass ratio] 1.0 {ratio} 0.9-2.4 [facility] ALP [Catalytic activity/Vol] 76 U/L 45-117 [facility] ALT [Catalytic activity/Vol] 29 U/L 16-61 [facility] CO2 [Moles/Vol] 29.0 mmol/L 21.0-32.0 [facility] Cobalamin (Vitamin B12) [Mass/Vol] 927 pg/mL 211-911 [facility] Globulin (S) [Mass/Vol] 3.9 g/dL 2.2-4.2 [facility] Urea nitrogen/Creatinine [Mass ratio] 15.5 mg/mg 10-20 [facility] - Hematology and Cell countsOrdered By: Eric Smith on 09-25-2023 MCH (RBC) [Entitic mass] 32.4 pg 27.0-32.0 [facility] MCHC (RBC) [Mass/Vol] 33.7 g/dL 32-36 [facility] Nucleated RBC/100 WBC (Bld) [Ratio] 0 % 0-5 [facility] Platelet mean volume (Bld) [Entitic vol] 9.9 fL 6.2-12.0 [facility] Platelets (Bld) [#/Vol] 196 10*3/uL 150-450 [facility] No Panel InformationOrdered By: Eric Smith on 09-25-2023 Addendum Document Comment . [facility] Comment on above: The SPE pattern appe ars unremarkable. Evidence ofmonoclonal protein is not apparent.Performed at: [facility] [id number] [place], [place] [id number] Director: Mitch Phillips PhD, Phone: [phone] Qropz-6-Szmxhvswi 0.2 g/dL 0.0-0.4 [facility] Eibud-1-Skmwkahye 0.6 g/dL 0.4-1.0 [facility] Estimated GFR (MDRD) Amer 83 mL/min >60 [facility] Comment on above: GFR Calc Estimated GFR (MDRD) Non-Af Amer 69 mL/min >60 [facility] Comment on above: Non- GFR Calc Gamma Globulins 1.2 g/dL 0.4-1.8 [facility] Protein Fractions Elph [Inte rp]Ordered By: Eric Smith on 09-25-2023 Protein Fractions [Interp] Comment . [facility] Comment on above: Protein electrophore sis scan will follow via computer,mail, or fee clerk delivery. RBC Auto (Bld) [#/Vol]Ordere d By: Eric Smith on 09-25-2023 RBC (Bld) [#/Vol] 5.31 10*6/uL 4.6-6.2 [facility] [place] Serum albumin to globulin ra britney by protein electrophoresisOrdered By: Eric Smith 09-25-2023 Albumin/Globulin Elph [Mass ratio] 1.2 0.7-1.7 [facility] Serum globulin measurement ( mass/volume)Ordered By: Eric Smith 09-25-2023 Globulin (S) [Mass/Vol] 3.2 g/dL 2.2-3.9 [facility] Serum or plasma beta globuli n measurement by electrophoresis (mass/volume)Ordered By: Eric Smith on 09-25-2023 Beta globulin Elph [Mass/Vol] 1.2 g/dL 0.7-1.3 [facility] Serum or plasma calcium bienvenido urement (mass/volume)Ordered By: Eric Smith on 09-25-2023 Calcium [Mass/Vol] 9.3 mg/dL 8.5-10.1 [facility] Serum or plasma creatinine m easurement (mass/volume)Ordered By: Eric Smith 09-25-2023 Creatinine [Mass/Vol] 1.10 mg/dL 0.70-1.30 [facility] Comment on above: The validity of the calculated GFR & GFRAA in patients over 70 years has not been determined. Clinical correlation is essential. Serum or plasma protein mono clonal measurement by electrophoresis (mass/volume)Ordered By: Eric Smith on 09-25-2023 Protein.monoclonal Elph [Mass/Vol] Not Observed g/dL Not Observed [facility] Serum or plasma thyroid stim ulating hormone (TSH) measurement (units/volume)Ordered By: Eric Smith on 09-25-2023 TSH Qn 1.95 uIU/mL 0.358-3.74 [facility] Serum or plasma urea nitroge n measurement (mass/volume)Ordered By: Eric Smith on 09-25-2023 Urea nitrogen [Mass/Vol] 17 mg/dL 7-18 [facility] Thin prep Papanicolaou smear with manual screeningOrdered By: [facility] Gonzalo on 09-25-2023 Thin prep Papanicolaou smear with manual screening 3.8 g/dL 3.2-5.0 [facility] Thin prep Papanicolaou smear with manual screening 17 U/L 15-37 [facility] Thin prep Papanicolaou smear with manual screening 3 5-15 [facility] Total protein bloodOrdered B y: Eric Smith on 09-25-2023 Protein [Mass/Vol] 7.1 g/dL 6.0-8.5 [facility] Absolute lymphocyte countOrd ered By: Eric Smith on 07-17-2023 Lymphocytes Auto (Unsp spec) [#/Vol] 1.37 10*3/uL 0.83-4.51 [facility] Basophil percentageOrdered B y: Eric Smith on 07-17-2023 Basophils/100 WBC (Bld) 1.0 % 0-1 [facility] Bilirubin [Mass/Vol] 0.50 mg/dL 0.20-1.00 [facility] Comment on above: For patients on eltr ombopag therapy, use of [facility] [place] TBIL is not recommended. Chloride [Moles/Vol] 106 mmol/L 98-107 [facility] Eosinophils/100 WBC (Bld) 2.3 % 0-5 [facility] Glucose [Mass/Vol] 128 mg/dL 74-106 [facility] Comment on above: Fasting Glucose resu lt greater than or equal to 126 mg/dL suggests DIABETES MELLITUS per A.D.A. criteria. Neutrophils (Bld) [#/Vol] 3.2 10*3/uL 2.0-7.7 [facility] Neutrophils/100 WBC (Bld) 61.9 % 47-70 [facility] Potassium [Moles/Vol] 4.2 mmol/L 3.5-5.1 [facility] Protein [Mass/Vol] 7.7 g/dL 6.4-8.2 [facility] Sodium [Moles/Vol] 139 mmol/L 136-145 [facility] WBC (Bld) [#/Vol] 5.1 10*3/uL 4.4-11.0 [facility] Blood erythrocytes count (nu mber/volume)Ordered By: Eric Smith on 07-17-2023 RBC (Bld) [#/Vol] 5.34 10*6/uL 4.6-6.2 [facility] Blood hemoglobin measurement (mass/volume)Ordered By: Eric Smith on 07-17-2023 Hemoglobin (Bld) [Mass/Vol] 16.8 g/dL 13.0-16.5 [facility] Blood lymphocytes/100 leukoc ytesOrdered By: Eric Smith on 07-17-2023 Lymphocytes/100 WBC (Bld) 26.8 % 19-41 [facility] Blood monocytes/100 leukocyt esOrdered By: Eric Smith on 07-17-2023 Monocytes/100 WBC (Bld) 7.8 % 0-10 [facility] Blood platelet mean volumeOr dered By: Eric Smith on 07-17-2023 Platelet mean volume (Bld) [Entitic vol] 10.3 fL 6.2-12.0 [facility] Determination of erythrocyte mean corpuscular volume (MCV)Ordered By: Eric Smith on 07-17-2023 MCV (RBC) [Entitic vol] 97.4 fL 80-94 [facility] Hematocrit Auto (Bld) [Volum e fraction]Ordered By: Eric Smith on 07-17-2023 Hematocrit (Bld) [Volume fraction] 52.0 % 40-54 [facility] - Chemistry and C hemistry - challengeOrdered By: Eric Smith on 07-17-2023 ALP [Catalytic activity/Vol] 77 U/L 45-117 [facility] ALT [Catalytic activity/Vol] 30 U/L 16-61 [facility] CO2 [Moles/Vol] 27.0 mmol/L 21.0-32.0 [facility] Globulin (S) [Mass/Vol] 4.1 g/dL 2.2-4.2 [facility] Urea nitrogen/Creatinine [Mass ratio] 13.5 mg/mg 10-20 [facility] - Hematology and Cell countsOrdered By: Eric Smith on 07-17-2023 Erythrocyte distribution width (RBC) [Entitic vol] 46.5 fL 35.1-43.9 [facility] Erythrocyte distribution width (RBC) [Ratio] 13.2 % 11.6-14.6 [facility] Immature granulocytes/100 WBC (Bld) 0.200 % 0.0-0.9 [facility] Comment on above: IG% - Immature Granu locytes (promyelocytes, myelocytes and metamyelocytes) > 1% indicates that a LEFT SHIFT is Present. MCH (RBC) [Entitic mass] 31.5 pg 27.0-32.0 [facility] Nucleated RBC/100 WBC (Bld) [Ratio] 0 % 0-5 [facility] MCHC Auto (RBC) [Mass/Vol]Or dered By: Eric Smith on 07-17-2023 MCHC (RBC) [Mass/Vol] 32.3 g/dL 32-36 [facility] No Panel InformationOrdered By: Eric Smith on 07-17-2023 Estimated GFR (MDRD) Amer 89 mL/min >60 [facility] Comment on above: GFR Calc Estimated GFR (MDRD) Non-Af Amer 74 mL/min >60 [facility] Comment on above: Non- GFR Calc Thyroid Stimulating Hormone (TSH) 1.98 uIU/mL 0.358-3.74 [facility] Vitamin D 25-Hydroxy 35.3 ng/mL [facility] Comment on above: Vitamin D 25(OH) Sta tus Range Deficiency <20 ng/mL (50nmol/L) Insufficiency 20 - 30 ng/mL (50 - 75 nmol/L) Sufficiency 30 - 100 ng/mL (75 - 250 nmol/L) Toxicity >100 ng/mL (>250 nmol/L) Platelets bldOrdered By: Eric Smith on 07-17-2023 Platelets (Bld) [#/Vol] 189 10*3/uL 150-450 [facility] Serum or plasma albumin bienvenido urement (mass/volume)Ordered By: Eric Smith on 07-17-2023 Albumin [Mass/Vol] 3.6 g/dL 3.2-5.0 [facility] Serum or plasma albumin/glob ulin mass ratioOrdered By: Eric Smith on 07-17-2023 Albumin/Globulin [Mass ratio] 0.9 {ratio} 0.9-2.4 [facility] Serum or plasma calcium bienvenido urement (mass/volume)Ordered By: Eric Smith 07-17-2023 Calcium [Mass/Vol] 9.2 mg/dL 8.5-10.1 [facility] Serum or plasma creatinine m easurement (mass/volume)Ordered By: Eric Smith on 07-17-2023 Creatinine [Mass/Vol] 1.04 mg/dL 0.70-1.30 [facility] Comment on above: The validity of the calculated GFR & GFRAA in patients over 70 years has not been determined. Clinical correlation is essential. Serum or plasma urea nitroge n measurement (mass/volume)Ordered By: Eric Smith on 07-17-2023 Urea nitrogen [Mass/Vol] 14 mg/dL 7-18 [facility] Thin prep Papanicolaou smear with manual screeningOrdered By: Eric Smith 07-17-2023 Thin prep Papanicolaou smear with manual screening 15 U/L 15-37 [facility] Thin prep Papanicolaou smear with manual screening 6 5-15 [facility] No Panel InformationOrdered By: Sergio Soni on 07-14-2023 Prostate Specific Antigen Total < 0.01 ng/mL 0.0-4.0 [facility] Comment on above: This test was perfor med using the TPSA assay method for the[employer] chemistry system. Values obtained with differentassay methods cannot be used interchangably.When changing PSA assays in the course of monitoring apatient, additional sequential testing should be carriedout to confirm baseline values. No Panel InformationOrdered By: Dr. Soni on 01-16-2023 Prostate Specific Antigen Total < 0.01 ng/mL 0.0-4.0 [facility] Comment on above: This test was perfor med using the TPSA assay method for the[employer] chemistry system. Values obtained with differentassay methods cannot be used interchangably.When changing PSA assays in the course of monitoring apatient, additional sequential testing should be carriedout to confirm baseline values. Absolute lymphocyte countOrd ered By: Dr. Smith on 01-10-2023 Lymphocytes Auto (Unsp spec) [#/Vol] 0.96 10*3/uL 0.83-4.51 [facility] Basophil percentageOrdered B y: Dr. Smith on 01-10-2023 Basophils/100 WBC (Bld) 0.7 % 0-1 [facility] Bilirubin [Mass/Vol] 0.90 mg/dL 0.20-1.00 [facility] Comment on above: For patients on eltr ombopag therapy, use of [facility] [facility] TBIL is not recommended. Chloride [Moles/Vol] 108 mmol/L 98-107 [facility] Cholesterol [Mass/Vol] 231 mg/dL <200 [facility] Comment on above: <200 mg/dL Desirable 200-240 mg/dL Borderline >240 mg/dL High Risk Eosinophils/100 WBC (Bld) 1.6 % 0-5 [facility] Glucose [Mass/Vol] 102 mg/dL 74-106 [facility] Comment on above: Fasting Glucose resu lt from 100 to 125 mg/dL suggests IMPAIRED HOMEOSTASIS per A.D.A. criteria. Neutrophils (Bld) [#/Vol] 4.1 10*3/uL 2.0-7.7 [facility] Neutrophils/100 WBC (Bld) 73.8 % 47-70 [facility] Potassium [Moles/Vol] 3.9 mmol/L 3.5-5.1 [facility] Protein [Mass/Vol] 7.4 g/dL 6.4-8.2 [facility] Sodium [Moles/Vol] 138 mmol/L 136-145 [facility] Triglyceride [Mass/Vol] 89 mg/dL <199 [facility] Comment on above: The drugs N-Acetylcy steine and Metamizole may falsely depress this assay.Serum Triglycerides Reference Interval Normal <150 mg/dL Borderline high 150 - 199 mg/dL High 200 - 499 mg/dL Very High > or = 500 mg/dL WBC (Bld) [#/Vol] 5.6 10*3/uL 4.4-11.0 [facility] Blood erythrocytes count (nu mber/volume)Ordered By: Dr. Smith on 01-10-2023 RBC (Bld) [#/Vol] 5.19 10*6/uL 4.6-6.2 [facility] Blood hemoglobin measurement (mass/volume)Ordered By: Dr. Smith on 01-10-2023 Hemoglobin (Bld) [Mass/Vol] 16.6 g/dL 13.0-16.5 [facility] Blood lymphocytes/100 leukoc ytesOrdered By: Dr. Smith on 01-10-2023 Lymphocytes/100 WBC (Bld) 17.2 % 19-41 [facility] Blood monocytes/100 leukocyt esOrdered By: Dr. Smith on 01-10-2023 Monocytes/100 WBC (Bld) 6.3 % 0-10 [facility] Blood platelet mean volumeOr dered By: Dr. Smith on 01-10-2023 Platelet mean volume (Bld) [Entitic vol] 10.6 fL 6.2-12.0 [facility] Determination of erythrocyte mean corpuscular volume (MCV)Ordered By: Dr. Smith on 01-10-2023 MCV (RBC) [Entitic vol] 96.7 fL 80-94 [facility] Hematocrit Auto (Bld) [Volum e fraction]Ordered By: Dr. Smith on 01-10-2023 Hematocrit (Bld) [Volume fraction] 50.2 % 40-54 [facility] - Chemistry and C hemistry - challengeOrdered By: Dr. Smith on 01-10-2023 ALP [Catalytic activity/Vol] 80 U/L 45-117 [facility] ALT [Catalytic activity/Vol] 25 U/L 16-61 [facility] CO2 [Moles/Vol] 26.0 mmol/L 21.0-32.0 [facility] Globulin (S) [Mass/Vol] 3.7 g/dL 2.2-4.2 [facility] Urea nitrogen/Creatinine [Mass ratio] 17.9 mg/mg 10-20 [facility] - Hematology and Cell countsOrdered By: Dr. Smith on 01-10-2023 Erythrocyte distribution width (RBC) [Entitic vol] 46.5 fL 35.1-43.9 [facility] Erythrocyte distribution width (RBC) [Ratio] 13.0 % 11.6-14.6 [facility] Immature granulocytes/100 WBC (Bld) 0.400 % 0.0-0.9 [facility] Comment on above: IG% - Immature Granu locytes (promyelocytes, myelocytes and metamyelocytes) > 1% indicates that a LEFT SHIFT is Present. MCH (RBC) [Entitic mass] 32.0 pg 27.0-32.0 [facility] Nucleated RBC/100 WBC (Bld) [Ratio] 0 % 0-5 [facility] MCHC Auto (RBC) [Mass/Vol]Or dered By: Dr. Smith on 01-10-2023 MCHC (RBC) [Mass/Vol] 33.1 g/dL 32-36 [facility] No Panel InformationOrdered By: Dr. Smith on 01-10-2023 Estimated GFR (MDRD) Amer 106 mL/min >60 [facility] Comment on above: GFR Calc Estimated GFR (MDRD) Non-Af Amer 88 mL/min >60 [facility] Comment on above: Non- GFR Calc Thyroid Stimulating Hormone (TSH) 1.43 uIU/mL 0.358-3.74 [facility] Vitamin D 25-Hydroxy 46.7 ng/mL [facility] Comment on above: Vitamin D 25(OH) Sta tus Range Deficiency <20 ng/mL (50nmol/L) Insufficiency 20 - 30 ng/mL (50 - 75 nmol/L) Sufficiency 30 - 100 ng/mL (75 - 250 nmol/L) Toxicity >100 ng/mL (>250 nmol/L) Platelets bldOrdered By: Dr. Smith on 01-10-2023 Platelets (Bld) [#/Vol] 176 10*3/uL 150-450 [facility] Serum or plasma albumin bienvenido urement (mass/volume)Ordered By: Dr. Smith on 01-10-2023 Albumin [Mass/Vol] 3.7 g/dL 3.2-5.0 [facility] Serum or plasma albumin/glob ulin mass ratioOrdered By: Dr. Smith on 01-10-2023 Albumin/Globulin [Mass ratio] 1.0 {ratio} 0.9-2.4 [facility] Serum or plasma calcium bienvenido urement (mass/volume)Ordered By: Dr. Smith on 01-10-2023 Calcium [Mass/Vol] 8.5 mg/dL 8.5-10.1 [facility] Serum or plasma cholesterol in HDL measurement (mass/volume)Ordered By: Dr. Smith on 01-10-2023 Cholesterol in HDL [Mass/Vol] 40 mg/dL >40 [facility] Comment on above: The drugs N-Acetylcy steine and Metamizole may falsely depress this assay. Reference Range HDL <40 mg/dL Low HDL Cholesterol HDL >or= 60 mg/dL High HDL Cholesterol Serum or plasma cholesterol in VLDL measurement (mass/volume)Ordered By: Dr. Smith on 01-10-2023 Cholesterol in VLDL [Mass/Vol] 18 mg/dL 5-40 [facility] Serum or plasma creatinine m easurement (mass/volume)Ordered By: Dr. Smith on 01-10-2023 Creatinine [Mass/Vol] 0.90 mg/dL 0.70-1.30 [facility] Comment on above: The validity of the calculated GFR & GFRAA in patients over 70 years has not been determined. Clinical correlation is essential. Serum or plasma low density lipoprotein (LDL) cholesterol measurement (mass/volume)Ordered By: Dr. Smith on 01-10-2023 Cholesterol in LDL [Mass/Vol] 173 mg/dL 0-130 [facility] Serum or plasma urea nitroge n measurement (mass/volume)Ordered By: Dr. Smith on 01-10-2023 Urea nitrogen [Mass/Vol] 16 mg/dL 7-18 [facility] Thin prep Papanicolaou smear with manual screeningOrdered By: Dr. Smith on 01-10-2023 Thin prep Papanicolaou smear with manual screening 20 U/L 15-37 [facility] Thin prep Papanicolaou smear with manual screening 4 5-15 [facility] No Panel Informationon 07-13 Prostate Specific Antigen Total < 0.01 ng/mL 0.0-4.0 [facility] Work Phone: Comment on above: This test was perfor med using the TPSA assay method for [employer] chemistry system. Values obtained with differentassay methods cannot be used interchangably.When changing PSA assays in the course of monitoring apatient, additional sequential testing should be carriedout to confirm baseline values. Absolute lymphocyte counton 07-06-2022 Lymphocytes Auto (Unsp spec) [#/Vol] 1.26 10*3/uL 0.83-4.51 [facility] Work Phone: Basophil percentageon 2021 Basophils/100 WBC (Bld) 0.9 % 0-1 [facility] Work Phone: Bilirubin [Mass/Vol] 0.70 mg/dL 0.20-1.00 [facility] Work Phone: Comment on above: For patients on eltr ombopag therapy, use of [facility] [place] TBIL is not recommended. Chloride [Moles/Vol] 108 mmol/L 98-107 [facility] Work Phone: Eosinophils/100 WBC (Bld) 1.3 % 0-5 [facility] Work Phone: Glucose [Mass/Vol] 84 mg/dL 74-106 [facility] Work Phone: Neutrophils (Bld) [#/Vol] 3.6 10*3/uL 2.0-7.7 [facility] Work Phone: Neutrophils/100 WBC (Bld) 67.0 % 47-70 [facility] Work Phone: Potassium [Moles/Vol] 4.3 mmol/L 3.5-5.1 [facility] Work Phone: Protein [Mass/Vol] 7.1 g/dL 6.4-8.2 [facility] Work Phone: [phone] Sodium [Moles/Vol] 143 mmol/L 136-145 [facility] Work [phone] WBC (Bld) [#/Vol] 5.4 10*3/uL 4.4-11.0 [facility] Work Phone: [phone] Blood erythrocytes count (nu mber/volume)on 07-06-2022 RBC (Bld) [#/Vol] 5.15 10*6/uL 4.6-6.2 [facility] [place] Work Phone: [phone] Blood hemoglobin measurement (mass/volume)on 07-06-2022 Hemoglobin (Bld) [Mass/Vol] 16.7 g/dL 13.0-16.5 [facility] Work Phone: [phone] Blood lymphocytes/100 leukoc yteson 07-06-2022 Lymphocytes/100 WBC (Bld) 23.5 % 19-41 [facility] Work Phone: [phone] Blood monocytes/100 leukocyt eson 07-06-2022 Monocytes/100 WBC (Bld) 6.9 % 0-10 [facility] Work Phone: [phone] Blood platelet mean volumeon 07-06-2022 Platelet mean volume (Bld) [Entitic vol] 10.2 fL 6.2-12.0 [facility] Work Phone: [phone] Determination of erythrocyte mean corpuscular volume (MCV)on 07-06-2022 MCV (RBC) [Entitic vol] 99.8 fL 80-94 [facility] Work Phone: Hematocrit Auto (Bld) [Volum e fraction]on 07-06-2022 Hematocrit (Bld) [Volume fraction] 51.4 % 40-54 [facility] Work Phone: Laboratory - Chemistry and C hemistry - challengeon 07-06-2022 ALP [Catalytic activity/Vol] 73 U/L 45-117 [facility] Work Phone: ALT [Catalytic activity/Vol] 27 U/L 16-61 [facility] Work Phone: [phone] CO2 [Moles/Vol] 30.0 mmol/L 21.0-32.0 [facility] Work Phone: [phone] Globulin (S) [Mass/Vol] 3.6 g/dL 2.2-4.2 [facility] Work Phone: [phone] Urea nitrogen/Creatinine [Mass ratio] 16.5 mg/mg 10-20 [facility] Work Phone: [phone] Laboratory - Hematology and Cell countson 07-06-2022 Erythrocyte distribution width (RBC) [Entitic vol] 49.5 fL 35.1-43.9 [facility] Work Phone: [phone] Erythrocyte distribution width (RBC) [Ratio] 13.3 % 11.6-14.6 [facility] Work Phone: [phone] Immature granulocytes/100 WBC (Bld) 0.400 % 0.0-0.9 [facility] Work Phone: [phone] Comment on above: IG% - Immature Granu locytes (promyelocytes, myelocytes and metamyelocytes) > 1% indicates that a LEFT SHIFT is Present. MCH (RBC) [Entitic mass] 32.4 pg 27.0-32.0 [facility] Work Phone: [phone] Nucleated RBC/100 WBC (Bld) [Ratio] 0 % 0-5 [facility] Work Phone: [phone] MCHC Auto (RBC) [Mass/Vol]on 07-06-2022 MCHC (RBC) [Mass/Vol] 32.5 g/dL 32-36 [facility] Work Phone: [phone] Panel Informationon 07-06 Estimated GFR (MDRD) Amer 90 mL/min >60 [facility] Work Phone: [phone] Comment on above: GFR Calc Estimated GFR (MDRD) Non-Af Amer 75 mL/min >60 [facility] Work Phone: [phone] Comment on above: Non- GFR Calc Thyroid Stimulating Hormone (TSH) 1.24 uIU/mL 0.358-3.74 [facility] Work Phone: Vitamin D 25-Hydroxy 35.4 ng/mL [facility] Work Phone: Comment on above: Vitamin D 25(OH) Sta tus Range Deficiency <20 ng/mL (50nmol/L) Insufficiency 20 - 30 ng/mL (50 - 75 nmol/L) Sufficiency 30 - 100 ng/mL (75 - 250 nmol/L) Toxicity >100 ng/mL (>250 nmol/L) Platelets bldon 07-06-2022 Platelets (Bld) [#/Vol] 187 10*3/uL 150-450 [facility] Work Phone: Serum or plasma albumin bievnenido urement (mass/volume)on 07-06-2022 Albumin [Mass/Vol] 3.5 g/dL 3.2-5.0 [facility] Work Phone: Serum or plasma albumin/glob ulin mass ratioon 07-06-2022 Albumin/Globulin [Mass ratio] 1.0 {ratio} 0.9-2.4 [facility] Work Phone: Serum or plasma calcium bienvenido urement (mass/volume)on 07-06-2022 Calcium [Mass/Vol] 8.5 mg/dL 8.5-10.1 [facility] Work Phone: Serum or plasma creatinine m easurement (mass/volume)on 07-06-2022 Creatinine [Mass/Vol] 1.03 mg/dL 0.70-1.30 [facility] Work Phone: Comment on above: The validity of the calculated GFR & GFRAA in patients over 70 years has not been determined. Clinical correlation is essential. Serum or plasma urea nitroge n measurement (mass/volume)on 07-06-2022 Urea nitrogen [Mass/Vol] 17 mg/dL 7-18 [facility] Work Phone: Thin prep Papanicolaou smear with manual screeningon 07-06-2022 Thin prep Papanicolaou smear with manual screening 12 U/L 15-37 [facility] Work Phone: Thin prep Papanicolaou smear with manual screening 5 5-15 [facility] Work Phone: No Panel Informationon 01-11 Prostate Specific Antigen Total < 0.01 ng/mL 0.0-4.0 [facility] Work Phone: Comment on above: This test was perfor med using the TPSA assay method for [employer] chemistry system. Values obtained with differentassay methods cannot be used interchangably.When changing PSA assays in the course of monitoring apatient, additional sequential testing should be carriedout to confirm baseline values. Absolute lymphocyte counton 01-05-2022 Lymphocytes Auto (Unsp spec) [#/Vol] 1.36 10*3/uL 0.83-4.51 [facility] Work Phone: Basophil percentageon 2021 Basophils/100 WBC (Bld) 0.8 % 0-1 [facility] Work Phone: Bilirubin [Mass/Vol] 0.40 mg/dL 0.20-1.00 [facility] Work Phone: Comment on above: For patients on eltr ombopag therapy, use of [facility] [facility] TBIL is not recommended. Chloride [Moles/Vol] 106 mmol/L 98-107 [facility] Work Phone: Eosinophils/100 WBC (Bld) 2.3 % 0-5 [facility] Work Phone: Glucose [Mass/Vol] 96 mg/dL 74-106 [facility] Work Phone: Neutrophils (Bld) [#/Vol] 3.3 10*3/uL 2.0-7.7 [facility] Work Phone: Neutrophils/100 WBC (Bld) 62.1 % 47-70 [facility] Work Phone: Potassium [Moles/Vol] 4.2 mmol/L 3.5-5.1 [facility] Work Phone: Protein [Mass/Vol] 7.4 g/dL 6.4-8.2 [facility] Work Phone: [phone] Sodium [Moles/Vol] 139 mmol/L 136-145 [facility] Work Phone: [phone] Testosterone [Mass/Vol] 610.12 ng/dL [facility] Work Phone: Comment on above: CENTRAL 90% REFERENC E RANGES MALE AGE <50 197.44 - 669.58 ng/dL MALE AGE > or = 50 187.72 - 684.19 ng/dL FEMALE AGE <50 8.38 - 35.01 ng/dL FEMALE AGE > or = 50 <7.00 - 35.92 ng/dL Effective as of 03/02/21 WBC (Bld) [#/Vol] 5.3 10*3/uL 4.4-11.0 [facility] Work Phone: [phone] Blood erythrocytes count (nu mber/volume)on 01-05-2022 RBC (Bld) [#/Vol] 5.04 10*6/uL 4.6-6.2 [facility] [place] Work Phone: [phone] Blood hemoglobin measurement (mass/volume)on 01-05-2022 Hemoglobin (Bld) [Mass/Vol] 16.4 g/dL 13.0-16.5 [facility] Work Phone: Blood lymphocytes/100 leukoc yteson 01-05-2022 Lymphocytes/100 WBC (Bld) 25.6 % 19-41 [facility] Work Phone: [phone] Blood monocytes/100 leukocyt eson 01-05-2022 Monocytes/100 WBC (Bld) 9.0 % 0-10 [facility] Work Phone: [phone] Blood platelet mean volumeon 01-05-2022 Platelet mean volume (Bld) [Entitic vol] 9.7 fL 6.2-12.0 [facility] Work Phone: [phone] Determination of erythrocyte mean corpuscular volume (MCV)on 01-05-2022 MCV (RBC) [Entitic vol] 96.6 fL 80-94 [facility] Work Phone: [phone] Hematocrit Auto (Bld) [Volum e fraction]on 01-05-2022 Hematocrit (Bld) [Volume fraction] 48.7 % 40-54 [facility] Work Phone: [phone] Laboratory - Chemistry and C hemistry - challengeon 01-05-2022 ALP [Catalytic activity/Vol] 81 U/L 45-117 [facility] Work Phone: [phone] ALT [Catalytic activity/Vol] 28 U/L 16-61 [facility] Work Phone: [phone] CO2 [Moles/Vol] 27.0 mmol/L 21.0-32.0 [facility] Work Phone: [phone] Globulin (S) [Mass/Vol] 3.9 g/dL 2.2-4.2 [facility] Work Phone: [phone] Urea nitrogen/Creatinine [Mass ratio] 14.7 mg/mg 10-20 [facility] Work Phone: [phone] Laboratory - Hematology and Cell countson 01-05-2022 Erythrocyte distribution width (RBC) [Entitic vol] 46.0 fL 35.1-43.9 [facility] Work Phone: [phone] Erythrocyte distribution width (RBC) [Ratio] 13.1 % 11.6-14.6 [facility] Work Phone: [phone] Immature granulocytes/100 WBC (Bld) 0.200 % 0.0-0.9 [facility] Work Phone: [phone] Comment on above: IG% - Immature Granu locytes (promyelocytes, myelocytes and metamyelocytes) > 1% indicates that a LEFT SHIFT is Present. MCH (RBC) [Entitic mass] 32.5 pg 27.0-32.0 [facility] Work Phone: [phone] Nucleated RBC/100 WBC (Bld) [Ratio] 0 % 0-5 [facility] Work Phone: [phone] MCHC Auto (RBC) [Mass/Vol]on 01-05-2022 MCHC (RBC) [Mass/Vol] 33.7 g/dL 32-36 [facility] Work Phone: No Panel Informationon 01-05 Estimated GFR (MDRD) Amer 91 mL/min >60 [facility] Work Phone: Comment on above: GFR Calc Estimated GFR (MDRD) Non-Af Amer 76 mL/min >60 [facility] Work Phone: [phone] Comment on above: Non- GFR Calc Thyroid Stimulating Hormone (TSH) 1.54 uIU/mL 0.358-3.74 [facility] Work Phone: [phone] Vitamin D 25-Hydroxy 37.9 ng/mL [facility] Work Phone: [phone] Comment on above: Vitamin D 25(OH) Sta tus Range Deficiency <20 ng/mL (50nmol/L) Insufficiency 20 - 30 ng/mL (50 - 75 nmol/L) Sufficiency 30 - 100 ng/mL (75 - 250 nmol/L) Toxicity >100 ng/mL (>250 nmol/L) Platelets bldon 01-05-2022 Platelets (Bld) [#/Vol] 203 10*3/uL 150-450 [facility] Work Phone: [phone] Serum or plasma albumin bienvenido urement (mass/volume)on 01-05-2022 Albumin [Mass/Vol] 3.5 g/dL 3.2-5.0 [facility] Work Phone: [phone] Serum or plasma albumin/glob ulin mass ratioon 01-05-2022 Albumin/Globulin [Mass ratio] 0.9 {ratio} 0.9-2.4 [facility] Work Phone: [phone] Serum or plasma calcium bienvenido urement (mass/volume)on 01-05-2022 Calcium [Mass/Vol] 8.5 mg/dL 8.5-10.1 [facility] Work Phone: [phone] Serum or plasma creatinine m easurement (mass/volume)on 01-05-2022 Creatinine [Mass/Vol] 1.02 mg/dL 0.70-1.30 [facility] Work Phone: Comment on above: The validity of the calculated GFR & GFRAA in patients over 70 years has not been determined. Clinical correlation is essential. Serum or plasma urea nitroge n measurement (mass/volume)on 01-05-2022 Urea nitrogen [Mass/Vol] 15 mg/dL 7-18 [facility] Work Phone: Thin prep Papanicolaou smear with manual screeningon 01-05-2022 Thin prep Papanicolaou smear with manual screening 16 U/L 15-37 [facility] Work Phone: Thin prep Papanicolaou smear with manual screening 6 5-15 [facility] Work Phone: Absolute lymphocyte counton 08-05-2021 Lymphocytes Auto (Unsp spec) [#/Vol] 1.19 10*3/uL 0.83-4.51 [facility] Work Phone: Basophil percentageon 2020 Bilirubin [Mass/Vol] 0.70 mg/dL 0.20-1.00 [facility] Work Phone: Comment on above: For patients on eltr ombopag therapy, use of [facility] TBIL is not recommended. Chloride [Moles/Vol] 108 mmol/L 98-107 [facility] Work Phone: Eosinophils/100 WBC (Bld) 2.5 % 0-5 [facility] Work Phone: Glucose [Mass/Vol] 95 mg/dL 74-106 [facility] Work Phone: Comment on above: Please note revised GLUCOSE reference range effective 2017. Neutrophils (Bld) [#/Vol] 3.8 10*3/uL 2.0-7.7 [facility] Work Phone: Potassium [Moles/Vol] 3.9 mmol/L 3.5-5.1 [facility] Work Phone: [phone] Protein [Mass/Vol] 7.6 g/dL 6.4-8.2 [facility] Work Phone: Sodium [Moles/Vol] 141 mmol/L 136-145 [facility] Work Phone: [phone] WBC (Bld) [#/Vol] 5.7 10*3/uL 4.4-11.0 [facility] Work Phone: [phone] Blood erythrocytes count (nu mber/volume)on 08-05-2021 RBC (Bld) [#/Vol] 5.35 10*6/uL 4.6-6.2 [facility]: [phone] Blood hemoglobin measurement (mass/volume)on 08-05-2021 Hemoglobin (Bld) [Mass/Vol] 17.2 g/dL 13.0-16.5 [facility] Work Phone: [phone] Blood lymphocytes/100 leukoc yteson 08-05-2021 Lymphocytes/100 WBC (Bld) 20.9 % 19-41 [facility] Work Phone: [phone] Blood monocytes/100 leukocyt eson 08-05-2021 Monocytes/100 WBC (Bld) 8.1 % 0-10 [facility] Work Phone: [phone] Blood platelet mean volumeon 08-05-2021 Platelet mean volume (Bld) [Entitic vol] 10.2 fL 6.2-12.0 [facility] Work Phone: [phone] Determination of erythrocyte mean corpuscular volume (MCV)on 08-05-2021 MCV (RBC) [Entitic vol] 95.0 fL 80-94 [facility] Work Phone: [phone] Hematocrit Auto (Bld) [Volum e fraction]on 08-05-2021 Hematocrit (Bld) [Volume fraction] 50.8 % 40-54 [facility] Work Phone: [phone] Laboratory - Chemistry and C hemistry - challengeon 08-05-2021 ALP [Catalytic activity/Vol] 82 U/L 45-117 [facility] Work Phone: [phone] ALT [Catalytic activity/Vol] 34 U/L 16-61 [facility] Work Phone: CO2 [Moles/Vol] 28.0 mmol/L 21.0-32.0 [facility] Work Phone: [phone] Globulin (S) [Mass/Vol] 4.1 g/dL 2.2-4.2 [facility] Work Phone: [phone] Urea nitrogen/Creatinine [Mass ratio] 17.3 mg/mg 10-20 [facility] Work Phone: [phone] Laboratory - Hematology and Cell countson 08-05-2021 Basophils/100 WBC (Unsp spec) 0.7 % 0-1 [facility] Work Phone: [phone] Erythrocyte distribution width (RBC) [Entitic vol] 45.3 fL 35.1-43.9 [facility] Work Phone: [phone] Erythrocyte distribution width (RBC) [Ratio] 13.0 % 11.6-14.6 [facility] Work Phone: [phone] Immature granulocytes/100 WBC (Bld) 0.400 % 0.0-0.9 [facility] Work Phone: [phone] Comment on above: IG% - Immature Granu locytes (promyelocytes, myelocytes and metamyelocytes) > 1% indicates that a LEFT SHIFT is Present. MCH (RBC) [Entitic mass] 32.1 pg 27.0-32.0 [facility] Work Phone: Neutrophils/100 WBC (Bld) 67.4 % 47-70 [facility] Work Phone: [phone] Nucleated RBC/100 WBC (Bld) [Ratio] 0 % 0-5 [facility] Work Phone: [phone] MCHC Auto (RBC) [Mass/Vol]on 08-05-2021 MCHC (RBC) [Mass/Vol] 33.9 g/dL 32-36 [facility] Work Phone: No Panel Informationon 08-05 Estimated GFR (MDRD) Amer 102 mL/min >60 [facility] Work Phone: [phone] Comment on above: GFR Calc Estimated GFR (MDRD) Non-Af Amer 85 mL/min >60 [facility] Work Phone: Comment on above: Non- GFR Calc Thyroid Stimulating Hormone (TSH) 1.42 uIU/mL 0.358-3.74 [facility] Work Phone: Vitamin D 25-Hydroxy 32.1 ng/mL [facility] Work Phone: Comment on above: Vitamin D 25(OH) Sta tus Range Deficiency <20 ng/mL (50nmol/L) Insufficiency 20 - 30 ng/mL (50 - 75 nmol/L) Sufficiency 30 - 100 ng/mL (75 - 250 nmol/L) Toxicity >100 ng/mL (>250 nmol/L) Platelets bldon 08-05-2021 Platelets (Bld) [#/Vol] 188 10*3/uL 150-450 [facility] Work Phone: Serum or plasma albumin bienvenido urement (mass/volume)on 08-05-2021 Albumin [Mass/Vol] 3.5 g/dL 3.2-5.0 [facility] Work Phone: Serum or plasma albumin/glob ulin mass ratioon 08-05-2021 Albumin/Globulin [Mass ratio] 0.9 {ratio} 0.9-2.4 [facility] Work Phone: Serum or plasma calcium bienvenido urement (mass/volume)on 08-05-2021 Calcium [Mass/Vol] 9.1 mg/dL 8.5-10.1 [facility] Work Phone: [phone] Serum or plasma creatinine m easurement (mass/volume)on 08-05-2021 Creatinine [Mass/Vol] 0.93 mg/dL 0.70-1.30 [facility] Work Phone: Comment on above: The validity of the calculated GFR & GFRAA in patients over 70 years has not been determined. Clinical correlation is essential. Serum or plasma urea nitroge n measurement (mass/volume)on 08-05-2021 Urea nitrogen [Mass/Vol] 16 mg/dL 7-18 [facility] Work Phone: Thin prep Papanicolaou smear with manual screeningon 08-05-2021 Thin prep Papanicolaou smear with manual screening 17 U/L 15-37 [facility] Work Phone: Thin prep Papanicolaou smear with manual screening 5 5-15 [facility] Work Phone: Vital Signs Date Time Vital Sign Value Performing Clinician Faci lity 10-10-2023 14:08-0500 Body temperature 98.4 [degF] Dr. Eric Smith Work Phone: [facility] 10-10-2023 14:08-0500 Body weight 103.[address] Eric Smith Work Phone: [facility] 10-10-2023 14:08-0500 Diastolic blood pressure 72 mm[Hg] Dr. Eric Smith Work Phone: [facility] 10-10-2023 14:08-0500 Heart rate 74 /min Dr. Eric Smith Work Phone: [facility] 10-10-2023 14:08-0500 Respiratory rate 16 /min Dr. Eric Smith Work Phone: [facility] 10-10-2023 14:08-0500 SaO2% (BldA) [Mass fraction] 97 % Dr. Eric Smith Work Phone: [facility] 10-10-2023 14:08-0500 Systolic blood pressure 131 mm[Hg] Dr. Eric Smith Work Phone: [facility] 12-05-2022 13:25-0400 Body height 185.[address] Eric Smith Work Phone: [facility] 12-05-2022 13:25-0400 Body mass index (BMI) [Ratio] 30.2 kg/m2 Dr. Eric Smith Work Phone: [facility] 12-05-2022 13:25-0400 Body weight 103.[address] Eric Smith Work Phone: [facility] Encounters Encounter Date Encounter Type Care Provider Facility Start: 01-09-2025 ambulatory Eric Chi Gonzalo Facility:[facility] Start: 12-26-2024 ambulatory Eric Chi Gonzalo Facility:[facility] Start: 12-17-2024 End: 12-17-2024 ambulatory Eric Chi Gonzalo Facility:[facility] Start: 08-12-2024 End: 08-12-2024 ambulatory Eric Chi Gonzalo Facility:[facility] Start: 07-19-2024 End: 07-19-2024 ambulatory Eric Chi Gonzalo Facility:[facility] Start: 05-30-2024 End: 05-30-2024 ambulatory Sergio Soni Facility:[facility] Start: 01-22-2024 End: 01-22-2024 ambulatory Sergio Lutz Nae Facility:[facility] Start: 01-19-2024 End: 01-19-2024 ambulatory Eric Chi Gonzalo Facility:[facility] Start: 01-16-2024 End: 01-16-2024 ambulatory Brennan Gifford [facility] Start: 10-20-2023 End: 10-20-[address] Eric Smith Work Phone: [facility] Work Phone: Start: 10-20-2023 End: 10-20-[address] Eric Smith Work Phone: [facility] Work Phone: Start: 10-10-2023 End: 10-10-[address] Eric Smith Work Phone: [facility] Work Phone: Start: 10-06-2023 Non-patient / Non-visit Dr. Zander Smith Work Phone: [facility] Start: 10-06-2023 End: 10-06-[address] Eric Smith Work Phone: [facility] Work Phone: Start: 10-06-2023 End: 10-06-[address] Eric Smith Work Phone: [facility] Work Phone: Start: 10-02-2023 End: 10-02-2023 ambulatory [facility] Work Phone: Start: 10-02-2023 End: 10-02-2023 Patient encounter procedure [facility], [facility] Work Phone: Start: 09-25-2023 End: 09-25-2023 ambulatory [facility] Work Phone: Start: 09-25-2023 End: 09-25-2023 [facility] Start: 07-17-2023 End: 07-17-2023 ambulatory [facility] Work Phone: Start: 07-17-2023 End: 07-17-2023 [facility] [address] Start: 07-14-2023 End: 07-14-2023 ambulatory [facility] Work Phone: Start: 07-14-2023 End: 07-14-2023 [facility] Start: 01-16-2023 End: 01-16-[address] Eric Smith Work Phone: [facility] Work Phone: Start: 01-16-2023 End: 01-16-[address] [facility] [place] Start: 01-10-2023 End: 01-10-[address] Eric Smiht Work Phone: [facility] Work Phone: Start: 01-10-2023 End: 01-10-[address] [facility] Start: 12-05-2022 End: 12-05-[address] Eric Smith Work Phone: [facility] Start: 11-15-2022 Non-patient / Non-visit Dr. Zander Smith Work Phone: [facility] Start: 11-15-2022 End: 11-15-[address] [facility] Start: 08-02-2022 End: 08-02-2022 ambulatory [facility] Work Phone: Start: 08-02-2022 End: 08-02-2022 Patient encounter procedure [facility], [facility] Start: 07-13-2022 End: 07-13-2022 Patient encounter procedure [facility] [place] Start: 07-06-2022 End: 07-06-2022 ambulatory [facility] Work Phone: Start: 07-06-2022 End: 07-06-2022 Patient encounter procedure [facility], [facility] 3rd Flr Start: 04-12-2022 End: 04-12-2022 ambulatory [facility] Work Phone: Start: 04-12-2022 End: 04-12-2022 [facility] Start: 01-11-2022 End: 01-11-2022 Patient encounter procedure [facility] [place] Start: 01-05-2022 End: 01-05-2022 [facility] Start: 08-05-2021 [facility] Procedures Date Procedure Procedure Detail Performing Clinician Start: 10-02-2023 Radiography of esophagus Start: 12-05-2022 X-ray of lumbar spin e, two or three views Dr. Eric Smith Work Phone: Start: 08-02-2022 Radiography of esophagus Start: 04-12-2022 X-ray of lumbar spin e, two or three views Plan of Treatment Date Care Activity Detail Author Start: 12-05-2022 Patient referral [facility] Work Phone: Patient referral [facility] Work Phone: [email or web address] Lower ext remity vessels [facility] Immunizations Immunization Date Immunization Notes Care Provider Fa cility 10-29-2020 Covid (Pfizer) [facility] 10-08-2020 Covid (Pfizer) [facility] 05-07-2019 Influenza virus vaccine [facility] 04-17-2018 Shingrix (PF) 50 mcg /0.5 mL intramuscular suspension, kit (varicella-zoster [facility] Work Phone: Payers Date Payer Category Payer Self-pay [id number] 2015 Private Health Insurance [id number] 2011 Medicare [id number] Unknown [id number] 2.16.8 [id number] Unknown [id number] 2.16.8 [id number] Unknown [id number] 2.16.8 [id number] Unknown [id number] 2.16.8 [id number] Unknown [id number] 2.16.8 [id number] Unknown [id number] 2.16.8 [id number] Unknown [id number] 2.16.8 [id number] Unknown [id number] 2.16.8 [id number] Unknown [id number] 2.16.8 [id number] Social History Date Type Detail Facility Start: 10-21-2020 End: 12-05-2022 Tobacco smoking status NHIS Unknown if ever smoked [facility] Start: 10-21-2020 None [facility] Start: 10-21-2020 Spouse/ Signif icant Other [facility] Start: 10-21-2020 Non-smoker [facility] Start: 1945 Sex Assigned At Male [facility] Medical Equipment Procedure Code Equipment Code Equipment Origin al Text Equipment Identifier Dates CLIP,CHRISTYALVINO NUÑEZ FDA Start: 01-01-2020 CLIP,HEMALVINO NUÑEZ FDA Start: 01-01-2020 CLIPHEMALVINO NUÑEZ FDA Start: 01-01-2020 CLIPHEMALVINO NUÑEZ FDA Start: 01-01-2020 CLIPHEMALVINO NÑUEZ FDA Start: 01-01-2020 CLIPHEMALVINO NUÑEZ FDA Start: 01-01-2020 CLIPHEMALVINO NUÑEZ FDA Start: 01-01-2020 CLIPHEMALVINO NUÑEZ FDA Start: 01-01-2020 SEALANT,FLOSEAL HEMOSTATIC 5ML FDA Start: 01-01-2020 ADEOLAHEMALVINO NUÑEZ FDA Start: 01-01-2020 CLIPHEMALVINO NUÑEZ FDA Start: 01-01-2020 CLIPHEMALVINO NUÑEZ FDA Start: 01-01-2020 CLIPHEMALVINO NUÑEZ FDA Start: 01-01-2020 CLIPHEMALVINO NUÑEZ FDA Start: 01-01-2020 CLIPHEMALVINO NUÑEZ FDA Start: 01-01-2020 CLIPHEMALVINO NUÑEZ FDA Start: 01-01-2020 CLIPHEMALVINO NUÑEZ FDA Start: 01-01-2020 SEALANT,FLOSEAL HEMOSTATIC 5ML FDA Start: 01-01-2020 CLIPHEMALVINO NUÑEZ FDA Start: 01-01-2020 CLIPHEMALVINO NUÑEZ FDA Start: 01-01-2020 CLIPHEMALVINO NUÑEZ FDA Start: 01-01-2020 CLIPHEMALVINO NUÑEZ FDA Start: 01-01-2020 CLIP,HEMOLOCK D JOAQUIN FDA Start: 01-01-2020 CLIP,HEMOLOCK D JOAQUIN FDA Start: 01-01-2020 CLIP,HEMOLOCK D PHILLCHERYL FDA Start: 01-01-2020 CLIP,HEMOLOCK D JOAQUIN FDA Start: 01-01-2020 SEALANT,FLOSEAL HEMOSTATIC 5ML FDA Start: 01-01-2020 CLIP,HEMOLOCK TYLER JOAQUIN FDA Start: 01-01-2020 CLIP,HEMOLOCK TYLER JOAQUIN FDA Start: 01-01-2020 CLIP,HEMOLOCK TYLER JOAQUIN FDA Start: 01-01-2020 CLIP,HEMOLOCK ME Ceferino NUÑEZ FDA Start: 01-01-2020 CLIP,HEMOLOCK Ceferino POLLOCKCHERYL FDA Start: 01-01-2020 CLIP,HEMOLOCK D JOAQUIN FDA Start: 01-01-2020 CLIP,HEMOLOCK ME Ceferino NUÑEZ FDA Start: 01-01-2020 CLIP,HEMOLOCK ME Ceferino NUÑEZ FDA Start: 01-01-2020 SEALANT,FLOSEAL HEMOSTATIC 5ML FDA Start: 01-01-2020 CLIP,HEMOLOCK TYLER NUÑEZ FDA Start: 01-01-2020 CLIP,HEMOLOCK TYLER JOAQUIN FDA Start: 01-01-2020 CLIP,HEMOLOCK TYLER NUÑEZ FDA Start: 01-01-2020 CLIP,HEMOLOCK Ceferino POLLOCKCHERYL FDA Start: 01-01-2020 CLIP,HEMOLOCK ME Ceferino NUÑEZ FDA Start: 01-01-2020 CLIP,HEMOLOCK ME Ceferino NUÑEZ FDA Start: 01-01-2020 CLIP,HEMOLOCK Ceferino POLLOCKCHERYL FDA Start: 01-01-2020 CLIP,HEMOLOCK ME Ceferino NUÑEZ FDA Start: 01-01-2020 SEALANT,FLOSEAL HEMOSTATIC 5ML FDA Start: 01-01-2020 CLIP,HEMOLOCK TYLER NUÑEZ FDA Start: 01-01-2020 CLIP,HEMOLOCK TYLER NUÑEZ FDA Start: 01-01-2020 CLIP,HEMOLOCK TYLER NUÑEZ FDA Start: 01-01-2020 CLIP,HEMOLOCK D JOAQUIN FDA Start: 01-01-2020 CLIP,HEMOLOCK ME [place] JOAQUIN FDA Start: 01-01-2020 CLIP,HEMOLOCK D JOAQUIN FDA Start: 01-01-2020 CLIP,HEMOLOCK D WECHERYL FDA Start: 01-01-2020 CLIP,HEMGIANLUCACK ME Ceferino NUÑEZ FDA Start: 01-01-2020 SEALANT,FLOSEAL HEMOSTATIC 5ML FDA Start: 01-01-2020 CLIP,HEMOLOCK TYLER NUÑEZ FDA Start: 01-01-2020 CLIP,HEMOLOCK TYLER NUÑEZ FDA Start: 01-01-2020 CLIP,HEMOLOCK TYLER PHILLCHERYL FDA Start: 01-01-2020 CLIP,HEMOLOCK Ceferino NUÑEZ FDA Start: 01-01-2020 CLIP,HEMOLOCK Ceferino PHILLCHERYL FDA Start: 01-01-2020 CLIP,HEMOLOCK ME Ceferino NUÑEZ FDA Start: 01-01-2020 CLIP,HEMOLOCK ME Ceferino POLLOCKCHERYL FDA Start: 01-01-2020 CLIP,HEMOLOCK Ceferino NUÑEZ FDA Start: 01-01-2020 SEALANT,FLOSEAL HEMOSTATIC 5ML FDA Start: 01-01-2020 CLIP,HEMOLOCHERYL NUÑEZ FDA Start: 01-01-2020 CLIP,HEMOLOCK TYLER NUÑEZ FDA Start: 01-01-2020 CLIP,HEMOLOCK TYLER NUÑEZ FDA Start: 01-01-2020 CLIP,HEMOLOCK Ceferino NUÑEZ FDA Start: 01-01-2020 CLIP,HEMOLOCK ME [place] JOAQUIN FDA Start: 01-01-2020 CLIP,HEMOLOCK Ceferino NUÑEZ FDA Start: 01-01-2020 CLIP,HEMOLOCK Ceferino NUÑEZ FDA Start: 01-01-2020 CLIP,HEMOLOCK ME Ceferino NUÑEZ FDA Start: 01-01-2020 SEALANT,FLOSEAL HEMOSTATIC 5ML FDA Start: 01-01-2020 CLIP,HEMOLOCK TYLER NUÑEZ FDA Start: 01-01-2020 CLIP,HEMOLOCK TYLER NUÑEZ FDA Start: 01-01-2020 CLIP,HEMOLOCK TYLER NUÑEZ FDA Start: 01-01-2020 CLIP,HEMOLOCK ME [place] JOAQUIN FDA Start: 01-01-2020 CLIP,HEMOLOCK Ceferino NUÑEZ FDA Start: 01-01-2020 CLIP,HEMOLOCK Ceferino NUÑEZ FDA Start: 01-01-2020 CLIP,HEMOLOCK ME [place] JOAQUIN FDA Start: 01-01-2020 CLIP,HEMOLOCK ME De [place] JOAQUIN FDA Start: 01-01-2020 SEALANT,FLOSEAL HEMOSTATIC 5ML FDA Start: 01-01-2020 CLIP,HEMOLOCK TYLER NUÑEZ FDA Start: 01-01-2020 CLIP,RAYRAY NUÑEZ FDA Start: 01-01-2020 CLIP,HEMALVINO NUÑEZ FDA Start: 01-01-2020 CLIP,RAYRAY NUÑEZ FDA Start: 01-01-2020 CLIP,HEMALVINO NUÑEZ FDA Start: 01-01-2020 CLIP,RAYRAY NUÑEZ FDA Start: 01-01-2020 CLIP,HEMALVINO NUÑEZ FDA Start: 01-01-2020 CLIP,RAYRAY NUÑEZ FDA Start: 01-01-2020 SEALANT,FLOSEAL HEMOSTATIC 5ML FDA Start: 01-01-2020 CLIP,RAYRAY TYLER JOAQUIN FDA Start: 01-01-2020 CLIP,RAYRAY TYLER JOAQUIN FDA Start: 01-01-2020 CLIP,RAYRAY TYLER JOAQUIN FDA Start: 01-01-2020 CLIP,RAYRAY NUÑEZ FDA Start: 01-01-2020 CLIP,RAYRAY NUÑEZ FDA Start: 01-01-2020 CLIP,RAYRAY NUÑEZ FDA Start: 01-01-2020 CLIP,RAYRAY NUÑEZ FDA Start: 01-01-2020 CLIP,RAYRAY NUÑEZ FDA Start: 01-01-2020 SEALANT,FLOSEAL HEMOSTATIC 5ML FDA Start: 01-01-2020 CLIP,RAYRAY TYLER JOAQUIN FDA Start: 01-01-2020 CLIP,HEMALVINO NUÑEZ FDA Start: 01-01-2020 CLIP,RAYRAY NUÑEZ FDA Start: 01-01-2020 CLIP,RAYRAY NUÑEZ FDA Start: 01-01-2020 CLIP,RAYRAY NUÑEZ FDA Start: 01-01-2020 CLIP,RAYRAY NUÑEZ FDA Start: 01-01-2020 CLIP,RAYRAY NUÑEZ FDA Start: 01-01-2020 CLIP,RAYRAY NUÑEZ FDA Start: 01-01-2020 SEALANT,FLOSEAL HEMOSTATIC 5ML FDA Start: 01-01-2020 Goals Date Patient Goal Desired Activity /State Evaluation note Note Date & Type Note Facility Evaluation note No assessment information [facility] Work Phone: Evaluation note Note Date & Type Note Facility Evaluation note Diagnosis Onset Date Post laminectomy syndrome ac [place] DDD (degenerative disc disease), lumbar chronic [facility] Work Phone: Evaluation note Note Date & Type Note Facility Evaluation note Diagnosis Onset Date Venous insufficiency (chronic) (peripheral) chronic [facility] Work Phone: Family History No Family History Records Found Relationship Condition Age at Onset Recorded Date/T whitney Unknown Family History?No pertinent history Unkno wn October 21, 2020 5:55pm Family History?No pertinent history Unkno wn October 21, 2020 5:55pm Relationship Condition Age at Onset Recorded Date/T whitney Unknown Family History?No pertinent history Unkno wn October 21, 2020 4:55pm Family History?No pertinent history Unkno wn October 21, 2020 4:55pm Relationship Condition Age at Onset Recorded Date/T whitney Unknown Family History?No pertinent history Unkno wn October 21, 2020 5:55pm Family History?No pertinent history Unkno wn October 21, 2020 5:55pm Family History?No pertinent history Unkno wn November 29, 2022 2:25pm Relationship Condition Age at Onset Recorded Date/T whitney Unknown Family History?No pertinent history Unkno wn October 21, 2020 4:55pm Family History?No pertinent history Unkno wn October 21, 2020 4:55pm Family History?No pertinent history Unkno wn November 29, 2022 1:25pm Relationship Condition Age at Onset Recorded Date/T whitney Not Specified Coronary artery disease Unknown Advance Directives No Advanced Directives Records Found Advance Directive Response Recorded Date/ Time Living Will Yes October 21, 2020 2:11pm Power of Vice President Diversity Yes October 21 2:11pm Advance Directive Response Recorded Date/ Time Living Will Yes October 21, 2020 1:11pm Power of Vice President Diversity Yes October 21 1:11pm Advance Directive Response Recorded Date/ Time Living Will Yes November 29, 2022 2:25pm Power of Vice President Diversity Yes November 29 2:25pm Advance Directive Response Recorded Date/ Time Advance Directives Yes October 28 2 016 1:58pm Living Will Yes November 29, 2022 1:25pm Power of Vice President Diversity Yes November 29 1:25pm Advance Directive Response Recorded Date/ Time Advance Directives Yes March 24th, 2 016 2:58pm Living Will Yes November 29, 2022 2:25pm Power of Vice President Diversity Yes November 29 2:25pm Chief Complaint and Reason for Visit Chief Complaint PSA LOW BACK PAIN Chief Complaint LOW BACK PAIN Chief Complaint LOW BACK PAIN Dysphagia, unspecified Chief Complaint SCREENING LUMBER SPINE RM 4 Reason for Visit Post laminectomy syn drome DDD (degenerative disc disease), lumbar Chief Complaint DYSPHAGIA Chief Complaint DYSPHAGIA Peripheral vascular disease, unspecified CONSULT-VARICOSE VEINS Chief Complaint DYSPHAGIA Peripheral vascular disease, unspecified CONSULT-VARICOSE VEINS Personal history of other venous thrombosis and em Reason for Visit Venous insufficiency (chronic) (peripheral) Summary Purpose Additional Source Comments Care Teams (unrecognized sec tion and content) Team Status: Active Member Role Status Dates Dr. Eric Smith MD Family Provider Active Dr. Eric Smith MD Primary Care Provider Active Team Status: Active Member Role Status Dates Dr. Eric Smith MD Primary Care Provider Active Dr. Caleb Morrow MD Attending Provider Active Team Status: Inactive Member Role Status Dates Dr. Eric Smith MD Primary Care Provider, Referring Provider Active Dr. Jere Rodriguez DO Attending Provider Active Team Status: Inactive Member Role Status Dates Dr. Eric Smith MD Primary Care Provider Active Dr. Brent Gillette MD Attending Provider Active Team Status: Inactive Member Role Status Dates Dr. Eric Smith MD Primary Care Provider Active Self Referred Attending Provider, Referring Provider A ctive Team Status: Inactive Member Role Status Dates Dr. Eric Smith MD Primary Care Provi wanda, Attending Provider, Referring Provider Active Team Status: Active Member Role Status Dates Dr. Eric Smith MD Primary Care Provider Active Dr. Sergio Soni MD Attending Provider, Referr ing Provider Active Team Status: Inactive Member Role Status Dates Dr. Eric Smith MD Primary Care Provider Active Dr. Sergio Soni MD Attending Provider, Referr ing Provider Active Team Status: Active Member Role Status Dates Dr. Eric Smith MD Primary Care Provider, Attending Provider Active Team Status: Inactive Member Role Status Dates Dr. Eric Smith MD Primary Care Provider, Attending Provider Active Team Status: Inactive Member Role Status Dates Dr. Eric Smith MD Primary Care Provider Active Dr. Mitch Lopez MD Attending Provider, Referring Provider Active Team Status: Inactive Member Role Status Dates Dr. Eric Smith MD Primary Care Provider, Referring Provider Active [facility] Attending Provider Active Team Status: Active Member Role Status Dates Dr. Eric Smith MD Primary Care Provider, Referring Provider Active Dr. Caleb Morrow MD Attending Provider Active Team Status: Inactive Member Role Status Dates Dr. Eric Smith MD Primary Care Provider Active [facility] Attending Provider, Referring Provid er Active (unrecognized sect ion and content) No Status Records Found INFORMATION SOURCE (unrecogn ized section and content) DATE CREATED AUTHOR 01/08/2025 [facility] FOR RECORDS PERTAINING TO PATIENTS WHO ARE OR HAVE BEEN ENROLLED IN A CHEMICAL DEPENDENCY/SUBSTANCEABUSE PROGRAM, SOME INFORMATION MAY BE OMITTED. This clinical summary was aggregated from multiple sources. Caution should be exercised in using it in the provision of clinical care. This summary normalizes information from multiple sources, and as a consequence, information in this document may materially change the coding, format and clinical context of patient data. In addition, data may be omitted in some cases. CLINICAL DECISIONS SHOULD BE BASED ON THE PRIMARY CLINICAL RECORDS. [employer] provides no warranty or guarantee of the accuracy or completeness of information in this document.
--- NOTE | 2025-01-09 08:00 | MRI_ITS ---
PROCEDURE: BRAIN WITHOUT CONTRAST 01/09/2025 REASON FOR EXAM: UNSTEADY GAIT TECHNIQUE: Noncontrast brain MRI. Multiplanar and multisequence images were obtained. COMPARISON: None. FINDINGS: There is mild diffuse cerebral atrophy with concomitant ventriculomegaly. There are multiple foci of abnormal periventricular and subcortical white matter signal in both cerebral hemispheres consistent with chronic ischemic white matter disease, although hypertension could cause a similar appearance. There is a normal sulcal pattern and gyral configuration. There is no evidence of acute intracranial hemorrhage or infarction. The nix-white differentiation is well preserved. There is no evidence of restricted diffusion. The basilar cisterns are normal. There are normal flow voids demonstrated in the recognized intracranial vessels. The cerebellum and brainstem are unremarkable. The cerebellar pontine angles are normal. The craniovertebral junction is normal. The sella and suprasellar regions are normal. There are bilateral intraorbital lens implants. The orbits and retro-orbital regions are otherwise unremarkable. The nasal septum is midline. There is diffuse mucoperiosteal thickening of the paranasal sinuses. The mastoid air cells are clear. There is normal here the bone marrow signal in the skull base and calvarium. MRI/Brain without Contrast IMPRESSION: 1. No evidence of acute intracranial pathology. 2. Cerebral atrophy with chronic ischemic white matter disease. 3. Mild pansinusitis. Reading Location: [id number]
== END | disposition home or self-care (01) ==
LOC: MRI 07:42
PROVIDERS: PCP Family Medicine Geriatric Medicine; Referring Provider Family Medicine Geriatric Medicine; Visit Provider Family Medicine Geriatric Medicine
DX: R26.81 Unsteadiness on feet (principal)
CPT/HCPCS: 70551

== ENCOUNTER → 2025-01-21 | Outpatient (CLI) | payer MEDICARE, OTHER, SELFPAY ==
[2025-01-21 10:58] LABS: Absolute Lymphocyte Count 1.58 X10^3/uL (0.83-4.51); Absolute Neutrophil Count 6.7 X10^3/uL (2.0-7.7); Basophil# 0.06 X10^3/uL; Basophil% 0.7 % (0-1); Eosinophil# 0.02 X10^3/uL; Eosinophils% 0.2 % (0-5); Hematocrit 47.8 % (40-54); Hemoglobin 16.4 g/dL (13.0-16.5); Lymphocyte # 1.58 X10^3/ul (0.83-4.51); Lymphocyte % 17.4 % (19-41); Mean Corp Hgb Conc 34.3 g/dL (32-36); Mean Corpuscular Hgb 32.7 pg (27.0-32.0); Mean Corpuscular Volume 95.4 fL (80-94); Mean Platelet Vol. 9.4 fl (6.2-12.0); Monocyte# 0.69 X10^3/uL; Monocyte% 7.6 % (0-10); NRBC Flagged by Analyzer 0 % (0-5); Neutrophil # 6.68 X10^3/uL (2.7-7.7); Neutrophil % 73.5 % (47-70); Platelet Count 183 K/mm3 (150-450); RBC Distribution Width CV 13.3 % (11.6-14.6); RBC Distribution Width SD 46.5 fl (35.1-43.9); Red Blood Count 5.01 M/mm3 (4.6-6.2); White Blood Count 9.1 K/mm3 (4.4-11.0)
[2025-01-21 14:46] LABS: ALB/GLOB Ratio 1.4 RATIO (0.9-2.4); AST(SGOT) 23 U/L (<=37); Alanine Aminotransfer ALT/SGPT 34 U/L (<=46); Alkaline Phosphatase 71 U/L (40-129); Anion Gap 9 (5-15); BUN 16 mg/dL (4-19); BUN/Creat Ratio 16.8 RATIO (10-20); Calcium,Total 8.9 mg/dL (7.6-11.0); Carbon Dioxide 26.2 mmol/L (21.0-32.0); Chloride 104 mmol/L (98-108); Creatinine, Serum 0.95 mg/dL (0.70-1.20); EST Glomerular Filtration Rate 82 (>60); Globulin 2.8 g/dL (2.2-4.2); Glucose 105 mg/dL (70-99); Potassium 4.2 mmol/L (3.3-5.1); Protein, Total 6.8 g/dL (5.9-8.4); Sodium Level 139 mmol/L (133-145); Total Bilirubin 0.95 mg/dL (0.00-1.30); Vitamin D,25 Hydroxy 47.3 ng/mL (30-100)
== END | disposition home or self-care (01) ==
LOC: LAB 10:38
PROVIDERS: PCP Family Medicine Geriatric Medicine; Referring Provider Family Medicine Geriatric Medicine; Visit Provider Family Medicine Geriatric Medicine
DX: E55.9 Vitamin D deficiency, unspecified (principal); R53.83 Other fatigue
CPT/HCPCS: 36415; 80053; 82306; 84443; 85025

== ENCOUNTER → 2025-01-23 | Outpatient (CLI) | payer MEDICARE, OTHER, SELFPAY ==
[2025-01-23 11:59] LABS: PSA,Total- Diagnostic < 0.02 ng/mL (0.00-4.00)
== END | disposition home or self-care (01) ==
LOC: LAB 09:23
PROVIDERS: PCP Family Medicine Geriatric Medicine; Referring Provider Nurse Practitioner; Visit Provider Nurse Practitioner
DX: C61 Malignant neoplasm of prostate (principal)
CPT/HCPCS: 36415; 84153

== ENCOUNTER → 2025-04-11 | Outpatient (CLI) | payer MEDICARE, OTHER, SELFPAY ==
--- NOTE | 2025-04-11 14:12 | CT_ITS ---
PROCEDURE: ABDOMEN/PELVIS W IV CONT ONLY 04/11/2025 REASON FOR EXAM: GROSS HEMATURIA TECHNIQUE: Procedure Code: [id number] Modality: CT Procedure: ABDOMEN/PELVIS W IV CONT ONLY Coronal and Sagittal reconstruction series were provided. CONTRAST: Isovue 370 VOLUME: 100 mL One or more dose reduction techniques were used (e.g., Automated exposure control, adjustment of the mA and/or kV according to patient size, use of iterative reconstruction technique. RADIATION DOSE SUMMARY: CTDlvol: 50 mGy DLP: 2139 mGycm COMPARISON: 03/27/2020 FINDINGS: Normal appearance of the liver, gallbladder and spleen. Normal appearance of the adrenal glands and pancreas. Normal appearance of the kidneys. There is no hydronephrosis. Spinal stimulator leads are present. The lung bases are clear. No gastric mass lesion. Mild gastric distention. Normal abdominal aorta. Prior lumbar surgery. No dilated bowel loops to suggest obstruction. Diverticulosis is present without diverticulitis or abscess. CT/Abdomen/Pelvis W IV Cont ONLY IMPRESSION: Overall, no acute abnormality is identified. No etiology for hematuria identif ied. Specifically no renal calculi, renal masses or hydronephrosis. Reading [facility]
== END | disposition home or self-care (01) ==
LOC: CT 14:10
PROVIDERS: PCP Family Medicine Geriatric Medicine; Referring Provider Urology; Visit Provider Urology
DX: R31.0 Gross hematuria (principal)
CPT/HCPCS: 74177; Q9967

== ENCOUNTER 2025-04-18 09:19 | Day surgery (SDC) | payer MEDICARE, OTHER, SELFPAY ==
--- NOTE | 2025-04-17 13:55 | PAT.ANESEVAL ---
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 When Was Last Pacemaker Check QUESTION #4 FULL TEXT: You/Your Family Experience fever (hyperthermia) with Anesthesia Last Oral Intake Last Oral intake: Last Oral Intake NPO since Meds taken in AM with sips of water? Meds patient instructed to take am of surgery PONV PONV - coffee brewer: PONV - coffee brewer Female No 04/17/25 11:31 HX of Motion Sickness No 04/17/25 11:31 HX of N/V After Surgery No 04/17/25 11:31 Non-Smoker Yes 04/17/25 11:31 Duration of Surgery greater Yes 04/17/25 11:31 than 60 minutes Number of Risk Factors 2 04/17/25 11:31 PONV Score Moderate Risk 04/17/25 11:31 Height & Weight Height & Weight: Anesthesia: Height & Weight Height 6 ft 1 in 01/16/24 11:33 Respiratory Assessment Respiratory Assessment - coffee brewer: Respiratory Tract Infection Hx - coffee brewer Hx Respiratory Tract Infection No 04/17/25 11:31 STOP Sleep Apnea STOP Sleep Apnea - coffee brewer: STOP Sleep Apnea - coffee brewer Hx Hypertension No 04/17/25 11:31 Hx Sleep Apnea No 04/17/25 11:31 CPAP BIPAP Do you snore loudly (louder Yes 04/17/25 11:31 than talking or can be heard Do you often feel tired/ Yes 04/17/25 11:31 fatigued/ sleepy during daytime? Has anyone observed you stop No 04/17/25 11:31 breathing during sleep? STOP Results Positive 04/17/25 11:31 QUESTION #5 FULL TEXT : Do you snore loudly (louder than talking or can be heard through closed doors)? Tobacco Use History Tobacco Use History - coffee brewer: Tobacco Use History - coffee brewer Tobacco Use Smoking Status Never smoker 04/17/25 11:31 Hx Tobacco Use No 04/17/25 11:31 Years Smoking Packs Smoked per Day Smoking Cessation Date was within the last 15 years Hx Smoking Cessation Date Hx Smoking Cessation Counseling Hematologic Medial History Hematologic Hx - coffee brewer: Hematologic Medical Hx - bad cloth checker Hx of Blood Transfusion No 04/17/25 11:31 Hx of Transfusion in last 3 No 04/17/25 11:31 Months Date of Last Transfusion (if within last 3 months) Ever experience any problems No 04/17/25 11:31 with transfusion(s)? Specify any problems Hx of Preganancy in last 3 N/A 04/17/25 11:31 Months Nurse Filling Out Transfusion DSCHRIBER 04/17/25 11:31 & Questions: Date: 04/17/25 04/17/25 11:31 Time: 11:34 04/17/25 11:31 Patient unable to answer at this time (ie. confused, unrespo /Reproduction History /Reproductive History - coffee brewer: /Reproductive Hx- coffee brewer Hx Now No 04/17/25 11:31 Gestational Age (in weeks): EDC: Hx Hx Para Hx Section SAB No 04/17/25 11:31 Active Medications Active Medications: Current Medications Generic Name Dose Route Start Last Admin Trade Name Freq PRN Reason Stop Dose Admin Cefazolin Sodium 2 gm/ Sodium 110 mls @ 200 mls/hr 04/18/25 07:00 Chloride IV 04/18/25 07:32 INTRAOP ONE COUNTS INCLUDE 234 BEDS AT THE [facility] Medical History (Updated 04/17/25 @ 11:47 by Lillie Robles) Wears hearing aid Wears glasses Cancer Depression Anxiety Gout Blood urine DVT (deep venous thrombosis) Back pain Difficulty swallowing History of hiatal hernia Gastric reflux Non-smoker History of pain when walking Cardiology follow-up encounter Polyneuropathy Peripheral vascular disease Hyperglycemia Chest pain DDD (degenerative disc disease), lumbar Vitamin D deficiency High cholesterol Arthritis Home Medications ?Medication ?Instructions ?Recorded ?Last Taken ?Type allopurinol 300 mg tablet 300 mg PO DAILY GOUT 10/29/15 10/20/20 21:30 History ascorbic acid (vitamin C) 1,000 mg 1 g PO DAILY 12/05/22 Unknown History capsule lactobacillus combination no.9 4 6,000 mmu cells PO DAILY 12/05/22 Unknown History billion cell capsule (Adult 50 Plus Probiotic) mecobalamin (vitamin B12) 1,000 1,000 mcg PO DAILY 12/05/22 Unknown History mcg chewable tablet (B12 Active) rivaroxaban 10 mg tablet (Xarelto) 10 mg PO DAILY 12/29/23 04/16/25 History atorvastatin 40 mg tablet 40 mg PO QHS 04/17/25 Unknown History cholecalciferol (vitamin D3) 50 50 mcg PO DAILY 04/17/25 Unknown History mcg (2,000 unit) capsule (Vitamin D3) green tea extract 500 mg capsule 500 mg PO DAILY 04/17/25 Unknown History Allergy/AdvReac Type Severity Reaction Status Date / Time celecoxib (From Celebrex) AdvReac Intermediate Other Verified 04/17/25 11:27 Family History Other CAD (coronary artery disease) Surgical History (Updated 04/17/25 @ 11:47 by Lillie Robles) History of surgery Hx of right cataract extraction Hx of left cataract extraction Hx of colonoscopy Hx of arthroscopy of shoulder Hx of arthroscopy of shoulder Hx of tonsillectomy Hx of radical prostatectomy History of melanoma excision Social History Smoking Status: Never smoker alcohol intake: never substance use type: does not use what type of physical activity do you participate in: walking and weight training frequency: 5-6 times per week Audit: Pertinent Findings Pertinent Findings EKG Perinent findings: 01/16/2024. Sinus rhythm. Low voltage limb leads. RSR in V1. Left anterior fascicular block. Artifact from spinal stimulator. Consult pertinent findings: 01/16/2024. Dr. Gifford. 1. Peripheral vascular disease-history of AMBROSE in the left side. Carotids with insignificant plaque burden. Chronic venous insufficiency and recurrent DVTs followed by Dr. Morrow. 2. 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 Morrow. 3. Chest pain-Sharp. Unpredictable. Likely noncardiac. No further evaluation at this time. If symptoms recur consider stress test. Recommendation Anesthesia Recommendation Anesthesia recommendation: OPTIMIZED for anesthesia
[2025-04-18] VITALS (7 sets, daily range): BP systolic 112–129; BP diastolic 69–76; PULSE 66–70; RESP 14–18; TEMP 36.2–36.6; O2SAT 95–100; BMI 30.6
[2025-04-18] MEDS: Lactated Ringers 1,000 ML 15 ML IV (09:45)
--- OUTSIDE RECORDS SUMMARY | 2025-04-18 09:58 | XMS RPT_ITS | CCD ---
Author Organization [facility]ini[facility] Care Team Providers Care Calender Supervisor Name Role Phone Dr. Eric Smith Chi Primary Care Provider [phone] Dr. Caleb Morrow Attending Provider [phone] Luis, Dr. Eric Nguyen Referring Provider [phone] Jere Rodriguez Attending Provider [phone] Dr. Brent Gillette Attending Provider 1([facility])57 [phone] Luis, Dr. Eric Nguyen Primary Care Provider Dr. Caleb Morrow Attending Provider 1([facility])57 10 Luis, Dr. Eric Nguyen Referring Provider ALMA Olsen Attending Provider [phone] Luis, Dr. Eric Nguyen Primary Care Provider Luis, Dr. Eric Nguyen Referring Provider Dr. Caleb Morrow Attending Provider [phone] ALMA Olsen Attending Provider 1([facility])57 10 Luis, Eric Chi Attending Unavailable Luis, Eric Chi Referring Unavailable Luis, Eric Chi Primary Care Unavailable NaeSergio Attending Unavailable NaeSergio connelly Referring Unavailable Luis, Eric Chi Primary Care [...] Care Unavailable Luis, Eric Chi Attending Unavailable NaeSergio Attending Unavailable Luis, Eric Chi Primary Care Unavailable Nae, Isreal Referring Unavailable [place] Referring Unavailable Eric Smith Chi Primary Care Unavailable [employer] [place], Yancy Attending Unavailable Allergies Allergy Classification Reported Allergen(s) Allergy Type Date of Onset Reaction(s) Facility (12 sources) celecoxib Drug Allergy 1 Unknown, Other [facility] (1 source) celecoxib Drug Allergy 4 [facility] Repository Medications Current Medications Medication Drug Class(es) [...] prostate; Translations: [Malignant neoplasm of prostate] Onset: 01-31-2025 10-21-2020 Chronic Genitourinary symptoms and ill-defined conditions (1 source) Gross hematuria; Translations: [Gross hematuria] Onset: 04-11-2025 Episodic Nutritional deficiencies (1 source) Vitamin D deficiency, unspecified; Translations: [Vitamin D deficiency, unspecified] Onset: 01-27-2025 Chronic Osteoarthritis (1 source) Unilateral primary osteoarthritis, [...] on feet; Translations: [Unsteadiness on feet] Onset: 02-13-2025 Episodic Spondylosis; intervertebral disc disorders; other back problems (20 sources) Degeneration of lumbar intervertebral disc; Translations: [Other intervertebral disc degeneration, lumbar region] 01-31-2018 Chronic Viral infection (12 sources) Disease caused by 2019-nCoV; Translations: [COVID-19] 10-21-2020 Episodic Past or Other Problems Problem Classification Problem Date Documented Da te Episodic/Chronic Malaise and fatigue (1 source) Other fatigue; Translations: [Other fatigue] Onset: 08-23-2024 Episodic Residual codes; unclassified (1 source) Chills (without fever); Translations: [Chills (without fever)] Onset: 09-05-2024 Episodic Results Test Name Value Interpretation Reference Range Facility Abdomen/Pelvis W IV Cont ONL Yon 04-11-2025 Abdomen/Pelvis W IV Cont ONLY [facility] Imaging Services [address] [place] [address] [id number] Abdomen/Pelvis W IV Cont ONLY MR#: [id number] Acct: [id number] Name: BRENNAN LUIS Rep #: [id number] : 1945 M 79 From: Bryant Romero MD PCP: Dr. Eric Smith MD Status: REG CLI Study: Abdomen/Pelvis W IV Cont ONLY Date of Exam: Exam# [id number] Ordering Dr: Sergio Soni MD PROCEDURE: ABDOMEN/PELVIS W IV CONT ONLY 04/11/2025 REASON FOR EXAM: GROSS HEMATURIA TECHNIQUE: Procedure Code: [id number] Modality: CT Procedure: ABDOMEN/PELVIS W IV CONT ONLY Coronal and Sagittal reconstruction series were provided. CONTRAST: Isovue 370 VOLUME: 100 mL One or more dose reduction techniques were used (e.g., Automated exposure control, adjustment of the mA and/or kV according to patient size, use of iterative reconstruction technique. RADIATION DOSE SUMMARY: CTDlvol: 50 mGy DLP: 2139 mGycm COMPARISON: 03/27/2020 FINDINGS: Normal appearance of the liver, gallbladder and spleen. Normal appearance of the adrenal glands and pancreas. Normal appearance of the kidneys. There is no hydronephrosis. Spinal stimulator leads are present. The lung bases are clear. No gastric mass lesion. Mild gastric distention. Normal abdominal aorta. Prior lumbar surgery. No dilated bowel loops to suggest obstruction. Diverticulosis is present without diverticulitis or abscess. CT/Abdomen/Pelvis W IV Cont ONLY IMPRESSION: Overall, no acute abnormality is identified. No etiology for hematuria identified. Specifically no renal calculi, renal masses or hydronephrosis. Reading Location[facility] CC: Dr. Sergio Soni MD; Dr. Eric Smith MD Edge Stainer Machine: Signed Normal [facility] PSA,Total- Diagnosticon 01-05 PSA, DIAGNOSTIC < 0.02 Normal 0.00-4.00 [facility] Comment on above: Result Comment: This test was performed using the [employer] tPSA method. Measured values of a patient??sample can vary depending on the testing procedure used. PSA values determined on patient samples by different testing procedures cannot be used interchangeably. If there is a change in PSA assays while monitoring therapy, sequential testing should be performed to confirm baseline values. Performed By: #### L 506.1000, L500.4050, L100.0100, L501.9520 #### [facility] [address], [address] CBC W/Diff, Automatedon 01-05 Absolute Lymph 1.58 X10 3/uL Normal 0.83-4.51 [facility] Comment on above: Performed By: #### L 506.1000, L500.4050, L100.0100, L501.9520 #### [facility] [address] [place], [address] Absolute Neut 6.7 X10 3/uL Normal 2.0-7.7 [facility] Comment on above: Performed By: #### L 506.1000, L500.4050, L100.0100, L501.9520 #### [facility] [address] [place], [address] Basophils/100 WBC (Bld) 0.7 % Normal 0-1 [facility] Comment on above: Performed By: #### L 506.1000, L500.4050, L100.0100, L501.9520 #### [facility] [address] [place], [address] Eosinophils/100 WBC (Bld) 0.2 % Normal 0-5 [facility] Comment on above: Performed By: #### L 506.1000, L500.4050, L100.0100, L501.9520 #### [facility] [address] [place], [address] Erythrocyte distribution width (RBC) [Ratio] 13.3 % Normal 11.6-14.6 [facility] Comment on above: Performed By: #### L 506.1000, L500.4050, L100.0100, L501.9520 #### [facility] [address] [place], [address] Hematocrit (Bld) [Volume fraction] 47.8 % Normal 40-54 [facility] Comment on above: Performed By: #### L 506.1000, L500.4050, L100.0100, L501.9520 #### [facility] [address] [place], [address] Hemoglobin (Bld) [Mass/Vol] 16.4 g/dL Normal 13.0-16.5 [facility] Comment on above: Performed By: #### L 506.1000, L500.4050, L100.0100, L501.9520 #### [facility] [address] [place], [address] IG% 0.600 Normal 0.0-0.9 [facility] Comment on above: Result Comment: IG% - Immature Granulocytes (promyelocytes, myelocytes and metamyelocytes) > 1% indicates that a LEFT SHIFT is Present. Performed By: #### L 506.1000, L500.4050, L100.0100, L501.9520 #### [facility] [address] [place], [address] Lymphocytes/100 WBC (Bld) 17.4 % Low 19-41 [facility] Comment on above: Performed By: #### L 506.1000, L500.4050, L100.0100, L501.9520 #### [facility] [address] [place], [address] MCH (RBC) [Entitic mass] 32.7 pg High 27.0-32.0 [facility] Comment on above: Performed By: #### L 506.1000, L500.4050, L100.0100, L501.9520 #### [facility] [address] [place], [address] MCHC (RBC) [Mass/Vol] 34.3 g/dL Normal 32-36 [facility] Comment on above: Performed By: #### L 506.1000, L500.4050, L100.0100, L501.9520 #### [facility] [address] [place], [address] MCV (RBC) [Entitic vol] 95.4 fL High 80-94 [facility] Comment on above: Performed By: #### L 506.1000, L500.4050, L100.0100, L501.9520 #### [facility] [address] [place], [address] Monocytes/100 WBC (Bld) 7.6 % Normal 0-10 [facility] Comment on above: Performed By: #### L 506.1000, L500.4050, L100.0100, L501.9520 #### [facility] [address] [place], [address] Neutrophils/100 WBC (Bld) 73.5 % High 47-70 [facility] Comment on above: Performed By: #### L 506.1000, L500.4050, L100.0100, L501.9520 #### [facility] [address] [place], [address] Nucleated RBC (Bld) [#/Vol] 0 10*3/uL Normal 0-5 [facility] Comment on above: Performed By: #### L 506.1000, L500.4050, L100.0100, L501.9520 #### [facility] [address] [place], [address] Platelet mean volume (Bld) [Entitic vol] 9.4 fL Normal 6.2-12.0 [facility] Comment on above: Performed By: #### L 506.1000, L500.4050, L100.0100, L501.9520 #### [facility] [address] [place], [address] Platelets (Bld) [#/Vol] 183 10*3/uL Normal 150-450 [facility] Comment on above: Performed By: #### L 506.1000, L500.4050, L100.0100, L501.9520 #### [facility] [address] [place], [address] RBC (Bld) [#/Vol] 5.01 10*6/uL Normal 4.6-6.2 [facility] Comment on above: Performed By: #### L 506.1000, L500.4050, L100.0100, L501.9520 #### [facility] [address] [place], [address] RDW SD 46.5 fl High 35.1-43.9 [facility] Comment on above: Performed By: #### L 506.1000, L500.4050, L100.0100, L501.9520 #### [facility] [address] [place], [address] WBC (Bld) [#/Vol] 9.1 10*3/uL Normal 4.4-11.0 [facility] Comment on above: Performed By: #### L 506.1000, L500.4050, L100.0100, L501.9520 #### [facility] [address] [place], [address] Comprehensive Metabolic [facility] 01-21-2025 Albumin [Mass/Vol] 4.0 g/dL Normal 3.4-4.8 [facility] Comment on above: Performed By: #### L 506.1000, L500.4050, L100.0100, L501.9520 #### [facility] [address] [place], [address] Albumin/Globulin [Mass ratio] 1.4 {ratio} Normal 0.9-2.4 [facility] Comment on above: Performed By: #### L 506.1000, L500.4050, L100.0100, L501.9520 #### [facility] [address] [place], [address] ALK PHOS 71 U/L Normal 40-129 [facility] Comment on above: Performed By: #### L 506.1000, L500.4050, L100.0100, L501.9520 #### [facility] [address] [place], [address] ALT [Catalytic activity/Vol] 34 U/L Normal <=46 [facility] Comment on above: Performed By: #### L 506.1000, L500.4050, L100.0100, L501.9520 #### [facility] [address] [place], [address] AST [Catalytic activity/Vol] 23 U/L Normal <=37 [facility] Comment on above: Performed By: #### L 506.1000, L500.4050, L100.0100, L501.9520 #### [facility] [address] [place], [address] Bilirubin [Mass/Vol] 0.95 mg/dL Normal 0.00-1.30 [facility] Comment on above: Performed By: #### L 506.1000, L500.4050, L100.0100, L501.9520 #### [facility] [address] [place], [address] BUN/CRE 16.8 RATIO Normal 10-20 [facility] Comment on above: Performed By: #### L 506.1000, L500.4050, L100.0100, L501.9520 #### [facility] [address] [place], [address] Calcium [Mass/Vol] 8.9 mg/dL Normal 7.6-11.0 [facility] Comment on above: Performed By: #### L 506.1000, L500.4050, L100.0100, L501.9520 #### [facility] [address] [place], [address] Chloride [Moles/Vol] 104 mmol/L Normal 98-108 [facility] Comment on above: Performed By: #### L 506.1000, L500.4050, L100.0100, L501.9520 #### [facility] [address] [place], [address] CO2 [Moles/Vol] 26.2 mmol/L Normal 21.0-32.0 [facility] Comment on above: Performed By: #### L 506.1000, L500.4050, L100.0100, L501.9520 #### [facility] [address] [place], [address] Creatinine [Mass/Vol] 0.95 mg/dL Normal 0.70-1.20 [facility] Comment on above: Performed By: #### L 506.1000, L500.4050, L100.0100, L501.9520 #### [facility] [address] [place], [address] GAP 9 Normal 5-15 [facility] Comment on above: Performed By: #### L 506.1000, L500.4050, L100.0100, L501.9520 #### [facility] [address] [place], [address] GFR/1.73 sq M.predicted among non-blacks MDRD (S/P/Bld) [Vol rate/Area] 82 mL/min/{1.73_m2} Normal >[address] [facility] Comment on above: Result Comment: mL/m in/1.73m2 CKD-EPI Creatinine Equation (2020) Performed By: #### L 506.1000, L500.4050, L100.0100, L501.9520 #### [facility] [address] [place], [address] Globulin (S) [Mass/Vol] 2.8 g/dL Normal 2.2-4.2 [facility] Comment on above: Performed By: #### L 506.1000, L500.4050, L100.0100, L501.9520 #### [facility] [address] [place], [address] Glucose [Mass/Vol] 105 mg/dL High 70-99 [facility] Comment on above: Performed By: #### L 506.1000, L500.4050, L100.0100, L501.9520 #### [facility] [address] [place], [address] Potassium [Moles/Vol] 4.2 mmol/L Normal 3.3-5.1 [facility] Comment on above: Performed By: #### L 506.1000, L500.4050, L100.0100, L501.9520 #### [facility] [address] [place], [address] Sodium [Moles/Vol] 139 mmol/L Normal 133-145 [facility] Comment on above: Performed By: #### L 506.1000, L500.4050, L100.0100, L501.9520 #### [facility] [address] [place], [address] T PROT 6.8 g/dL Normal 5.9-8.4 [facility] Comment on above: Performed By: #### L 506.1000, L500.4050, L100.0100, L501.9520 #### [facility] [address] [place], [address] Urea nitrogen [Mass/Vol] 16 mg/dL Normal 4-19 [facility] Comment on above: Performed By: #### L 506.1000, L500.4050, L100.0100, L501.9520 #### [facility] [address] [place], [address] Thyroid Stim Hormone (TSH)on 01-21-2025 TSH 1.350 uIU/mL Normal 0.300-4.200 [facility] Comment on above: Performed By: #### L 506.1000, L500.4050, L100.0100, L501.9520 #### [facility] [address] [place], [address] Vitamin D,25 Hydroxyon 01-21 Vitamin D 25-OH 47.3 ng/mL Normal 30-100 [facility] Comment on above: Result Comment: Britany min D Status Deficiency: <20 ng/mL (50nmol/L) Insufficiency: 20-30 ng/mL (50-75 nmol/L) Sufficiency: 30-100 ng/mL (75-250 nmol/L) Toxicity: >100 ng/mL (>250 nmol/L) Performed By: #### L 506.1000, L500.4050, L100.0100, L501.9520 #### [facility] [address] [place], [place], [address] Brain without Contraston Brain without Contrast [facility] Imaging Services [address] [place], [place] [address] Brain without Contrast MR#: [id number] Acct: [id number] Name: BRENNAN LUIS Rep #: [id number] : 1945 M 79 From: Reji Bravo MD PCP: Dr. Eric Smith MD Status: REG CLI Study: Brain without Contrast Date of Exam: 01/09/25 Exam# [id number] Ordering Dr: Eric Smith MD PROCEDURE: BRAIN WITHOUT CONTRAST 01/09/2025 REASON FOR EXAM: UNSTEADY GAIT TECHNIQUE: Noncontrast brain MRI. Multiplanar and multisequence images were obtained. COMPARISON: None. FINDINGS: There is mild diffuse cerebral atrophy with concomitant ventriculomegaly. There are multiple foci of abnormal periventricular and subcortical white matter signal in both cerebral hemispheres consistent with chronic ischemic white matter disease, although hypertension could cause a similar appearance. There is a normal sulcal pattern and gyral configuration. There is no evidence of acute intracranial hemorrhage or infarction. The nix-white differentiation is well preserved. There is no evidence of restricted diffusion. The basilar cisterns are normal. There are normal flow voids demonstrated in the recognized intracranial vessels. The cerebellum and brainstem are unremarkable. The cerebellar pontine angles are normal. The craniovertebral junction is normal. The sella and suprasellar regions are normal. There are bilateral intraorbital lens implants. The orbits and retro-orbital regions are otherwise unremarkable. The nasal septum is midline. There is diffuse mucoperiosteal thickening of the paranasal sinuses. The mastoid air cells are clear. There is normal here the bone marrow signal in the skull base and calvarium. MRI/Brain without Contrast IMPRESSION: 1. No evidence of acute intracranial pathology. 2. Cerebral atrophy with chronic ischemic white matter disease. 3. Mild pansinusitis. Reading Location: [id number] CC: Dr. Eric Smith MD Edge Stainer Machine: Signed Normal [facility] Inital Evaluation (1) - PTon 12-26-2024 Inital Evaluation (1) - PT [facility] [address] [place] [address] / REHABILITATION SERVICES INITIAL EVALUATION MR#: [id number] Acct: [id number] Name: BRENNAN LUIS Rep #: [id number] : 1945 79 From: David Sam Referring [...] has difficulty with walking on uneven ground, ascending/descendin g stairs, squatting, looking up, and housework. Pt. is retired and worked for [employer] previously. His goal with physical therapy is to be more steady. He denies any pain. His PMH includes prostate cancer with prostate removed, skin cancer, pain stimulator placed for low back pain, bilateral shoulder arthroscopic surgeries, tonsillectomy, and esophagus surgery. Pt. lives with his at [facility]. 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 [...] patient. For (more content not included)... Normal [facility] HIP, UNI W/ Pelvis 2-3 Views on 12-17-2024 HIP, UNI W/ Pelvis 2-[address] [facility] Imaging Services [address] [place] [address] HIP, UNI W/ Pelvis 2-3 Views MR#: [id number] Acct: [id number] Name: BRENNAN LUIS Rep #: [id number] : 1945 M 79 From: Pankaj Culver MD PCP: Dr. Eric Smith MD Status: REG CLI Study: HIP, UNI W/ Pelvis 2-3 Views Date of Exam: Exam# [id number] Ordering Dr: Eric Smith MD PROCEDURE: HIP, [...] osteoarthrosis with marginal osteophyte formation. Reading Location: [id number] CC: Dr. Eric Smith MD Edge Stainer Machine: Signed Normal [facility] M100.678on 08-12-2024 M100.678 Pending SARS-CoV-2 (COVID 19) Negative INFLUENZA A Negative INFLUENZA B Negative RSV PCR Negative Normal [facility] Comment on above: Performed By: #### M 100.678 #### [facility] [address] [place], [address] Vitamin D,25 Hydroxyon 07-22 Vitamin D 25-OH 41.3 ng/mL Normal [facility] Comment on above: Result Comment: Britany min D 25(OH) Status Range Deficiency <20 ng/mL (50nmol/L) Insufficiency 20 - 30 ng/mL (50 - 75 nmol/L) Sufficiency 30 - 100 ng/mL (75 - 250 nmol/L) Toxicity >100 ng/mL (>250 nmol/L) Performed By: #### L 506.1000, L500.4050, L100.0100, L501.9520 #### [facility] [address] [place], [address] CBC W/Diff, Automatedon 07-07 Absolute Lymph 1.30 X10 3/uL Normal 0.83-4.51 [facility] Comment on above: Performed By: #### L 506.1000, L500.4050, L100.0100, L501.9520 #### [facility] [address] [place], [address] Absolute Neut 3.5 X10 3/uL Normal 2.0-7.7 [facility] Comment on above: Performed By: #### L 506.1000, L500.4050, L100.0100, L501.9520 #### [facility] [address] [place], [address] Basophils/100 WBC (Bld) 0.7 % Normal 0-1 [facility] Comment on above: Performed By: #### L 506.1000, L500.4050, L100.0100, L501.9520 #### [facility] [address] [place], [address] Eosinophils/100 WBC (Bld) 3.8 % Normal 0-5 [facility] Comment on above: Performed By: #### L 506.1000, L500.4050, L100.0100, L501.9520 #### [facility] [address] [place], [address] Erythrocyte distribution width (RBC) [Ratio] 13.1 % Normal 11.6-14.6 [facility] Comment on above: Performed By: #### L 506.1000, L500.4050, L100.0100, L501.9520 #### [facility] [address] [place], [address] Hematocrit (Bld) [Volume fraction] 49.5 % Normal 40-54 [facility] Comment on above: Performed By: #### L 506.1000, L500.4050, L100.0100, L501.9520 #### [facility] [address] [place], [address] Hemoglobin (Bld) [Mass/Vol] 16.1 g/dL Normal 13.0-16.5 [facility] Comment on above: Performed By: #### L 506.1000, L500.4050, L100.0100, L501.9520 #### [facility] [address] [place], [address] IG% 0.400 Normal 0.0-0.9 [facility] Comment on above: Result Comment: IG% - Immature Granulocytes (promyelocytes, myelocytes and metamyelocytes) > 1% indicates that a LEFT SHIFT is Present. Performed By: #### L 506.1000, L500.4050, L100.0100, L501.9520 #### [facility] [address] [place], [address] Lymphocytes/100 WBC (Bld) 23.7 % Normal 19-41 [facility] Comment on above: Performed By: #### L 506.1000, L500.4050, L100.0100, L501.9520 #### [facility] [address] [place], [address] MCH (RBC) [Entitic mass] 31.7 pg Normal 27.0-32.0 [facility] Comment on above: Performed By: #### L 506.1000, L500.4050, L100.0100, L501.9520 #### [facility] [address] [place], [address] MCHC (RBC) [Mass/Vol] 32.5 g/dL Normal 32-36 [facility] Comment on above: Performed By: #### L 506.1000, L500.4050, L100.0100, L501.9520 #### [facility] [address] [place], [address] MCV (RBC) [Entitic vol] 97.4 fL High 80-94 [facility] Comment on above: Performed By: #### L 506.1000, L500.4050, L100.0100, L501.9520 #### [facility] [address] [place], [address] Monocytes/100 WBC (Bld) 7.8 % Normal 0-10 [facility] Comment on above: Performed By: #### L 506.1000, L500.4050, L100.0100, L501.9520 #### [facility] [address] [place], [address] Neutrophils/100 WBC (Bld) 63.6 % Normal 47-70 [facility] Comment on above: Performed By: #### L 506.1000, L500.4050, L100.0100, L501.9520 #### [facility] [address] [place], [address] Nucleated RBC (Bld) [#/Vol] 0 10*3/uL Normal 0-5 [facility] Comment on above: Performed By: #### L 506.1000, L500.4050, L100.0100, L501.9520 #### [facility] Laboratory [address] [place], [address] Platelet mean volume (Bld) [Entitic vol] 9.7 fL Normal 6.2-12.0 [facility] Comment on above: Performed By: #### L 506.1000, L500.4050, L100.0100, [id number] #### [facility] Laboratory [address] [place], [address] Platelets (Bld) [#/Vol] 175 10*3/uL Normal 150-450 [facility] Comment on above: Performed By: #### L 506.1000, L500.4050, L100.0100, [id number] #### [facility] [address] [place], [address] RBC (Bld) [#/Vol] 5.08 10*6/uL Normal 4.6-6.2 [facility] Comment on above: Performed By: #### L 506.1000, L500.4050, L100.0100, [id number] #### [facility] Laboratory [address] [place], [address] RDW SD 46.8 fl High 35.1-43.9 [facility] Comment on above: Performed By: #### L 506.1000, L500.4050, L100.0100, [id number] #### [facility] Laboratory [address] [place], [address] WBC (Bld) [#/Vol] 5.5 10*3/uL Normal 4.4-11.0 [facility] Comment on above: Performed By: #### L 506.1000, L500.4050, L100.0100, [id number] #### [facility] [address] [place], [address] Comprehensive Metabolic [facility] 07-19-2024 Albumin [Mass/Vol] 3.5 g/dL Normal 3.2-5.0 [facility] Comment on above: Performed By: #### L 506.1000, L500.4050, L100.0100, [id number] #### [facility] [address] [place], [address] Albumin/Globulin [Mass ratio] 0.9 {ratio} Normal 0.9-2.4 [facility] Comment on above: Performed By: #### L 506.1000, L500.4050, L100.0100, [id number] #### [facility] [address] [place], [address] ALK P 91 U/L Normal 45-117 [facility] Comment on above: Performed By: #### L 506.1000, L500.4050, L100.0100, [id number] #### [facility] [address] [place], [address] ALT [Catalytic activity/Vol] 56 U/L Normal 16-61 [facility] Comment on above: Performed By: #### L 506.1000, L500.4050, L100.0100, [id number] #### [facility] [address] [place], [address] AST [Catalytic activity/Vol] 27 U/L Normal 15-37 [facility] Comment on above: Performed By: #### L 506.1000, L500.4050, L100.0100, [id number] #### [facility] Laboratory [address] [place], [address] Bilirubin [Mass/Vol] 0.80 mg/dL Normal 0.20-1.00 [facility] Comment on above: Result Comment: For patients on eltrombopag therapy, use of Dimension [place] TBIL is not recommended. Performed By: #### L 506.1000, L500.4050, L100.0100, [id number] #### [facility] [address] [place], [address] BUN/CRE 18.8 RATIO Normal 10-20 [facility] Comment on above: Performed By: #### L 506.1000, [id number], L100.0100, [id number] #### [facility] [address] [place], [address] CA,Total 8.8 mg/dL Normal 8.5-10.1 [facility] Comment on above: Performed By: #### L 506.1000, [id number], L100.0100, [id number] #### [facility] [address] [place], [address] Chloride [Moles/Vol] 107 mmol/L Normal 98-107 [facility] Comment on above: Performed By: #### L 506.1000, L500.4050, L100.0100, [id number] #### [facility] Laboratory [address] [place], [address] CO2 [Moles/Vol] 31.0 mmol/L Normal 21.0-32.0 [facility] Comment on above: Performed By: #### L 506.1000, [id number], L100.0100, [id number] #### [facility] Laboratory [address] [place], [address] Creatinine [Mass/Vol] 0.96 mg/dL Normal 0.70-1.30 [facility] Comment on above: Result Comment: The validity of the calculated GFR GFRAA in patients over 70 years has not been determined. Clinical correlation is essential. Performed By: #### L 506.1000, L500.4050, L100.0100, [id number] #### [facility] [address] [place], [address] EST GFR - AA 98 mL/min Normal >60 [facility] Comment on above: Result Comment: Afri can Japanese GFR Calc Performed By: #### L 506.1000, L500.4050, L100.0100, [id number] #### [facility] [address] [place], [address] GAP 3 Low 5-15 [facility] Comment on above: Performed By: #### L 506.1000, L500.4050, L100.0100, [id number] #### [facility] [address] [place], [address] GFR/1.73 sq M.predicted among non-blacks MDRD (S/P/Bld) [Vol rate/Area] 81 mL/min/{1.73_m2} Normal >[address] [facility] Comment on above: Result Comment: Non- GFR Calc Performed By: #### L 506.1000, L500.4050, L100.0100, [id number] #### [facility] [address] [place], [address] Globulin (S) [Mass/Vol] 3.9 g/dL Normal 2.2-4.2 [facility] Comment on above: Performed By: #### L 506.1000, L500.4050, L100.0100, [id number] #### [facility] [address] [place], [address] Glucose [Mass/Vol] 108 mg/dL High 74-106 [facility] Comment on above: Result Comment: Fast ing Glucose result from 100 to 125 mg/dL suggests IMPAIRED HOMEOSTASIS per A.D.A. criteria. Performed By: #### L 506.1000, L500.4050, L100.0100, [id number] #### [facility] [address] [place], [address] Potassium [Moles/Vol] 4.0 mmol/L Normal 3.5-5.1 [facility] Comment on above: Performed By: #### L 506.1000, L500.4050, L100.0100, [id number] #### [facility] [address] [place], [address] Sodium [Moles/Vol] 141 mmol/L Normal 136-145 [facility] Comment on above: Performed By: #### L 506.1000, L500.4050, L100.0100, [id number] #### [facility] [address] [place], [address] T PROT 7.4 g/dL Normal 6.4-8.2 [facility] Comment on above: Performed By: #### L 506.1000, L500.4050, L100.0100, [id number] #### [facility] [address] [place], [address] Urea nitrogen [Mass/Vol] 18 mg/dL Normal 7-18 [facility] Comment on above: Performed By: #### L 506.1000, L500.4050, L100.0100, [id number] #### [facility] [address] [place], [address] Thyroid Stim Hormone (TSH)on 07-19-2024 TSH 1.230 uIU/mL Normal 0.358-3.740 [facility] Comment on above: Performed By: #### L 506.1000, L500.4050, L100.0100, [id number] #### [facility] [address] [place], [address] PSA,Total - Annual Screenon 05-30-2024 PSA,TOT SCREEN < 0.01 Normal 0.00-4.00 [facility] Comment on above: Result Comment: This test was performed using the TPSA assay method for the [employer] chemistry system. Values obtained with different assay methods cannot be used interchangably. When changing PSA assays in the course of monitoring a patient, additional sequential testing should be carried out to confirm baseline values. Performed By: #### L 501.9910 #### [facility] [address] [place], [address] Absolute lymphocyte countOrd ered By: Eric Smith on 09-25-2023 Lymphocytes Auto (Unsp spec) [#/Vol] 1.53 10*3/uL 0.83-4.51 [facility] Albumin Elph [Mass/Vol]Order ed By: Eric Smith on 09-25-2023 Albumin [Mass/Vol] 3.9 g/dL 2.9-4.4 [facility] Automated lymphocyte count a s percentage of total leukocytesOrdered By: Eric Smith on 09-25-2023 Lymphocytes/100 WBC Auto (Unsp spec) 23.8 % 19-41 [facility] Basophil percentageOrdered B y: Eric Smith on 09-25-2023 Basophils/100 WBC (Bld) 0.6 % 0-1 [facility] Bilirubin [Mass/Vol] 0.50 mg/dL 0.20-1.00 [facility] Comment on above: For patients on eltr ombopag therapy, use of Dimension [place] TBIL is not recommended. Chloride [Moles/Vol] 107 mmol/L 98-107 [facility] Eosinophils/100 WBC (Bld) 3.0 % 0-5 [facility] Glucose [Mass/Vol] 110 mg/dL 74-106 [facility] Comment on above: Fasting Glucose resu lt from 100 to 125 mg/dL suggests IMPAIRED HOMEOSTASIS per A.D.A. criteria. Hemoglobin (Bld) [Mass/Vol] 17.2 g/dL 13.0-16.5 [facility] Monocytes/100 WBC (Bld) 8.2 % 0-10 [facility] Neutrophils (Bld) [#/Vol] 4.1 10*3/uL 2.0-7.7 [facility] Neutrophils/100 WBC (Bld) 64.1 % 47-70 [facility] Potassium [Moles/Vol] 4.1 mmol/L 3.5-5.1 [facility] Protein [Mass/Vol] 7.7 g/dL 6.4-8.2 [facility] Sodium [Moles/Vol] 139 mmol/L 136-145 [facility] WBC (Bld) [#/Vol] 6.4 10*3/uL 4.4-11.0 [facility] Determination of erythrocyte mean corpuscular volume (MCV)Ordered By: Eric Smith on 09-25-2023 MCV (RBC) [Entitic vol] 96.0 fL 80-94 [facility] Erythrocyte distribution wid th ratioOrdered By: Eric Smith 09-25-2023 Erythrocyte distribution width (RBC) [Ratio] 13.1 % 11.6-14.6 [facility] Erythrocyte distribution wid th standard deviationOrdered By: Eric Smith on 09-25-2023 Erythrocyte distribution width (RBC) [Entitic vol] 46.2 fL 35.1-43.9 [facility] Hematocrit Auto (Bld) [Volum e fraction]Ordered By: Eric Smith on 09-25-2023 Hematocrit (Bld) [Volume fraction] 51.0 % 40-54 [facility] Immature granulocytes/100 WB C Auto (Bld)Ordered By: Eric Smith on 09-25-2023 Immature granulocytes/100 WBC (Bld) 0.300 % 0.0-0.9 [facility] Comment on above: IG% - Immature Granu locytes (promyelocytes, myelocytes and metamyelocytes) > 1% indicates that a LEFT SHIFT is Present. Laboratory - Chemistry and C hemistry - challengeOrdered By: Eric Smith on 09-25-2023 Albumin/Globulin [Mass ratio] 1.0 {ratio} 0.9-2.4 [facility] ALP [Catalytic activity/Vol] 76 U/L 45-117 [facility] ALT [Catalytic activity/Vol] 29 U/L 16-61 [facility] CO2 [Moles/Vol] 29.0 mmol/L 21.0-32.0 [facility] Cobalamin (Vitamin B12) [Mass/Vol] 927 pg/mL 211-911 [facility] Globulin (S) [Mass/Vol] 3.9 g/dL 2.2-4.2 [facility] Urea nitrogen/Creatinine [Mass ratio] 15.5 mg/mg 10-20 [facility] Laboratory - Hematology and Cell countsOrdered By: Eric Smith on 09-25-2023 MCH (RBC) [Entitic mass] 32.4 pg 27.0-32.0 [facility] MCHC (RBC) [Mass/Vol] 33.7 g/dL 32-36 [facility] Nucleated RBC/100 WBC (Bld) [Ratio] 0 % 0-5 [facility] Platelet mean volume (Bld) [Entitic vol] 9.9 fL 6.2-12.0 [facility] Platelets (Bld) [#/Vol] 196 10*3/uL 150-450 [facility] No Panel InformationOrdered By: Eric Smith on 09-25-2023 Addendum Document Comment . [facility] Comment on above: The SPE pattern appe ars unremarkable. Evidence ofmonoclonal protein is not apparent.Performed at: [facility] [id number] Director: Mitch Phillips PhD, Phone: [phone] Impbt-2-Fobkvzwql 0.2 g/dL 0.0-0.4 [facility] Wngcf-8-Vffwnpvgx 0.6 g/dL 0.4-1.0 [facility] Estimated GFR (MDRD) Amer 83 mL/min >60 [facility] Comment on above: GFR Calc Estimated GFR (MDRD) Non-Af Amer 69 mL/min >60 [facility] Comment on above: Non- GFR Calc Gamma Globulins 1.2 g/dL 0.4-1.8 [facility] Protein Fractions Elph [Inte rp]Ordered By: Eric Smith on 09-25-2023 Protein Fractions [Interp] Comment . [facility] Comment on above: Protein electrophore sis scan will follow via computer,mail, or project superintendent delivery. RBC Auto (Bld) [#/Vol]Ordere d By: Eric Smith on 09-25-2023 RBC (Bld) [#/Vol] 5.31 10*6/uL 4.6-6.2 [facility] Serum albumin to globulin ra britney by protein electrophoresisOrdered By: Eric Smith on 09-25-2023 Albumin/Globulin Elph [Mass ratio] 1.2 0.7-1.7 [facility] Serum globulin measurement ( mass/volume)Ordered By: Eric Smith 09-25-2023 Globulin (S) [Mass/Vol] 3.2 g/dL 2.2-3.9 [facility] Serum or plasma beta globuli n measurement by electrophoresis (mass/volume)Ordered By: Eric Smith 09-25-2023 Beta globulin Elph [Mass/Vol] 1.2 g/dL 0.7-1.3 [facility] Serum or plasma calcium bienvenido urement (mass/volume)Ordered By: Eric Smith 09-25-2023 Calcium [Mass/Vol] 9.3 mg/dL 8.5-10.1 [facility] Serum or plasma creatinine m easurement (mass/volume)Ordered By: Eric Smith 09-25-2023 Creatinine [Mass/Vol] 1.10 mg/dL 0.70-1.30 [facility] Comment on above: The validity of the calculated GFR & GFRAA in patients over 70 years has not been determined. Clinical correlation is essential. Serum or plasma protein mono clonal measurement by electrophoresis (mass/volume)Ordered By: Eric Smith on 09-25-2023 Protein.monoclonal Elph [Mass/Vol] Not Observed g/dL Not Observed [facility] Serum or plasma thyroid stim ulating hormone (TSH) measurement (units/volume)Ordered By: Eric Rubalcavaok on 09-25-2023 TSH Qn 1.95 uIU/mL 0.358-3.74 [facility] Serum or plasma urea nitroge n measurement (mass/volume)Ordered By: Eric Luis on 09-25-2023 Urea nitrogen [Mass/Vol] 17 mg/dL 7-18 [facility] Thin prep Papanicolaou smear with manual screeningOrdered By: [facility] on 09-25-2023 Thin prep Papanicolaou smear with manual screening 3.8 g/dL 3.2-5.0 [facility] Thin prep Papanicolaou smear with manual screening 17 U/L 15-37 [facility] Thin prep Papanicolaou smear with manual screening 3 5-15 [facility] Total protein bloodOrdered B y: Eric Rubalcavaok on 09-25-2023 Protein [Mass/Vol] 7.1 g/dL 6.0-8.5 [facility] Absolute lymphocyte countOrd ered By: Eric Smith on 07-17-2023 Lymphocytes Auto (Unsp spec) [#/Vol] 1.37 10*3/uL 0.83-4.51 [facility] Basophil percentageOrdered B y: Eric Luis on 07-17-2023 Basophils/100 WBC (Bld) 1.0 % 0-1 [facility] Bilirubin [Mass/Vol] 0.50 mg/dL 0.20-1.00 [facility] Comment on above: For patients on eltr ombopag therapy, use of Dimension [place] TBIL is not recommended. Chloride [Moles/Vol] 106 mmol/L 98-107 [facility] Eosinophils/100 WBC (Bld) 2.3 % 0-5 [facility] Glucose [Mass/Vol] 128 mg/dL 74-106 [facility] Comment on above: Fasting Glucose resu lt greater than or equal to 126 mg/dL suggests DIABETES MELLITUS per A.D.A. criteria. Neutrophils (Bld) [#/Vol] 3.2 10*3/uL 2.0-7.7 [facility] Neutrophils/100 WBC (Bld) 61.9 % 47-70 [facility] Potassium [Moles/Vol] 4.2 mmol/L 3.5-5.1 [facility] Protein [Mass/Vol] 7.7 g/dL 6.4-8.2 [facility] Sodium [Moles/Vol] 139 mmol/L 136-145 [facility] WBC (Bld) [#/Vol] 5.1 10*3/uL 4.4-11.0 [facility] Blood erythrocytes count (nu mber/volume)Ordered By: Eric Smith on 07-17-2023 RBC (Bld) [#/Vol] 5.34 10*6/uL 4.6-6.2 [facility] Blood hemoglobin measurement (mass/volume)Ordered By: Eric Smith on 07-17-2023 Hemoglobin (Bld) [Mass/Vol] 16.8 g/dL 13.0-16.5 [facility] Blood lymphocytes/100 leukoc ytesOrdered By: Eric Smith on 07-17-2023 Lymphocytes/100 WBC (Bld) 26.8 % 19-41 [facility] Blood monocytes/100 leukocyt esOrdered By: Eric Smith on 07-17-2023 Monocytes/100 WBC (Bld) 7.8 % 0-10 [facility] Blood platelet mean volumeOr dered By: Eric Smith on 07-17-2023 Platelet mean volume (Bld) [Entitic vol] 10.3 fL 6.2-12.0 [facility] Determination of erythrocyte mean corpuscular volume (MCV)Ordered By: Eric Smith on 07-17-2023 MCV (RBC) [Entitic vol] 97.4 fL 80-94 [facility] Hematocrit Auto (Bld) [Volum e fraction]Ordered By: Eric Smith on 07-17-2023 Hematocrit (Bld) [Volume fraction] 52.0 % 40-54 [facility] Laboratory - Chemistry and C hemistry - challengeOrdered By: Eric Smith on 07-17-2023 ALP [Catalytic activity/Vol] 77 U/L 45-117 [facility] ALT [Catalytic activity/Vol] 30 U/L 16-61 [facility] CO2 [Moles/Vol] 27.0 mmol/L 21.0-32.0 [facility] Globulin (S) [Mass/Vol] 4.1 g/dL 2.2-4.2 [facility] Urea nitrogen/Creatinine [Mass ratio] 13.5 mg/mg 10-20 [facility] Laboratory - Hematology and Cell countsOrdered By: Eric Smith on 07-17-2023 Erythrocyte distribution width (RBC) [Entitic vol] 46.5 fL 35.1-43.9 [facility] Erythrocyte distribution width (RBC) [Ratio] 13.2 % 11.6-14.6 [facility] Immature granulocytes/100 WBC (Bld) 0.200 % 0.0-0.9 [facility] Comment on above: IG% - Immature Granu locytes (promyelocytes, myelocytes and metamyelocytes) > 1% indicates that a LEFT SHIFT is Present. MCH (RBC) [Entitic mass] 31.5 pg 27.0-32.0 [facility] Nucleated RBC/100 WBC (Bld) [Ratio] 0 % 0-5 [facility] MCHC Auto (RBC) [Mass/Vol]Or dered By: Eric Smith on 07-17-2023 MCHC (RBC) [Mass/Vol] 32.3 g/dL 32-36 [facility] No Panel InformationOrdered By: Eric Smith on 07-17-2023 Estimated GFR (MDRD) Amer 89 mL/min >60 [facility] Comment on above: GFR Calc Estimated GFR (MDRD) Non-Af Amer 74 mL/min >60 [facility] Comment on above: Non- GFR Calc Thyroid Stimulating Hormone (TSH) 1.98 uIU/mL 0.358-3.74 [facility] Vitamin D 25-Hydroxy 35.3 ng/mL [facility] Comment on above: Vitamin D 25(OH) Sta tus Range Deficiency <20 ng/mL (50nmol/L) Insufficiency 20 - 30 ng/mL (50 - 75 nmol/L) Sufficiency 30 - 100 ng/mL (75 - 250 nmol/L) Toxicity >100 ng/mL (>250 nmol/L) Platelets bldOrdered By: Eric Smith on 07-17-2023 Platelets (Bld) [#/Vol] 189 10*3/uL 150-450 [facility] Serum or plasma albumin bienvenido urement (mass/volume)Ordered By: Eric Smith on 07-17-2023 Albumin [Mass/Vol] 3.6 g/dL 3.2-5.0 [facility] Serum or plasma albumin/glob ulin mass ratioOrdered By: Eric Smith on 07-17-2023 Albumin/Globulin [Mass ratio] 0.9 {ratio} 0.9-2.4 [facility] Serum or plasma calcium bienvenido urement (mass/volume)Ordered By: Eric Luis on 07-17-2023 Calcium [Mass/Vol] 9.2 mg/dL 8.5-10.1 [facility] Serum or plasma creatinine m easurement (mass/volume)Ordered By: Eric Smith on 07-17-2023 Creatinine [Mass/Vol] 1.04 mg/dL 0.70-1.30 [facility] Comment on above: The validity of the calculated GFR & GFRAA in patients over 70 years has not been determined. Clinical correlation is essential. Serum or plasma urea nitroge n measurement (mass/volume)Ordered By: Eric Smith on 07-17-2023 Urea nitrogen [Mass/Vol] 14 mg/dL 7-18 [facility] Thin prep Papanicolaou smear with manual screeningOrdered By: Eric Smith on 07-17-2023 Thin prep Papanicolaou smear with manual screening 15 U/L 15-37 [facility] Thin prep Papanicolaou smear with manual screening 6 5-15 [facility] No Panel InformationOrdered By: Sergio Soni on 07-14-2023 Prostate Specific Antigen Total < 0.01 ng/mL 0.0-4.0 [facility] Comment on above: This test was perfor med using the TPSA assay method for the[employer] chemistry system. Values obtained with differentassay methods cannot be used interchangably.When changing PSA assays in the course of monitoring apatient, additional sequential testing should be carriedout to confirm baseline values. No Panel InformationOrdered By: Dr. Soni on 01-16-2023 Prostate Specific Antigen Total < 0.01 ng/mL 0.0-4.0 [facility] Comment on above: This test was perfor med using the TPSA assay method for the[employer] chemistry system. Values obtained with differentassay methods cannot be used interchangably.When changing PSA assays in the course of monitoring apatient, additional sequential testing should be carriedout to confirm baseline values. Absolute lymphocyte countOrd ered By: Dr. Smith on 01-10-2023 Lymphocytes Auto (Unsp spec) [#/Vol] 0.96 10*3/uL 0.83-4.51 [facility] Basophil percentageOrdered B y: Dr. Smith on 01-10-2023 Basophils/100 WBC (Bld) 0.7 % 0-1 [facility] Bilirubin [Mass/Vol] 0.90 mg/dL 0.20-1.00 [facility] Comment on above: For patients on eltr ombopag therapy, use of Dimension [place] TBIL is not recommended. Chloride [Moles/Vol] 108 mmol/L 98-107 [facility] Cholesterol [Mass/Vol] 231 mg/dL <[address] [facility] Comment on above: <200 mg/dL Desirable 200-240 mg/dL Borderline >240 mg/dL High Risk Eosinophils/100 WBC (Bld) 1.6 % 0-5 [facility] Glucose [Mass/Vol] 102 mg/dL 74-106 [facility] Comment on above: Fasting Glucose resu lt from 100 to 125 mg/dL suggests IMPAIRED HOMEOSTASIS per A.D.A. criteria. Neutrophils (Bld) [#/Vol] 4.1 10*3/uL 2.0-7.7 [facility] Neutrophils/100 WBC (Bld) 73.8 % 47-70 [facility] Potassium [Moles/Vol] 3.9 mmol/L 3.5-5.1 [facility] Protein [Mass/Vol] 7.4 g/dL 6.4-8.2 [facility] Sodium [Moles/Vol] 138 mmol/L 136-145 [facility] Triglyceride [Mass/Vol] 89 mg/dL <199 [facility] Comment on above: The drugs N-Acetylcy steine and Metamizole may falsely depress this assay.Serum Triglycerides Reference Interval Normal <150 mg/dL Borderline high 150 - 199 mg/dL High 200 - 499 mg/dL Very High > or = 500 mg/dL WBC (Bld) [#/Vol] 5.6 10*3/uL 4.4-11.0 [facility] Blood erythrocytes count (nu mber/volume)Ordered By: Dr. Smith on 01-10-2023 RBC (Bld) [#/Vol] 5.19 10*6/uL 4.6-6.2 [facility] Blood hemoglobin measurement (mass/volume)Ordered By: Dr. Smith on 01-10-2023 Hemoglobin (Bld) [Mass/Vol] 16.6 g/dL 13.0-16.5 [facility] Blood lymphocytes/100 leukoc ytesOrdered By: Dr. Smith on 01-10-2023 Lymphocytes/100 WBC (Bld) 17.2 % 19-41 [facility] Blood monocytes/100 leukocyt esOrdered By: Dr. Smith on 01-10-2023 Monocytes/100 WBC (Bld) 6.3 % 0-10 [facility] Blood platelet mean volumeOr dered By: Dr. Smith on 01-10-2023 Platelet mean volume (Bld) [Entitic vol] 10.6 fL 6.2-12.0 [facility] Determination of erythrocyte mean corpuscular volume (MCV)Ordered By: Dr. Smith on 01-10-2023 MCV (RBC) [Entitic vol] 96.7 fL 80-94 [facility] Hematocrit Auto (Bld) [Volum e fraction]Ordered By: Dr. Smith on 01-10-2023 Hematocrit (Bld) [Volume fraction] 50.2 % 40-54 [facility] Laboratory - Chemistry and C hemistry - challengeOrdered By: Dr. Smith on 01-10-2023 ALP [Catalytic activity/Vol] 80 U/L 45-117 [facility] ALT [Catalytic activity/Vol] 25 U/L 16-61 [facility] CO2 [Moles/Vol] 26.0 mmol/L 21.0-32.0 [facility] Globulin (S) [Mass/Vol] 3.7 g/dL 2.2-4.2 [facility] Urea nitrogen/Creatinine [Mass ratio] 17.9 mg/mg 10-20 [facility] Laboratory - Hematology and Cell countsOrdered By: Dr. Smith on 01-10-2023 Erythrocyte distribution width (RBC) [Entitic vol] 46.5 fL 35.1-43.9 [facility] Erythrocyte distribution width (RBC) [Ratio] 13.0 % 11.6-14.6 [facility] Immature granulocytes/100 WBC (Bld) 0.400 % 0.0-0.9 [facility] Comment on above: IG% - Immature Granu locytes (promyelocytes, myelocytes and metamyelocytes) > 1% indicates that a LEFT SHIFT is Present. MCH (RBC) [Entitic mass] 32.0 pg 27.0-32.0 [facility] Nucleated RBC/100 WBC (Bld) [Ratio] 0 % 0-5 [facility] MCHC Auto (RBC) [Mass/Vol]Or dered By: Dr. Smith on 01-10-2023 MCHC (RBC) [Mass/Vol] 33.1 g/dL 32-36 [facility] No Panel InformationOrdered By: Dr. Smith on 01-10-2023 Estimated GFR (MDRD) Amer 106 mL/min >60 [facility] Comment on above: GFR Calc Estimated GFR (MDRD) Non-Af Amer 88 mL/min >60 [facility] Comment on above: Non- GFR Calc Thyroid Stimulating Hormone (TSH) 1.43 uIU/mL 0.358-3.74 [facility] Vitamin D 25-Hydroxy 46.7 ng/mL [facility] Comment on above: Vitamin D 25(OH) Sta tus Range Deficiency <20 ng/mL (50nmol/L) Insufficiency 20 - 30 ng/mL (50 - 75 nmol/L) Sufficiency 30 - 100 ng/mL (75 - 250 nmol/L) Toxicity >100 ng/mL (>250 nmol/L) Platelets bldOrdered By: Dr. Smith on 01-10-2023 Platelets (Bld) [#/Vol] 176 10*3/uL 150-450 [facility] Serum or plasma albumin bienvenido urement (mass/volume)Ordered By: Dr. Smith on 01-10-2023 Albumin [Mass/Vol] 3.7 g/dL 3.2-5.0 [facility] Serum or plasma albumin/glob ulin mass ratioOrdered By: Dr. Smith on 01-10-2023 Albumin/Globulin [Mass ratio] 1.0 {ratio} 0.9-2.4 [facility] Serum or plasma calcium bienvenido urement (mass/volume)Ordered By: Dr. Smith on 01-10-2023 Calcium [Mass/Vol] 8.5 mg/dL 8.5-10.1 [facility] Serum or plasma cholesterol in HDL measurement (mass/volume)Ordered By: Dr. Smith on 01-10-2023 Cholesterol in HDL [Mass/Vol] 40 mg/dL >40 [facility] Comment on above: The drugs N-Acetylcy steine and Metamizole may falsely depress this assay. Reference Range HDL <40 mg/dL Low HDL Cholesterol HDL >or= 60 mg/dL High HDL Cholesterol Serum or plasma cholesterol in VLDL measurement (mass/volume)Ordered By: Dr. Smith on 01-10-2023 Cholesterol in VLDL [Mass/Vol] 18 mg/dL 5-40 [facility] Serum or plasma creatinine m easurement (mass/volume)Ordered By: Dr. Smith on 01-10-2023 Creatinine [Mass/Vol] 0.90 mg/dL 0.70-1.30 [facility] Comment on above: The validity of the calculated GFR & GFRAA in patients over 70 years has not been determined. Clinical correlation is essential. Serum or plasma low density lipoprotein (LDL) cholesterol measurement (mass/volume)Ordered By: Dr. Smith on 01-10-2023 Cholesterol in LDL [Mass/Vol] 173 mg/dL 0-130 [facility] Serum or plasma urea nitroge n measurement (mass/volume)Ordered By: Dr. Smith on 01-10-2023 Urea nitrogen [Mass/Vol] 16 mg/dL 7-18 [facility] Thin prep Papanicolaou smear with manual screeningOrdered By: Dr. Smith on 01-10-2023 Thin prep Papanicolaou smear with manual screening 20 U/L 15-37 [facility] Thin prep Papanicolaou smear with manual screening 4 5-15 [facility] No Panel Informationon 07-13 Prostate Specific Antigen Total < 0.01 ng/mL 0.0-4.0 [facility] Work Phone: Comment on above: This test was perfor med using the TPSA assay method for [employer] chemistry system. Values obtained with differentassay methods cannot be used interchangably.When changing PSA assays in the course of monitoring apatient, additional sequential testing should be carriedout to confirm baseline values. Absolute lymphocyte counton 07-06-2022 Lymphocytes Auto (Unsp spec) [#/Vol] 1.26 10*3/uL 0.83-4.51 [facility] Work Phone: Basophil percentageon 2021 Basophils/100 WBC (Bld) 0.9 % 0-1 [facility] Work Phone: Bilirubin [Mass/Vol] 0.70 mg/dL 0.20-1.00 [facility] Work Phone: Comment on above: For patients on eltr ombopag therapy, use of [place] TBIL is not recommended. Chloride [Moles/Vol] 108 mmol/L 98-107 [facility] Work Phone: Eosinophils/100 WBC (Bld) 1.3 % 0-5 [facility] Work Phone: Glucose [Mass/Vol] 84 mg/dL 74-106 [facility] Work Phone: Neutrophils (Bld) [#/Vol] 3.6 10*3/uL 2.0-7.7 [facility] Work Phone: Neutrophils/100 WBC (Bld) 67.0 % 47-70 [facility] Work Phone: Potassium [Moles/Vol] 4.3 mmol/L 3.5-5.1 [facility] Work Phone: Protein [Mass/Vol] 7.1 g/dL 6.4-8.2 [facility] Work Phone: Sodium [Moles/Vol] 143 mmol/L 136-145 [facility] Work Phone: WBC (Bld) [#/Vol] 5.4 10*3/uL 4.4-11.0 [facility] Work Phone: Blood erythrocytes count (nu mber/volume)on 07-06-2022 RBC (Bld) [#/Vol] 5.15 10*6/uL 4.6-6.2 [facility] Work Phone: Blood hemoglobin measurement (mass/volume)on 07-06-2022 Hemoglobin (Bld) [Mass/Vol] 16.7 g/dL 13.0-16.5 [facility] Work Phone: Blood lymphocytes/100 leukoc yteson 07-06-2022 Lymphocytes/100 WBC (Bld) 23.5 % 19-41 [facility] Work Phone: [phone] Blood monocytes/100 leukocyt eson 07-06-2022 Monocytes/100 WBC (Bld) 6.9 % 0-10 [facility] Work Phone: Blood platelet mean volumeon 07-06-2022 Platelet mean volume (Bld) [Entitic vol] 10.2 fL 6.2-12.0 [facility] Work Phone: Determination of erythrocyte mean corpuscular volume (MCV)on 07-06-2022 MCV (RBC) [Entitic vol] 99.8 fL 80-94 [facility] Work Phone: Hematocrit Auto (Bld) [Volum e fraction]on 07-06-2022 Hematocrit (Bld) [Volume fraction] 51.4 % 40-54 [facility] Work Phone: Laboratory - Chemistry and C hemistry - challengeon 07-06-2022 ALP [Catalytic activity/Vol] 73 U/L 45-117 [facility] Work Phone: ALT [Catalytic activity/Vol] 27 U/L 16-61 [facility] Work Phone: CO2 [Moles/Vol] 30.0 mmol/L 21.0-32.0 [facility] Work Phone: Globulin (S) [Mass/Vol] 3.6 g/dL 2.2-4.2 [facility] Work Phone: [phone] Urea nitrogen/Creatinine [Mass ratio] 16.5 mg/mg 10-20 [facility] Work Phone: [phone] Laboratory - Hematology and Cell countson 07-06-2022 Erythrocyte distribution width (RBC) [Entitic vol] 49.5 fL 35.1-43.9 [facility] Work Phone: [phone] Erythrocyte distribution width (RBC) [Ratio] 13.3 % 11.6-14.6 [facility] Work Phone: [phone] Immature granulocytes/100 WBC (Bld) 0.400 % 0.0-0.9 [facility] Work Phone: [phone] Comment on above: IG% - Immature Granu locytes (promyelocytes, myelocytes and metamyelocytes) > 1% indicates that a LEFT SHIFT is Present. MCH (RBC) [Entitic mass] 32.4 pg 27.0-32.0 [facility] Work Phone: [phone] Nucleated RBC/100 WBC (Bld) [Ratio] 0 % 0-5 [facility] Work Phone: [phone] MCHC Auto (RBC) [Mass/Vol]on 07-06-2022 MCHC (RBC) [Mass/Vol] 32.5 g/dL 32-36 [facility] Work Phone: [phone] Panel Informationon 07-06 Estimated GFR (MDRD) Amer 90 mL/min >60 [facility] Work Phone: [phone] Comment on above: GFR Calc Estimated GFR (MDRD) Non-Af Amer 75 mL/min >60 [facility] Work Phone: [phone] Comment on above: Non- GFR Calc Thyroid Stimulating Hormone (TSH) 1.24 uIU/mL 0.358-3.74 [facility] Work Phone: [phone] Vitamin D 25-Hydroxy 35.4 ng/mL [facility] Work Phone: [phone] Comment on above: Vitamin D 25(OH) Sta tus Range Deficiency <20 ng/mL (50nmol/L) Insufficiency 20 - 30 ng/mL (50 - 75 nmol/L) Sufficiency 30 - 100 ng/mL (75 - 250 nmol/L) Toxicity >100 ng/mL (>250 nmol/L) Platelets bldon 07-06-2022 Platelets (Bld) [#/Vol] 187 10*3/uL 150-450 [facility] Work Phone: Serum or plasma albumin bienvenido urement (mass/volume)on 07-06-2022 Albumin [Mass/Vol] 3.5 g/dL 3.2-5.0 [facility] Work Phone: [phone] Serum or plasma albumin/glob ulin mass ratioon 07-06-2022 Albumin/Globulin [Mass ratio] 1.0 {ratio} 0.9-2.4 [facility] Work Phone: [phone] Serum or plasma calcium bienvenido urement (mass/volume)on 07-06-2022 Calcium [Mass/Vol] 8.5 mg/dL 8.5-10.1 [facility] Work Phone: [phone] Serum or plasma creatinine m easurement (mass/volume)on 07-06-2022 Creatinine [Mass/Vol] 1.03 mg/dL 0.70-1.30 [facility] Work Phone: Comment on above: The validity of the calculated GFR & GFRAA in patients over 70 years has not been determined. Clinical correlation is essential. Serum or plasma urea nitroge n measurement (mass/volume)on 07-06-2022 Urea nitrogen [Mass/Vol] 17 mg/dL 7-18 [facility] Work Phone: [phone] Thin prep Papanicolaou smear with manual screeningon 07-06-2022 Thin prep Papanicolaou smear with manual screening 12 U/L 15-37 [facility] Work Phone: [phone] Thin prep Papanicolaou smear with manual screening 5 5-15 [facility] Work Phone: No Panel Informationon 01-11 Prostate Specific Antigen Total < 0.01 ng/mL 0.0-4.0 [facility] Work Phone: Comment on above: This test was perfor med using the TPSA assay method for [employer] chemistry system. Values obtained with differentassay methods cannot be used interchangably.When changing PSA assays in the course of monitoring apatient, additional sequential testing should be carriedout to confirm baseline values. Absolute lymphocyte counton 01-05-2022 Lymphocytes Auto (Unsp spec) [#/Vol] 1.36 10*3/uL 0.83-4.51 [facility] Work Phone: Basophil percentageon 2021 Basophils/100 WBC (Bld) 0.8 % 0-1 [facility] Work Phone: Bilirubin [Mass/Vol] 0.40 mg/dL 0.20-1.00 [facility] Work Phone: [phone] Comment on above: For patients on eltr ombopag therapy, use of [place] TBIL is not recommended. Chloride [Moles/Vol] 106 mmol/L 98-107 [facility] Work Phone: [phone] Eosinophils/100 WBC (Bld) 2.3 % 0-5 [facility] Work Phone: Glucose [Mass/Vol] 96 mg/dL 74-106 [facility] Work Phone: Neutrophils (Bld) [#/Vol] 3.3 10*3/uL 2.0-7.7 [facility] Work Phone: [phone] Neutrophils/100 WBC (Bld) 62.1 % 47-70 [facility] Work Phone: [phone] Potassium [Moles/Vol] 4.2 mmol/L 3.5-5.1 [facility] Work Phone: Protein [Mass/Vol] 7.4 g/dL 6.4-8.2 [facility] Work Phone: Sodium [Moles/Vol] 139 mmol/L 136-145 [facility] Work Phone: Testosterone [Mass/Vol] 610.12 ng/dL [facility] Work Phone: Comment on above: CENTRAL 90% REFERENC E RANGES MALE AGE <50 197.44 - 669.58 ng/dL MALE AGE > or = 50 187.72 - 684.19 ng/dL FEMALE AGE <50 8.38 - 35.01 ng/dL FEMALE AGE > or = 50 <7.00 - 35.92 ng/dL Effective as of 03/02/21 WBC (Bld) [#/Vol] 5.3 10*3/uL 4.4-11.0 [facility] Work Phone: [phone] Blood erythrocytes count (nu mber/volume)on 01-05-2022 RBC (Bld) [#/Vol] 5.04 10*6/uL 4.6-6.2 [facility] Work Phone: Blood hemoglobin measurement (mass/volume)on 01-05-2022 Hemoglobin (Bld) [Mass/Vol] 16.4 g/dL 13.0-16.5 [facility] Work Phone: Blood lymphocytes/100 leukoc yteson 01-05-2022 Lymphocytes/100 WBC (Bld) 25.6 % 19-41 [facility] Work Phone: [phone] Blood monocytes/100 leukocyt eson 01-05-2022 Monocytes/100 WBC (Bld) 9.0 % 0-10 [facility] Work Phone: [phone] Blood platelet mean volumeon 01-05-2022 Platelet mean volume (Bld) [Entitic vol] 9.7 fL 6.2-12.0 [facility] Work Phone: [phone] Determination of erythrocyte mean corpuscular volume (MCV)on 01-05-2022 MCV (RBC) [Entitic vol] 96.6 fL 80-94 [facility] Work Phone: [phone] Hematocrit Auto (Bld) [Volum e fraction]on 01-05-2022 Hematocrit (Bld) [Volume fraction] 48.7 % 40-54 [facility] Work Phone: Laboratory - Chemistry and C hemistry - challengeon 01-05-2022 ALP [Catalytic activity/Vol] 81 U/L 45-117 [facility] Work Phone: [phone] ALT [Catalytic activity/Vol] 28 U/L 16-61 [facility] Work Phone: [phone] CO2 [Moles/Vol] 27.0 mmol/L 21.0-32.0 [facility] Work Phone: [phone] Globulin (S) [Mass/Vol] 3.9 g/dL 2.2-4.2 [facility] Work Phone: [phone] Urea nitrogen/Creatinine [Mass ratio] 14.7 mg/mg 10-20 [facility] Work Phone: [phone] Laboratory - Hematology and Cell countson 01-05-2022 Erythrocyte distribution width (RBC) [Entitic vol] 46.0 fL 35.1-43.9 [facility] Work Phone: [phone] Erythrocyte distribution width (RBC) [Ratio] 13.1 % 11.6-14.6 [facility] Work Phone: [phone] Immature granulocytes/100 WBC (Bld) 0.200 % 0.0-0.9 [facility] Work Phone: [phone] Comment on above: IG% - Immature Granu locytes (promyelocytes, myelocytes and metamyelocytes) > 1% indicates that a LEFT SHIFT is Present. MCH (RBC) [Entitic mass] 32.5 pg 27.0-32.0 [facility] Work Phone: [phone] Nucleated RBC/100 WBC (Bld) [Ratio] 0 % 0-5 [facility] Work Phone: [phone] MCHC Auto (RBC) [Mass/Vol]on 01-05-2022 MCHC (RBC) [Mass/Vol] 33.7 g/dL 32-36 [facility] Work Phone: [phone] Panel Informationon 01-05 Estimated GFR (MDRD) Amer 91 mL/min >60 [facility] Work Phone: [phone] Comment on above: GFR Calc Estimated GFR (MDRD) Non-Af Amer 76 mL/min >60 [facility] Work Phone: Comment on above: Non- GFR Calc Thyroid Stimulating Hormone (TSH) 1.54 uIU/mL 0.358-3.74 [facility] Work Phone: Vitamin D 25-Hydroxy 37.9 ng/mL [facility] Work Phone: Comment on above: Vitamin D 25(OH) Sta tus Range Deficiency <20 ng/mL (50nmol/L) Insufficiency 20 - 30 ng/mL (50 - 75 nmol/L) Sufficiency 30 - 100 ng/mL (75 - 250 nmol/L) Toxicity >100 ng/mL (>250 nmol/L) Platelets bldon 01-05-2022 Platelets (Bld) [#/Vol] 203 10*3/uL 150-450 [facility] Work Phone: Serum or plasma albumin bienvenido urement (mass/volume)on 01-05-2022 Albumin [Mass/Vol] 3.5 g/dL 3.2-5.0 [facility] Work Phone: Serum or plasma albumin/glob ulin mass ratioon 01-05-2022 Albumin/Globulin [Mass ratio] 0.9 {ratio} 0.9-2.4 [facility] Work Phone: Serum or plasma calcium bienvenido urement (mass/volume)on 01-05-2022 Calcium [Mass/Vol] 8.5 mg/dL 8.5-10.1 [facility] Work Phone: Serum or plasma creatinine m easurement (mass/volume)on 01-05-2022 Creatinine [Mass/Vol] 1.02 mg/dL 0.70-1.30 [facility] Work Phone: Comment on above: The validity of the calculated GFR & GFRAA in patients over 70 years has not been determined. Clinical correlation is essential. Serum or plasma urea nitroge n measurement (mass/volume)on 01-05-2022 Urea nitrogen [Mass/Vol] 15 mg/dL 7-18 [facility] Work Phone: Thin prep Papanicolaou smear with manual screeningon 01-05-2022 Thin prep Papanicolaou smear with manual screening 16 U/L 15-37 [facility] Work Phone: Thin prep Papanicolaou smear with manual screening 6 5-15 [facility] Work Phone: Absolute lymphocyte counton 08-05-2021 Lymphocytes Auto (Unsp spec) [#/Vol] 1.19 10*3/uL 0.83-4.51 [facility] Work Phone: Basophil percentageon 2020 Bilirubin [Mass/Vol] 0.70 mg/dL 0.20-1.00 [facility] Work Phone: Comment on above: For patients on eltr ombopag therapy, use of [place] TBIL is not recommended. Chloride [Moles/Vol] 108 mmol/L 98-107 [facility] Work Phone: Eosinophils/100 WBC (Bld) 2.5 % 0-5 [facility] Work Phone: Glucose [Mass/Vol] 95 mg/dL 74-106 [facility] Work Phone: Comment on above: Please note revised GLUCOSE reference range effective 2017. Neutrophils (Bld) [#/Vol] 3.8 10*3/uL 2.0-7.7 [facility] Work Phone: Potassium [Moles/Vol] 3.9 mmol/L 3.5-5.1 [facility] Work Phone: Protein [Mass/Vol] 7.6 g/dL 6.4-8.2 [facility] Work Phone: Sodium [Moles/Vol] 141 mmol/L 136-145 [facility] Work Phone: WBC (Bld) [#/Vol] 5.7 10*3/uL 4.4-11.0 [facility] Work Phone: [phone] Blood erythrocytes count (nu mber/volume)on 08-05-2021 RBC (Bld) [#/Vol] 5.35 10*6/uL 4.6-6.[facility]: [phone] Blood hemoglobin measurement (mass/volume)on 08-05-2021 Hemoglobin (Bld) [Mass/Vol] 17.2 g/dL 13.0-16.5 [facility] Work Phone: [phone] Blood lymphocytes/100 leukoc yteson 08-05-2021 Lymphocytes/100 WBC (Bld) 20.9 % 19-41 [facility] Work Phone: [phone] Blood monocytes/100 leukocyt eson 08-05-2021 Monocytes/100 WBC (Bld) 8.1 % 0-10 [facility] Work Phone: Blood platelet mean volumeon 08-05-2021 Platelet mean volume (Bld) [Entitic vol] 10.2 fL 6.2-12.0 [facility] Work Phone: [phone] Determination of erythrocyte mean corpuscular volume (MCV)on 08-05-2021 MCV (RBC) [Entitic vol] 95.0 fL 80-94 [facility] Work Phone: Hematocrit Auto (Bld) [Volum e fraction]on 08-05-2021 Hematocrit (Bld) [Volume fraction] 50.8 % 40-54 [facility] Work Phone: [phone] Laboratory - Chemistry and C hemistry - challengeon 08-05-2021 ALP [Catalytic activity/Vol] 82 U/L 45-117 [facility] Work Phone: ALT [Catalytic activity/Vol] 34 U/L 16-61 [facility] Work Phone: CO2 [Moles/Vol] 28.0 mmol/L 21.0-32.0 [facility] Work Phone: Globulin (S) [Mass/Vol] 4.1 g/dL 2.2-4.2 [facility] Work Phone: Urea nitrogen/Creatinine [Mass ratio] 17.3 mg/mg 10-20 [facility] Work Phone: Laboratory - Hematology and Cell countson 08-05-2021 Basophils/100 WBC (Unsp spec) 0.7 % 0-1 [facility] Work Phone: [phone] Erythrocyte distribution width (RBC) [Entitic vol] 45.3 fL 35.1-43.9 [facility] Work Phone: [phone] Erythrocyte distribution width (RBC) [Ratio] 13.0 % 11.6-14.6 [facility] Work Phone: [phone] Immature granulocytes/100 WBC (Bld) 0.400 % 0.0-0.9 [facility] Work Phone: [phone] Comment on above: IG% - Immature Granu locytes (promyelocytes, myelocytes and metamyelocytes) > 1% indicates that a LEFT SHIFT is Present. MCH (RBC) [Entitic mass] 32.1 pg 27.0-32.0 [facility] Work Phone: Neutrophils/100 WBC (Bld) 67.4 % 47-70 [facility] Work Phone: Nucleated RBC/100 WBC (Bld) [Ratio] 0 % 0-5 [facility] Work Phone: MCHC Auto (RBC) [Mass/Vol]on 08-05-2021 MCHC (RBC) [Mass/Vol] 33.9 g/dL 32-36 [facility] Work Phone: No Panel Informationon 08-05 Estimated GFR (MDRD) Amer 102 mL/min >60 [facility] Work Phone: Comment on above: GFR Calc Estimated GFR (MDRD) Non-Af Amer 85 mL/min >60 [facility] Work Phone: [phone] Comment on above: Non- GFR Calc Thyroid Stimulating Hormone (TSH) 1.42 uIU/mL 0.358-3.74 [facility] Work Phone: [phone] Vitamin D 25-Hydroxy 32.1 ng/mL [facility] Work Phone: Comment on above: Vitamin D 25(OH) Sta tus Range Deficiency <20 ng/mL (50nmol/L) Insufficiency 20 - 30 ng/mL (50 - 75 nmol/L) Sufficiency 30 - 100 ng/mL (75 - 250 nmol/L) Toxicity >100 ng/mL (>250 nmol/L) Platelets bldon 08-05-2021 Platelets (Bld) [#/Vol] 188 10*3/uL 150-450 [facility] Work Phone: Serum or plasma albumin bienvenido urement (mass/volume)on 08-05-2021 Albumin [Mass/Vol] 3.5 g/dL 3.2-5.0 [facility] Work Phone: Serum or plasma albumin/glob ulin mass ratioon 08-05-2021 Albumin/Globulin [Mass ratio] 0.9 {ratio} 0.9-2.4 [facility] Work Phone: Serum or plasma calcium bienvenido urement (mass/volume)on 08-05-2021 Calcium [Mass/Vol] 9.1 mg/dL 8.5-10.1 [facility] Work Phone: Serum or plasma creatinine m easurement (mass/volume)on 08-05-2021 Creatinine [Mass/Vol] 0.93 mg/dL 0.70-1.30 [facility] Work Phone: Comment on above: The validity of the calculated GFR & GFRAA in patients over 70 years has not been determined. Clinical correlation is essential. Serum or plasma urea nitroge n measurement (mass/volume)on 08-05-2021 Urea nitrogen [Mass/Vol] 16 mg/dL 7-18 [facility] Work Phone: [phone] Thin prep Papanicolaou smear with manual screeningon 08-05-2021 Thin prep Papanicolaou smear with manual screening 17 U/L 15-37 [facility] Work Phone: [phone] Thin prep Papanicolaou smear with manual screening 5 5-15 [facility] Work Phone: [phone] Vital Signs Date Time Vital Sign Value Performing Clinician Faci lity 10-10-2023 14:08-0500 Body temperature 98.4 [degF] Dr. Eric Smith Work Phone: [facility] 10-10-2023 14:08-0500 Body weight 103.[address] Eric Smith Work Phone: [facility] 10-10-2023 14:08-0500 Diastolic blood pressure 72 mm[Hg] Dr. Eric Smith Work Phone: [facility] 10-10-2023 14:08-0500 Heart rate 74 /min Dr. Eric Smith Work Phone: [facility] 10-10-2023 14:08-0500 Respiratory rate 16 /min Dr. Eric Smith Work Phone: [facility] 10-10-2023 14:08-0500 SaO2% (BldA) [Mass fraction] 97 % Dr. Eric Smith Work Phone: [facility] 10-10-2023 14:08-0500 Systolic blood pressure 131 mm[Hg] Dr. Eric Smith Work Phone: [facility] 12-05-2022 13:25-0400 Body height 185.[address] Eric Smith Work Phone: [facility] 12-05-2022 13:25-0400 Body mass index (BMI) [Ratio] 30.2 kg/m2 Dr. Eric Smith Work Phone: [facility] 12-05-2022 13:25-0400 Body weight 103.[address] Eric Smith Work Phone: [facility] Encounters Encounter Date Encounter Type Care Provider Facility Start: 04-11-2025 ambulatory Sergio Mendez lity:[facility] Start: 01-23-2025 End: 01-23-2025 ambulatory [place] Facility:[facility] Start: 01-21-2025 End: 01-21-2025 ambulatory Eric Chi Luis Facility:[facility] Start: 01-09-2025 End: 01-09-2025 ambulatory Eric Chi Luis Facility:[facility] Start: 12-26-2024 End: 12-26-2024 ambulatory Eric Chi Luis Facility:[facility] Start: 12-17-2024 End: 12-17-2024 ambulatory Eric Chi Luis Facility:[facility] Start: 08-12-2024 End: 08-12-2024 ambulatory Eric Chi Luis Facility:[facility] Start: 07-19-2024 End: 07-19-2024 ambulatory Eric Patrick Luis Facility:[facility] Start: 05-30-2024 End: 05-30-2024 ambulatory Sergio Soni Facility:[facility] Start: 10-20-2023 End: 10-20-[address] Eric Smith Work Phone: [facility] Work Phone: Start: 10-20-2023 End: 10-20-[address] Eric Smith Work Phone: [facility] Work Phone: Start: 10-10-2023 End: 10-10-[address] Eric Smith Work Phone: [facility] Work Phone: Start: 10-06-2023 Non-patient / Non-visit Dr. Zander Smith Work Phone: [facility] Start: 10-06-2023 End: 10-06-[address] Eric Smith Work Phone: [facility] Work Phone: Start: 10-06-2023 End: 10-06-[address] Eric Smith Work Phone: [facility] Work Phone: Start: 10-02-2023 End: 10-02-2023 ambulatory [facility] Work Phone: Start: 10-02-2023 End: 10-02-2023 [facility] Work Phone: Start: 09-25-2023 End: 09-25-2023 ambulatory [facility] Work Phone: Start: 09-25-2023 End: 09-25-2023 [facility] Start: 07-17-2023 End: 07-17-2023 ambulatory [facility] Work Phone: Start: 07-17-2023 End: 07-17-2023 [facility] [facility] Office 3rd Flr Start: 07-14-2023 End: 07-14-2023 ambulatory [facility] Work Phone: Start: 07-14-2023 End: 07-14-2023 [facility] Start: 01-16-2023 End: 01-16-[address] Eric Smith Work Phone: [facility] Work Phone: Start: 01-16-2023 End: 01-16-[address] [facility] Start: 01-10-2023 End: 01-10-[address] Eric Smith Work Phone: [facility] Work Phone: Start: 01-10-2023 End: 01-10-[address] Eric Smith Work Phone: [facility] Start: 12-05-2022 End: 12-05-[address] Eric Smith Work Phone: [facility] Start: 11-15-2022 Non-patient / Non-visit Dr. Zander Smith Work Phone: [facility] Start: 11-15-2022 End: 11-15-[address] Eric Smith Work Phone: [facility]Cardi[facility] Start: 08-02-2022 End: 08-02-2022 ambulatory [facility] Work Phone: Start: 08-02-2022 End: 08-02-2022 Patient encounter procedure [facility]Radiology, [facility] Start: 07-13-2022 End: 07-13-2022 Patient encounter procedure [facility], [place] Start: 07-06-2022 End: 07-06-2022 ambulatory [facility] Work Phone: Start: 07-06-2022 End: 07-06-2022 [facility] Start: 04-12-2022 End: 04-12-2022 ambulatory [facility] Work Phone: Start: 04-12-2022 End: 04-12-2022 [facility] Start: 01-11-2022 End: 01-11-2022 [facility] Start: 01-05-2022 End: 01-05-2022 [facility] Start: 08-05-2021 [facility] Procedures Date Procedure Procedure Detail Performing Clinician Start: 10-02-2023 Radiography of esophagus Start: 12-05-2022 X-ray of lumbar spin e, two or three views Dr. Eric Smith Work Phone: Start: 08-02-2022 Radiography of esophagus Start: 04-12-2022 X-ray of lumbar spin e, two or three views Plan of Treatment Date Care Activity Detail Author Start: 12-05-2022 Patient referral [facility] Work Phone: Patient referral [facility] Work Phone: US.doppler Lower ext remity vessels [facility] Immunizations Immunization Date Immunization Notes Care Provider Anders wilkinson 10-29-2020 Covid (Pfizer) [facility] 10-08-2020 Covid (Pfizer) [facility] 05-07-2019 Influenza virus vaccine [facility] 04-17-2018 Shingrix (PF) 50 mcg /0.5 mL intramuscular suspension, kit (varicella-zoster [facility] Work Phone: Payers Date Payer Category Payer Self-pay [id number] 2015 Private Health Insurance [id number] 2011 Medicare [id number] Unknown [id number] 2.16.8 [id number] Unknown [id number] 2.16.8 [id number] Unknown [id number] 2.16.8 [id number] Unknown [id number] 2.16.8 [id number] Unknown [id number] 2.16.8 [id number] Unknown [id number] 2.16.8 [id number] Unknown [id number] 2.16.8 [id number] Unknown [id number] 2.16.8 [id number] Unknown [id number] 2.16.8 [id number] Social History Date Type Detail Facility Start: 10-21-2020 End: 12-05-2022 Tobacco smoking status NHIS Unknown if ever smoked [facility] Start: 10-21-2020 None [facility] Start: 10-21-2020 Spouse/ Signif icant Other [facility] Start: 10-21-2020 Non-smoker [facility] Start: 1945 Sex Assigned At Male [facility] Medical Equipment Procedure Code Equipment Code Equipment Origin al Text Equipment Identifier Dates CLIP,HEMALVINO NUÑEZ FDA Start: 01-01-2020 CLIP,HEMGIANLUCACHERYL NUÑEZ FDA Start: 01-01-2020 CLIP,HEMALVINO NUÑEZ FDA Start: 01-01-2020 CLIP,HEMGIANLUCACK ME Ceferino NUÑEZ FDA Start: 01-01-2020 CLIP,HEMGIANLUCACK ME Ceferino NUÑEZ FDA Start: 01-01-2020 CLIP,HEMGIANLUCACHERYL NUÑEZ FDA Start: 01-01-2020 CLIP,HEMALVINO NUÑEZ FDA Start: 01-01-2020 CLIP,HEMGIANLUCACHERYL NUÑEZ FDA Start: 01-01-2020 SEALANT,FLOSEAL HEMOSTATIC 5ML FDA Start: 01-01-2020 CLIP,HEMALVINO NUÑEZ FDA Start: 01-01-2020 CLIP,HEMALVINO NUÑEZ FDA Start: 01-01-2020 CLIP,HEMGIANLUCACHERYL NUÑEZ FDA Start: 01-01-2020 CLIP,HEMGIANLUCACHERYL NUÑEZ FDA Start: 01-01-2020 CLIP,HEMGIANLUCACHERYL NUÑEZ FDA Start: 01-01-2020 CLIP,HEMGIANLUCACHERYL NUÑEZ FDA Start: 01-01-2020 CLIP,HEMALVINO LOPEZ Ceferino NUÑEZ FDA Start: 01-01-2020 CLIP,HEMGIANLUCACHERYL Ceferino NUÑEZ FDA Start: 01-01-2020 SEALANT,FLOSEAL HEMOSTATIC 5ML FDA Start: 01-01-2020 CLIP,HEMGIANLUCACK TYLER NUÑEZ FDA Start: 01-01-2020 CLIP,HEMOLOCK TYLER NUÑEZ FDA Start: 01-01-2020 CLIP,HEMOLOCHERYL NUÑEZ FDA Start: 01-01-2020 CLIP,HEMGIANLUCACHERYL NUÑEZ FDA Start: 01-01-2020 CLIP,HEMALVINO NUÑEZ FDA Start: 01-01-2020 CLIP,HEMOLOCK ME Ceferino [...] Vega JOAQUIN FDA Start: 01-01-2020 CLIP,HEMOLOCK ME Ceferino NUÑEZ FDA Start: 01-01-2020 SEALANT,FLOSEAL HEMOSTATIC 5ML FDA Start: 01-01-2020 CLIP,HEMOLOCK TYLER NUÑEZ FDA Start: 01-01-2020 CLIP,HEMOLOCK TYLER NUÑEZ FDA Start: 01-01-2020 CLIP,HEMOLOCK TYLER NUÑEZ FDA Start: 01-01-2020 CLIP,HEMOLOCK Ceferino NUÑEZ FDA Start: 01-01-2020 CLIP,HEMOLOCK Ceferino NUÑEZ FDA Start: 01-01-2020 CLIP,HEMOLOCK ME [place] JOAUQIN FDA Start: 01-01-2020 CLIP,HEMOLOCK ME De La [...] CLIP,HEMOLOCK D JOAQUIN FDA Start: 01-01-2020 CLIP,HEMOLOCK Ceferino NUÑEZ FDA Start: 01-01-2020 CLIP,HEMOLOCK D JOAQUIN FDA Start: 01-01-2020 SEALANT,FLOSEAL HEMOSTATIC 5ML FDA Start: 01-01-2020 CLIP,HEMOLOCK TYLER NUÑEZ FDA Start: 01-01-2020 CLIP,HEMOLOCK TYLER NUÑEZ FDA Start: 01-01-2020 CLIP,HEMOLOCK TYLER NUÑEZ FDA Start: 01-01-2020 CLIP,HEMOLOCK Ceferino NUÑEZ FDA Start: 01-01-2020 CLIP,HEMOLOCK Ceferino NUÑEZ FDA Start: 01-01-2020 CLIP,HEMOLOCK Ceferino NUÑEZ FDA Start: 01-01-2020 CLIP,HEMOLOCK ME [place] PHILLCHERYL FDA Start: 01-01-2020 CLIP,HEMOLOCK ME Ceferino NUÑEZ FDA Start: 01-01-2020 SEALANT,FLOSEAL HEMOSTATIC 5ML FDA Start: 01-01-2020 CLIP,HEMOLOCK TYLER NUÑEZ FDA Start: 01-01-2020 CLIP,HEMOLOCK TYLER PHILLCHERYL FDA Start: 01-01-2020 CLIP,HEMOLOCK TYLER NUÑEZ FDA Start: 01-01-2020 CLIP,HEMOLOCK Ceferino NUÑEZ FDA Start: 01-01-2020 CLIP,HEMOLOCK ME [place] JOAQUIN FDA Start: 01-01-2020 CLIP,HEMOLOCK ME [place] PHILLCHERYL FDA Start: 01-01-2020 CLIP,HEMOLOCK Ceferino POLLOCKCHERYL FDA Start: 01-01-2020 CLIP,HEMOLOCK ME Ceferino NUÑEZ FDA Start: 01-01-2020 SEALANT,FLOSEAL HEMOSTATIC 5ML FDA Start: 01-01-2020 CLIP,HEMOLOCK TYLER NUÑEZ FDA Start: 01-01-2020 CLIP,HEMOLOCK TYLER NUÑEZ FDA Start: 01-01-2020 CLIP,HEMOLOCK TYLER NUÑEZ FDA Start: 01-01-2020 CLIP,HEMOLOCK ME [place] PHILLCHERYL FDA Start: 01-01-2020 CLIP,HEMOLOCK ME [place] JOAQUIN FDA Start: 01-01-2020 CLIP,HEMOLOCK Ceferino NUÑEZ FDA Start: 01-01-2020 CLIP,HEMOLOCK ME [place] JOAQUIN FDA Start: 01-01-2020 CLIP,HEMOLOCK ME Ceferino NUÑEZ FDA Start: 01-01-2020 SEALANT,FLOSEAL HEMOSTATIC 5ML FDA Start: 01-01-2020 CLIP,HEMOLOCK TYLER NUÑEZ FDA Start: 01-01-2020 CLIP,HEMOLOCK TYLER NUÑEZ FDA Start: 01-01-2020 CLIP,HEMOLOCK TYLER NUÑEZ FDA Start: 01-01-2020 CLIP,HEMOLOCK ME [place] JOAQUIN FDA Start: 01-01-2020 CLIP,HEMOLOCK Ceferino NUEÑZ FDA Start: 01-01-2020 CLIP,RAYRAY NUÑEZ FDA Start: 01-01-2020 CLIP,HEMALVINO NÑUEZ FDA Start: 01-01-2020 CLIP,HEMALVINO NUÑEZ FDA Start: 01-01-2020 SEALANT,FLOSEAL HEMOSTATIC 5ML FDA Start: 01-01-2020 CLIP,HEMALVINO NUÑEZ FDA Start: 01-01-2020 CLIP,HEMALVINO NUÑEZ FDA Start: 01-01-2020 CLIP,HEMALVINO NUÑEZ FDA Start: 01-01-2020 CLIP,HEMALVINO NUÑEZ FDA Start: 01-01-2020 CLIP,HEMALVINO NUÑEZ FDA Start: 01-01-2020 CLIP,HEMALVINO NUÑEZ FDA Start: 01-01-2020 CLIP,HEMALVINO NUÑEZ FDA Start: 01-01-2020 CLIP,HEMALVINO NUÑEZ FDA Start: 01-01-2020 SEALANT,FLOSEAL HEMOSTATIC 5ML [...] Note Facility Evaluation note No assessment information availa ble [facility] Work Phone: Evaluation note Note Date & Type Note Facility Evaluation note Diagnosis Onset Date Post laminectomy syndrome ac svitlana DDD (degenerative disc disease), lumbar chronic [facility] Work Phone: Evaluation note Note Date & Type Note Facility Evaluation note Diagnosis Onset Date Venous insufficiency (chronic) (peripheral) [facility] Work Phone: Family History No Family History [...] Yes October 21, 2020 2:11pm Power of Liquor Stores [employer] Agencies Supervisor Yes October 21 2:11pm Advance Directive Response Recorded Date/ Time Living Will Yes October 21, 2020 1:11pm Power of Liquor Stores [employer] Agencies Supervisor Yes October 21 1:11pm Advance Directive Response Recorded Date/ Time Living Will Yes November 29, 2022 2:25pm Power of Liquor Stores [employer] Agencies Supervisor Yes November 29 2:25pm Advance Directive Response Recorded Date/ Time Advance Directives Yes October 28, 2 016 1:58pm Living Will Yes November 29, 2022 1:25pm Power of Liquor Stores And Agencies Supervisor Yes November 29 1:25pm Advance Directive Response Recorded Date/ Time Advance Directives Yes October 28, 2 016 2:58pm Living Will Yes November 29, 2022 2:25pm Power of Liquor Stores And Agencies Supervisor Yes November 29 2:25pm Chief Complaint and [...] ized section and content) DATE CREATED AUTHOR 04/14/2025 [facility] FOR RECORDS PERTAINING TO PATIENTS WHO [...] BE BASED ON THE PRIMARY CLINICAL RECORDS. [employer] provides no warranty or guarantee of the accuracy or completeness of information in this document.
--- NOTE | 2025-04-18 10:08 | PCM.PRE.AN2 ---
ASA Classification* ASA Classification ASA Classification: 3 Assessment & Plan Anesthesia* Anesthesia Assessment Anesthesia Assessment: Discussed sedation and/or anesthesia options, risks, benefits, and alternatives with patient/parents/legal guardian/POA. Questions invited. The patient/parents/legal guardian/POA seems to understand and agrees to proceed with anesthesia plan. Reviewed the physical assessment, medical history, allergy history and patient home medications list prior to surgery/procedure/anesthetic and documented any changes. Performed airway and anesthesia risk assessments. Anesthesia Type Anesthesia Type: General Anesthesia Focused Assessment* Temperature: 98 F Pulse Rate: 66 Blood Pressure: 129/69 Respiratory Rate: 18 Pulse Ox: 100 Airway Assessment Mouth opens: >3 cm Mallampati Score: II Labs Anesthesia Preop lab: CBC WBC 9.1 K/mm3 (4.4-11.0) 01/21/25 10:40 01/21/25 RBC 5.01 M/mm3 (4.6-6.2) 01/21/25 10:40 01/21/25 Hgb 16.4 g/dL (13.0-16.5) 01/21/25 10:40 01/21/25 Hct 47.8 % (40-54) 01/21/25 10:40 01/21/25 Plt Count 183 K/mm3 (150-450) 01/21/25 10:40 01/21/25 CHEMISTRY Potassium 4.2 mmol/L (3.3-5.1) 01/21/25 10:40 01/21/25 Sodium 139 mmol/L (133-145) 01/21/25 10:40 01/21/25 BUN 16 mg/dL (4-19) 01/21/25 10:40 01/21/25 Creatinine 0.95 mg/dL (0.70-1.20) 01/21/25 10:40 01/21/25 Glucose 105 mg/dL (70-99) H 01/21/25 10:40 01/21/25 TSH 1.350 uIU/mL (0.300-4.200) 01/21/25 10:40 01/21/25 COAG Pre-Assessment Diagnosis/Proposed Procedure Planned Operative Procedure(s): BILAT CYSTO WITH RETROGRADES URETEROSCOPY STENT Anesthesia History Anesthesia History - classification counselor: Anesthesia History - classification counselor Hx Hospitalization No 04/17/25 11:31 Any Problems With Anesthesia No 04/17/25 11:31 Cholinesterase deficiency No 04/17/25 11:31 You/Your Family Experience No 04/17/25 11:31 fever (hyperthermia) with Relationship Recent Exposure to Contagious No 04/18/25 09:40 Disease Does patient have nerve Yes: SPINAL CORD STIMULATAR 04/17/25 11:31 stimulator Patient instructed to have device shut off --Does patient have Pacemaker No 04/18/25 09:40 or ICD? When Was Last Pacemaker Check QUESTION #4 FULL TEXT: You/Your Family Experience fever (hyperthermia) with Anesthesia Last Oral Intake Last Oral intake: Last Oral Intake NPO since 19:00 04/18/25 09:40 Meds taken in AM with sips of No 04/18/25 09:40 water? Meds patient instructed to take am of surgery PONV PONV - classification counselor: PONV - classification counselor Female No 04/17/25 11:31 HX of Motion Sickness No 04/17/25 11:31 HX of N/V After Surgery No 04/17/25 11:31 Non-Smoker Yes 04/17/25 11:31 Duration of Surgery greater Yes 04/17/25 11:31 than 60 minutes Number of Risk Factors 2 04/17/25 11:31 PONV Score Moderate Risk 04/17/25 11:31 Height & Weight Height & Weight: Anesthesia: Height & Weight Height 6 ft 1 in 04/18/25 09:40 Weight: 105.2 kg 04/18/25 09:40 Body Mass Index (BMI) 30.6 04/18/25 09:40 Respiratory Assessment Respiratory Assessment - classification counselor: Respiratory Tract Infection Hx - classification counselor Hx Respiratory Tract Infection No 04/17/25 11:31 STOP Sleep Apnea STOP Sleep Apnea - classification counselor: STOP Sleep Apnea - classification counselor Hx Hypertension No 04/17/25 11:31 Hx Sleep Apnea No 04/17/25 11:31 CPAP BIPAP Do you snore loudly (louder Yes 04/17/25 11:31 than talking or can be heard Do you often feel tired/ Yes 04/17/25 11:31 fatigued/ sleepy during daytime? Has anyone observed you stop No 04/17/25 11:31 breathing during sleep? STOP Results Positive 04/17/25 11:31 QUESTION #5 FULL TEXT : Do you snore loudly (louder than talking or can be heard through closed doors)? 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 Specify any problems Hx of Preganancy in last 3 N/A 04/17/25 11:31 Months Nurse Filling Out Transfusion DSCHRIBER 04/17/25 11:31 & Questions: Date: 04/17/25 04/17/25 11:31 Time: 11:34 04/17/25 11:31 Patient unable to answer at this time (ie. confused, unrespo /Reproduction History /Reproductive History - classification counselor: /Reproductive Hx- classification counselor Hx Now No 04/17/25 11:31 Gestational Age (in weeks): EDC: Hx Hx Para Hx Section SAB No 04/17/25 11:31 Active Medications Active Medications: Current Medications Generic Name Dose Route Start Last Admin Trade Name Freq PRN Reason Stop Dose Admin Lactated Ringer's 1,000 mls @ 15 mls/hr 04/18/25 09:45 04/18/25 09:45 IV 15 mls/hr .Q48H KATHI Administration PFSH Medical History Wears hearing aid Wears glasses Cancer Depression Anxiety Gout Blood urine DVT (deep venous thrombosis) Back pain Difficulty swallowing History of hiatal hernia Gastric reflux Non-smoker History of pain when walking Cardiology follow-up encounter Polyneuropathy Peripheral vascular disease Hyperglycemia Chest pain DDD (degenerative disc disease), lumbar Vitamin D deficiency High cholesterol Arthritis Home Medications ?Medication ?Instructions ?Recorded ?Last Taken ?Type allopurinol 300 mg tablet 300 mg PO DAILY GOUT 10/29/15 10/20/20 21:30 History ascorbic acid (vitamin C) 1,000 mg 1 g PO DAILY 12/05/22 Unknown History capsule lactobacillus combination no.9 4 6,000 mmu cells PO DAILY 12/05/22 Unknown History billion cell capsule (Adult 50 Plus Probiotic) mecobalamin (vitamin B12) 1,000 1,000 mcg PO DAILY 12/05/22 Unknown History mcg chewable tablet (B12 Active) rivaroxaban 10 mg tablet (Xarelto) 10 mg PO DAILY 12/29/23 04/16/25 History atorvastatin 40 mg tablet 40 mg PO QHS 04/17/25 Unknown History cholecalciferol (vitamin D3) 50 50 mcg PO DAILY 04/17/25 Unknown History mcg (2,000 unit) capsule (Vitamin D3) green tea extract 500 mg capsule 500 mg PO DAILY 04/17/25 Unknown History Allergy/AdvReac Type Severity Reaction Status Date / Time celecoxib (From Celebrex) AdvReac Intermediate Other Verified 04/18/25 09:39 Family History Other CAD (coronary artery disease) Surgical History History of surgery Hx of right cataract extraction Hx of left cataract extraction Hx of colonoscopy Hx of arthroscopy of shoulder Hx of arthroscopy of shoulder Hx of tonsillectomy Hx of radical prostatectomy History of melanoma excision Social History Smoking Status: Never smoker alcohol intake: never substance use type: does not use what type of physical activity do you participate in: walking and weight training frequency: 5-6 times per week Review of Systems (Anesthesia) ROS Narrative System reviewed and no additional complaints, except as documented.
--- NOTE | 2025-04-18 10:19 | PCM.DC ---
Discharge Instructions DC O2, CPAP, BIPAP needs Home O2 Discharge instructions: No Dressing / Incision Discharge Activity: Return to Normal Activity and May Not Drive (while taking narcotic pain medications.) Dressing / Incision Call your doctor if you observe: Fever of 101 or Higher Follow Up Care Please Follow Up With: Sergio Soni MD When: Call [phone] for an appointment Test Results: Test results from this visit will be discussed in further detail at your follow-up appointment, if applicable. Discharge Plan Admission Primary Reason for Your Visit: retrogrades Attending Provider: Sergio Soni Primary Care Provider: Eric Smith Chi Instructions Print Language: Citizen Of The [place] Discharge Orders/Prescriptions Prescriptions: New ciprofloxacin HCl [Cipro] 500 mg tablet 500 mg PO BID Qty: 10 0RF Continued mecobalamin (vitamin B12) [B12 Active] 1,000 mcg tablet,chewable 1,000 mcg PO DAILY ascorbic acid (vitamin C) 1,000 mg capsule 1 g PO DAILY Adult 50 Plus Probiotic 4 billion cell capsule 6,000 mmu cells PO DAILY Rx Instructions: administer with a meal Xarelto 10 mg tablet 10 mg PO DAILY Rx Instructions: for 35 days allopurinol 300 MG tablet 300 mg PO DAILY atorvastatin 40 mg tablet 40 mg PO QHS green tea extract 500 mg capsule 500 mg PO DAILY cholecalciferol (vitamin D3) [Vitamin D3] 50 mcg (2,000 unit) capsule 50 mcg PO DAILY Referrals / Follow Up: Eric Smith Chi, MD [Primary Care Provider] - Disposition Disposition (needs filled in before D/C Order can be placed): Home, Self Care
[2025-04-18] MEDS: Cefazolin 1 GM/5 ML Vial 2 GM IV (10:30)
[2025-04-18] MEDS: Lidocaine 1% (5 ml sdv) 5 ML Vial IV (10:34)
[2025-04-18] MEDS: fentaNYL 100 MCG/2 ML Ampul 50 MCG IV (10:34)
--- NOTE | 2025-04-18 10:44 | PCM.OPRPT ---
Operative Report (Standard) Operative Information Date of Procedure: 04/18/25 Pre-Operative Diagnosis: Recurrent gross pneumaturia Post-Operative Diagnosis: The same Surgery/Procedure Performed: Cystoscopy and bilateral retrograde pyelograms community liaison officer: No Type of Anesthesia: General RN Documented Start/Stop Times: Operation Date: 04/18/25 11:35 Case Time Into Pre-Op 04/18/25 09:31 Out of Pre-Op 04/18/25 10:29 Anesthesia Start 04/18/25 10:30 Into Room 04/18/25 10:30 Procedure Start 04/18/25 10:40 Procedure End 04/18/25 10:42 Procedure Start Time: 10:40 Procedure Stop Time: 10:42 Select all DRAINS/GRAFTS/IMPLANTS that apply: None Estimated Blood Loss: None Specimen collected: No Description of surgery: Patient was taken back to the operating room after induction of general anesthesia, the patient was placed in dorsolithotomy position. The urethra and genitals were prepped and draped in usual sterile fashion. Using a 21 [place]an rigid cystourethroscope the entire length of the urethra was normal then went into the bladder. Identified the trigone the left and right ureteral orifice. I then cannulated the Left ureteral orifice and advanced a wire up into the kidney. I then backloaded a 5 Chilean open ended catheter over the wire and injected contrast to delineate the anatomy. It was normal. I then cannulated the right ureteral orifice and advanced a wire up into the kidney. I then backloaded a 5 [place]an open ended catheter over the wire and injected contrast to delineate the anatomy. It was butch The bladder was then drained. We confirmed the position of the stent by fluoroscopy. Patient anesthetic was reversed and was taken back to the PACU in good condition. Surgical Findings: Normal bilateral retrograde pyelograms normal bladder normal ureters, no source of bleeding found cysto normal Ct scan normal. Cause not determined. Complications Complications: No Admit VTE Documentation VTE Present on Admission: No VTE Mechan Device Prophylaxis: SCD's
--- NOTE | 2025-04-18 10:51 | PCM.POST.ANE ---
Anesthesia: Postop Eval I Current Vital Signs Temperature: 97.3 F Pulse Rate: 66 Blood Pressure: 125/76 Respiratory Rate: 14 Pulse Ox: 97 Assessment Airway patent: Yes Spontaneous unlabored respirations: Yes nausea: No Vomiting: No Anesthesia Complication: No Fluid Hydration Crystalloid volume administer (ml): 100 Total IV fluid infused: 100 Progress Note Anesthesia document: Postop Eval 1 completed: Yes
--- NOTE | 2025-04-18 10:54 | POSTOPAN2_ITS ---
Anesthesia Postop Eval I Sum Postop Eval Completion status Anesthesia document: Postop Eval 1 completed: Yes Anesthesia Postop Eval I Summary Anesthesia Postop Eval I Summary: Anesthesia Postop Eval I: Assessment Summary Airway patent Yes 04/18/25 10:51 MACHINE COIL ASSEMBLER.CSIR Spontaneous unlabored Yes 04/18/25 10:51 MACHINE COIL ASSEMBLER.CSIR respirations Mental status nausea No 04/18/25 10:51 MACHINE COIL ASSEMBLER.CSIR Vomiting No 04/18/25 10:51 MACHINE COIL ASSEMBLER.CSIR Anesthesia Postop Eval I: Fluid Summary Crystalloid volume administer 100 04/18/25 10:51 MACHINE COIL ASSEMBLER.CSIR (ml) Colloids volume administered ( ml) Blood Product volume administered (ml) Total IV fluid infused 100 04/18/25 10:51 MACHINE COIL ASSEMBLER.CSIR Anesthesia Postop Eval I: Summary Notes Anesthesia Complication No 04/18/25 10:51 MACHINE COIL ASSEMBLER.CSIR Anesthesia Complication Comment: Post-operative progress note Anesthesia: Postop Eval II Evaluation Mental status: Awake Pain Level: 0 nausea: No Vomiting: No
--- NOTE | 2025-04-18 10:54 | PCM.POSTANE2 ---
Anesthesia Postop Eval I Sum Postop Eval Completion status Anesthesia document: Postop Eval 1 completed: Yes Anesthesia Postop Eval I Summary Anesthesia Postop Eval I Summary: Anesthesia Postop Eval I: Assessment Summary Airway patent Yes 04/18/25 10:51 HUMAN RESOURCES PROJECT MANAGER.CSIR Spontaneous unlabored Yes 04/18/25 10:51 HUMAN RESOURCES PROJECT MANAGER.CSIR respirations Mental status nausea No 04/18/25 10:51 HUMAN RESOURCES PROJECT MANAGER.CSIR Vomiting No 04/18/25 10:51 HUMAN RESOURCES PROJECT MANAGER.CSIR Anesthesia Postop Eval I: Fluid Summary Crystalloid volume administer 100 04/18/25 10:51 HUMAN RESOURCES PROJECT MANAGER.CSIR (ml) Colloids volume administered ( ml) Blood Product volume administered (ml) Total IV fluid infused 100 04/18/25 10:51 HUMAN RESOURCES PROJECT MANAGER.CSIR Anesthesia Postop Eval I: Summary Notes Anesthesia Complication No 04/18/25 10:51 HUMAN RESOURCES PROJECT MANAGER.CSIR Anesthesia Complication Comment: Post-operative progress note Anesthesia: Postop Eval II Evaluation Mental status: Awake Pain Level: 0 nausea: No Vomiting: No
== END 2025-04-18 11:46 | disposition home or self-care (01) ==
LOC: SDC 09:19 → AC 09:21
PROVIDERS: PCP Family Medicine Geriatric Medicine; Referring Provider Urology; Visit Provider Urology
PROC: 0TJ98ZZ Inspection of Ureter, Via Natural or Artificial Opening Endoscopic (ICD-10-PCS; CPT 52352; principal; 2025-04-18 11:25)
DX: R39.89 Other symptoms and signs involving the genitourinary system (principal); Z79.01 Long term (current) use of anticoagulants; Z79.899 Other long term (current) drug therapy; K21.9 Gastro-esophageal reflux disease without esophagitis; E78.00 Pure hypercholesterolemia, unspecified
CPT/HCPCS: 52005; 00910; 76000; J2405

== ENCOUNTER → 2025-04-21 | Outpatient (CLI) | payer MEDICARE, OTHER, SELFPAY ==
[2025-04-21 15:39] LABS: Hematocrit 48.2 % (40-54); Hemoglobin 16.5 g/dL (13.0-16.5); Immature Granulocytes Count 0.020 X10^3/uL (0.0-0.0); Mean Corp Hgb Conc 34.2 g/dL (32-36); Mean Corpuscular Volume 96.4 fL (80-94); Mean Platelet Vol. 9.5 fl (6.2-12.0); NRBC Flagged by Analyzer 0 % (0-5); Platelet Count 167 K/mm3 (150-450); RBC Distribution Width CV 13.0 % (11.6-14.6); RBC Distribution Width SD 46.5 fl (35.1-43.9); Red Blood Count 5.00 M/mm3 (4.6-6.2); White Blood Count 7.3 K/mm3 (4.4-11.0)
[2025-04-21 16:10] LABS: PSA,Total- Diagnostic 0.03 ng/mL (0.00-4.00)
[2025-04-21 17:56] LABS: AST(SGOT) 50 U/L (<=37); Alanine Aminotransfer ALT/SGPT 82 U/L (<=46); Albumin, Serum 4.1 g/dL (3.4-4.8); Alkaline Phosphatase 79 U/L (40-129); Anion Gap 13 (5-15); BUN 13 mg/dL (4-19); BUN/Creat Ratio 13.5 RATIO (10-20); Calcium,Total 8.8 mg/dL (7.6-11.0); Carbon Dioxide 22.6 mmol/L (21.0-32.0); Chloride 106 mmol/L (98-108); Globulin 2.7 g/dL (2.2-4.2); Glucose 108 mg/dL (70-99); Potassium 4.4 mmol/L (3.3-5.1)
[2025-04-21 23:19] LABS: Xtra Tube Kwok EXTRA TUBE
[2025-04-23 10:08] LABS: HEPATITIS B SURFACE AG Negative (Negative); Hep C Antibodies Non Reactive (Non Reactive)
== END | disposition home or self-care (01) ==
LOC: POLAB3 15:19
PROVIDERS: PCP Family Medicine Geriatric Medicine; Visit Provider Family Medicine Geriatric Medicine
DX: B18.0 Chronic viral hepatitis B with delta-agent (principal); E78.5 Hyperlipidemia, unspecified; N39.0 Urinary tract infection, site not specified; Z85.46 Personal history of malignant neoplasm of prostate
CPT/HCPCS: 36415; 80053; 80074; 84153; 84443; 85025; 87086

== ENCOUNTER → 2025-04-25 | Outpatient (CLI) | payer MEDICARE, OTHER, SELFPAY ==
[2025-04-25 12:15] LABS: AST(SGOT) 36 U/L (<=37); Alanine Aminotransfer ALT/SGPT 64 U/L (<=46); Albumin, Serum 3.9 g/dL (3.4-4.8); Alkaline Phosphatase 76 U/L (40-129); Anion Gap 10 (5-15); BUN 15 mg/dL (4-19); BUN/Creat Ratio 15.5 RATIO (10-20); Calcium,Total 9.1 mg/dL (7.6-11.0); Carbon Dioxide 22.4 mmol/L (21.0-32.0); Chloride 106 mmol/L (98-108); Globulin 3.0 g/dL (2.2-4.2); Glucose 110 mg/dL (70-99); Potassium 4.3 mmol/L (3.3-5.1)
== END | disposition home or self-care (01) ==
LOC: POLAB3 10:56
PROVIDERS: PCP Family Medicine Geriatric Medicine; Visit Provider Family Medicine Geriatric Medicine
DX: R74.01 Elevation of levels of liver transaminase levels (principal)
CPT/HCPCS: 36415; 80053

== ENCOUNTER → 2025-05-02 | Outpatient (CLI) | payer MEDICARE, OTHER, SELFPAY ==
--- NOTE | 2025-05-02 08:22 | US_ITS ---
PROCEDURE: ABDOMEN COMPLETE 05/02/2025 REASON FOR EXAM: ELEVATED LIVER ENZYMES TECHNIQUE: Procedure Code: USABDC Modality: US Procedure: ABDOMEN COMPLETE COMPARISON: CT abdomen and pelvic study dated 04/11/2025 FINDINGS: Liver: Liver measures 18.4 cm. The left lobe of the liver is not well visualized due to bowel gas obscuring this region. Diffuse fatty infiltration of the liver is noted. No intrahepatic masses or intrahepatic biliary ductal dilatation is seen. Hepatopetal flow is noted. Hepatic flow is seen. Gallbladder: Gallbladder measures 6.4 cm. There are no stones or sludge seen within the gallbladder. Gallbladder wall is not thickened measuring 3 mm. Common bile duct measures 4 mm. There was a negative sonographic Johnson's sign. Common bile duct: CBD measures 4 mm. Pancreas: The pancreatic size, contour, and echogenicity are within normal limits. Pancreatic duct is not dilated. No pancreatic masses are seen. Kidneys: The right kidney measures 12.2 x 6.655.6 cm. Cortical thickness measures 13 mm. There are 2 stones seen within the right kidney. 1 stone measures 6 x 5 x 5 mm and the other stone measures 5 x 5 x 4 mm. There is no hydronephrosis.. The left kidney measures 12.5 x 5.4 x 6.7 cm. Cortical thickness measures 15 mm. There are 2 stones identified. 1 measures 6 x 5 x 3 mm in the other measures 4 x 4 x 4 mm. There is no hydronephrosis.. No renal masses are seen. Spleen: Spleen measures 11.2 x 5.2 x 4.7 cm. Size, contour, and echogenicity are within normal limits. Aorta: Visualized proximal aorta measures 2.2 x 2.3 x 1.8 cm. IVC: Is patent. Peritoneal Findings: There is no ascites. US/Abdomen Complete IMPRESSION: There is diffuse fatty infiltration of the liver. The left lobe of the liver i s poorly visualized due to bowel gas. Bilateral renal stones. The largest stone in each kidney measures 6 mm. There is no hydronephrosis. Reading Location: [facility]
== END | disposition home or self-care (01) ==
LOC: US 08:17
PROVIDERS: PCP Family Medicine Geriatric Medicine; Referring Provider Family Medicine Geriatric Medicine; Visit Provider Family Medicine Geriatric Medicine
DX: R74.8 Abnormal levels of other serum enzymes (principal)
CPT/HCPCS: 76700

== ENCOUNTER 2025-05-21 08:08 | Day surgery (SDC) | payer MEDICARE, OTHER, SELFPAY ==
--- NOTE | 2025-05-14 15:49 | PAT.ANESEVAL ---
Pre-Assessment Diagnosis/Proposed Procedure Planned Operative Procedure(s): CYSTOSCOPY, URETEROSCOPY, RETRO, LASER, STENT Anesthesia History Anesthesia History - professional builder: Anesthesia History - professional builder Hx Hospitalization No 05/14/25 15:19 Any Problems With Anesthesia No 05/14/25 15:19 Cholinesterase deficiency No 05/14/25 15:19 You/Your Family Experience No 05/14/25 15:19 fever (hyperthermia) with Relationship Recent Exposure to Contagious No 04/18/25 09:40 Disease Does patient have nerve Yes: SPINAL CORD STIMULATAR 05/14/25 15:19 stimulator Patient instructed to have device shut off --Does patient have Pacemaker or ICD? When Was Last Pacemaker Check QUESTION #4 FULL TEXT: You/Your Family Experience fever (hyperthermia) with Anesthesia Last Oral Intake Last Oral intake: Last Oral Intake NPO since Meds taken in AM with sips of water? Meds patient instructed to take am of surgery PONV PONV - professional builder: PONV - professional builder Female No 05/14/25 15:19 HX of Motion Sickness No 05/14/25 15:19 HX of N/V After Surgery No 05/14/25 15:19 Non-Smoker Yes 05/14/25 15:19 Duration of Surgery greater No 05/14/25 15:19 than 60 minutes Number of Risk Factors 1 05/14/25 15:19 PONV Score Low Risk 05/14/25 15:19 Height & Weight Height & Weight: Anesthesia: Height & Weight Height 6 ft 1 in 04/18/25 09:40 Respiratory Assessment Respiratory Assessment - professional builder: Respiratory Tract Infection Hx - professional builder Hx Respiratory Tract Infection No 05/14/25 15:19 STOP Sleep Apnea STOP Sleep Apnea - professional builder: STOP Sleep Apnea - professional builder Hx Hypertension No 05/14/25 15:19 Hx Sleep Apnea No 05/14/25 15:19 CPAP BIPAP Do you snore loudly (louder No 05/14/25 15:19 than talking or can be heard Do you often feel tired/ No 05/14/25 15:19 fatigued/ sleepy during daytime? Has anyone observed you stop No 05/14/25 15:19 breathing during sleep? STOP Results Negative 05/14/25 15:19 QUESTION #5 FULL TEXT : Do you snore loudly (louder than talking or can be heard through closed doors)? 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 Specify any problems Hx of Preganancy in last 3 N/A 05/14/25 15:19 Months Nurse Filling Out Transfusion NBUCHER 05/14/25 15:19 & Questions: Date: 05/14/25 05/14/25 15:19 Time: 15:19 05/14/25 15:19 Patient unable to answer at this time (ie. confused, unrespo /Reproduction History /Reproductive History - professional builder: /Reproductive Hx- professional builder Hx Now No 05/14/25 15:19 Gestational Age (in weeks): EDC: Hx Hx Para Hx Section SAB No 05/14/25 15:19 PFSH Medical History Wears hearing aid Wears glasses Cancer Depression Anxiety Gout Blood urine DVT (deep venous thrombosis) Back pain Difficulty swallowing History of hiatal hernia Gastric reflux Non-smoker History of pain when walking Cardiology follow-up encounter Polyneuropathy Peripheral vascular disease Hyperglycemia Chest pain DDD (degenerative disc disease), lumbar Vitamin D deficiency High cholesterol Arthritis Home Medications Medication Instructions Recorded Last Taken Type allopurinol 300 mg tablet 300 mg PO DAILY GOUT 10/29/15 10/20/20 21:30 History ascorbic acid (vitamin C) 1,000 mg 1 g PO DAILY 12/05/22 Unknown History capsule lactobacillus combination no.9 4 6,000 mmu cells PO DAILY 12/05/22 Unknown History billion cell capsule (Adult 50 Plus Probiotic) mecobalamin (vitamin B12) 1,000 1,000 mcg PO DAILY 12/05/22 Unknown History mcg chewable tablet (B12 Active) atorvastatin 40 mg tablet 40 mg PO QHS 04/17/25 Unknown History cholecalciferol (vitamin D3) 50 50 mcg PO DAILY 04/17/25 Unknown History mcg (2,000 unit) capsule (Vitamin D3) green tea extract 500 mg capsule 500 mg PO DAILY 04/17/25 Unknown History apixaban 2.5 mg tablet (Eliquis) 2.5 mg PO BID 05/14/25 Unknown History Allergy/AdvReac Type Severity Reaction Status Date / Time celecoxib (From Celebrex) AdvReac Intermediate Other Verified 05/14/25 15:17 Family History Other CAD (coronary artery disease) Surgical History (Updated 05/14/25 @ 15:21 by Stephanie Skelton) History of cystoscopy History of surgery Hx of right cataract extraction Hx of left cataract extraction Hx of colonoscopy Hx of arthroscopy of shoulder Hx of arthroscopy of shoulder Hx of tonsillectomy Hx of radical prostatectomy History of melanoma excision Social History Smoking Status: Never smoker alcohol intake: never substance use type: does not use what type of physical activity do you participate in: walking and weight training frequency: 5-6 times per week Audit: Pertinent Findings Pertinent Findings EKG Perinent findings: EKG 01/16/2024 sinus rhythm with low voltage Consult pertinent findings: Cardiology visit 01/16/2024. The patient's chest discomfort is sharp still can last seconds.. It is not predictable. This does not sound cardiac in etiology and the patient's risk factor profile is positive for hyperlipidemia and late in life stroke with his mother. At this time given his high level of activity he riding his bike 6 to 14 miles at a time and working out routinely with weights and his activity levels with no restrictions I do not feel that further evaluation is indicated. Recommendation Anesthesia Recommendation Anesthesia recommendation: OPTIMIZED for anesthesia
[2025-05-21] VITALS (10 sets, daily range): BP systolic 131–149; BP diastolic 74–91; PULSE 54–63; RESP 14–16; TEMP 36.3–36.8; O2SAT 94–100; BMI 29.6
[2025-05-21] MEDS: Lactated Ringers 1,000 ML 15 ML IV (08:59)
--- NOTE | 2025-05-21 09:05 | PRE.ANES_ITS ---
ASA Classification* ASA Classification ASA Classification: 2 Assessment & Plan Anesthesia* Anesthesia Assessment Anesthesia Assessment: Discussed sedation and/or anesthesia options, risks, benefits, and alternatives with patient/parents/legal guardian/POA. Questions invited. The patient/parents/legal guardian/POA seems to understand and agrees to proceed with anesthesia plan. Reviewed the physical assessment, medical history, allergy history and patient home medications list prior to surgery/procedure/anesthetic and documented any changes. Performed airway and anesthesia risk assessments. Anesthesia Type Anesthesia Type: General History Source History Obtained from:: Patient and Chart Anesthesia Focused Assessment* Temperature: 97.3 F Pulse Rate: 63 Blood Pressure: 131/82 Respiratory Rate: 14 Pulse Ox: 100 Oxygen Delivery Method: Room Air Airway Assessment Mouth opens: >3 cm Mallampati Score: II Teeth Condition: Intact and Caps/Crowns Neck Range of motion (ROM): Limited ROM Labs Anesthesia Preop lab: CBC WBC, (4.4-11.0) 7.3 K/mm3 04/21/25, : RBC, (4.6-6.2) 5.00 M/mm3 04/21/25, 15: Hgb, (13.0-16.5) 16.5 g/dL 04/21/25, : Hct, (40-54) 48.2 % 04/21/25, : Plt Count, (150-450) 167 K/mm3 04/21/25, 15:19 CHEMISTRY Potassium, (3.3-5.1) 4.3 mmol/L 04/25/25, 10:57 Sodium, (133-145) 139 mmol/L 04/25/25, 10:57 BUN, (4-19) 15 mg/dL 04/25/25, 10:57 Creatinine, (0.70-1.20) 0.95 mg/dL 04/25/25, 10:57 Glucose, (70-99) 110 mg/dL H 04/25/25, 10:57 TSH, (0.300-4.200) 2.030 uIU/mL 04/21/25, 15:19 COAG Pre-Assessment Diagnosis/Proposed Procedure Planned Operative Procedure(s): CYSTOSCOPY, URETEROSCOPY, RETRO, LASER, STENT Anesthesia History 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 When Was Last Pacemaker Check QUESTION #4 FULL TEXT: You/Your Family Experience fever (hyperthermia) with Anesthesia Last Oral Intake Last Oral intake: Last Oral Intake NPO since 22:00 05/21/25 08:48 Meds taken in AM with sips of No 05/21/25 08:48 water? Meds patient instructed to take am of surgery PONV PONV - napping machine operator: PONV - napping machine operator Female No 05/14/25 15:19 HX of Motion Sickness No 05/14/25 15:19 HX of N/V After Surgery No 05/14/25 15:19 Non-Smoker Yes 05/14/25 15:19 Duration of Surgery greater No 05/14/25 15:19 than 60 minutes Number of Risk Factors 1 05/14/25 15:19 PONV Score Low Risk 05/14/25 15:19 Height & Weight Height & Weight: Anesthesia: Height & Weight Height 6 ft 1 in 05/21/25 08:48 Weight: 102 kg 05/21/25 08:48 Body Mass Index (BMI) 29.6 05/21/25 08:48 Respiratory Assessment Respiratory Assessment - napping machine operator: Respiratory Tract Infection Hx - napping machine operator Hx Respiratory Tract Infection No 05/14/25 15:19 STOP Sleep Apnea STOP Sleep Apnea - napping machine operator: STOP Sleep Apnea - napping machine operator Hx Hypertension No 05/14/25 15:19 Hx Sleep Apnea No 05/14/25 15:19 CPAP BIPAP Do you snore loudly (louder No 05/14/25 15:19 than talking or can be heard Do you often feel tired/ No 05/14/25 15:19 fatigued/ sleepy during daytime? Has anyone observed you stop No 05/14/25 15:19 breathing during sleep? STOP Results Negative 05/14/25 15:19 QUESTION #5 FULL TEXT : Do you snore loudly (louder than talking or can be heard through closed doors)? 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 Specify any problems Hx of Preganancy in last 3 N/A 05/14/25 15:19 Months Nurse Filling Out Transfusion NBUCHER 05/14/25 15:19 & Questions: Date: 05/14/25 05/14/25 15:19 Time: 15:19 05/14/25 15:19 Patient unable to answer at this time (ie. confused, unrespo /Reproduction History /Reproductive History - napping machine operator: /Reproductive Hx- napping machine operator Hx Now No 05/14/25 15:19 Gestational Age (in weeks): EDC: Hx Hx Para Hx Section SAB No 05/14/25 15:19 Active Medications Active Medications: Current Medications Generic Name Dose Route Start Last Admin Trade Name Freq PRN Reason Stop Dose Admin Cefazolin Sodium 2 gm/ Sodium 110 mls @ 200 mls/hr 05/21/25 10:15 Chloride IV 05/21/25 10:47 INTRAOP ONE Lactated Ringer's 1,000 mls @ 15 mls/hr 05/21/25 08:30 05/21/25 08:59 IV 15 mls/hr .Q48H KATHI Administration PFSH Medical History Wears hearing aid Wears glasses Cancer Depression Anxiety Gout Blood urine DVT (deep venous thrombosis) Back pain Difficulty swallowing History of hiatal hernia Gastric reflux Non-smoker History of pain when walking Cardiology follow-up encounter Polyneuropathy Peripheral vascular disease Hyperglycemia Chest pain DDD (degenerative disc disease), lumbar Vitamin D deficiency High cholesterol Arthritis Home Medications Medication Instructions Recorded Last Taken Type allopurinol 300 mg tablet 300 mg PO DAILY GOUT 6 10/20/20 21:30 History ascorbic acid (vitamin C) 1,000 mg 1 g PO DAILY 05/20/25 History capsule lactobacillus combination no.9 4 6,000 mmu cells PO DA ABHINAV 12/05/22 05/20/25 History billion cell capsule (Adult 50 Plus Probiotic) mecobalamin (vitamin B12) 1,000 1,000 mcg PO DAILY 08/2905/20/25 History mcg chewable tablet (B12 Active) cholecalciferol (vitamin D3) 50 50 mcg PO DAILY 05/20/25 History mcg (2,000 unit) capsule (Vitamin D3) green tea extract 500 mg capsule 500 mg PO DAILY 04/1705/20/25 History apixaban 2.5 mg tablet (Eliquis) 2.5 mg PO BID 5 05/17/25 History Allergy/AdvReac Type Severity Reaction Status Date / Time celecoxib (From Celebrex) AdvReac Intermediate Other Verified 05/21/25 08:47 Family History Other CAD (coronary artery disease) Surgical History History of cystoscopy History of surgery Hx of right cataract extraction Hx of left cataract extraction Hx of colonoscopy Hx of arthroscopy of shoulder Hx of arthroscopy of shoulder Hx of tonsillectomy Hx of radical prostatectomy History of melanoma excision Social History Smoking Status: Never smoker alcohol intake: never substance use type: does not use what type of physical activity do you participate in: walking and weight training frequency: 5-6 times per week Review of Systems (Anesthesia) ROS Narrative System reviewed and no additional complaints, except as documented.
[2025-05-21] MEDS: Cefazolin 1 GM/5 ML Vial 2 GM IV (10:35)
[2025-05-21] MEDS: fentaNYL 100 MCG/2 ML Ampul 50 MCG IV (10:41)
[2025-05-21] MEDS: Lidocaine 1% (5 ml sdv) 5 ML Vial IV (10:41)
--- NOTE | 2025-05-21 11:13 | OP.PCM_ITS ---
Operative Report (Standard) Operative Information Date of Procedure: 05/21/25 Pre-Operative Diagnosis: Left ureteral calculi Post-Operative Diagnosis: same Surgery/Procedure Performed: Cystoscopy, left retrograde pyelogram, left ureteroscopy laser lithotripsy of stone and left stent placement para professional: No Type of Anesthesia: General RN Documented Start/Stop Times: Operation Date: 05/21/25 10:15 Case Time Into Pre-Op 05/21/25 08:26 Anesthesia Start 05/21/25 10:35 Into Room 05/21/25 10:35 Procedure Start 05/21/25 10:51 Procedure End 05/21/25 11:08 Procedure Start Time: 10:51 Procedure Stop Time: 11:08 Select all DRAINS/GRAFTS/IMPLANTS that apply: Drains Drain details: stent Estimated Blood Loss: none Specimen collected: No Description of surgery: This is a patient who presents to the hospital for treatment for an obstructing ureter calculi. I discussed with the patient how the surgery would be performed and we reviewed the risks and benefits of the surgery. The risk and benefits include the risk of failure to remove the stone completely and that the patient may need multiple procedures. We discussed the risk of an infection, the risk of bleeding. We discussed the very rare risk of serious complicated injury to the ureter. The patient understands that if the stone is not able to be removed safely that we may abort the procedure and place a stent. After full discussion and all questions address with the patient the consent form was signed the side was marked appropriately and the patient was taken back to the operating room for the procedure. The patient was taken back to the operating room. After induction of anesthesia by the anesthesiology team the patient was placed in dorsolithotomy position. The genitals were prepped and draped in usual sterile fashion. I went into the bladder with a 21 Finnish rigid cystourethroscope through the urethra. Upon entering the bladder I inspected the trigone the left and right ureteral orifice and the bladder itself. I then cannulated the left ureteral orifice and advanced a 0.038 Glidewire up into the kidney. Then over the Glidewire I advanced a 5 Fr Ureteral catheter and performed a retrograde pyelogram with about 10cc of contrast, to delineate the anatomy and identify the stone location. Then a ureteral balloon dilator was advanced over the wire and the distal ureter was balloon dilated with a 12 Fr x 5cm balloon dilator. After 3 minutes of dilating the ureter the balloon was backloaded off the 0.038 glidewire over the 0.038 guidewire I went in with the flexible 7.5fr ureteroscope. I was able to go inside with the 7.5Fr utereroscope and I pulled out the guidewire and then through the ureteroscope I engage the stone with laser lithotripsy using a 270miron laser fiber with energy setting of 6 Hertz and 0.6 J until the stone was lasered into tiny little pieces that should pass on their own. A retrograde pyelogram was performed with 10cc of contrast and no extravasation of contrast or perforation was identified in the ureter there was some mild irritation of the ureter where the stone was located. I then backed out of the ureter left the wire in place and then over the 0.038 guidewire I placed a double coiled pigtail ureteral stent. The ureteral stent was advanced over the 0.038 guidewire under direct fluoroscopic guidance and direct cystoscopic visual guidance, once the stent was in good position I pulled the wire and the stent coiled in the kidney and bladder in good position. I then drained the patient's bladder and the cystoscope was removed and the patient was taken back to the recovery room in good position. The patient was given discharge instructions to call the office for instructions on when to come to the office to have the stent removed. Surgical Findings: stone lasered completely Complications Complications: No Admit VTE Documentation VTE Present on Admission: No VTE Mechan Device Prophylaxis: SCD's VTE Pharm Prophylaxis ordered?: No
--- NOTE | 2025-05-21 11:13 | PCM.DC ---
Discharge Instructions DC O2, CPAP, BIPAP needs Home O2 Discharge instructions: No Dressing / Incision Discharge Activity: Return to Normal Activity and May Not Drive (while taking narcotic pain medications.) Dressing / Incision Call your doctor if you observe: Fever of 101 or Higher Follow Up Care Please Follow Up With: Sergio Soni MD When: Call [phone] for an appointment Test Results: Test results from this visit will be discussed in further detail at your follow-up appointment, if applicable. Discharge Plan Admission Primary Reason for Your Visit: laser stone Attending Provider: Sergio Soni Primary Care Provider: Eric Smith Chi Instructions Print Language: Bahamian Discharge Orders/Prescriptions Prescriptions: New ciprofloxacin HCl [Cipro] 500 mg tablet 500 mg PO BID Qty: 6 0RF oxycodone 5 mg tablet 5 mg PO Q6H PRN (Reason: pain) 7 Days Qty: 10 0RF Continued mecobalamin (vitamin B12) [B12 Active] 1,000 mcg tablet,chewable 1,000 mcg PO DAILY ascorbic acid (vitamin C) 1,000 mg capsule 1 g PO DAILY Adult 50 Plus Probiotic 4 billion cell capsule 6,000 mmu cells PO DAILY Rx Instructions: administer with a meal allopurinol 300 MG tablet 300 mg PO DAILY green tea extract 500 mg capsule 500 mg PO DAILY cholecalciferol (vitamin D3) [Vitamin D3] 50 mcg (2,000 unit) capsule 50 mcg PO DAILY Eliquis 2.5 mg tablet 2.5 mg PO BID Referrals / Follow Up: Sergio Soni MD [Med Staff - Active Staff, Urology] Eric Smith Chi, MD [Primary Care Provider, Geriatrics] Disposition Disposition (needs filled in before D/C Order can be placed): Home, Self Care
--- NOTE | 2025-05-21 11:17 | PCM.POST.ANE ---
Anesthesia: Postop Eval I Current Vital Signs Temperature: 97.6 F Pulse Rate: 59 Blood Pressure: 149/91 Respiratory Rate: 16 Pulse Ox: 97 Assessment Airway patent: Yes Spontaneous unlabored respirations: Yes nausea: No Vomiting: No Anesthesia Complication: No Fluid Hydration Crystalloid volume administer (ml): 300 Total IV fluid infused: 300 Progress Note Anesthesia document: Postop Eval 1 completed: Yes
--- NOTE | 2025-05-21 12:15 | POSTOPAN2_ITS ---
Anesthesia Postop Eval I Sum Postop Eval Completion status Anesthesia document: Postop Eval 1 completed: Yes Anesthesia Postop Eval I Summary Anesthesia Postop Eval I Summary: Anesthesia Postop Eval I: Assessment Summary Airway patent Yes 05/21/25 11:17 CASE [email or web address].SHOF Spontaneous unlabored Yes 05/21/25 11:17 CASE PLANNER.SHOF respirations Mental status nausea No 05/21/25 11:17 CASE PLANNER.SHOF Vomiting No 05/21/25 11:17 CASE PLANNER.SHOF Anesthesia Postop Eval I: Fluid Summary Crystalloid volume administer 300 05/21/25 11:17 CASE PLANNER.SHOF (ml) Colloids volume administered ( ml) Blood Product volume administered (ml) Total IV fluid infused 300 05/21/25 11:17 CASE PLANNER.SHOF Anesthesia Postop Eval I: Summary Notes Anesthesia Complication No 05/21/25 11:17 CASE PLANNER.SHOF Anesthesia Complication Comment: Post-operative progress note Anesthesia: Postop Eval II Evaluation Mental status: Awake and Calm Pain Level: 1 nausea: No Vomiting: No Complications Anesthesia Complication: No
--- NOTE | 2025-05-21 12:15 | PCM.POSTANE2 ---
Anesthesia Postop Eval I Sum Postop Eval Completion status Anesthesia document: Postop Eval 1 completed: Yes Anesthesia Postop Eval I Summary Anesthesia Postop Eval I Summary: Anesthesia Postop Eval I: Assessment Summary Airway patent Yes 05/21/25 11:17 COMPENSATION [email or web address].SHOF Spontaneous unlabored Yes 05/21/25 11:17 COMPENSATION ASSOCIATE.SHOF respirations Mental status nausea No 05/21/25 11:17 COMPENSATION ASSOCIATE.SHOF Vomiting No 05/21/25 11:17 COMPENSATION ASSOCIATE.SHOF Anesthesia Postop Eval I: Fluid Summary Crystalloid volume administer 300 05/21/25 11:17 COMPENSATION ASSOCIATE.SHOF (ml) Colloids volume administered ( ml) Blood Product volume administered (ml) Total IV fluid infused 300 05/21/25 11:17 COMPENSATION ASSOCIATE.SHOF Anesthesia Postop Eval I: Summary Notes Anesthesia Complication No 05/21/25 11:17 COMPENSATION ASSOCIATE.SHOF Anesthesia Complication Comment: Post-operative progress note Anesthesia: Postop Eval II Evaluation Mental status: Awake and Calm Pain Level: 1 nausea: No Vomiting: No Complications Anesthesia Complication: No
--- NOTE | 2025-05-30 12:56 | PCM.HP.STD ---
HPI - General General Date of Admission: 05/21/25 Date of Service: 05/21/25 HPI Narrative BRENNAN LUIS, is a 80 M who presents to hospital to laser stone in the proximal left ureter. Ct scan done has stone in ureter, not dicated on radiology report, 2nd review found stone so plan to laser stone and place stent. [facility] Medical History Wears hearing aid Wears glasses Cancer Depression Anxiety Gout Blood urine DVT (deep venous thrombosis) Back pain Difficulty swallowing History of hiatal hernia Gastric reflux Non-smoker History of pain when walking Cardiology follow-up encounter Polyneuropathy Peripheral vascular disease Hyperglycemia Chest pain DDD (degenerative disc disease), lumbar Vitamin D deficiency High cholesterol Arthritis Home Medications Medication Instructions Recorded Last Taken Type allopurinol 300 mg tablet 300 mg PO DAILY GOUT 10/29/15 10/20/20 21:30 History ascorbic acid (vitamin C) 1,000 mg 1 g PO DAILY 12/05/22 05/20/25 History capsule lactobacillus combination no.9 4 6,000 mmu cells PO DAILY 12/05/22 05/20/25 History billion cell capsule (Adult 50 Plus Probiotic) mecobalamin (vitamin B12) 1,000 1,000 mcg PO DAILY 12/05/22 05/20/25 History mcg chewable tablet (B12 Active) cholecalciferol (vitamin D3) 50 50 mcg PO DAILY 04/17/25 05/20/25 History mcg (2,000 unit) capsule (Vitamin D3) green tea extract 500 mg capsule 500 mg PO DAILY 04/17/25 05/20/25 History apixaban 2.5 mg tablet (Eliquis) 2.5 mg PO BID 05/14/25 05/17/25 History ciprofloxacin HCl 500 mg tablet 500 mg PO BID #6 tabs 05/21/25 Unknown Rx (Cipro) oxycodone 5 mg tablet 5 mg PO Q6H PRN pain 7 days #10 05/21/25 Unknown Rx tabs Allergy/AdvReac Type Severity Reaction Status Date / Time celecoxib (From Celebrex) AdvReac Intermediate Other Verified 05/21/25 08:47 Family History Other CAD (coronary artery disease) Surgical History History of cystoscopy History of surgery Hx of right cataract extraction Hx of left cataract extraction Hx of colonoscopy Hx of arthroscopy of shoulder Hx of arthroscopy of shoulder Hx of tonsillectomy Hx of radical prostatectomy History of melanoma excision Social History Smoking Status: Never smoker alcohol intake: never substance use type: does not use what type of physical activity do you participate in: walking and weight training frequency: 5-6 times per week Vital Signs Vital Signs Vital Signs: Weight Weight: 102 kg Body Mass Index (BMI) 29.6 Assessment & Plan Assessment/Plan (1) Stone in kidney: PLAN: left proximal ureteral stone.
== END 2025-05-21 13:20 | disposition home or self-care (01) ==
LOC: SDC 08:08 → AC 08:09
PROVIDERS: PCP Family Medicine Geriatric Medicine; Referring Provider Urology; Visit Provider Urology
PROC: 0TJ98ZZ Inspection of Ureter, Via Natural or Artificial Opening Endoscopic (ICD-10-PCS; CPT 52352; principal; 2025-05-21 10:05)
DX: N20.1 Calculus of ureter (principal); K21.9 Gastro-esophageal reflux disease without esophagitis; E78.00 Pure hypercholesterolemia, unspecified; Z86.718 Personal history of other venous thrombosis and embolism; Z79.01 Long term (current) use of anticoagulants
CPT/HCPCS: 52356; 00873; 76000; C1769; C2617; J2405

== ENCOUNTER → 2025-06-05 | Outpatient (CLI) | payer MEDICARE, OTHER, SELFPAY ==
--- NOTE | 2025-06-05 10:42 | RAD_ITS ---
PROCEDURE: RAD/Thoracic Spine 2 Views
== END | disposition home or self-care (01) ==
PROVIDERS: PCP Family Medicine Geriatric Medicine; Referring Provider Clinical Nurse Specialist Adult Health; Visit Provider Clinical Nurse Specialist Adult Health
DX: Z46.2 Encounter for fitting and adjustment of other devices related to nervous system and special senses (principal)
CPT/HCPCS: 72070

== ENCOUNTER → 2025-07-23 | Outpatient (CLI) | payer MEDICARE, OTHER, SELFPAY ==
[2025-07-23 09:48] LABS: Hematocrit 49.0 % (40-54); Hemoglobin 16.2 g/dL (13.0-16.5); Immature Granulocytes Count 0.030 X10^3/uL (0.0-0.0); Mean Corp Hgb Conc 33.1 g/dL (32-36); Mean Corpuscular Volume 97.2 fL (80-94); Mean Platelet Vol. 10.2 fl (6.2-12.0); NRBC Flagged by Analyzer 0 % (0-5); Platelet Count 184 K/mm3 (150-450); RBC Distribution Width CV 13.2 % (11.6-14.6); RBC Distribution Width SD 46.8 fl (35.1-43.9); Red Blood Count 5.04 M/mm3 (4.6-6.2); White Blood Count 5.7 K/mm3 (4.4-11.0)
[2025-07-23 10:43] LABS: AST(SGOT) 20 U/L (<=37); Alanine Aminotransfer ALT/SGPT 15 U/L (<=46); Albumin, Serum 4.1 g/dL (3.4-4.8); Alkaline Phosphatase 83 U/L (40-129); Anion Gap 10 (5-15); BUN 16 mg/dL (4-19); BUN/Creat Ratio 15.6 RATIO (10-20); Calcium,Total 8.8 mg/dL (7.6-11.0); Carbon Dioxide 25.2 mmol/L (21.0-32.0); Chloride 104 mmol/L (98-108); Globulin 3.0 g/dL (2.2-4.2); Glucose 129 mg/dL (70-99); Potassium 4.2 mmol/L (3.3-5.1); Vitamin D,25 Hydroxy 34.7 ng/mL (30-100)
[2025-07-23 17:19] LABS: Xtra Tube Kwok EXTRA TUBE
== END | disposition home or self-care (01) ==
LOC: POLAB3 09:18
PROVIDERS: PCP Family Medicine Geriatric Medicine; Visit Provider Family Medicine Geriatric Medicine
DX: E55.9 Vitamin D deficiency, unspecified (principal); I10 Essential (primary) hypertension
CPT/HCPCS: 36415; 80053; 82306; 84443; 85025

== ENCOUNTER → 2025-07-30 | Outpatient (CLI) | payer MEDICARE, OTHER, SELFPAY ==
--- OUTSIDE RECORDS SUMMARY | 2025-07-30 07:51 | XMS RPT_ITS | CCD ---
Author Organization [facility] CliniSys[facility] Care Team Providers Care Metal Neutralizer Name Role Phone Dr. Eric Smith Chi Primary Care Provider Dr. Caleb Morrow Attending Provider [phone] Luis, Dr. Eric Nguyen Referring Provider Dr. Jere Rodriguez Attending Provider [phone] Dr. Brent Gillette Attending Provider 1([facility])57 [phone] Luis, Dr. Eric Nguyen Primary Care Provider [phone] Dr. Caleb Morrow Attending Provider 1([facility])57 10 Luis, Dr. Eric Nguyen Referring Provider [phone] ALMA Olsen Attending Provider [phone] Eric Smith Chi Primary Care Provider Luis, Dr. Eric Nguyen Referring Provider Dr. Caleb Morrow Attending Provider [phone] ALMA Olsen Attending Provider 1([facility])57 10 Luis, Eric Chi Primary Care Unavailable Luis, Eric Chi Attending Unavailable Luis, Eric Chi Attending Unavailable Luis, Eric Chi Primary Care Unavailable Luis, Eric Chi Attending Unavailable Luis, Eric Chi Primary Care Unavailable Luis, Eric Chi Referring Unavailable Luis, Eric Chi Attending Unavailable Luis, Eric Chi Primary Care Unavailable Luis, Eric Chi Attending Unavailable Luis, Eric Chi Primary Care Unavailable NaeSergio Referring Unavailable NaeSergio Attending Unavailable Luis, Eric Chi Primary Care Unavailable Fulshear, Yancy Referring Unavailable Fulshear, Yancy Attending Unavailable Luis, Eric Chi Primary Care Unavailable Luis, Eric Chi Referring Unavailable Luis, Eric Chi Attending Unavailable Luis, Eric Chi Primary Care Unavailable Wai, Janice Referring Unavailable Wai, Janice Attending Unavailable Luis, Eric Chi Primary Care Unavailable Luis, Eric Chi Referring Unavailable Luis, Eric Chi Attending Unavailable Luis, Eric Chi Primary Care Unavailable Luis, Eric Chi Referring Unavailable Luis, Eric Chi Attending Unavailable Luis, Eric Chi Primary Care Unavailable Luis, Eric Chi Referring Unavailable Luis, Eric Chi Attending Unavailable Luis, Eric Chi Primary Care Unavailable Luis, Eric Chi Attending Unavailable Luis, Eric Chi Primary Care Unavailable Luis, Eric Chi Referring Unavailable Nae, Isreal Referring Unavailable Nae, Isreal Attending Unavailable Luis, Eric Chi Primary Care Unavailable Nae, Isreal Referring Unavailable Nae, Isreal Attending Unavailable Luis, Eric Chi Primary Care Unavailable Allergies Allergy Classification Reported Allergen(s) Allergy Type Date of Onset Reaction(s) Facility (12 sources) celecoxib Drug Allergy 1 Unknown, [facility] ([facility] source) celecoxib Drug Allergy 5 [facility] Repository Medications Current Medications Medication Drug Class(es) [...] EACH PO EVERY 4 HOURS NEEDED 14 5 January 01, 2020 January 05, 2020 11:02pm [...] Classification Problem Date Documented Da te Episodic/Chronic Calculus of urinary tract (1 source) Calculus of ureter; Translations: [Calculus of ureter] Onset: 06-02-2025 Episodic Cancer of prostate (13 sources) Malignant tumor of prostate; Translations: [Malignant neoplasm of prostate] Onset: 01-31-2025 10-21-2020 Chronic Genitourinary symptoms and ill-defined conditions (1 source) Gross hematuria; Translations: [Gross hematuria] Onset: 04-23-2025 Episodic Hepatitis (1 source) Chronic viral hepatitis B with delta-agent; Translations: [Chronic viral hepatitis B with delta-agent] Onset: 04-29-2025 Chronic Nutritional deficiencies (1 source) Vitamin D deficiency, [...] [Venous (peripheral) insufficiency, unspecified] 10-10-2023 Episodic Other liver diseases (1 source) Fatty (change of) liver, not elsewhere classified; Translations: [Fatty (change of) liver, not elsewhere classified] Onset: 05-14-2025 Chronic Other liver diseases (1 source) Abnormal levels of other serum enzymes; Translations: [Abnormal levels of other serum enzymes] Onset: 05-08-2025 Episodic Spondylosis; intervertebral disc disorders; other back problems (20 sources) Degeneration of lumbar intervertebral disc; Translations: [Other intervertebral disc degeneration, lumbar region] 01-31-2018 Chronic Unclassified (1 source) Elevation of levels of liver transaminase levels; Translations: [Elevation of levels of liver transaminase levels] Onset: 05-01-2025 Viral infection (12 sources) Disease caused by 2019-nCoV; Translations: [COVID-19] 10-21-2020 Episodic Past or Other Problems Problem Classification Problem Date Documented Da te Episodic/Chronic Malaise and fatigue (1 source) Other fatigue; Translations: [Other fatigue] Onset: 08-23-2024 Episodic Other nervous system disorders (1 source) Unsteadiness on feet; Translations: [Unsteadiness on feet] Onset: 02-13-2025 Episodic Residual codes; unclassified (1 source) Chills (without fever); Translations: [Chills (without fever)] Onset: 09-05-2024 Episodic Results Test Name Value Interpretation Reference Range Facility Thoracic Spine 2 Viewson Thoracic Spine 2 Views [facility] Imaging Services [address] [place], [place] [id number] Thoracic Spine 2 Views MR#: [id number] Acct: [id number] Name: BRENNAN LUIS Rep #: [id number] : 1945 M 80 From: Farrukh Urena MD PCP: Dr. Eric Smith MD Status: REG CLI Study: Thoracic Spine 2 Views Date of Exam: 06/05/25 Exam# [id number] Ordering Dr: Janice Carreno PROCEDURE: THORACIC SPINE 2 VIEWS 06/05/2025 REASON FOR EXAM: EVAL SCS LEADS PLEASE TECHNIQUE: Procedure Code: RADSPT2 Modality: DX Procedure: THORACIC SPINE 2 VIEWS COMPARISON: October 26, 2023 FINDINGS: Multilevel degenerative disc disease is noted. Spinal stimulator implants are noted which are very similar in position compared with the previous study. Adjacent ribs and lung are unremarkable. Visualized upper abdomen is unremarkable RAD/Thoracic Spine 2 Views IMPRESSION: The spinal stimulator leads are essentially unchanged in position compared with 10/26/2023. Reading [facility] CC: Janice Carreno; Dr. Eric Smith MD Carding Utility Tender: Signed [facility] Discharge Instructionon 05-07 Discharge Instruction [facility] Medical Records Department [address] [place] [address] Instructions for Home/Discharge Instructions 05/21/25 1113 MR#: [id number] Acct: [id number] Name: BRENNAN LUIS Rep #: [id number] : 1945 80 From: Sergio Soni MD PCP: Dr. Eric Smith MD Status:REG SDC Discharge Instructions DC O2, CPAP, BIPAP needs Home O2 Discharge instructions: No Dressing / Incision Discharge Activity: Return to Normal Activity and May Not Drive (while taking narcotic pain medications.) Dressing / Incision Call your doctor if you observe: Fever of 101 or Higher Follow Up Care Please Follow Up With: Sergio Soni MD When: Call [phone] for an appointment Test Results: Test results from this visit will be discussed in further detail at your follow-up appointment, if applicable. Discharge Plan Admission Primary Reason for Your Visit: laser stone Attending Provider: Sergio Soni Primary Care Provider: Eric Smith Chi Instructions Print Language: Spanish Discharge Orders/Prescriptions Prescriptions: New ciprofloxacin HCl [Cipro] 500 mg tablet 500 mg PO BID Qty: 6 0RF oxycodone 5 mg tablet 5 mg PO Q6H PRN (Reason: pain) 7 Days Qty: 10 0RF Continued mecobalamin (vitamin B12) [B12 Active] 1,000 mcg tablet,chewable 1,000 mcg PO DAILY ascorbic acid (vitamin C) 1,000 mg capsule 1 g PO DAILY Adult 50 Plus Probiotic 4 billion cell capsule 6,000 mmu cells PO DAILY Rx Instructions: administer with a meal allopurinol 300 MG tablet 300 mg PO DAILY green tea extract 500 mg capsule 500 mg PO DAILY cholecalciferol (vitamin D3) [Vitamin D3] 50 mcg (2,000 unit) capsule 50 mcg PO DAILY Eliquis 2.5 mg tablet 2.5 mg PO BID Referrals / Follow Up: Sergio Soni MD [Med Staff - Active Staff, Urology] Eric Smith Chi, MD [Primary Care Provider, Geriatrics] Disposition Disposition (needs filled in before D/C Order can be placed): Home, Self Care 05/21/25 1113 Sergio Soni MD CC: Dr. Eric Smith MD Signed [facility] MR/POSTOP.Mayur 05-21-2025 MR/POSTOP.[facility] Medical Records Department [address] [place] [address] Anesthesia Postop Eval I 05/21/25 1117 MR#: [id number] Acct: [id number] Name: BRENNAN LUIS Rep #: [id number] : 1945 80 From: Darell Manzano CRNA PCP: Dr. Eric Smith MD Status:REG SD Y Race: C Location: [place] [address] Anesthesia: Postop Eval I Current Vital Signs Temperature: 97.6 F Pulse Rate: 59 Blood Pressure: 149/91 Respiratory Rate: 16 Pulse Ox: 97 Assessment Airway patent: Yes Spontaneous unlabored respirations: Yes nausea: No Vomiting: No Anesthesia Complication: No Fluid Hydration Crystalloid volume administer (ml): 300 Total IV fluid infused: 300 Progress Note Anesthesia document: Postop Eval 1 completed: Yes 05/21/25 1118 Date Darell Manzano SALES MGR Cosigner Signature: Date CC: Signed [facility] MR/FLQNVIES6dr 05-21-2025 [facility] Medical Records Department [address] [place] [address] Anesthesia Postop Eval II 05/21/25 1215 MR#: [id number] Acct: [id number] Name: BRENNAN LUIS Rep #: [id number] : 1945 80 From: Jorden Matthew MD PCP: Dr. Eric Smith MD [place] [facility] [place] C [place]: [place] [address] Anesthesia Postop Eval I Sum Postop Eval Completion status Anesthesia document: Postop Eval 1 completed: Yes Anesthesia Postop Eval I Summary Anesthesia Postop Eval I Summary: Anesthesia Postop Eval I: Assessment Summary Airway patent Yes 05/21/25 11:17 SALES [email or web address].SHOF Spontaneous unlabored Yes 05/21/25 11:17 SALES MGR.SHOF respirations Mental status nausea No 05/21/25 11:17 SALES MGR.SHOF Vomiting No 05/21/25 11:17 SALES MGR.SHOF Anesthesia Postop Eval I: Fluid Summary Crystalloid volume administer 300 05/21/25 11:17 SALES MGR.SHOF (ml) Colloids volume administered ( ml) Blood Product volume administered (ml) Total IV fluid infused 300 05/21/25 11:17 SALES MGR.SHOF Anesthesia Postop Eval I: Summary Notes Anesthesia Complication No 05/21/25 11:17 SALES MGR.SHOF Anesthesia Complication Comment: Post-operative progress note Anesthesia: Postop Eval II Evaluation Mental status: Awake and Calm Pain Level: 1 nausea: No Vomiting: No Complications Anesthesia Complication: No 05/21/25 1215 Date Jorden Matthew MD Cosigner Signature: Date CC: Signed [facility] Operative Reporton 5 Operative Report [facility] Medical Records Department [address] [place] [address] Operative Report 05/21/25 1113 MR#: [id number] Acct: [id number] Name: BRENNAN LUIS Rep #: [id number] : 1945 80 From: Sergio Soni MD PCP: Dr. Eric Smith MD Status:[facility] Location: [place] [address] Operative Report (Standard) Operative Information Date of Procedure: 05/21/25 Pre-Operative Diagnosis: Left ureteral calculi Post-Operative Diagnosis: same Surgery/Procedure Performed: Cystoscopy, left retrograde pyelogram, left ureteroscopy laser lithotripsy of stone and left stent placement panama hat smearer: No Type of Anesthesia: General RN Documented Start/Stop Times: Operation Date: 05/21/25 10:15 Case Time Into Pre-Op 05/21/25 08:26 Anesthesia Start 05/21/25 10:35 Into Room 05/21/25 10:35 Procedure Start 05/21/25 10:51 Procedure End 05/21/25 11:08 Procedure Start Time: 10:51 Procedure Stop Time: 11:08 Select all DRAINS/GRAFTS/IMPLAN TS that apply: Drains Drain details: stent Estimated Blood Loss: none Specimen collected: No Description of surgery: This is a patient who presents to the hospital for treatment for an obstructing ureter calculi. I discussed with the patient how the surgery would be performed and we reviewed the risks and benefits of the surgery. The risk and benefits include the risk of failure to remove the stone completely and that the patient may need multiple procedures. We discussed the risk of an infection, the risk of bleeding. We discussed the very rare risk of serious complicated injury to the ureter. The patient understands that if the stone is not able to be removed safely that we may abort the procedure and place a stent. After full discussion and all questions address with the patient the consent form was signed the side was marked appropriately and the patient was taken back to the operating room for the procedure. The patient was taken back to the operating room. After induction of anesthesia by the anesthesiology team the patient was placed in dorsolithotomy position. The genitals were prepped and draped in usual sterile fashion. I went into the bladder with a 21 Lithuanian rigid cystourethroscope through the urethra. Upon entering the bladder I inspected the trigone the left and right ureteral orifice and the bladder itself. I then cannulated the left ureteral orifice and advanced a 0.038 Glidewire up into the kidney. Then over the Glidewire I advanced a 5 Fr Ureteral catheter and performed a retrograde pyelogram with about 10cc of contrast, to delineate the anatomy and identify the stone location. Then a ureteral balloon dilator was advanced over the wire and the distal ureter was balloon dilated with a 12 Fr x 5cm balloon dilator. After 3 minutes of dilating the ureter the balloon was backloaded off the 0.038 glidewire over the 0.038 guidewire I went in with the flexible 7.5fr ureteroscope. I was able to go inside with the 7.5Fr utereroscope and I pulled out the guidewire and then through the ureteroscope I engage the stone with laser lithotripsy using a 270miron laser fiber with energy setting of 6 Hertz and 0.6 J until the stone was lasered into tiny little pieces that should pass on their own. A retrograde pyelogram was performed with 10cc of contrast and no extravasation of contrast or perforation was identified in the ureter there was some mild irritation of the ureter where the stone was located. I then backed out of the ureter left the wire in place and then over the 0.038 guidewire I placed a double coiled pigtail ureteral stent. The ureteral stent was advanced over the 0.038 guidewire under direct fluoroscopic guidance and direct cystoscopic visual guidance, once the stent was in good position I pulled the wire and the stent coiled in the kidney and bladder in good position. I then drained the patient's bladder and the cystoscope was removed and the patient was taken back to the recovery room in good position. The patient was given discharge instructions to call the office for instructions on when to come to the office to have the stent removed. Surgical Findings: stone lasered completely Complications Complications: No Admit VTE Documentation VTE Present on Admission: No VTE Mechan Device Prophylaxis: SCD's VTE Pharm Prophylaxis ordered?: No 05/21/25 1114 Cosigner Signature (if applicable): CC: Dr. Sergio Soni MD; Dr. Eric Smith MD Signed [facility] MR/PAT.ANEon 05-14-2025 MR/PAT.[facility] Medical Records Department [address] [place] [address] PAT - Anesthesia 05/14/25 1549 MR#: [id number] Acct: [id number] Name: BRENNAN LUIS Rep #: [id number] : 1945 80 From: Jorden Matthew MD PCP: Dr. Eric Smith MD Status[place] [facility] [place] C [place] [facility] [place] [place] Pre-Assessment Diagnosis/Proposed Procedure Planned Operative Procedure(s): CYSTOSCOPY, URETEROSCOPY, RETRO, LASER, STENT Anesthesia History Anesthesia History - transition specialist: Anesthesia History - transition specialist Hx Hospitalization No 05/14/25 15:19 Any Problems With Anesthesia No 05/14/25 15:19 Cholinesterase deficiency No 05/14/25 15:19 You/Your Family Experience No 05/14/25 15:19 fever (hyperthermia) with Relationship Recent Exposure to Contagious No 04/18/25 09:40 Disease Does patient have nerve Yes: SPINAL CORD STIMULATAR 05/14/25 15:19 stimulator Patient instructed to have device shut off --Does patient have Pacemaker or ICD? When Was Last Pacemaker Check QUESTION #4 FULL TEXT: You/Your Family Experience fever (hyperthermia) with Anesthesia Last Oral Intake Last Oral intake: Last Oral Intake NPO since Meds taken in AM with sips of water? Meds patient instructed to take am of surgery PONV PONV - transition specialist: PONV - transition specialist Female No 05/14/25 15:19 HX of Motion Sickness No 05/14/25 15:19 HX of N/V After Surgery No 05/14/25 15:19 Non-Smoker Yes 05/14/25 15:19 Duration of Surgery greater No 05/14/25 15:19 than 60 minutes Number of Risk Factors 1 05/14/25 15:19 PONV Score Low Risk 05/14/25 15:19 Height Weight Height Weight: Anesthesia: Height Weight Height 6 ft 1 in 04/18/25 09:40 Respiratory Assessment Respiratory Assessment - transition specialist: Respiratory Tract Infection Hx - transition specialist Hx Respiratory Tract Infection No 05/14/25 15:19 STOP Sleep Apnea STOP Sleep Apnea - transition specialist: STOP Sleep Apnea - transition specialist Hx Hypertension No 05/14/25 15:19 Hx Sleep Apnea No 05/14/25 15:19 CPAP BIPAP Do you snore loudly (louder No 05/14/25 15:19 than talking or can be heard Do you often feel tired/ No 05/14/25 15:19 fatigued/ sleepy during daytime? Has anyone observed you stop No 05/14/25 15:19 breathing during sleep? STOP Results Negative 05/14/25 15:19 QUESTION #5 FULL TEXT : Do you snore loudly (louder than talking or can be heard through closed doors)? 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 Specify any problems Hx of Preganancy in last 3 N/A 05/14/25 15:19 Months Nurse Filling Out Transfusion NBUCHER 05/14/25 15:19 Questions: Date: 05/14/25 05/14/25 15:19 Time: 15:19 05/14/25 15:19 Patient unable to answer at this time (ie. confused, unrespo /Reproducti on History /Reproducti ve History - transition specialist: /Reproducti ve Hx- transition specialist Hx Now No 05/14/25 15:19 Gestational Age (in weeks): EDC: Hx Hx Para Hx Section SAB No 05/14/25 15:19 PFSH Medical History Wears hearing aid Wears glasses Cancer Depression Anxiety Gout Blood urine DVT (deep venous thrombosis) Back pain Difficulty swallowing History of hiatal hernia Gastric reflux Non-smoker History of pain when walking Cardiology follow-up encounter Polyneuropathy Peripheral vascular disease Hyperglycemia Chest pain DDD (degenerative disc disease), lumbar Vitamin D deficiency High cholesterol Arthritis Home Medications ???Medication ???Instructions ???Recorded ???Last Taken ???Type allopurinol 300 mg tablet 300 mg PO DAILY GOUT 10/29/1510/05 21:30 History ascorbic acid (vitamin C) 1,000 mg 1 g PO DAILY 12/05/22 Unknown Hi story capsule lactobacillus combination no.9 4 6,000 mmu cells PO DAILY 12/05/22 Unknown History billion cell capsule (Adult 50 Plus Probiotic) mecobalamin (vitamin B1 (more content not included)... [facility] Abdomen Completeon 5 Abdomen Complete [facility] Imaging Services [address] [place] [address] Abdomen Complete MR#: [id number] Acct: [id number] Name: BRENNAN LUIS Rep #: [id number] : 1945 M 80 From: Mia Cooper PCP: Dr. Eric Smiht MD Status: REG CLI Study: Abdomen Complete Date of Exam: 05/02/25 Exam# [id number] Ordering Dr: Eric Smith MD PROCEDURE: ABDOMEN COMPLETE 05/02/2025 REASON FOR EXAM: ELEVATED LIVER ENZYMES TECHNIQUE: Procedure Code: USABDC Modality: US Procedure: ABDOMEN COMPLETE COMPARISON: CT abdomen and pelvic study dated 04/11/2025 FINDINGS: Liver: Liver measures 18.4 cm. The left lobe of the liver is not well visualized due to bowel gas obscuring this region. Diffuse fatty infiltration of the liver is noted. No intrahepatic masses or intrahepatic biliary ductal dilatation is seen. Hepatopetal flow is noted. Hepatic flow is seen. Gallbladder: Gallbladder measures 6.4 cm. There are no stones or sludge seen within the gallbladder. Gallbladder wall is not thickened measuring 3 mm. Common bile duct measures 4 mm. There was a negative sonographic Johnson's sign. Common bile duct: CBD measures 4 mm. Pancreas: The pancreatic size, contour, and echogenicity are within normal limits. Pancreatic duct is not dilated. No pancreatic masses are seen. Kidneys: The right kidney measures 12.2 x 6.655.6 cm. Cortical thickness measures 13 mm. There are 2 stones seen within the right kidney. 1 stone measures 6 x 5 x 5 mm and the other stone measures 5 x 5 x 4 mm. There is no hydronephrosis.. The left kidney measures 12.5 x 5.4 x 6.7 cm. Cortical thickness measures 15 mm. There are 2 stones identified. 1 measures 6 x 5 x 3 mm in the other measures 4 x 4 x 4 mm. There is no hydronephrosis.. No renal masses are seen. Spleen: Spleen measures 11.2 x 5.2 x 4.7 cm. Size, contour, and echogenicity are within normal limits. Aorta: Visualized proximal aorta measures 2.2 x 2.3 x 1.8 cm. IVC: Is patent. Peritoneal Findings: There is no ascites. US/Abdomen Complete IMPRESSION: There is diffuse fatty infiltration of the liver. The left lobe of the liver is poorly visualized due to bowel gas. Bilateral renal stones. The largest stone in each kidney measures 6 mm. There is no hydronephrosis. Reading Location: [id number] CC: Dr. Eric Smith MD Carding Utility Tender: Signed [facility] Comprehensive Metabolic Prof rolando 04-25-2025 Albumin [Mass/Vol] 3.9 g/dL Normal 3.4-4.8 [facility] Comment on above: Performed By: #### L 500.4050 ####[facility] [address] [place], [address] Albumin/Globulin [Mass ratio] 1.3 {ratio} Normal 0.9-2.4 [facility] Comment on above: Performed By: #### L 500.4050 ####[facility] [address] [place], [address] ALK PHOS 76 U/L Normal 40-129 [facility] Comment on above: Performed By: #### L 500.4050 ####[facility] [address] [place], [address] ALT [Catalytic activity/Vol] 64 U/L High <=46 [facility] Comment on above: Performed By: #### L 500.4050 ####[facility] [address] [place], [address] AST [Catalytic activity/Vol] 36 U/L Normal <=37 [facility] Comment on above: Performed By: #### L 500.4050 ####[facility] [address] [place], [address] Bilirubin [Mass/Vol] 0.62 mg/dL Normal 0.00-1.30 [facility] Comment on above: Performed By: #### L 500.4050 ####[facility] [address] [place], [address] BUN/CRE 15.5 RATIO Normal 10-20 [facility] Comment on above: Performed By: #### L 500.4050 ####[facility] [address] [place], [address] Calcium [Mass/Vol] 9.1 mg/dL Normal 7.6-11.0 [facility] Comment on above: Performed By: #### L 500.4050 ####[facility] [address] [place], [address] Chloride [Moles/Vol] 106 mmol/L Normal 98-108 [facility] Comment on above: Performed By: #### L 500.4050 ####[facility] [address] [place], [address] CO2 [Moles/Vol] 22.4 mmol/L Normal 21.0-32.0 [facility] Comment on above: Performed By: #### L 500.4050 ####[facility] [address] [place], [address] Creatinine [Mass/Vol] 0.95 mg/dL Normal 0.70-1.20 [facility] Comment on above: Performed By: #### L 500.4050 ####[facility] [address] [place], [address] GAP 10 Normal 5-15 [facility] Comment on above: Performed By: #### L 500.4050 ####[facility] [address] [place], [address] GFR/1.73 sq M.predicted among non-blacks MDRD (S/P/Bld) [Vol rate/Area] 81 mL/min/{1.73_m2} Normal >60 [facility] Comment on above: Result Comment: mL/m in/1.73m2 CKD-EPI Creatinine Equation (2020) Performed By: #### L 500.4050 ####[facility] [address] [place], [address] Globulin (S) [Mass/Vol] 3.0 g/dL Normal 2.2-4.2 [facility] Comment on above: Performed By: #### L 500.4050 ####[facility] [address] [place], [address] Glucose [Mass/Vol] 110 mg/dL High 70-99 [facility] Comment on above: Performed By: #### L 500.4050 ####[facility] [address] [place], [address] Potassium [Moles/Vol] 4.3 mmol/L Normal 3.3-5.1 [facility] Comment on above: Performed By: #### L 500.4050 ####[facility] [address] [place], [address] Sodium [Moles/Vol] 139 mmol/L Normal 133-145 [facility] Comment on above: Performed By: #### L 500.4050 ####[facility] [address] [place], [address] T PROT 6.9 g/dL Normal 5.9-8.4 [facility] Comment on above: Performed By: #### L 500.4050 ####[facility] [address] [place], [address] Urea nitrogen [Mass/Vol] 15 mg/dL Normal 4-19 [facility] Comment on above: Performed By: #### L 500.4050 ####[facility] [address] [place], [address] Hepatitis Panel Acuteon - COMMENT Comment Normal . [facility] Comment on above: Result Comment: Not infected with HCV unless early or acute infection is suspected (which may be delayed in an immunocompromised individual), or other evidence exists to indicate HCV infection. Performed at: [facility] [address] [id number] Abrasives Sales Representative: Mitch Phillips PhD, Phone: [phone] Performed By: #### M 100.2200, L501.5920, L3000.0375, L100.0100, L500.4050, L501.6340 ####[facility] [address] [place], [address] HEP B CORE,IgM Negative Normal Negative [facility] Comment on above: Performed By: #### M 100.2200, L501.9520, L3000.0375, L100.0100, L500.4050, L501.9940 ####[facility] [address] [place], [address] HEP B SURF AG Negative Normal Negative [facility] Comment on above: Performed By: #### M 100.2200, L501.9520, L3000.0375, L100.0100, L500.4050, L501.9940 ####[facility] [address] [place], [address] HEP C VIRUS AB Non-Reactive Normal Non Reactive [facility] Comment on above: Performed By: #### M 100.2200, L501.9520, L3000.0375, L100.0100, L500.4050, L501.9940 ####[facility] [address] [place], [address] HEPATITIS A-IgM Negative Normal Negative [facility] Comment on above: Result Comment: A ne gative anti-HAV IgM result suggests no recent or current HAV infection. Performed By: #### M 100.2200, L501.9520, L3000.0375, L100.0100, L500.4050, L501.9940 ####[facility] [address] [place], [address] Urine Cultureon 04-22-2025 URC Culture exhibits no growth. Normal [facility] Comment on above: Performed By: #### M 100.2200, L501.9520, L3000.0375, L100.0100, L500.4050, L501.9940 ####[facility] [address] [place], [address] CBC W/Diff, Automatedon 09-1 5-2024 Absolute Lymph 1.40 X10 3/uL Normal 0.83-4.51 [facility] Comment on above: Performed By: #### M 100.2200, L501.9520, L3000.0375, L100.0100, L500.4050, L501.9940 ####[facility] [address] [place], [address] Absolute Neut 5.0 X10 3/uL Normal 2.0-7.7 [facility] Comment on above: Performed By: #### M 100.2200, L501.9520, L3000.0375, L100.0100, L500.4050, L501.9940 ####[facility] [address] [place], [address] Basophils/100 WBC (Bld) 0.7 % Normal 0-1 [facility] Comment on above: Performed By: #### M 100.2200, L501.9520, L3000.0375, L100.0100, L500.4050, L501.9940 ####[facility] [address] [place], [address] Eosinophils/100 WBC (Bld) 1.9 % Normal 0-5 [facility] Comment on above: Performed By: #### M 100.2200, L501.9520, L3000.0375, L100.0100, L500.4050, L501.9940 ####[facility] [address] [place], [address] Erythrocyte distribution width (RBC) [Ratio] 13.0 % Normal 11.6-14.6 [facility] Comment on above: Performed By: #### M 100.2200, L501.9520, L3000.0375, L100.0100, L500.4050, L501.9940 ####[facility] [address] [place], [address] Hematocrit (Bld) [Volume fraction] 48.2 % Normal 40-54 [facility] Comment on above: Performed By: #### M 100.2200, L501.9520, L3000.0375, L100.0100, L500.4050, L501.9940 ####[facility] [address] [place], [address] Hemoglobin (Bld) [Mass/Vol] 16.5 g/dL Normal 13.0-16.5 [facility] Comment on above: Performed By: #### M 100.2200, L501.9520, L3000.0375, L100.0100, L500.4050, L501.9940 ####[facility] [address] [place], [address] IG% 0.300 Normal 0.0-0.9 [facility] Comment on above: Result Comment: IG% - Immature Granulocytes (promyelocytes, myelocytes and metamyelocytes) > 1% indicates that a LEFT SHIFT is Present. Performed By: #### M 100.2200, L501.9520, L3000.0375, L100.0100, L500.4050, L501.9940 ####[facility] [address] [place], [address] Lymphocytes/100 WBC (Bld) 19.3 % Normal 19-41 [facility] Comment on above: Performed By: #### M 100.2200, L501.9520, L3000.0375, L100.0100, L500.4050, L501.9940 ####[facility] [address] [place], [address] MCH (RBC) [Entitic mass] 33.0 pg High 27.0-32.0 [facility] Comment on above: Performed By: #### M 100.2200, L501.9520, L3000.0375, L100.0100, L500.4050, L501.9940 ####[facility] [address] [place], [address] MCHC (RBC) [Mass/Vol] 34.2 g/dL Normal 32-36 [facility] Comment on above: Performed By: #### M 100.2200, L501.9520, L3000.0375, L100.0100, L500.4050, L501.9940 ####[facility] [address] [place], [address] MCV (RBC) [Entitic vol] 96.4 fL High 80-94 [facility] Comment on above: Performed By: #### M 100.2200, L501.9520, L3000.0375, L100.0100, L500.4050, L501.9940 ####[facility] [address] [place], [address] Monocytes/100 WBC (Bld) 9.2 % Normal 0-10 [facility] Comment on above: Performed By: #### M 100.2200, L501.9520, L3000.0375, L100.0100, L500.4050, L501.9940 ####[facility] [address] [place], [address] Neutrophils/100 WBC (Bld) 68.6 % Normal 47-70 [facility] Comment on above: Performed By: #### M 100.2200, L501.9520, L3000.0375, L100.0100, L500.4050, L501.9940 ####[facility] [address] [place], [address] Nucleated RBC (Bld) [#/Vol] 0 10*3/uL Normal 0-5 [facility] Comment on above: Performed By: #### M 100.2200, L501.9520, L3000.0375, L100.0100, L500.4050, L501.9940 ####[facility] [address] [place], [address] Platelet mean volume (Bld) [Entitic vol] 9.5 fL Normal 6.2-12.0 [facility] Comment on above: Performed By: #### M 100.2200, L501.9520, L3000.0375, L100.0100, L500.4050, L501.9940 ####[facility] [address] [place], [address] Platelets (Bld) [#/Vol] 167 10*3/uL Normal 150-450 [facility] Comment on above: Performed By: #### M 100.2200, L501.9520, L3000.0375, L100.0100, L500.4050, L501.9940 ####[facility] [address] [place], [address] RBC (Bld) [#/Vol] 5.00 10*6/uL Normal 4.6-6.2 [facility] Comment on above: Performed By: #### M 100.2200, L501.9520, L3000.0375, L100.0100, L500.4050, L501.9940 ####[facility] [address] [place], [address] RDW SD 46.5 fl High 35.1-43.9 [facility] Comment on above: Performed By: #### M 100.2200, L501.9520, L3000.0375, L100.0100, L500.4050, L501.9940 ####[facility] [address] [place], [address] WBC (Bld) [#/Vol] 7.3 10*3/uL Normal 4.4-11.0 [facility] Comment on above: Performed By: #### M 100.2200, L501.9520, L3000.0375, L100.0100, L500.4050, L501.9940 ####[facility] [address] [place], [address] Comprehensive Metabolic Prof ilon 04-21-2025 Albumin [Mass/Vol] 4.1 g/dL Normal 3.4-4.8 [facility] Comment on above: Performed By: #### M 100.2200, L501.9520, L3000.0375, L100.0100, L500.4050, L501.9940 ####[facility] [address] [place], [address] Albumin/Globulin [Mass ratio] 1.5 {ratio} Normal 0.9-2.4 [facility] Comment on above: Performed By: #### M 100.2200, L501.9520, L3000.0375, L100.0100, L500.4050, L501.9940 ####[facility] [address] [place], [address] ALK PHOS 79 U/L Normal 40-129 [facility] Comment on above: Performed By: #### M 100.2200, L501.9520, L3000.0375, L100.0100, L500.4050, L501.9940 ####[facility] [address] [place], [address] ALT [Catalytic activity/Vol] 82 U/L High <=46 [facility] Comment on above: Performed By: #### M 100.2200, L501.9520, L3000.0375, L100.0100, L500.4050, L501.9940 ####[facility] [address] [place], [address] AST [Catalytic activity/Vol] 50 U/L High <=37 [facility] Comment on above: Performed By: #### M 100.2200, L501.9520, L3000.0375, L100.0100, L500.4050, L501.9940 ####[facility] [address] [place], [address] Bilirubin [Mass/Vol] 0.58 mg/dL Normal 0.00-1.30 [facility] Comment on above: Performed By: #### M 100.2200, L501.9520, L3000.0375, L100.0100, L500.4050, L501.9940 ####[facility] [address] [place], [address] BUN/CRE 13.5 RATIO Normal 10-20 [facility] Comment on above: Performed By: #### M 100.2200, L501.9520, L3000.0375, L100.0100, L500.4050, L501.9940 ####[facility] [address] [place], [address] Calcium [Mass/Vol] 8.8 mg/dL Normal 7.6-11.0 [facility] Comment on above: Performed By: #### M 100.2200, L501.9520, L3000.0375, L100.0100, L500.4050, L501.9940 ####[facility] [address] [place], [address] Chloride [Moles/Vol] 106 mmol/L Normal 98-108 [facility] Comment on above: Performed By: #### M 100.2200, L501.9520, L3000.0375, L100.0100, L500.4050, L501.9940 ####[facility] [address] [place], [address] CO2 [Moles/Vol] 22.6 mmol/L Normal 21.0-32.0 [facility] Comment on above: Performed By: #### M 100.2200, L501.9520, L3000.0375, L100.0100, L500.4050, L501.9940 ####[facility] [address] [place], [address] Creatinine [Mass/Vol] 0.96 mg/dL Normal 0.70-1.20 [facility] Comment on above: Performed By: #### M 100.2200, L501.9520, L3000.0375, L100.0100, L500.4050, L501.9940 ####[facility] [address] [place], [address] GAP 13 Normal 5-15 [facility] Comment on above: Performed By: #### M 100.2200, L501.9520, L3000.0375, L100.0100, L500.4050, L501.9940 ####[facility] [address] [place], [address] GFR/1.73 sq M.predicted among non-blacks MDRD (S/P/Bld) [Vol rate/Area] 81 mL/min/{1.73_m2} Normal >60 [facility] Comment on above: Result Comment: mL/m in/1.73m2 CKD-EPI Creatinine Equation (2020) Performed By: #### M 100.2200, L501.9520, L3000.0375, L100.0100, L500.4050, L501.9940 ####[facility] [address] [place], [address] Globulin (S) [Mass/Vol] 2.7 g/dL Normal 2.2-4.2 [facility] Comment on above: Performed By: #### M 100.2200, L501.9520, L3000.0375, L100.0100, L500.4050, L501.9940 ####[facility] [address] [place], [address] Glucose [Mass/Vol] 108 mg/dL High 70-99 [facility] Comment on above: Performed By: #### M 100.2200, L501.9520, L3000.0375, L100.0100, L500.4050, L501.9940 ####[facility] [address] [place], [address] Potassium [Moles/Vol] 4.4 mmol/L Normal 3.3-5.1 [facility] Comment on above: Performed By: #### M 100.2200, L501.9520, L3000.0375, L100.0100, L500.4050, L501.9940 ####[facility] [address] [place], [address] Sodium [Moles/Vol] 141 mmol/L Normal 133-145 [facility] Comment on above: Performed By: #### M 100.2200, L501.9520, L3000.0375, L100.0100, L500.4050, L501.9940 ####[facility] [address] [place], [address] T PROT 6.8 g/dL Normal 5.9-8.4 [facility] Comment on above: Performed By: #### M 100.2200, L501.9520, L3000.0375, L100.0100, L500.4050, L501.9940 ####[facility] [address] [place], [address] Urea nitrogen [Mass/Vol] 13 mg/dL Normal 4-19 [facility] Comment on above: Performed By: #### M 100.2200, L501.9520, L3000.0375, L100.0100, L500.4050, L501.9940 ####[facility] [address] [place], [address] PSA,Total- Diagnosticon 04-07 PSA, DIAGNOSTIC 0.03 ng/mL Normal 0.00-4.00 [facility] Comment on above: Result Comment: This test [...] to confirm baseline values. Performed By: #### M 100.2200, L501.9520, L3000.0375, L100.0100, L500.4050, L501.9940 ####[facility] [address] [place], [place], [address] Thyroid Stim Hormone (TSH)on 04-21-2025 TSH 2.030 uIU/mL Normal 0.300-4.200 [facility] Comment on above: Result Comment: AMENDED REPORT 04/21/25 3966 TSH previously reported as: 1.990 uIU/mL Performed By: #### M 100.2200, L501.9520, L3000.0375, L100.0100, L500.4050, L501.9940 ####[facility] [address] [facility] [address] [place], [place], [address] Discharge Instructionon 04-07 Discharge Instruction [facility] Medical Records Department [address] [place] [address] Instructions for Home/Discharge Instructions 04/18/25 1019 MR#: [id number] Acct: [id number] Name: BRENNAN LUIS Rep #: [id number] : 1945 79 From: Sergio Soni MD PCP: Dr. Eric Smith MD Status:REG SDC Discharge Instructions DC O2, CPAP, BIPAP needs Home O2 Discharge instructions: No Dressing / Incision Discharge Activity: Return to Normal Activity and May Not Drive (while taking narcotic pain medications.) Dressing / Incision Call your doctor if you observe: Fever of 101 or Higher Follow Up Care Please Follow Up With: Sergio Soni MD When: Call [phone] for an appointment Test Results: Test results from this visit will be discussed in further detail at your follow-up appointment, if applicable. Discharge Plan Admission Primary Reason for Your Visit: retrogrades Attending Provider: Sergio Soni Primary Care Provider: Eric Smith Chi Instructions Print Language: Spanish Discharge Orders/Prescriptions Prescriptions: New ciprofloxacin HCl [Cipro] 500 mg tablet 500 mg PO BID Qty: 10 0RF Continued mecobalamin (vitamin B12) [B12 Active] 1,000 mcg tablet,chewable 1,000 mcg PO DAILY ascorbic acid (vitamin C) 1,000 mg capsule 1 g PO DAILY Adult 50 Plus Probiotic 4 billion cell capsule 6,000 mmu cells PO DAILY Rx Instructions: administer with a meal Xarelto 10 mg tablet 10 mg PO DAILY Rx Instructions: for 35 days allopurinol 300 MG tablet 300 mg PO DAILY atorvastatin 40 mg tablet 40 mg PO QHS green tea extract 500 mg capsule 500 mg PO DAILY cholecalciferol (vitamin D3) [Vitamin D3] 50 mcg (2,000 unit) capsule 50 mcg PO DAILY Referrals / Follow Up: Eric Smith Chi, MD [Primary Care Provider] - Disposition Disposition (needs filled in before D/C Order can be placed): Home, Self Care 04/18/25 1020 Sergio Soni MD CC: Dr. Eric Smith MD Signed [facility] MR[facility]POSTOP.[facility] 04-18-2025 MR/POSTOP.[facility] Medical Records Department [address] [place] [address] Anesthesia Postop Eval I 04/18/25 1051 MR#: [id number] Acct: [id number] Name: BRENNAN LUIS Rep #: [id number] : 1945 79 From: Elizabeth Chambers CRNA PCP: Dr. Eric Smith MD Status:REG SDC Y Race: C Location: [address] Anesthesia: Postop Eval I Current Vital Signs Temperature: 97.3 F Pulse Rate: 66 Blood Pressure: 125/76 Respiratory Rate: 14 Pulse Ox: 97 Assessment Airway patent: Yes Spontaneous unlabored respirations: Yes nausea: No Vomiting: No Anesthesia Complication: No Fluid Hydration Crystalloid volume administer (ml): 100 Total IV fluid infused: 100 Progress Note Anesthesia document: Postop Eval 1 completed: Yes 04/18/25 105 Date Elizabeth Chambers SALES MGR Cosigner Signature: Date CC: Signed [facility] MR/SUJOVWLL6kc 04-18-2025 MR/POSTOPAN2 [facility] Medical Records Department [address] [place] [address] Anesthesia Postop Eval II 04/18/25 105 MR#: [id number] Acct: [id number] Name: BRENNAN LUIS Rep #: [id number] : 1945 79 From: Caleb Townsend MD PCP: Dr. Eric Smith MD Status:REG VAC Y Race: C Location: [place] [address]- Anesthesia Postop Eval I Sum Postop Eval Completion status Anesthesia document: Postop Eval 1 completed: Yes Anesthesia Postop Eval I Summary Anesthesia Postop Eval I Summary: Anesthesia Postop Eval I: Assessment Summary Airway patent Yes 04/18/25 10:51 SALES MGR.CSIR Spontaneous unlabored Yes 04/18/25 10:51 SALES MGR.CSIR respirations Mental status nausea No 04/18/25 10:51 SALES MGR.CSIR Vomiting No 04/18/25 10:51 SALES MGR.CSIR Anesthesia Postop Eval I: Fluid Summary Crystalloid volume administer 100 04/18/25 10:51 SALES MGR.CSIR (ml) Colloids volume administered ( ml) Blood Product volume administered (ml) Total IV fluid infused 100 04/18/25 10:51 SALES MGR.CSIR Anesthesia Postop Eval I: Summary Notes Anesthesia Complication No 04/18/25 10:51 SALES MGR.CSIR Anesthesia Complication Comment: Post-operative progress note Anesthesia: Postop Eval II Evaluation Mental status: Awake Pain Level: 0 nausea: No Vomiting: No 04/18/25 105 Date Caleb Mcgrath Signature: Date CC: Signed [facility] Operative Reporton Operative Report [facility] Medical Records Department [address] [place] [address] Operative Report 04/18/25 1044 MR#: [id number] Acct: [id number] Name: BRENNAN LUIS Rep #: [id number] : 1945 79 From: Sergio Soni MD PCP: Dr. Eric Smith MD Status:[facility] Location: [place] [address] Operative Report (Standard) Operative Information Date of Procedure: 04/18/25 Pre-Operative Diagnosis: Recurrent gross pneumaturia Post-Operative Diagnosis: The same Surgery/Procedure Performed: Cystoscopy and bilateral retrograde pyelograms panama hat smearer: No Type of Anesthesia: General RN Documented Start/Stop Times: Operation Date: 04/18/25 11:35 Case Time Into Pre-Op 04/18/25 09:31 Out of Pre-Op 04/18/25 10:29 Anesthesia Start 04/18/25 10:30 Into Room 04/18/25 10:30 Procedure Start 04/18/25 10:40 Procedure End 04/18/25 10:42 Procedure Start Time: 10:40 Procedure Stop Time: 10:42 Select all DRAINS/GRAFTS/IMPLAN TS that apply: None Estimated Blood Loss: None Specimen collected: No Description of surgery: Patient was taken back to the operating room after induction of general anesthesia, the patient was placed in dorsolithotomy position. The urethra and genitals were prepped and draped in usual sterile fashion. Using a 21 Lithuanian rigid cystourethroscope the entire length of the urethra was normal then went into the bladder. Identified the trigone the left and right ureteral orifice. I then cannulated the Left ureteral orifice and advanced a wire up into the kidney. I then backloaded a 5 Lithuanian open ended catheter over the wire and injected contrast to delineate the anatomy. It was normal. I then cannulated the right ureteral orifice and advanced a wire up into the kidney. I then backloaded a 5 Lithuanian open ended catheter over the wire and injected contrast to delineate the anatomy. It was butch The bladder was then drained. We confirmed the position of the stent by fluoroscopy. Patient anesthetic was reversed and was taken back to the PACU in good condition. Surgical Findings: Normal bilateral retrograde pyelograms normal bladder normal ureters, no source of bleeding found cysto normal Ct scan normal. Cause not determined. Complications Complications: No Admit VTE Documentation VTE Present on Admission: No VTE Mechan Device Prophylaxis: SCD's 04/18/25 1046 Cosigner Signature (if applicable): CC: Dr. Sergio Soni MD; Dr. Eric Smith MD Signed [facility] MR/PAT.ANEon 04-17-2025 MR/PAT.[facility] Medical Records Department [address] [place] [address] PAT - Anesthesia 04/17/25 1355 MR#: [id number] Acct: [id number] Name: BRENNAN LUIS Rep #: [id number] : 1945 79 From: Julio Cesar Cramer MD PCP: Dr. Eric Smith MD [place] [facility] [place] C [place] [facility] [place] Pre-Assessment Diagnosis/Proposed Procedure Planned Operative Procedure(s): BILAT CYSTO WITH RETROGRADES URETEROSCOPY STENT Anesthesia History Anesthesia History - transition specialist: Anesthesia History - transition specialist Hx Hospitalization No 04/17/25 11:31 Any Problems With Anesthesia No 04/17/25 11:31 Cholinesterase deficiency No 04/17/25 11:31 You/Your Family Experience No 04/17/25 11:31 fever (hyperthermia) with Relationship Recent Exposure to Contagious No 11/29/22 14:25 Disease Does patient have nerve Yes: SPINAL CORD STIMULATAR 04/17/25 11:31 stimulator Patient instructed to have device shut off --Does patient have Pacemaker or ICD? When Was Last Pacemaker Check QUESTION #4 FULL TEXT: You/Your Family Experience fever (hyperthermia) with Anesthesia Last Oral Intake Last Oral intake: Last Oral Intake NPO since Meds taken in AM with sips of water? Meds patient instructed to take am of surgery PONV PONV - transition specialist: PONV - transition specialist Female No 04/17/25 11:31 HX of Motion Sickness No 04/17/25 11:31 HX of N/V After Surgery No 04/17/25 11:31 Non-Smoker Yes 04/17/25 11:31 Duration of Surgery greater Yes 04/17/25 11:31 than 60 minutes Number of Risk Factors 2 04/17/25 11:31 PONV Score Moderate Risk 04/17/25 11:31 Height Weight Height Weight: Anesthesia: Height Weight Height 6 ft 1 in 01/16/24 11:33 Respiratory Assessment Respiratory Assessment - transition specialist: Respiratory Tract Infection Hx - transition specialist Hx Respiratory Tract Infection No 04/17/25 11:31 STOP Sleep Apnea STOP Sleep Apnea - transition specialist: STOP Sleep Apnea - transition specialist Hx Hypertension No 04/17/25 11:31 Hx Sleep Apnea No 04/17/25 11:31 CPAP BIPAP Do you snore loudly (louder Yes 04/17/25 11:31 than talking or can be heard Do you often feel tired/ Yes 04/17/25 11:31 fatigued/ sleepy during daytime? Has anyone observed you stop No 04/17/25 11:31 breathing during sleep? STOP Results Positive 04/17/25 11:31 QUESTION #5 FULL TEXT : Do you snore loudly (louder than talking or can be heard through closed doors)? 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 Specify any problems Hx of Preganancy in last 3 N/A 04/17/25 11:31 Months Nurse Filling Out Transfusion DSCHRIBER 04/17/25 11:31 Questions: Date: 04/17/25 04/17/25 11:31 Time: 11:34 04/17/25 11:31 Patient unable to answer at this time (ie. confused, unrespo /Reproducti on History /Reproducti ve History - transition specialist: /Reproducti ve Hx- transition specialist Hx Now No 04/17/25 11:31 Gestational Age (in weeks): EDC: Hx Hx Para Hx Section SAB No 04/17/25 11:31 Active Medications Active Medications: Current Medications Generic Name Dose Route Start Last Admin Trade Name Freq PRN Reason Stop Dose Admin Cefazolin Sodium 2 gm/ Sodium 110 mls @ 200 mls/hr 04/18/25 07:00 Chloride IV 04/18/25 07:32 INTRAOP ONE [facility] Medical History (Updated 04/17/25 @ 11:47 by Lillie Robles) Wears hearing aid Wears glasses Cancer Depression Anxiety Gout Blood urine DVT (deep venous thrombosis) Back pain Difficulty swallowing History of hiatal hernia Gastric reflux Non-smoker History of pain when walking Cardiology follow-up encounter Polyneuropathy Peripheral vascular disease Hyperglycemia Chest pain DDD (degenerative disc disease), lumbar Vitamin D deficiency High cholesterol Arthritis Home Medications ???Medication ???Instructions ???Recorded ???Last Taken ???Type allopurinol 300 mg tablet 300 mg PO DAILY GOUT 03/ (more content not included)... [facility] Abdomen/Pelvis W IV Cont ONL Yon 04-11-2025 Abdomen/Pelvis W IV Cont ONLY [facility] [address] [place] [id number] Abdomen/Pelvis W IV Cont ONLY MR#: [id number] Acct: [id number] Name: BRENNAN LUIS Rep #: [id number] : 1945 M 79 From: Bryant Romero MD PCP: Dr. Eric Smith MD Status: REG CLI Study: Abdomen/Pelvis W IV Cont ONLY Date of Exam: Exam# [id number] Ordering Dr: Sergio Soni MD PROCEDURE: ABDOMEN/PELVIS [...] calculi, renal masses or hydronephrosis. Reading [facility] CC: Dr. Sergio Soni MD; Dr. Eric Smith MD Carding Utility Tender: Signed [facility] PSA,Total- Diagnosticon 01-05 PSA, DIAGNOSTIC < 0.02 Normal 0.00-4.00 [facility] Comment on above: Result Comment: This test [...] baseline values. Performed By: #### L 501.9940 ####[facility] [address] [place], [address] CBC W/Diff, Automatedon 01-05 Absolute Lymph 1.58 X10 3/uL Normal 0.83-4.51 [facility] Comment on above: Performed By: #### L 501.9520, L500.4050, L506.1001, L100.0100 ####[facility] [address] [place], [address] Absolute Neut 6.7 X10 3/uL Normal 2.0-7.7 [facility] Comment on above: Performed By: #### L 501.9520, L500.4050, L506.1001, L100.0100 ####[facility] [address] [place], [address] Basophils/100 WBC (Bld) 0.7 % Normal 0-1 [facility] Comment on above: Performed By: #### L 501.9520, L500.4050, L506.1001, L100.0100 ####[facility] [address] [place], [address] Eosinophils/100 WBC (Bld) 0.2 % Normal 0-5 [facility] Comment on above: Performed By: #### L 501.9520, L500.4050, L506.1001, L100.0100 ####[facility] [address] [place], [address] Erythrocyte distribution width (RBC) [Ratio] 13.3 % Normal 11.6-14.6 [facility] Comment on above: Performed By: #### L 501.9520, L500.4050, L506.1001, L100.0100 ####[facility] [address] [place], [address] Hematocrit (Bld) [Volume fraction] 47.8 % Normal 40-54 [facility] Comment on above: Performed By: #### L 501.9520, L500.4050, L506.1001, L100.0100 ####[facility] [address] [place], [address] Hemoglobin (Bld) [Mass/Vol] 16.4 g/dL Normal 13.0-16.5 [facility] Comment on above: Performed By: #### L 501.9520, L500.4050, L506.1001, L100.0100 ####[facility] [address] [place], [address] IG% 0.600 Normal 0.0-0.9 [facility] Comment on above: Result Comment: IG% - Immature Granulocytes (promyelocytes, myelocytes and metamyelocytes) > 1% indicates that a LEFT SHIFT is Present. Performed By: #### L 501.9520, L500.4050, L506.1001, L100.0100 ####[facility] [address] [place], [address] Lymphocytes/100 WBC (Bld) 17.4 % Low 19-41 [facility] Comment on above: Performed By: #### L 501.9520, L500.4050, L506.1001, L100.0100 ####[facility] [address] [place], [address] MCH (RBC) [Entitic mass] 32.7 pg High 27.0-32.0 [facility] Comment on above: Performed By: #### L 501.9520, L500.4050, L506.1001, L100.0100 ####[facility] [address] [place], [address] MCHC (RBC) [Mass/Vol] 34.3 g/dL Normal 32-36 [facility] Comment on above: Performed By: #### L 501.9520, L500.4050, L506.1001, L100.0100 ####[facility] [address] [place], [address] MCV (RBC) [Entitic vol] 95.4 fL High 80-94 [facility] Comment on above: Performed By: #### L 501.9520, L500.4050, L506.1001, L100.0100 ####[facility] [address] [place], [address] Monocytes/100 WBC (Bld) 7.6 % Normal 0-10 [facility] Comment on above: Performed By: #### L 501.9520, L500.4050, L506.1001, L100.0100 ####[facility] [address] [place], [address] Neutrophils/100 WBC (Bld) 73.5 % High 47-70 [facility] Comment on above: Performed By: #### L 501.9520, L500.4050, L506.1001, L100.0100 ####[facility] [address] [place], [address] Nucleated RBC (Bld) [#/Vol] 0 10*3/uL Normal 0-5 [facility] Comment on above: Performed By: #### L 501.9520, L500.4050, L506.1001, L100.0100 ####[facility] [address] [place], [address] Platelet mean volume (Bld) [Entitic vol] 9.4 fL Normal 6.2-12.0 [facility] Comment on above: Performed By: #### L 501.9520, L500.4050, L506.1001, L100.0100 ####[facility] [address] [place], [address] Platelets (Bld) [#/Vol] 183 10*3/uL Normal 150-450 [facility] Comment on above: Performed By: #### L 501.9520, L500.4050, L506.1001, L100.0100 ####[facility] [address] [place], [address] RBC (Bld) [#/Vol] 5.01 10*6/uL Normal 4.6-6.2 [facility] Comment on above: Performed By: #### L 501.9520, L500.4050, L506.1001, L100.0100 ####[facility] [address] [place], [address] RDW SD 46.5 fl High 35.1-43.9 [facility] Comment on above: Performed By: #### L 501.9520, L500.4050, L506.1001, L100.0100 ####[facility] [address] [place], [address] WBC (Bld) [#/Vol] 9.1 10*3/uL Normal 4.4-11.0 [facility] Comment on above: Performed By: #### L 501.9520, L500.4050, L506.1001, L100.0100 ####[facility] [address] [place], [address] [facility] 01-21-2025 Albumin [Mass/Vol] 4.0 g/dL Normal 3.4-4.8 [facility] Comment on above: Performed By: #### L 501.9520, L500.4050, L506.1001, L100.0100 ####[facility] [address] [place], [address] Albumin/Globulin [Mass ratio] 1.4 {ratio} Normal 0.9-2.4 [facility] Comment on above: Performed By: #### L 501.9520, L500.4050, L506.1001, L100.0100 ####[facility] [address] [place], [address] ALK PHOS 71 U/L Normal 40-129 [facility] Comment on above: Performed By: #### L 501.9520, L500.4050, L506.1001, L100.0100 ####[facility] [address] [place], [address] ALT [Catalytic activity/Vol] 34 U/L Normal <=46 [facility] Comment on above: Performed By: #### L 501.9520, L500.4050, L506.1001, L100.0100 ####[facility] [address] [place], [address] AST [Catalytic activity/Vol] 23 U/L Normal <=37 [facility] Comment on above: Performed By: #### L 501.9520, L500.4050, L506.1001, L100.0100 ####[facility] [address] [place], [address] Bilirubin [Mass/Vol] 0.95 mg/dL Normal 0.00-1.30 [facility] Comment on above: Performed By: #### L 501.9520, L500.4050, L506.1001, L100.0100 ####[facility] [address] [place], [address] BUN/CRE 16.8 RATIO Normal 10-20 [facility] Comment on above: Performed By: #### L 501.9520, L500.4050, L506.1001, L100.0100 ####[facility] [address] [place], [address] Calcium [Mass/Vol] 8.9 mg/dL Normal 7.6-11.0 [facility] Comment on above: Performed By: #### L 501.9520, L500.4050, L506.1001, L100.0100 ####[facility] [address] [place], [address] Chloride [Moles/Vol] 104 mmol/L Normal 98-108 [facility] Comment on above: Performed By: #### L 501.9520, L500.4050, L506.1001, L100.0100 ####[facility] [address] [place], [address] CO2 [Moles/Vol] 26.2 mmol/L Normal 21.0-32.0 [facility] Comment on above: Performed By: #### L 501.9520, L500.4050, L506.1001, L100.0100 ####[facility] [address] [place], [address] Creatinine [Mass/Vol] 0.95 mg/dL Normal 0.70-1.20 [facility] Comment on above: Performed By: #### L 501.9520, L500.4050, L506.1001, L100.0100 ####[facility] [address] [place], [address] GAP 9 Normal 5-15 [facility] Comment on above: Performed By: #### L 501.9520, L500.4050, L506.1001, L100.0100 ####[facility] [address] [place], [address] GFR/1.73 sq M.predicted among non-blacks MDRD (S/P/Bld) [Vol rate/Area] 82 mL/min/{1.73_m2} Normal >60 [facility] Comment on above: Result Comment: mL/m in/1.73m2 CKD-EPI Creatinine Equation (2020) Performed By: #### L 501.9520, L500.4050, L506.1001, L100.0100 ####[facility] [address] [place], [address] Globulin (S) [Mass/Vol] 2.8 g/dL Normal 2.2-4.2 [facility] Comment on above: Performed By: #### L 501.9520, L500.4050, L506.1001, L100.0100 ####[facility] [address] [place], [address] Glucose [Mass/Vol] 105 mg/dL High 70-99 [facility] Comment on above: Performed By: #### L 501.9520, L500.4050, L506.1001, L100.0100 ####[facility] [address] [place], [address] Potassium [Moles/Vol] 4.2 mmol/L Normal 3.3-5.1 [facility] Comment on above: Performed By: #### L 501.9520, L500.4050, L506.1001, L100.0100 ####[facility] [address] [place], [address] Sodium [Moles/Vol] 139 mmol/L Normal 133-145 [facility] Comment on above: Performed By: #### L 501.9520, L500.4050, L506.1001, L100.0100 ####[facility] [address] [place], [address] T PROT 6.8 g/dL Normal 5.9-8.4 [facility] Comment on above: Performed By: #### L 501.9520, L500.4050, L506.1001, L100.0100 ####[facility] [address] [place], [address] Urea nitrogen [Mass/Vol] 16 mg/dL Normal 4-19 [facility] Comment on above: Performed By: #### L 501.9520, L500.4050, L506.1001, L100.0100 ####[facility] [address] [place], [address] Thyroid Stim Hormone (TSH)on 01-21-2025 TSH 1.350 uIU/mL Normal 0.300-4.200 [facility] Comment on above: Performed By: #### L 501.9520, L500.4050, L506.1001, L100.0100 ####[facility] [address] [place], [address] Vitamin D,25 Hydroxyon 01-21 Vitamin D 25-OH 47.3 ng/mL Normal 30-100 [facility] Comment on above: Result Comment: Britany min D Status Deficiency: <20 ng/mL (50nmol/L) Insufficiency: 20-30 ng/mL (50-75 nmol/L) Sufficiency: 30-100 ng/mL (75-250 nmol/L) Toxicity: >100 ng/mL (>250 nmol/L) Performed By: #### L 501.9520, L500.4050, L506.1001, L100.0100 ####[facility] [address] [place], [address] Brain without Contraston Brain without Contrast [facility] [address] [place] [address] Brain without Contrast MR#: [id number] Acct: [id number] Name: BRENNAN LUIS Rep #: [id number] : 1945 M 79 From: Reji Bravo MD PCP: Dr. Eric Smith MD Status: REG CLI Study: Brain without Contrast Date of Exam: 01/09/25 Exam# [id number] Ordering Dr: Eric Smith MD PROCEDURE: BRAIN [...] matter disease. 3. Mild pansinusitis. Reading Location: [id number] CC: Dr. Eric Smith MD Carding Utility Tender: Signed [facility] Inital Evaluation (1) - PTon 12-26-2024 Inital Evaluation (1) - PT [facility] [address] [place] [address] [address] [place] [address] / REHABILITATION SERVICES INITIAL EVALUATION MR#: [id number] Acct: [id number] Name: BRENNAN LUIS Rep #: [id number] : 1945 79 From: David Sam Referring [...] housework. Pt. is retired and worked for [employer] previously. His goal with physical therapy is to be more steady. He denies any pain. His PMH includes prostate cancer with prostate removed, skin cancer, pain stimulator placed for low back pain, bilateral shoulder arthroscopic surgeries, tonsillectomy, and esophagus surgery. Pt. lives with his at [facility]. 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 [...] patient. For (more content not included)... [facility] HIP, UNI W/ Pelvis 2-3 Views on 12-17-2024 HIP, UNI W/ Pelvis 2-3 Views [facility] [address] [place] [address] HIP, UNI W/ Pelvis 2-3 Views MR#: [id number] Acct: [id number] Name: BRENNAN LUIS Rep #: [id number] : 1945 M 79 From: Pankaj Culver MD PCP: Dr. Eric Smith MD Status: REG CLI Study: HIP, UNI W/ Pelvis 2-3 Views Date of Exam: Exam# [id number] Ordering Dr: Eric Smith MD PROCEDURE: HIP, [...] osteoarthrosis with marginal osteophyte formation. Reading Location: [id number] CC: Dr. Eric Smith MD Carding Utility Tender: Signed [facility] M100.678on 08-12-2024 M100.678 Pending SARS-CoV-2 (COVID 19) Negative INFLUENZA A Negative INFLUENZA B Negative RSV PCR Negative [facility] Comment on above: Performed By: #### M 100.678 ####[facility] [address] [place], [address] Vitamin D,25 Hydroxyon 07-22 Vitamin D 25-OH 41.3 ng/mL [facility] Comment on above: Result Comment: Britany min D 25(OH) Status Range Deficiency <20 ng/mL (50nmol/L) Insufficiency 20 - 30 ng/mL (50 - 75 nmol/L) Sufficiency 30 - 100 ng/mL (75 - 250 nmol/L) Toxicity >100 ng/mL (>250 nmol/L) Performed By: #### L 501.9520, L506.1000, L500.4050, L100.0100 #### [facility] [address] [place], [address] CBC W/Diff, Automatedon 12- Absolute Lymph 1.30 X10 3/uL Normal 0.83-4.51 [facility] Comment on above: Performed By: #### L 501.9520, L506.1000, L500.4050, L100.0100 #### [facility] [address] [place], [address] Absolute Neut 3.5 X10 3/uL Normal 2.0-7.7 [facility] Comment on above: Performed By: #### L 501.9520, L506.1000, L500.4050, L100.0100 #### [facility] [address] [place], [address] Basophils/100 WBC (Bld) 0.7 % Normal 0-1 [facility] Comment on above: Performed By: #### L 501.9520, L506.1000, L500.4050, L100.0100 #### [facility] [address] [place], [address] Eosinophils/100 WBC (Bld) 3.8 % Normal 0-5 [facility] Comment on above: Performed By: #### L 501.9520, L506.1000, L500.4050, L100.0100 #### [facility] [address] [place], [address] Erythrocyte distribution width (RBC) [Ratio] 13.1 % Normal 11.6-14.6 [facility] Comment on above: Performed By: #### L 501.9520, L506.1000, L500.4050, L100.0100 #### [facility] [address] [place], [address] Hematocrit (Bld) [Volume fraction] 49.5 % Normal 40-54 [facility] Comment on above: Performed By: #### L 501.9520, L506.1000, L500.4050, L100.0100 #### [facility] [address] [place], [address] Hemoglobin (Bld) [Mass/Vol] 16.1 g/dL Normal 13.0-16.5 [facility] Comment on above: Performed By: #### L 501.9520, L506.1000, L500.4050, L100.0100 #### [facility] [address] [place], [address] IG% 0.400 Normal 0.0-0.9 [facility] Comment on above: Result Comment: IG% - Immature Granulocytes (promyelocytes, myelocytes and metamyelocytes) > 1% indicates that a LEFT SHIFT is Present. Performed By: #### L 501.9520, L506.1000, L500.4050, L100.0100 #### [facility] [address] [place] [place], [address] Lymphocytes/100 WBC (Bld) 23.7 % Normal 19-41 [facility] Comment on above: Performed By: #### L 501.9520, L506.1000, L500.4050, L100.0100 #### [facility] [address] [place], [address] MCH (RBC) [Entitic mass] 31.7 pg Normal 27.0-32.0 [facility] Comment on above: Performed By: #### L 501.9520, L506.1000, L500.4050, L100.0100 #### [facility] [address] [place], [address] MCHC (RBC) [Mass/Vol] 32.5 g/dL Normal 32-36 [facility] Comment on above: Performed By: #### L 501.9520, L506.1000, L500.4050, L100.0100 #### [facility] [address] [place], [address] MCV (RBC) [Entitic vol] 97.4 fL High 80-94 [facility] Comment on above: Performed By: #### L 501.9520, L506.1000, L500.4050, L100.0100 #### [facility] [address] [place], [address] Monocytes/100 WBC (Bld) 7.8 % Normal 0-10 [facility] Comment on above: Performed By: #### L 501.9520, L506.1000, L500.4050, L100.0100 #### [facility] [address] [place], [address] Neutrophils/100 WBC (Bld) 63.6 % Normal 47-70 [facility] Comment on above: Performed By: #### L 501.9520, L506.1000, L500.4050, L100.0100 #### [facility] [address] [place], [address] Nucleated RBC (Bld) [#/Vol] 0 10*3/uL Normal 0-5 [facility] Comment on above: Performed By: #### L 501.9520, L506.1000, L500.4050, L100.0100 #### [facility] [address] [place], [address] Platelet mean volume (Bld) [Entitic vol] 9.7 fL Normal 6.2-12.0 [facility] Comment on above: Performed By: #### L 501.9520, L506.1000, L500.4050, L100.0100 #### [facility] [address] [place], [address] Platelets (Bld) [#/Vol] 175 10*3/uL Normal 150-450 [facility] Comment on above: Performed By: #### L 501.9520, L506.1000, L500.4050, L100.0100 #### [facility] [address] [place], [address] RBC (Bld) [#/Vol] 5.08 10*6/uL Normal 4.6-6.2 [facility] Comment on above: Performed By: #### L 501.9520, L506.1000, L500.4050, L100.0100 #### [facility] [address] [place], [address] RDW SD 46.8 fl High 35.1-43.9 [facility] Comment on above: Performed By: #### L 501.9520, L506.1000, L500.4050, L100.0100 #### [facility] [address] [place], [address] WBC (Bld) [#/Vol] 5.5 10*3/uL Normal 4.4-11.0 [facility] Comment on above: Performed By: #### L 501.9520, L506.1000, L500.4050, L100.0100 #### [facility] [address] [place], [address] [facility] 07-19-2024 Albumin [Mass/Vol] 3.5 g/dL Normal 3.2-5.0 [facility] Comment on above: Performed By: #### L 501.9520, L506.1000, L500.4050, L100.0100 #### [facility] [address] [place], [address] Albumin/Globulin [Mass ratio] 0.9 {ratio} Normal 0.9-2.4 [facility] Comment on above: Performed By: #### L 501.9520, L506.1000, L500.4050, L100.0100 #### [facility] [address] [place], [address] ALK P 91 U/L Normal 45-117 [facility] Comment on above: Performed By: #### L 501.9520, L506.1000, L500.4050, L100.0100 #### [facility] [address] [place], [address] ALT [Catalytic activity/Vol] 56 U/L Normal 16-61 [facility] Comment on above: Performed By: #### L 501.9520, L506.1000, L500.4050, L100.0100 #### [facility] [address] [place], [address] AST [Catalytic activity/Vol] 27 U/L Normal 15-37 [facility] Comment on above: Performed By: #### L 501.9520, L506.1000, L500.4050, L100.0100 #### [facility] [address] [place], [address] Bilirubin [Mass/Vol] 0.80 mg/dL Normal 0.20-1.00 [facility] Comment on above: Result Comment: For patients on eltrombopag therapy, use of Dimension [place] TBIL is not recommended. Performed By: #### L 501.9520, L506.1000, L500.4050, L100.0100 #### [facility] [address] [place], [address] BUN/CRE 18.8 RATIO Normal 10-20 [facility] Comment on above: Performed By: #### L 501.9520, L506.1000, L500.4050, L100.0100 #### [facility] [address] [place], [address] CA,Total 8.8 mg/dL Normal 8.5-10.1 [facility] Comment on above: Performed By: #### L 501.9520, L506.1000, L500.4050, L100.0100 #### [facility] [address] [place], [address] Chloride [Moles/Vol] 107 mmol/L Normal 98-107 [facility] Comment on above: Performed By: #### L 501.9520, L506.1000, L500.4050, L100.0100 #### [facility] [address] [place], [address] CO2 [Moles/Vol] 31.0 mmol/L Normal 21.0-32.0 [facility] Comment on above: Performed By: #### L 501.9520, L506.1000, L500.4050, L100.0100 #### [facility] [address] [place], [address] Creatinine [Mass/Vol] 0.96 mg/dL Normal 0.70-1.30 [facility] Comment on above: Result Comment: The validity of the calculated GFR GFRAA in patients over 70 years has not been determined. Clinical correlation is essential. Performed By: #### L 501.9520, L506.1000, L500.4050, L100.0100 #### [facility] [address] [place], [address] EST GFR - AA 98 mL/min Normal >60 [facility] Comment on above: Result Comment: Afri can [place] GFR Calc Performed By: #### L 501.9520, L506.1000, L500.4050, L100.0100 #### [facility] [address] [place], [address] GAP 3 Low 5-15 [facility] Comment on above: Performed By: #### L 501.9520, L506.1000, L500.4050, L100.0100 #### [facility] [address] [place], [address] GFR/1.73 sq M.predicted among non-blacks MDRD (S/P/Bld) [Vol rate/Area] 81 mL/min/{1.73_m2} Normal >60 [facility] Comment on above: Result Comment: Non- GFR Calc Performed By: #### L 501.9520, L506.1000, L500.4050, L100.0100 #### [facility] [address] [place], [address] Globulin (S) [Mass/Vol] 3.9 g/dL Normal 2.2-4.2 [facility] Comment on above: Performed By: #### L 501.9520, L506.1000, L500.4050, L100.0100 #### [facility] [address] [place], [address] Glucose [Mass/Vol] 108 mg/dL High 74-106 [facility] Comment on above: Result Comment: Fast ing Glucose result from 100 to 125 mg/dL suggests IMPAIRED HOMEOSTASIS per A.D.A. criteria. Performed By: #### L 501.9520, L506.1000, L500.4050, L100.0100 #### [facility] [address] [place], [address] Potassium [Moles/Vol] 4.0 mmol/L Normal 3.5-5.1 [facility] Comment on above: Performed By: #### L 501.9520, L506.1000, L500.4050, L100.0100 #### [facility] [address] [place], [address] Sodium [Moles/Vol] 141 mmol/L Normal 136-145 [facility] Comment on above: Performed By: #### L [id number], L506.1000, L500.4050, L100.0100 #### [facility] [address] [place], [address] T PROT 7.4 g/dL Normal 6.4-8.2 [facility] Comment on above: Performed By: #### L [id number], L506.1000, [id number], L100.0100 #### [facility] [address] [place], [address] Urea nitrogen [Mass/Vol] 18 mg/dL Normal 7-18 [facility] Comment on above: Performed By: #### L [id number], L506.1000, [id number], L100.0100 #### [facility] [address] [place], [address] Thyroid Stim Hormone (TSH)on 07-19-2024 TSH 1.230 uIU/mL Normal 0.358-3.740 [facility] Comment on above: Performed By: #### L [id number], L506.1000, L500.4050, L100.0100 #### [facility] [address] [place], [address] Absolute lymphocyte countOrd ered By: Eric Smith on 09-25-2023 Lymphocytes Auto (Unsp spec) [#/Vol] 1.53 10*3/uL 0.83-4.51 [facility] Albumin Elph [Mass/Vol]Order ed By: Eric Smith on 09-25-2023 Albumin [Mass/Vol] 3.9 g/dL 2.9-4.4 [facility] Automated lymphocyte count a s percentage of total leukocytesOrdered By: Eric Smith on 09-25-2023 Lymphocytes/100 WBC Auto (Unsp spec) 23.8 % 19-41 [facility] Basophil percentageOrdered B y: Eric Smith on 09-25-2023 Basophils/100 WBC (Bld) 0.6 % 0-1 [facility] Bilirubin [Mass/Vol] 0.50 mg/dL 0.20-1.00 [facility] Comment on above: For patients on eltr ombopag therapy, use of Dimension [place] TBIL is not recommended. Chloride [Moles/Vol] 107 mmol/L 98-107 [facility] Eosinophils/100 WBC (Bld) 3.0 % 0-5 [facility] Glucose [Mass/Vol] 110 mg/dL 74-106 [facility] Comment on above: Fasting Glucose resu lt from 100 to 125 mg/dL suggests IMPAIRED HOMEOSTASIS per A.D.A. criteria. Hemoglobin (Bld) [Mass/Vol] 17.2 g/dL 13.0-16.5 [facility] Monocytes/100 WBC (Bld) 8.2 % 0-10 [facility] Neutrophils (Bld) [#/Vol] 4.1 10*3/uL 2.0-7.7 [facility] Neutrophils/100 WBC (Bld) 64.1 % 47-70 [facility] Potassium [Moles/Vol] 4.1 mmol/L 3.5-5.1 [facility] Protein [Mass/Vol] 7.7 g/dL 6.4-8.2 [facility] Sodium [Moles/Vol] 139 mmol/L 136-145 [facility] WBC (Bld) [#/Vol] 6.4 10*3/uL 4.4-11.0 [facility] Determination of erythrocyte mean corpuscular volume (MCV)Ordered By: Eric Smith on 09-25-2023 MCV (RBC) [Entitic vol] 96.0 fL 80-94 [facility] Erythrocyte distribution wid th ratioOrdered By: Eric Smith on 09-25-2023 Erythrocyte distribution width (RBC) [Ratio] 13.1 % 11.6-14.6 [facility] Erythrocyte distribution wid th standard deviationOrdered By: Eric Smith on 09-25-2023 Erythrocyte distribution width (RBC) [Entitic vol] 46.2 fL 35.1-43.9 [facility] Hematocrit Auto (Bld) [Volum e fraction]Ordered By: Eric Smith on 09-25-2023 Hematocrit (Bld) [Volume fraction] 51.0 % 40-54 [facility] Immature granulocytes/100 WB C Auto (Bld)Ordered By: Eric Smith on 09-25-2023 Immature granulocytes/100 WBC (Bld) 0.300 % 0.0-0.9 [facility] Comment on above: IG% - Immature Granu locytes (promyelocytes, myelocytes and metamyelocytes) > 1% indicates that a LEFT SHIFT is Present. Laboratory - Chemistry and C hemistry - challengeOrdered By: Eric Smith on 09-25-2023 Albumin/Globulin [Mass ratio] 1.0 {ratio} 0.9-2.4 [facility] ALP [Catalytic activity/Vol] 76 U/L 45-117 [facility] ALT [Catalytic activity/Vol] 29 U/L 16-61 [facility] CO2 [Moles/Vol] 29.0 mmol/L 21.0-32.0 [facility] Cobalamin (Vitamin B12) [Mass/Vol] 927 pg/mL 211-911 [facility] Globulin (S) [Mass/Vol] 3.9 g/dL 2.2-4.2 [facility] Urea nitrogen/Creatinine [Mass ratio] 15.5 mg/mg 10-20 [facility] - Hematology and Cell countsOrdered By: Eric Smith on 09-25-2023 MCH (RBC) [Entitic mass] 32.4 pg 27.0-32.0 [facility] MCHC (RBC) [Mass/Vol] 33.7 g/dL 32-36 [facility] Nucleated RBC/100 WBC (Bld) [Ratio] 0 % 0-5 [facility] Platelet mean volume (Bld) [Entitic vol] 9.9 fL 6.2-12.0 [facility] Platelets (Bld) [#/Vol] 196 10*3/uL 150-450 [facility] No Panel InformationOrdered By: Eric Smith on 09-25-2023 Addendum Document Comment . [facility] Comment on above: The SPE pattern appe ars unremarkable. Evidence ofmonoclonal protein is not apparent.Performed at: [facility] [id number] Director: Mitch Phillips PhD, Phone: [phone] Aiuvp-4-Pglabugcv 0.2 g/dL 0.0-0.4 [facility] Ngasy-2-Yeedctxkr 0.6 g/dL 0.4-1.0 [facility] Estimated GFR (MDRD) Amer 83 mL/min >60 [facility] Comment on above: GFR Calc Estimated GFR (MDRD) Non-Af Amer 69 mL/min >60 [facility] Comment on above: Non- GFR Calc Gamma Globulins 1.2 g/dL 0.4-1.8 [facility] Protein Fractions Elph [Inte rp]Ordered By: Eric Smith on 09-25-2023 Protein Fractions [Interp] Comment . [facility] Comment on above: Protein electrophore sis scan will follow via computer,mail, or waiter/waitress formal delivery. RBC Auto (Bld) [#/Vol]Ordere d By: Eric Smith on 09-25-2023 RBC (Bld) [#/Vol] 5.31 10*6/uL 4.6-6.2 [facility] Serum albumin to globulin ra britney by protein electrophoresisOrdered By: Eric Smith on 09-25-2023 Albumin/Globulin Elph [Mass ratio] 1.2 0.7-1.7 [facility] Serum globulin measurement ( mass/volume)Ordered By: Eric Smith 09-25-2023 Globulin (S) [Mass/Vol] 3.2 g/dL 2.2-3.9 [facility] Serum or plasma beta globuli n measurement by electrophoresis (mass/volume)Ordered By: Eric Smith 09-25-2023 Beta globulin Elph [Mass/Vol] 1.2 g/dL 0.7-1.3 [facility] Serum or plasma calcium bienvenido urement (mass/volume)Ordered By: Eric Smith 09-25-2023 Calcium [Mass/Vol] 9.3 mg/dL 8.5-10.1 [facility] Serum or plasma creatinine m easurement (mass/volume)Ordered By: Eric Smith 09-25-2023 Creatinine [Mass/Vol] 1.10 mg/dL 0.70-1.30 [facility] Comment on above: The validity of the calculated GFR & GFRAA in patients over 70 years has not been determined. Clinical correlation is essential. Serum or plasma protein mono clonal measurement by electrophoresis (mass/volume)Ordered By: Eric Smith 09-25-2023 Protein.monoclonal Elph [Mass/Vol] Not Observed g/dL Not Observed [facility] Serum or plasma thyroid stim ulating hormone (TSH) measurement (units/volume)Ordered By: Eric Smith 09-25-2023 TSH Qn 1.95 uIU/mL 0.358-3.74 [facility] Serum or plasma urea nitroge n measurement (mass/volume)Ordered By: Eric Smith 09-25-2023 Urea nitrogen [Mass/Vol] 17 mg/dL 7-18 [facility] Thin prep Papanicolaou smear with manual screeningOrdered By: Eric Smith on 09-25-2023 Thin prep Papanicolaou smear with manual screening 3.8 g/dL 3.2-5.0 [facility] Thin prep Papanicolaou smear with manual screening 17 U/L 15-37 [facility] Thin prep Papanicolaou smear with manual screening 3 5-15 [facility] Total protein bloodOrdered B y: Eric Smith on 09-25-2023 Protein [Mass/Vol] 7.1 g/dL 6.0-8.5 [facility] Absolute lymphocyte countOrd ered By: Eric Smith on 07-17-2023 Lymphocytes Auto (Unsp spec) [#/Vol] 1.37 10*3/uL 0.83-4.51 [facility] Basophil percentageOrdered B y: Eric Smith on 07-17-2023 Basophils/100 WBC (Bld) 1.0 % 0-1 [facility] Bilirubin [Mass/Vol] 0.50 mg/dL 0.20-1.00 [facility] Comment on above: For patients on eltr ombopag therapy, use of Dimension [place] TBIL is not recommended. Chloride [Moles/Vol] 106 mmol/L 98-107 [facility] Eosinophils/100 WBC (Bld) 2.3 % 0-5 [facility] Glucose [Mass/Vol] 128 mg/dL 74-106 [facility] Comment on above: Fasting Glucose resu lt greater than or equal to 126 mg/dL suggests DIABETES MELLITUS per A.D.A. criteria. Neutrophils (Bld) [#/Vol] 3.2 10*3/uL 2.0-7.7 [facility] Neutrophils/100 WBC (Bld) 61.9 % 47-70 [facility] Potassium [Moles/Vol] 4.2 mmol/L 3.5-5.1 [facility] Protein [Mass/Vol] 7.7 g/dL 6.4-8.2 [facility] Sodium [Moles/Vol] 139 mmol/L 136-145 [facility] WBC (Bld) [#/Vol] 5.1 10*3/uL 4.4-11.0 [facility] Blood erythrocytes count (nu mber/volume)Ordered By: Eric Smith on 07-17-2023 RBC (Bld) [#/Vol] 5.34 10*6/uL 4.6-6.2 [facility] Blood hemoglobin measurement (mass/volume)Ordered By: Eric Smith on 07-17-2023 Hemoglobin (Bld) [Mass/Vol] 16.8 g/dL 13.0-16.5 [facility] Blood lymphocytes/100 leukoc ytesOrdered By: Eric Smith on 07-17-2023 Lymphocytes/100 WBC (Bld) 26.8 % 19-41 [facility] Blood monocytes/100 leukocyt esOrdered By: Eric Smith on 07-17-2023 Monocytes/100 WBC (Bld) 7.8 % 0-10 [facility] Blood platelet mean volumeOr dered By: Eric Smith on 07-17-2023 Platelet mean volume (Bld) [Entitic vol] 10.3 fL 6.2-12.0 [facility] Determination of erythrocyte mean corpuscular volume (MCV)Ordered By: Eric Smith on 07-17-2023 MCV (RBC) [Entitic vol] 97.4 fL 80-94 [facility] Hematocrit Auto (Bld) [Volum e fraction][facility]23 Hematocrit (Bld) [Volume fraction] 52.0 % 40-54 [facility] - Chemistry and C hemistry - challengeOrdered By: [facility] Luis on 07-17-2023 ALP [Catalytic activity/Vol] 77 U/L 45-117 [facility] ALT [Catalytic activity/Vol] 30 U/L 16-61 [facility] CO2 [Moles/Vol] 27.0 mmol/L 21.0-32.0 [facility] Globulin (S) [Mass/Vol] 4.1 g/dL 2.2-4.2 [facility] Urea nitrogen/Creatinine [Mass ratio] 13.5 mg/mg 10-20 [facility] - Hematology and Cell countsOrdered By: Eric Smith on 07-17-2023 Erythrocyte distribution width (RBC) [Entitic vol] 46.5 fL 35.1-43.9 [facility] Erythrocyte distribution width (RBC) [Ratio] 13.2 % 11.6-14.6 [facility] Immature granulocytes/100 WBC (Bld) 0.200 % 0.0-0.9 [facility] Comment on above: IG% - Immature Granu locytes (promyelocytes, myelocytes and metamyelocytes) > 1% indicates that a LEFT SHIFT is Present. MCH (RBC) [Entitic mass] 31.5 pg 27.0-32.0 [facility] Nucleated RBC/100 WBC (Bld) [Ratio] 0 % 0-5 [facility] MCHC Auto (RBC) [Mass/Vol]Or dered By: Eric Smith on 07-17-2023 MCHC (RBC) [Mass/Vol] 32.3 g/dL 32-36 [facility] No Panel InformationOrdered By: Eric Smith on 07-17-2023 Estimated GFR (MDRD) Amer 89 mL/min >60 [facility] Comment on above: GFR Calc Estimated GFR (MDRD) Non-Af Amer 74 mL/min >60 [facility] Comment on above: Non- GFR Calc Thyroid Stimulating Hormone (TSH) 1.98 uIU/mL 0.358-3.74 [facility] Vitamin D 25-Hydroxy 35.3 ng/mL [facility] Comment on above: Vitamin D 25(OH) Sta tus Range Deficiency <20 ng/mL (50nmol/L) Insufficiency 20 - 30 ng/mL (50 - 75 nmol/L) Sufficiency 30 - 100 ng/mL (75 - 250 nmol/L) Toxicity >100 ng/mL (>250 nmol/L) Platelets bldOrdered By: Eric Smith on 07-17-2023 Platelets (Bld) [#/Vol] 189 10*3/uL 150-450 [facility] Serum or plasma albumin bienvenido urement (mass/volume)Ordered By: Eric Smith on 07-17-2023 Albumin [Mass/Vol] 3.6 g/dL 3.2-5.0 [facility] Serum or plasma albumin/glob ulin mass ratioOrdered By: Eric Smith on 07-17-2023 Albumin/Globulin [Mass ratio] 0.9 {ratio} 0.9-2.4 [facility] Serum or plasma calcium bienvenido urement (mass/volume)Ordered By: Eric Smith on 07-17-2023 Calcium [Mass/Vol] 9.2 mg/dL 8.5-10.1 [facility] Serum or plasma creatinine m easurement (mass/volume)Ordered By: Eric Smith on 07-17-2023 Creatinine [Mass/Vol] 1.04 mg/dL 0.70-1.30 [facility] Comment on above: The validity of the calculated GFR & GFRAA in patients over 70 years has not been determined. Clinical correlation is essential. Serum or plasma urea nitroge n measurement (mass/volume)Ordered By: Eric Smith on 07-17-2023 Urea nitrogen [Mass/Vol] 14 mg/dL 7-18 [facility] Thin prep Papanicolaou smear with manual screeningOrdered By: Eric Smith on 07-17-2023 Thin prep Papanicolaou smear with manual screening 15 U/L 15-37 [facility] Thin prep Papanicolaou smear with manual screening 6 5-15 [facility] No Panel InformationOrdered By: Sergio Soni on 07-14-2023 Prostate Specific Antigen Total < 0.01 ng/mL 0.0-4.0 [facility] Comment on above: This test was perfor med using the TPSA assay method for theDimension chemistry system. Values obtained with differentassay methods cannot be used interchangably.When changing PSA assays in the course of monitoring apatient, additional sequential testing should be carriedout to confirm baseline values. No Panel InformationOrdered By: Dr. Soni on 01-16-2023 Prostate Specific Antigen Total < 0.01 ng/mL 0.0-4.0 [facility] Comment on above: This test was perfor med using the TPSA assay method for theDimension chemistry system. Values obtained with differentassay methods cannot be used interchangably.When changing PSA assays in the course of monitoring apatient, additional sequential testing should be carriedout to confirm baseline values. Absolute lymphocyte countOrd ered By: Dr. Smith on 01-10-2023 Lymphocytes Auto (Unsp spec) [#/Vol] 0.96 10*3/uL 0.83-4.51 [facility] Basophil percentageOrdered B y: Dr. Smith on 01-10-2023 Basophils/100 WBC (Bld) 0.7 % 0-1 [facility] Bilirubin [Mass/Vol] 0.90 mg/dL 0.20-1.00 [facility] Comment on above: For patients on eltr ombopag therapy, use of Dimension [place] TBIL is not recommended. Chloride [Moles/Vol] 108 mmol/L 98-107 [facility] Cholesterol [Mass/Vol] 231 mg/dL <200 [facility] Comment on above: <200 mg/dL Desirable 200-240 mg/dL Borderline >240 mg/dL High Risk Eosinophils/100 WBC (Bld) 1.6 % 0-5 [facility] Glucose [Mass/Vol] 102 mg/dL 74-106 [facility] Comment on above: Fasting Glucose resu lt from 100 to 125 mg/dL suggests IMPAIRED HOMEOSTASIS per A.D.A. criteria. Neutrophils (Bld) [#/Vol] 4.1 10*3/uL 2.0-7.7 [facility] Neutrophils/100 WBC (Bld) 73.8 % 47-70 [facility] Potassium [Moles/Vol] 3.9 mmol/L 3.5-5.1 [facility] Protein [Mass/Vol] 7.4 g/dL 6.4-8.2 [facility] Sodium [Moles/Vol] 138 mmol/L 136-145 [facility] Triglyceride [Mass/Vol] 89 mg/dL <199 [facility] Comment on above: The drugs N-Acetylcy steine and Metamizole may falsely depress this assay.Serum Triglycerides Reference Interval Normal <150 mg/dL Borderline high 150 - 199 mg/dL High 200 - 499 mg/dL Very High > or = 500 mg/dL WBC (Bld) [#/Vol] 5.6 10*3/uL 4.4-11.0 [facility] Blood erythrocytes count (nu mber/volume)Ordered By: Dr. Smith on 01-10-2023 RBC (Bld) [#/Vol] 5.19 10*6/uL 4.6-6.2 [facility] Blood hemoglobin measurement (mass/volume)Ordered By: Dr. Smith on 01-10-2023 Hemoglobin (Bld) [Mass/Vol] 16.6 g/dL 13.0-16.5 [facility] Blood lymphocytes/100 leukoc ytesOrdered By: Dr. Smith on 01-10-2023 Lymphocytes/100 WBC (Bld) 17.2 % 19-41 [facility] Blood monocytes/100 leukocyt esOrdered By: Dr. Smith on 01-10-2023 Monocytes/100 WBC (Bld) 6.3 % 0-10 [facility] Blood platelet mean volumeOr dered By: Dr. Smith on 01-10-2023 Platelet mean volume (Bld) [Entitic vol] 10.6 fL 6.2-12.0 [facility] Determination of erythrocyte mean corpuscular volume (MCV)Ordered By: Dr. Smith on 01-10-2023 MCV (RBC) [Entitic vol] 96.7 fL 80-94 [facility] Hematocrit Auto (Bld) [Volum e fraction]Ordered By: Dr. Smith on 01-10-2023 Hematocrit (Bld) [Volume fraction] 50.2 % 40-54 [facility] - Chemistry and C hemistry - challengeOrdered By: Dr. Smith on 01-10-2023 ALP [Catalytic activity/Vol] 80 U/L 45-117 [facility] ALT [Catalytic activity/Vol] 25 U/L 16-61 [facility] CO2 [Moles/Vol] 26.0 mmol/L 21.0-32.0 [facility] Globulin (S) [Mass/Vol] 3.7 g/dL 2.2-4.2 [facility] Urea nitrogen/Creatinine [Mass ratio] 17.9 mg/mg 10-20 [facility] - Hematology and Cell countsOrdered By: Dr. Smith on 01-10-2023 Erythrocyte distribution width (RBC) [Entitic vol] 46.5 fL 35.1-43.9 [facility] Erythrocyte distribution width (RBC) [Ratio] 13.0 % 11.6-14.6 [facility] Immature granulocytes/100 WBC (Bld) 0.400 % 0.0-0.9 [facility] Comment on above: IG% - Immature Granu locytes (promyelocytes, myelocytes and metamyelocytes) > 1% indicates that a LEFT SHIFT is Present. MCH (RBC) [Entitic mass] 32.0 pg 27.0-32.0 [facility] Nucleated RBC/100 WBC (Bld) [Ratio] 0 % 0-5 [facility] MCHC Auto (RBC) [Mass/Vol]Or dered By: Dr. Smith on 01-10-2023 MCHC (RBC) [Mass/Vol] 33.1 g/dL 32-36 [facility] No Panel InformationOrdered By: Dr. Smith on 01-10-2023 Estimated GFR (MDRD) Amer 106 mL/min >60 [facility] Comment on above: GFR Calc Estimated GFR (MDRD) Non-Af Amer 88 mL/min >60 [facility] Comment on above: Non- GFR Calc Thyroid Stimulating Hormone (TSH) 1.43 uIU/mL 0.358-3.74 [facility] Vitamin D 25-Hydroxy 46.7 ng/mL [facility] Comment on above: Vitamin D 25(OH) Sta tus Range Deficiency <20 ng/mL (50nmol/L) Insufficiency 20 - 30 ng/mL (50 - 75 nmol/L) Sufficiency 30 - 100 ng/mL (75 - 250 nmol/L) Toxicity >100 ng/mL (>250 nmol/L) Platelets bldOrdered By: Dr. Smith on 01-10-2023 Platelets (Bld) [#/Vol] 176 10*3/uL 150-450 [facility] Serum or plasma albumin bienvenido urement (mass/volume)Ordered By: Dr. Smith on 01-10-2023 Albumin [Mass/Vol] 3.7 g/dL 3.2-5.0 [facility] Serum or plasma albumin/glob ulin mass ratioOrdered By: Dr. Smith on 01-10-2023 Albumin/Globulin [Mass ratio] 1.0 {ratio} 0.9-2.4 [facility] Serum or plasma calcium bienvenido urement (mass/volume)Ordered By: Dr. Smith on 01-10-2023 Calcium [Mass/Vol] 8.5 mg/dL 8.5-10.1 [facility] Serum or plasma cholesterol in HDL measurement (mass/volume)Ordered By: Dr. Smith on 01-10-2023 Cholesterol in HDL [Mass/Vol] 40 mg/dL >40 [facility] Comment on above: The drugs N-Acetylcy steine and Metamizole may falsely depress this assay. Reference Range HDL <40 mg/dL Low HDL Cholesterol HDL >or= 60 mg/dL High HDL Cholesterol Serum or plasma cholesterol in VLDL measurement (mass/volume)Ordered By: Dr. Smith on 01-10-2023 Cholesterol in VLDL [Mass/Vol] 18 mg/dL 5-40 [facility] Serum or plasma creatinine m easurement (mass/volume)Ordered By: Dr. Smith on 01-10-2023 Creatinine [Mass/Vol] 0.90 mg/dL 0.70-1.30 [facility] Comment on above: The validity of the calculated GFR & GFRAA in patients over 70 years has not been determined. Clinical correlation is essential. Serum or plasma low density lipoprotein (LDL) cholesterol measurement (mass/volume)Ordered By: Dr. Smith on 01-10-2023 Cholesterol in LDL [Mass/Vol] 173 mg/dL 0-130 [facility] Serum or plasma urea nitroge n measurement (mass/volume)Ordered By: Dr. Smith on 01-10-2023 Urea nitrogen [Mass/Vol] 16 mg/dL 7-18 [facility] Thin prep Papanicolaou smear with manual screeningOrdered By: Dr. Smith on 01-10-2023 Thin prep Papanicolaou smear with manual screening 20 U/L 15-37 [facility] Thin prep Papanicolaou smear with manual screening 4 5-15 [facility] No Panel Informationon 07-13 Prostate Specific Antigen Total < 0.01 ng/mL 0.0-4.0 [facility] Work Phone: Comment on above: This test was perfor med using the TPSA assay method for the[employer] chemistry system. Values obtained with differentassay methods cannot be used interchangably.When changing PSA assays in the course of monitoring apatient, additional sequential testing should be carriedout to confirm baseline values. Absolute lymphocyte counton 07-06-2022 Lymphocytes Auto (Unsp spec) [#/Vol] 1.26 10*3/uL 0.83-4.51 [facility] Work Phone: Basophil percentageon 2021 Basophils/100 WBC (Bld) 0.9 % 0-1 [facility] Work Phone: Bilirubin [Mass/Vol] 0.70 mg/dL 0.20-1.00 [facility] Work Phone: Comment on above: For patients on eltr ombopag therapy, use of Dimension [place] TBIL is not recommended. Chloride [Moles/Vol] 108 mmol/L 98-107 [facility] Work Phone: Eosinophils/100 WBC (Bld) 1.3 % 0-5 [facility] Work Phone: Glucose [Mass/Vol] 84 mg/dL 74-106 [facility] Work Phone: Neutrophils (Bld) [#/Vol] 3.6 10*3/uL 2.0-7.7 [facility] Work Phone: Neutrophils/100 WBC (Bld) 67.0 % 47-70 [facility] Work Phone: Potassium [Moles/Vol] 4.3 mmol/L 3.5-5.1 [facility] Work Phone: Protein [Mass/Vol] 7.1 g/dL 6.4-8.2 [facility] Work Phone: Sodium [Moles/Vol] 143 mmol/L 136-145 [facility] Work Phone: WBC (Bld) [#/Vol] 5.4 10*3/uL 4.4-11.0 [facility] Work Phone: Blood erythrocytes count (nu mber/volume)on 07-06-2022 RBC (Bld) [#/Vol] 5.15 10*6/uL 4.6-6.2 [facility] Work Phone: Blood hemoglobin measurement (mass/volume)on 07-06-2022 Hemoglobin (Bld) [Mass/Vol] 16.7 g/dL 13.0-16.5 [facility] Work Phone: Blood lymphocytes/100 leukoc yteson 07-06-2022 Lymphocytes/100 WBC (Bld) 23.5 % 19-41 [facility] Work Phone: Blood monocytes/100 leukocyt eson 07-06-2022 Monocytes/100 WBC (Bld) 6.9 % 0-10 [facility] Work Phone: Blood platelet mean volumeon 07-06-2022 Platelet mean volume (Bld) [Entitic vol] 10.2 fL 6.2-12.0 [facility] Work Phone: Determination of erythrocyte mean corpuscular volume (MCV)on 07-06-2022 MCV (RBC) [Entitic vol] 99.8 fL 80-94 [facility] Work Phone: Hematocrit Auto (Bld) [Volum e fraction]on 07-06-2022 Hematocrit (Bld) [Volume fraction] 51.4 % 40-54 [facility] Work Phone: Laboratory - Chemistry and C hemistry - challengeon 07-06-2022 ALP [Catalytic activity/Vol] 73 U/L 45-117 [facility] Work Phone: ALT [Catalytic activity/Vol] 27 U/L 16-61 [facility] Work Phone: CO2 [Moles/Vol] 30.0 mmol/L 21.0-32.0 [facility] Work Phone: Globulin (S) [Mass/Vol] 3.6 g/dL 2.2-4.2 [facility] Work Phone: Urea nitrogen/Creatinine [Mass ratio] 16.5 mg/mg 10-20 [facility] Work Phone: Laboratory - Hematology and Cell countson 07-06-2022 Erythrocyte distribution width (RBC) [Entitic vol] 49.5 fL 35.1-43.[facility]: Erythrocyte distribution width (RBC) [Ratio] 13.3 % 11.6-14.6 [facility] Work Phone: Immature granulocytes/100 WBC (Bld) 0.400 % 0.0-0.9 [facility] Work Phone: [phone] Comment on above: IG% - Immature Granu locytes (promyelocytes, myelocytes and metamyelocytes) > 1% indicates that a LEFT SHIFT is Present. MCH (RBC) [Entitic mass] 32.4 pg 27.0-32.0 [facility] Work Phone: [phone] Nucleated RBC/100 WBC (Bld) [Ratio] 0 % 0-5 [facility] Work Phone: [phone] MCHC Auto (RBC) [Mass/Vol]on 07-06-2022 MCHC (RBC) [Mass/Vol] 32.5 g/dL 32-36 [facility] Work Phone: No Panel Informationon 07-06 Estimated GFR (MDRD) Amer 90 mL/min >60 [facility] Work Phone: [phone] Comment on above: GFR Calc Estimated GFR (MDRD) Non-Af Amer 75 mL/min >60 [facility] Work Phone: [phone] Comment on above: Non- GFR Calc Thyroid Stimulating Hormone (TSH) 1.24 uIU/mL 0.358-3.74 [facility] Work Phone: [phone] Vitamin D 25-Hydroxy 35.4 ng/mL [facility] Work Phone: [phone] Comment on above: Vitamin D 25(OH) Sta tus Range Deficiency <20 ng/mL (50nmol/L) Insufficiency 20 - 30 ng/mL (50 - 75 nmol/L) Sufficiency 30 - 100 ng/mL (75 - 250 nmol/L) Toxicity >100 ng/mL (>250 nmol/L) Platelets bldon 07-06-2022 Platelets (Bld) [#/Vol] 187 10*3/uL 150-450 [facility] Work Phone: [phone] Serum or plasma albumin bienvenido urement (mass/volume)on 07-06-2022 Albumin [Mass/Vol] 3.5 g/dL 3.2-5.0 [facility] Work Phone: [phone] Serum or plasma albumin/glob ulin mass ratioon 07-06-2022 Albumin/Globulin [Mass ratio] 1.0 {ratio} 0.9-2.4 [facility] Work Phone: Serum or plasma calcium bienvenido urement (mass/volume)on 07-06-2022 Calcium [Mass/Vol] 8.5 mg/dL 8.5-10.1 [facility] Work Phone: [phone] Serum or plasma creatinine m easurement (mass/volume)on 07-06-2022 Creatinine [Mass/Vol] 1.03 mg/dL 0.70-1.30 [facility] Work Phone: Comment on above: The validity of the calculated GFR & GFRAA in patients over 70 years has not been determined. Clinical correlation is essential. Serum or plasma urea nitroge n measurement (mass/volume)on 07-06-2022 Urea nitrogen [Mass/Vol] 17 mg/dL 7-18 [facility] Work Phone: Thin prep Papanicolaou smear with manual screeningon 07-06-2022 Thin prep Papanicolaou smear with manual screening 12 U/L 15-37 [facility] Work Phone: [phone] Thin prep Papanicolaou smear with manual screening 5 5-15 [facility] Work Phone: No Panel Informationon 01-11 Prostate Specific Antigen Total < 0.01 ng/mL 0.0-4.0 [facility] Work Phone: Comment on above: This test was perfor med using the TPSA assay method [facility]. Values obtained with differentassay methods cannot be used interchangably.When changing PSA assays in the course of monitoring apatient, additional sequential testing should be carriedout to confirm baseline values. Absolute lymphocyte counton 01-05-2022 Lymphocytes Auto (Unsp spec) [#/Vol] 1.36 10*3/uL 0.83-4.51 [facility] Work Phone: Basophil percentageon 2021 Basophils/100 WBC (Bld) 0.8 % 0-1 [facility] Work Phone: Bilirubin [Mass/Vol] 0.40 mg/dL 0.20-1.00 [facility] Work Phone: Comment on above: For patients on eltr ombopag therapy, use of Dimension [place] TBIL is not recommended. Chloride [Moles/Vol] 106 mmol/L 98-107 [facility] Work Phone: Eosinophils/100 WBC (Bld) 2.3 % 0-5 [facility] Work Phone: Glucose [Mass/Vol] 96 mg/dL 74-106 [facility] Work Phone: Neutrophils (Bld) [#/Vol] 3.3 10*3/uL 2.0-7.7 [facility] Work Phone: Neutrophils/100 WBC (Bld) 62.1 % 47-70 [facility] Work Phone: Potassium [Moles/Vol] 4.2 mmol/L 3.5-5.1 [facility] Work Phone: Protein [Mass/Vol] 7.4 g/dL 6.4-8.2 [facility] Work Phone: Sodium [Moles/Vol] 139 mmol/L 136-145 [facility] Work Phone: Testosterone [Mass/Vol] 610.12 ng/dL [facility] Work Phone: Comment on above: CENTRAL 90% REFERENC E RANGES MALE AGE <50 197.44 - 669.58 ng/dL MALE AGE > or = 50 187.72 - 684.19 ng/dL FEMALE AGE <50 8.38 - 35.01 ng/dL FEMALE AGE > or = 50 <7.00 - 35.92 ng/dL Effective as of 03/02/21 WBC (Bld) [#/Vol] 5.3 10*3/uL 4.4-11.0 [facility] Work Phone: Blood erythrocytes count (nu mber/volume)on 01-05-2022 RBC (Bld) [#/Vol] 5.04 10*6/uL 4.6-6.2 [facility] Work Phone: Blood hemoglobin measurement (mass/volume)on 01-05-2022 Hemoglobin (Bld) [Mass/Vol] 16.4 g/dL 13.0-16.5 [facility] Work Phone: Blood lymphocytes/100 leukoc yteson 01-05-2022 Lymphocytes/100 WBC (Bld) 25.6 % 19-41 [facility] Work Phone: [phone] Blood monocytes/100 leukocyt eson 01-05-2022 Monocytes/100 WBC (Bld) 9.0 % 0-10 [facility] Work Phone: Blood platelet mean volumeon 01-05-2022 Platelet mean volume (Bld) [Entitic vol] 9.7 fL 6.2-12.0 [facility] Work Phone: Determination of erythrocyte mean corpuscular volume (MCV)on 01-05-2022 MCV (RBC) [Entitic vol] 96.6 fL 80-94 [facility] Work Phone: Hematocrit Auto (Bld) [Volum e fraction]on 01-05-2022 Hematocrit (Bld) [Volume fraction] 48.7 % 40-54 [facility] Work Phone: Laboratory - Chemistry and C hemistry - challengeon 01-05-2022 ALP [Catalytic activity/Vol] 81 U/L 45-117 [facility] Work Phone: ALT [Catalytic activity/Vol] 28 U/L 16-61 [facility] Work Phone: CO2 [Moles/Vol] 27.0 mmol/L 21.0-32.0 [facility] Work Phone: Globulin (S) [Mass/Vol] 3.9 g/dL 2.2-4.2 [facility] Work Phone: [phone] Urea nitrogen/Creatinine [Mass ratio] 14.7 mg/mg 10-20 [facility] Work Phone: [phone] Laboratory - Hematology and Cell countson 01-05-2022 Erythrocyte distribution width (RBC) [Entitic vol] 46.0 fL 35.1-43.9 [facility] Work Phone: [phone] Erythrocyte distribution width (RBC) [Ratio] 13.1 % 11.6-14.6 [facility] Work Phone: [phone] Immature granulocytes/100 WBC (Bld) 0.200 % 0.0-0.9 [facility] Work Phone: [phone] Comment on above: IG% - Immature Granu locytes (promyelocytes, myelocytes and metamyelocytes) > 1% indicates that a LEFT SHIFT is Present. MCH (RBC) [Entitic mass] 32.5 pg 27.0-32.0 [facility] Work Phone: [phone] Nucleated RBC/100 WBC (Bld) [Ratio] 0 % 0-5 [facility] Work Phone: [phone] MCHC Auto (RBC) [Mass/Vol]on 01-05-2022 MCHC (RBC) [Mass/Vol] 33.7 g/dL 32-36 [facility] Work Phone: No Panel Informationon 01-05 Estimated GFR (MDRD) Amer 91 mL/min >60 [facility] Work Phone: [phone] Comment on above: GFR Calc Estimated GFR (MDRD) Non-Af Amer 76 mL/min >60 [facility] Work Phone: [phone] Comment on above: Non- GFR Calc Thyroid Stimulating Hormone (TSH) 1.54 uIU/mL 0.358-3.74 [facility] Work Phone: [phone] Vitamin D 25-Hydroxy 37.9 ng/mL [facility] Work Phone: [phone] Comment on above: Vitamin D 25(OH) Sta tus Range Deficiency <20 ng/mL (50nmol/L) Insufficiency 20 - 30 ng/mL (50 - 75 nmol/L) Sufficiency 30 - 100 ng/mL (75 - 250 nmol/L) Toxicity >100 ng/mL (>250 nmol/L) Platelets bldon 01-05-2022 Platelets (Bld) [#/Vol] 203 10*3/uL 150-450 [facility] Work Phone: Serum or plasma albumin bienvenido urement (mass/volume)on 01-05-2022 Albumin [Mass/Vol] 3.5 g/dL 3.2-5.0 [facility] Work Phone: Serum or plasma albumin/glob ulin mass ratioon 01-05-2022 Albumin/Globulin [Mass ratio] 0.9 {ratio} 0.9-2.4 [facility] Work Phone: Serum or plasma calcium bienvenido urement (mass/volume)on 01-05-2022 Calcium [Mass/Vol] 8.5 mg/dL 8.5-10.1 [facility] Work Phone: Serum or plasma creatinine m easurement (mass/volume)on 01-05-2022 Creatinine [Mass/Vol] 1.02 mg/dL 0.70-1.30 [facility] Work Phone: Comment on above: The validity of the calculated GFR & GFRAA in patients over 70 years has not been determined. Clinical correlation is essential. Serum or plasma urea nitroge n measurement (mass/volume)on 01-05-2022 Urea nitrogen [Mass/Vol] 15 mg/dL 7-18 [facility] Work Phone: Thin prep Papanicolaou smear with manual screeningon 01-05-2022 Thin prep Papanicolaou smear with manual screening 16 U/L 15-37 [facility] Work Phone: [phone] Thin prep Papanicolaou smear with manual screening 6 5-15 [facility] Work Phone: Absolute lymphocyte counton 08-05-2021 Lymphocytes Auto (Unsp spec) [#/Vol] 1.19 10*3/uL 0.83-4.51 [facility] Work Phone: Basophil percentageon 2020 Bilirubin [Mass/Vol] 0.70 mg/dL 0.20-1.00 [facility] Work Phone: Comment on above: For patients on eltr ombopag therapy, use of Dimension [place] TBIL is not recommended. Chloride [Moles/Vol] 108 mmol/L 98-107 [facility] Work Phone: Eosinophils/100 WBC (Bld) 2.5 % 0-5 [facility] Work Phone: [phone] Glucose [Mass/Vol] 95 mg/dL 74-106 [facility] Work Phone: Comment on above: Please note revised GLUCOSE reference range effective 2017. Neutrophils (Bld) [#/Vol] 3.8 10*3/uL 2.0-7.7 [facility] Work Phone: Potassium [Moles/Vol] 3.9 mmol/L 3.5-5.1 [facility] Work Phone: Protein [Mass/Vol] 7.6 g/dL 6.4-8.2 [facility] Work Phone: Sodium [Moles/Vol] 141 mmol/L 136-145 [facility] Work Phone: WBC (Bld) [#/Vol] 5.7 10*3/uL 4.4-11.0 [facility] Work Phone: Blood erythrocytes count (nu mber/volume)on 08-05-2021 RBC (Bld) [#/Vol] 5.35 10*6/uL 4.6-6.2 [facility] Work Phone: Blood hemoglobin measurement (mass/volume)on 08-05-2021 Hemoglobin (Bld) [Mass/Vol] 17.2 g/dL 13.0-16.5 [facility] Work Phone: Blood lymphocytes/100 leukoc yteson 12-30-2021 Lymphocytes/100 WBC (Bld) 20.9 % 19-41 [facility] Work Phone: Blood monocytes/100 leukocyt eson 08-05-2021 Monocytes/100 WBC (Bld) 8.1 % 0-10 [facility] Work Phone: Blood platelet mean volumeon 08-05-2021 Platelet mean volume (Bld) [Entitic vol] 10.2 fL 6.2-12.0 [facility] Work Phone: Determination of erythrocyte mean corpuscular volume (MCV)on 08-05-2021 MCV (RBC) [Entitic vol] 95.0 fL 80-94 [facility] Work Phone: Hematocrit Auto (Bld) [Volum e fraction]on 08-05-2021 Hematocrit (Bld) [Volume fraction] 50.8 % 40-54 [facility] Work Phone: Laboratory - Chemistry and C hemistry - challengeon 08-05-2021 ALP [Catalytic activity/Vol] 82 U/L 45-117 [facility] Work Phone: ALT [Catalytic activity/Vol] 34 U/L 16-61 [facility] Work Phone: CO2 [Moles/Vol] 28.0 mmol/L 21.0-32.0 [facility] Work Phone: Globulin (S) [Mass/Vol] 4.1 g/dL 2.2-4.2 [facility] Work Phone: Urea nitrogen/Creatinine [Mass ratio] 17.3 mg/mg 10-20 [facility] Work Phone: Laboratory - Hematology and Cell countson 08-05-2021 Basophils/100 WBC (Unsp spec) 0.7 % 0-1 [facility] Work Phone: Erythrocyte distribution width (RBC) [Entitic vol] 45.3 fL 35.1-43.9 [facility] Work Phone: Erythrocyte distribution width (RBC) [Ratio] 13.0 % 11.6-14.6 [facility] Work Phone: Immature granulocytes/100 WBC (Bld) 0.400 % 0.0-0.9 [facility] Work Phone: Comment on above: IG% - Immature Granu locytes (promyelocytes, myelocytes and metamyelocytes) > 1% indicates that a LEFT SHIFT is Present. MCH (RBC) [Entitic mass] 32.1 pg 27.0-32.0 [facility] Work Phone: Neutrophils/100 WBC (Bld) 67.4 % 47-70 [facility] Work Phone: Nucleated RBC/100 WBC (Bld) [Ratio] 0 % 0-5 [facility] Work Phone: [phone] MCHC Auto (RBC) [Mass/Vol]on 08-05-2021 MCHC (RBC) [Mass/Vol] 33.9 g/dL 32-36 [facility] Work Phone: No Panel Informationon 08-05 Estimated GFR (MDRD) Amer 102 mL/min >60 [facility] Work Phone: Comment on above: GFR Calc Estimated GFR (MDRD) Non-Af Amer 85 mL/min >60 [facility] Work Phone: Comment on above: Non- GFR Calc Thyroid Stimulating Hormone (TSH) 1.42 uIU/mL 0.358-3.74 [facility] Work Phone: Vitamin D 25-Hydroxy 32.1 ng/mL [facility] Work Phone: [phone] Comment on above: Vitamin D 25(OH) Sta tus Range Deficiency <20 ng/mL (50nmol/L) Insufficiency 20 - 30 ng/mL (50 - 75 nmol/L) Sufficiency 30 - 100 ng/mL (75 - 250 nmol/L) Toxicity >100 ng/mL (>250 nmol/L) Platelets bldon 08-05-2021 Platelets (Bld) [#/Vol] 188 10*3/uL 150-450 [facility] Work Phone: Serum or plasma albumin bienvenido urement (mass/volume)on 08-05-2021 Albumin [Mass/Vol] 3.5 g/dL 3.2-5.0 [facility] Work Phone: [phone] Serum or plasma albumin/glob ulin mass ratioon 08-05-2021 Albumin/Globulin [Mass ratio] 0.9 {ratio} 0.9-2.4 [facility] Work Phone: Serum or plasma calcium bienvenido urement (mass/volume)on 08-05-2021 Calcium [Mass/Vol] 9.1 mg/dL 8.5-10.1 [facility] Work Phone: Serum or plasma creatinine m easurement (mass/volume)on 08-05-2021 Creatinine [Mass/Vol] 0.93 mg/dL 0.70-1.30 [facility] Work Phone: Comment on above: The validity of the calculated GFR & GFRAA in patients over 70 years has not been determined. Clinical correlation is essential. Serum or plasma urea nitroge n measurement (mass/volume)on 08-05-2021 Urea nitrogen [Mass/Vol] 16 mg/dL 7-18 [facility] Work Phone: Thin prep Papanicolaou smear with manual screeningon 08-05-2021 Thin prep Papanicolaou smear with manual screening 17 U/L 15-37 [facility] Work Phone: Thin prep Papanicolaou smear with manual screening 5 5-15 [facility] Work Phone: Vital Signs Date Time Vital Sign Value Performing Clinician Faci lity 10-10-2023 14:08-0500 Body temperature 98.4 [degF] Dr. Eric Smith Work Phone: [facility] 10-10-2023 14:08-0500 Body weight 103.[address] Eric Smith Work Phone: [facility] 10-10-2023 14:08-0500 Diastolic blood pressure 72 mm[Hg] Dr. Eric Smith Work Phone: [facility] 10-10-2023 14:08-0500 Heart rate 74 /min Dr. Eric Smith Work Phone: [facility] 10-10-2023 14:08-0500 Respiratory rate 16 /min Dr. Eric Smith Work Phone: [facility] 10-10-2023 14:08-0500 SaO2% (BldA) [Mass fraction] 97 % Dr. Eric Smith Work Phone: [facility] 10-10-2023 14:08-0500 Systolic blood pressure 131 mm[Hg] Dr. Eric Smith Work Phone: [facility] 12-05-2022 13:25-0400 Body height 185.[address] Eric Smith Work Phone: [facility] 12-05-2022 13:25-0400 Body mass index (BMI) [Ratio] 30.2 kg/m2 Dr. Eric Smith Work Phone: [facility] 12-05-2022 13:25-0400 Body weight 103.[address] Eric Smith Work Phone: [facility] Encounters Encounter Date Encounter Type Care Provider Facility Start: 06-05-2025 ambulatory [facility] Facility: [facility] Start: 05-21-2025 End: 05-21-2025 ambulatory [facility] Facility:[facility] Start: 05-15-2025 ambulatory Eric Chi Luis Facility:[facility] Start: 05-02-2025 End: 05-02-2025 ambulatory Eric Chi Luis Facility:[facility] Start: 04-25-2025 End: 04-25-2025 ambulatory Eric Chi Luis Facility:[facility] Start: 04-21-2025 End: 04-21-2025 ambulatory Eric Chi Luis Facility:[facility] Start: 04-18-2025 End: 04-18-2025 ambulatory [facility] Facility:[facility] Start: 04-11-2025 End: 04-11-2025 ambulatory [facility] Facility:[facility] Start: 01-23-2025 End: 01-23-2025 ambulatory Yancy Fulshear Facility:[facility] Start: 01-21-2025 End: 01-21-2025 ambulatory Eric Chi Luis Facility:[facility] Start: 01-09-2025 End: 01-09-2025 ambulatory Eric Chi Luis Facility:[facility] Start: 12-26-2024 End: 12-26-2024 ambulatory Eric Chi Luis Facility:[facility] Start: 12-17-2024 End: 12-17-2024 ambulatory Eric Chi Luis Facility:[facility] Start: 08-12-2024 End: 08-12-2024 ambulatory Eric Chi Luis Facility:[facility] Start: 07-19-2024 End: 07-19-2024 ambulatory Eric Chi Luis Facility:[facility] Start: 10-20-2023 End: 10-20-[address] Eric Smith Work Phone: [facility] Work Phone: Start: 10-20-2023 End: 10-20-[address] Eric Smith Work Phone: [facility] Work Phone: Start: 10-10-2023 End: 10-10-[address] Eric Smith Work Phone: [facility] Work Phone: Start: 10-06-2023 Non-patient / Non-visit Dr. Zander Smith Work Phone: [facility] Start: 10-06-2023 End: 10-06-[address] Eric Smith Work Phone: [facility] Work Phone: Start: 10-06-2023 End: 10-06-[address] Eric Smith Work Phone: [facility] Work Phone: Start: 10-02-2023 End: 10-02-2023 ambulatory [facility] Work Phone: Start: 10-02-2023 End: 10-02-2023 Patient encounter procedure [facility], [facility] Work Phone: Start: 09-25-2023 End: 09-25-2023 ambulatory [facility] Work Phone: Start: 09-25-2023 End: 09-25-2023 [facility] Start: 07-17-2023 End: 07-17-2023 ambulatory [facility] Work Phone: Start: 07-17-2023 End: 07-17-2023 [facility] Office [address] [place] [address] Start: 07-14-2023 End: 07-14-2023 ambulatory [facility] Work Phone: Start: 07-14-2023 End: 07-14-2023 Patient encounter procedure [facility] Work Phone: Start: 01-16-2023 End: 01-16-[address] Eric Smith Work Phone: [facility] Work Phone: Start: 01-16-2023 End: 01-16-[address] [facility] [place] Start: 01-10-2023 End: 01-10-[address] Eric Smith Work Phone: [facility] Work Phone: Start: 01-10-2023 End: 01-10-[address] [facility] Start: 12-05-2022 End: 12-05-[address] Eric Smith Work Phone: [facility] Start: 11-15-2022 Non-patient / Non-visit Dr. Zander Smith Work Phone: [facility] Start: 11-15-2022 End: 11-15-[address] [facility] Start: 08-02-2022 End: 08-02-2022 ambulatory [facility] Work Phone: Start: 08-02-2022 End: 08-02-2022 Patient encounter procedure [facility] Start: 07-13-2022 End: 07-13-2022 [facility] Start: 07-06-2022 End: 07-06-2022 ambulatory [facility] Work Phone: Start: 07-06-2022 End: 07-06-2022 [facility] Start: 04-12-2022 End: 04-12-2022 ambulatory [facility] Work Phone: Start: 04-12-2022 End: 04-12-2022 Patient encounter procedure [facility] Start: 01-11-2022 End: 01-11-2022 [facility] Start: 01-05-2022 End: 01-05-2022 [facility] Start: 08-05-2021 [facility] Procedures Date Procedure Procedure Detail Performing Clinician Start: 10-02-2023 Radiography of esophagus Start: 12-05-2022 X-ray of lumbar spin e, two or three views Dr. Eric Smith Work Phone: Start: 08-02-2022 Radiography of esophagus Start: 04-12-2022 X-ray of lumbar spin e, two or three views Plan of Treatment Date Care Activity Detail Author Start: 12-05-2022 Patient referral [facility] Work Phone: Patient referral [facility] Work Phone: US.[email or web address] Lower ext remity vessels [facility] Immunizations Immunization Date Immunization Notes Care Provider Fa cility 10-29-2020 Covid (Pfizer) [facility] 10-08-2020 Covid (Pfizer) [facility] 05-07-2019 Influenza virus vaccine [facility] 04-17-2018 Shingrix (PF) 50 mcg /0.5 mL intramuscular suspension, kit (varicella-zoster [facility] Work Phone: Payers Date Payer Category Payer Self-pay [id number] 2015 Private Health Insurance [id number] 2011 Medicare [id number] Unknown [id number] 2.16.8 [id number] Unknown [id number] 2.16.8 [id number] Unknown [id number] 2.16.8 [id number] Unknown [id number] 2.16.8 [id number] Unknown [id number] 2.16.8 [id number] Unknown [id number] 2.16.8 [id number] Unknown [id number] 2.16.8 [id number] Unknown [id number] 2.16.8 [id number] Unknown [id number] 2.16.8 [id number] Unknown [id number] 2.16.8 [id number] Unknown [id number] 2.16.8 [id number] Unknown [id number] 2.16.8 [id number] Unknown [id number] 2.16.8 [id number] Unknown [id number] 2.16.8 [id number] Unknown [id number] 2.16.8 [id number] Social History Date Type Detail Facility Start: 10-21-2020 End: 12-05-2022 Tobacco smoking status IDIS Unknown if ever smoked [facility] Start: 10-21-2020 None [facility] Start: 10-21-2020 Spouse/ Signif icant Other [facility] Start: 10-21-2020 Non-smoker [facility] Start: 1945 Sex Assigned At Male [facility] Medical Equipment Procedure Code Equipment Code Equipment Origin al Text Equipment Identifier Dates RAYRAY MIR LG FDA Start: 01-01-2020 RAYRAY MIR LG FDA Start: 01-01-2020 RAYRAY MIR LG FDA Start: 01-01-2020 RAYRAY MIR FDA Start: 01-01-2020 RAYRAY MIR FDA Start: 01-01-2020 RAYRAY MIR FDA Start: 01-01-2020 ADEOLAHEMALVINO NUÑEZ FDA Start: 01-01-2020 RAYRAY MIR FDA Start: 01-01-2020 SEALANT,FLOSEAL HEMOSTATIC 5ML FDA Start: 01-01-2020 RAYRAY MIR LG FDA Start: 01-01-2020 ADEOLAHEMALVINO NUÑEZ FDA Start: 01-01-2020 ADEOLACHRISTYALVINO NUÑEZ FDA Start: 01-01-2020 RAYRAY MIR FDA Start: 01-01-2020 RAYRAY MIR FDA Start: 01-01-2020 RAYRAY MIR FDA Start: 01-01-2020 CLIP,HEMOLOCK ME Ceferino POLLOCKCHERYL FDA Start: 01-01-2020 CLIP,HEMOLOCK ME [...] 01-01-2020 CLIP,HEMOLOCK TYLER JOAQUIN FDA Start: 01-01-2020 CLIP,HEMOLOCHERYL [place] PHILLCHERYL FDA Start: 01-01-2020 CLIP,HEMOLOCHERYL LOPEZ Ceferino POLLOCKCHERYL FDA Start: 01-01-2020 CLIP,HEMOLOCK ME Ceferino NUÑEZ FDA Start: 01-01-2020 CLIP,HEMOLOCHERYL NUÑEZ FDA Start: 01-01-2020 CLIP,HEMOLOCHERYL NUÑEZ FDA Start: 01-01-2020 SEALANT,FLOSEAL HEMOSTATIC 5ML [...] JOAQUIN FDA Start: 01-01-2020 CLIP,HEMOLOCK ME Ceferino POLLOCKCHERYL FDA Start: 01-01-2020 SEALANT,FLOSEAL HEMOSTATIC 5ML FDA [...] TYLER NUÑEZ FDA Start: 01-01-2020 CLIP,HEMOLOCK ME Ceferino POLLOCKCHERYL FDA Start: 01-01-2020 CLIP,HEMOLOCK Ceferino NUÑEZ FDA Start: 01-01-2020 CLIP,HEMOLOCK D PHILLCHERYL FDA Start: 01-01-2020 CLIP,HEMOLOCK ME Ceferino NUÑEZ FDA Start: 01-01-2020 CLIP,HEMOLOCK ME Ceferino NUÑEZ FDA Start: 01-01-2020 SEALANT,FLOSEAL HEMOSTATIC 5ML FDA Start: 01-01-2020 CLIP,HEMOLOCK TYLER PHILLCHERYL FDA Start: 01-01-2020 CLIP,HEMOLOCK TYLER JOAQUIN FDA Start: 01-01-2020 CLIP,HEMOLOCK TYLER PHILLCHERYL FDA Start: 01-01-2020 CLIP,HEMOLOCK ME Ceferino [...] JOAQUIN FDA Start: 01-01-2020 CLIP,HEMOLOCK ME Ceferino POLLOCKCHERYL FDA Start: 01-01-2020 RAYRAY MIR FDA Start: 01-01-2020 CLIPHEMOLOCHERYL NUÑEZ FDA Start: 01-01-2020 RAYRAY MIR FDA Start: 01-01-2020 SEALANT,FLOSEAL HEMOSTATIC 5ML FDA Start: 01-01-2020 Goals Date Patient Goal Desired Activity /State Clinical Note 05-30-2025 Note Date & Type Note Facility 05-30-2025 Note [facility] Medical Records Department [address] [place] [address] History Physical Exam 05/30/25 1256 MR#: [id number] Acct: [id number] Name: BRENNAN LUIS Rep #: [id number] : [id number] 80 From: Sergio Soni MD PCP: Dr. Eric Smith MD [place] [facility] [place] [facility] [place] - General General Date of Admission: 05/21/25 Date of Service: 05/21/25 HPI Narrative BRENNAN LUIS, is a 80 M who presents to hospital to laser stone in the proximal left ureter. Ct scan done has stone in ureter, not dicated on radiology report, 2nd review found stone so plan to laser stone and place stent. [facility] Medical History Wears hearing aid Wears glasses Cancer Depression Anxiety Gout Blood urine DVT (deep venous thrombosis) Back pain Difficulty swallowing History of hiatal hernia Gastric reflux Non-smoker History of pain when walking Cardiology follow-up encounter Polyneuropathy Peripheral vascular disease Hyperglycemia Chest pain DDD (degenerative disc disease), lumbar Vitamin D deficiency High cholesterol Arthritis Home Medications ???Medication ???Instructions ???Recorded ???Last Taken ???Type allopurinol 300 mg tablet 300 mg PO DAILY GOUT 10/29/1510/05 21:30 History ascorbic acid (vitamin C) 1,000 mg 1 g PO DAILY 12/05/22 05/20/25 H istory capsule lactobacillus combination no.9 4 6,000 mmu cells PO DAILY 12/05/22 05/20/25 History billion cell capsule (Adult 50 Plus Probiotic) mecobalamin (vitamin B12) 1,000 1,000 mcg PO DAILY 12/05/22 History mcg chewable tablet (B12 Active) cholecalciferol (vitamin D3) 50 50 mcg PO DAILY 04/17/25 05/20/25 History mcg (2,000 unit) capsule (Vitamin D3) green tea extract 500 mg capsule 500 mg PO DAILY 04/17/25 05/20/25 History apixaban 2.5 mg tablet (Eliquis) 2.5 mg PO BID 05/14/25 05/17/25 Hi story ciprofloxacin HCl 500 mg tablet 500 mg PO BID #6 tabs 05/21/25 Unk nown Rx (Cipro) oxycodone 5 mg tablet 5 mg PO Q6H PRN pain 7 days #10 Unknown Rx tabs Allergy/AdvReac Type Severity Reaction Status Date / Time celecoxib (From Celebrex) AdvReac Intermediate Other Verified 05/21/25 08:47 Family History Other CAD (coronary artery disease) Surgical History History of cystoscopy History of surgery Hx of right cataract extraction Hx of left cataract extraction Hx of colonoscopy Hx of arthroscopy of shoulder Hx of arthroscopy of shoulder Hx of tonsillectomy Hx of radical prostatectomy History of melanoma excision Social History Smoking Status: Never smoker alcohol intake: never substance use type: does not use what type of physical activity do you participate in: walking and weight training frequency: 5-6 times per week Vital Signs Vital Signs Vital Signs: Weight Weight: 102 kg Body Mass Index (BMI) 29.6 Assessment Plan Assessment/Plan (1) Stone in kidney: PLAN: left proximal ureteral stone. 05/30/25 1257 Cosigner Signature (if applicable): CC: Dr. Sergio Soni MD; Dr. Eric Smith MD Signed [facility] Evaluation note Note Date & Type Note Facility Evaluation note No assessment information availa [facility] Work Phone: Evaluation note Note Date & Type Note Facility Evaluation note Diagnosis Onset Date Post laminectomy syndrome ac svitlana DDD (degenerative disc disease), lumbar chronic [facility] Work Phone: Evaluation note Note Date & Type Note Facility Evaluation note Diagnosis Onset Date Venous insufficiency (chronic) (peripheral) chronic [facility] Work Phone: Family History No Family History [...] Yes October 21, 2020 2:11pm Power of Rn Clinical Documentation Specialist Yes October 21 2:11pm Advance Directive Response Recorded Date/ Time Living Will Yes October 21, 2020 1:11pm Power of Rn Clinical Documentation Specialist Yes October 21 1:11pm Advance Directive Response Recorded Date/ Time Living Will Yes November 29, 2022 2:25pm Power of Rn Clinical Documentation Specialist Yes November 29 2:25pm Advance Directive Response Recorded Date/ Time Advance Directives Yes October 28, 2 016 1:58pm Living Will Yes November 29, 2022 1:25pm Power of Rn Clinical Documentation Specialist Yes November 29 1:25pm Advance Directive Response Recorded Date/ Time Advance Directives Yes October 28, 2 016 2:58pm Living Will Yes November 29, 2022 2:25pm Power of Rn Clinical Documentation Specialist Yes November 29 2:25pm Chief Complaint and [...] ized section and content) DATE CREATED AUTHOR 06/07/2025 [facility] FOR RECORDS PERTAINING TO PATIENTS WHO [...] BE BASED ON THE PRIMARY CLINICAL RECORDS. [employer] provides no warranty or guarantee of the accuracy or completeness of information in this document.
--- NOTE | 2025-07-30 07:52 | MRI_ITS ---
PROCEDURE: UPPER EXT JOINT ONLY(ROUTINE) 07/30/2025 REASON FOR EXAM: SPRAIN OF RIGHT SHOULDER JOINT, INITIAL ENCOUNTER TECHNIQUE: Procedure Code: MRIUEJ Modality: MR Procedure: UPPER EXT JOINT ONLY(ROUTINE) Multiplanar and multisequence images were obtained without IV contrast administration. COMPARISON: COMPARISON: FINDINGS: Rotator cuff: Atrophy and fatty replacement in the teres minor muscle. No other rotator cuff muscle atrophy. Rotator cuff and long biceps tendinosis. No long biceps tendon tear, subluxation without definite tear, retraction or tenosynovitis. Labrum: No anterior or posterior labral tear. No inferior labral tear. Mild undermining of the anterior aspect of the superior chondral labral junction. Bones and soft tissues: Mild subacromial/subdeltoid bursitis. Moderate AC joint arthrosis. Type 1 acromion. Small glenohumeral joint effusion. Degenerative signal changes in the superior glenoid, with overlying chondral thinning and irregularity possibly to bone along both surfaces of the glenohumeral joint. MRI/Upper Ext Joint Only(Routine) IMPRESSION: Rotator cuff and long biceps tendinosis. Mild undermining of the anterior aspect of the superior chondral labral junctio n. Small glenohumeral joint effusion with chondral degeneration along both surface s. Degenerative signal in the superior glenoid. Moderate AC joint arthrosis. Mild subacromial/subdeltoid bursitis. Atrophy of the teres minor muscle, without axillary nerve compressive lesion vi sualized. Reading Location: [facility]
== END | disposition home or self-care (01) ==
LOC: OPMRI 07:49
PROVIDERS: PCP Family Medicine Geriatric Medicine; Referring Provider Physician Assistant Surgical; Visit Provider Physician Assistant Surgical
DX: S43.491A Other sprain of right shoulder joint, initial encounter (principal); X58.XXXA Exposure to other specified factors, initial encounter
CPT/HCPCS: 73221

== ENCOUNTER → 2025-08-04 | Outpatient (CLI) | payer MEDICARE, OTHER, SELFPAY | END | disposition home or self-care (01) | LOC: POLAB3 14:36 | PROVIDERS: PCP Family Medicine Geriatric Medicine; Visit Provider Family Medicine Geriatric Medicine | DX: R06.2 Wheezing (principal) | CPT/HCPCS: 87631 ==